=== PATIENT | male | born 1940 | race Caucasian/White ===

== ENCOUNTER → 2023-09-16 07:21 | Outpatient (REF) | payer MEDICARE, OTHER, SELFPAY ==
[2023-09-16 08:08] LABS: % Basophils 0.8 % (0-2); % Eosinophils 2.3 % (0-6); % Immature Granulocytes 0.3 % (0-0.5); % Lymphocytes 23.5 % (20.5-51.1); % Neutrophils 59.1 % (42.2-75.2); Absolute Basophils 0.1 10^3/uL (0-0.2); Absolute Eosinophils 0.2 10^3/uL (0-0.7); Absolute Lymphocytes 1.8 10^3/uL (1.2-3.4); Absolute Monocytes 1.1 10^3/uL (0.1-0.6); Absolute Neutrophils 4.6 10^3/uL (1.4-6.5); Hematocrit 42.6 % (39.0-52.0); Hemoglobin 13.5 g/dL (13.0-18.0); Mean Corp Hgb Conc. 31.7 g/dL (33.0-37.0); Mean Corpuscular Hgb 26.6 pg (27.0-31.0); Mean Platelet Volume 9.1 fL (7.4-10.4); Nucleated Red Blood Cells % 0 % (-); Platelet Count 255 10^3/uL (130-400); Red Blood Cell Count 5.07 10^6/uL (4.70-6.10); Red Cell Dist. Width 15.5 % (11.5-14.5); White Blood Cell Count 7.7 10^3/uL (4.8-10.8)
[2023-09-16 09:26] LABS: ALT (SGPT) < 10 U/L (0-50); AST (SGOT) 25 U/L (17-59); Albumin 4.3 g/dl (3.5-5.0); Alkaline Phosphatase 79 U/L (38-126); Blood Urea Nitrogen 20 mg/dl (9-20); Calcium 9.5 mg/dl (8.4-10.2); Carbon Dioxide 31 mmol/L (22-30); Chloride 98 mmol/L (98-107); Glucose 96 mg/dl (70-99); HDL Cholesterol 49 mg/dl; LDL Cholesterol, Calculated 65 mg/dl; Sodium 138 mmol/L (135-145); Total Bilirubin 0.6 mg/dl (0.2-1.3); Total Cholesterol 133 mg/dl (50-199); Total Protein 7.1 g/dl (6.3-8.2); Triglyceride 97 mg/dl (10-149); Very Low Density Lipoprotein 19 mg/dl (0-30); eGFR > 60.00
[2023-09-16 09:36] LABS: NT-proBNP 1430 pg/ml
== END ==
LOC: REG 07:21
PROVIDERS: ATTENDING PHYSICIAN Internal Medicine
DX: J43.1 Panlobular emphysema (principal); I50.30 Unspecified diastolic (congestive) heart failure; Z00.00 Encounter for general adult medical examination without abnormal findings; Z95.2 Presence of prosthetic heart valve
CPT/HCPCS: 36415; 80053; 80061; 83880; 85025

== ENCOUNTER 2023-11-09 17:13 | Inpatient (IN) | payer MEDICARE, OTHER, SELFPAY ==
[2023-11-09] VITALS (7 sets, daily range): BP systolic 133–179; BP diastolic 74–96; BMI 27.8; BMI 27.0
[2023-11-09 15:37] LABS: Hematocrit 43.7 % (39.0-52.0); Hemoglobin 14.5 g/dL (13.0-18.0); Mean Corp Hgb Conc. 33.2 g/dL (33.0-37.0); Mean Corpuscular Hgb 27.3 pg (27.0-31.0); Mean Corpuscular Volume 82.3 fL (80.0-94.0); Platelet Count 196 10^3/uL (130-400); Red Blood Cell Count 5.31 10^6/uL (4.70-6.10); Red Cell Dist. Width 15.2 % (11.5-14.5); White Blood Cell Count 5.9 10^3/uL (4.8-10.8)
--- NOTE | 2023-11-09 15:37 | ED.GENMED ---
History of Present Illness
General
Chief Complaint: Breathing Problem
Source: patient and family
Exam Limitations: none
Time Seen by Provider: 11/09/23 15:20
Nursing documentation reviewed up to this point in time: agreed with
Travel History
Have you had any contact with someone who has COVID-19?: No
Do you have any symptoms of coronavirus? Fever > 100 degrees, chills, cough, shortness of breath, sore throat, loss of taste or smell, muscle aches, or headache?: No
History of Present Illness
History of Present Illness:
Patient to ED with c/o SOB. Symptoms started yesterday but became worse today. Brought to ED via EMS for eval. Given Duo-neb by EMS. Reports feeling feverish last PM. Denies any CP/pressure, edema. Did not take his PM meds last night.
Past History
Past History
ED Past Medical History: Arrthythmia, CHF, COPD, HTN and Hypercholesterolemia
ED Past Surgical History: Cardiac (pacemaker, valve replacement)
Social History
Tobacco: Former smoker
Alcohol: None
Drug: None
Personal:
Living: with family
Employment: Retired
Review of Systems
Review of Systems
Allergies reviewed?: Yes
All Other Systems: ROS reviewed and negative except as documented in HPI and ROS
Constitutional: Reports no symptoms
EENT: Reports no symptoms
Respiratory: Reports trouble breathing
Cardiac: Reports no symptoms
ABD/GI: Reports no symptoms
: Reports no symptoms
Musculoskeletal: Reports no symptoms
Skin: Reports no symptoms
Neurological: Reports no symptoms
Psychiatric: Reports no symptoms
Phy Exam
General Physical Exam
General Presentation: moderate distress
General age: appears stated age
General Skin: warm and dry
General Habitus: normal
General Mental: alert
Cardiovascular Exam
Cardiovascular Exam: regular rate/rhythm
Pulmonary Exam
Pulmonary Exam: chest non tender and decreased breath sounds
Breath Sounds: Wheeze: right upper and right lower
Musculoskeletal Exam
Musculoskeletal Exam: full ROM and neuro vasc intact
Skin Exam
Skin Exam: normal color, warm/dry and no rash
Psychiatric Exam
Psychiatric Exam: normal mood/affect
Scores
Heart Failure Risk
Heart Failure Risk Score: Yes
History of Stroke or TIA: No
History of intubation for respiratory distress: No
Heart rate on ED arrival >/= 110: Yes
SaO2 <90% on arrival on room air: Yes
HR >/=110 during 3min walk test (or too ill to perform test): Yes
ECG has acute ischemic changes: No
Urea >/=12mmol/L (BUN 33.6mg/dL): No
Serum CO2>/=35mmol/L: No
Troponin I or T elevated to GA Level (0.4mg/dL): No
NT-proBNP >/=5,000ng/L (5,000pg/ml): Yes
HF Risk Score: 4
Admission Status: HIGH RISK 26.1% Consider SNF treatment or admission to hospital
Course
Orders/Labs/Results
Orders:
Orders
11/09/23 Dinner
Cholesterol Lowering
At Your Request: Limited Participation
Does patient need a safe tray?: No
Cholesterol Lowering: Sodium, 2 Gram
11/09/23 15:20
Electrocardiogram (*1) Urgent
Reason for Study: Shortness of Breath
EKG- Treatment ONCE
11/09/23 15:22
Complete Blood Count/With Diff Urgent
Comprehensive Metabolic Panel Urgent
Manual Differential Urgent
NT-proBNP Urgent
11/09/23 15:30
CR Chest - 2 Views Urgent
Comment:
Reason For Exam: SOB
11/09/23 15:36
Albuterol Sulfate [Ventolin Nebules] 7.5 mg INH R NOW STA
Dexamethasone Sod Phosphate [Decadron] 10 mg IV NOW STA
11/09/23 16:22
Furosemide [Lasix] 40 mg IV NOW STA
11/09/23 16:56
Prothrombin Time Urgent
11/09/23 16:59
Admit/Transfer Patient As Directed
Co-Sign Provider:
Level of Care: Inpatient admission
Assign to:: Telemetry
Physician / Group: sydney real
Diagnosis: acute on chronic copd exac, chronic hypoxic resp failure, hypoK
Reason for Telemetry: Arrhythmia
Date to Stop Telemetry: 11/12/23
Time to Stop Telemetry: 11:00
Reason for Hospitalization: acute on chronic copd exac, chronic hypoxic resp failure, hypoK
Expected length of stay greater than two midnights?: Yes
ELOS- Estimated Length of Stay in days: 4
I certify the patient meets the requirements for IP care: Yes
Code Status As Directed
Resuscitation Status: Do not resuscitate
Reached after discussion with pt or family/Healthcare POA: Yes
Based on pt advanced directive or healthcare POA form: Yes
Decision communicated with: per pt demarco son present at bedside
PULMONARY CONSULT Routine
Consulting Provider: Tashi Stoddard
Was physician already notified: Yes
Reason for consult: copd exac
DNR Bracelet Application ONCE
11/09/23 17:05
Potassium Chloride [KCl] 40 meq PO NOW STA
11/09/23 17:46
Acetaminophen [Tylenol] 650 mg PO Q4HPRN PRN
Albuterol Nebs [Ventolin Nebules] 2.5 mg INH R Q4HPRN PRN
11/09/23 17:46
VTE Contraindication Routine
VTE Mechanical Device Contraindication: Medical Contraindication
Pharmocologic Contraindication: Medical Contraindication
Comment: pt on coumadin
Activity As Directed
Activity Level: As Tolerated
Intake/ Output As Directed
Frequency: Per unit guidelines
Vital Signs As Directed
Frequency: Per unit guidelines
Weight As Directed
Frequency: Daily
O2 Therapy [RESP] Routine
Nasal Cannula Liter Flow: 3 LPM
Titrate/Wean O2 to maintain O2 sat greater than (%): 90
Special Instructions: chronic 3 ltiers nc dependent
Pulse Ox/spot Check [RESP] Routine
Quantity: 1
Ot Eval And Treat Routine
Pt Eval And Treat Routine
Activity Level: As Tolerated
11/09/23 18:00
Atorvastatin [Lipitor] 20 mg PO QPM
Flush (0.9% Sodium Chloride) [Flush (Nss)] See Dose Instructions IV PER PROTOCOL
11/09/23 20:00
Albuterol Nebs [Ventolin Nebules] 2.5 mg INH R QID
Fluticasone/Salmeterol 230/21 [Advair Hfa 230/21 Mcg Inhaler] 2 puff INH R BID
11/10/23 00:00
Dexamethasone Sod Phosphate [Decadron] 4 mg IV Q8H
11/10/23 06:00
Basic Metabolic Panel IN AM
Complete Blood Count/With Diff IN AM
PT/INR [Prothrombin Time] IN AM
11/10/23 08:00
Azithromycin [Zithromax] 250 mg PO DAILY
Furosemide [Lasix] 40 mg PO DAILY
Nebivolol HCl [Bystolic] 5 mg PO DAILY
11/11/23 06:00
Basic Metabolic Panel IN AM
Complete Blood Count/With Diff IN AM
PT/INR [Prothrombin Time] IN AM
11/12/23 06:00
Basic Metabolic Panel IN AM
Complete Blood Count/With Diff IN AM
PT/INR [Prothrombin Time] IN AM
11/12/23 11:00
DC Protocol for Telemetry ONCE
Abnormal Lab Results
11/09/23 11/09/23
15:22 16:56
RDW 15.2 H %
(11.5-14.5)
Lymphocytes (Manual) 15 L %
(20-51)
Monocytes (Manual) 25 H %
(2-9)
PT 32.5 H Sec
(11.4-14.6)
Potassium 3.4 L mmol/L
(3.5-5.1)
BUN 22 H mg/dl
(9-20)
Glucose 117 H mg/dl
(70-99)
Calcium 8.2 L mg/dl
(8.4-10.2)
11/09/23 15:22
11/09/23 15:22
Vital Signs
Initial and Last Documented VS:
Initial Vital Signs
Temp Pulse Resp BP Pulse Ox
98.1 F 104 36 173/96 95
11/09/23 15:11 11/09/23 15:11 11/09/23 15:11 11/09/23 15:11 11/09/23 15:11
Last Documented Vital Signs
Temp Pulse Resp BP Pulse Ox
97.9 F 95 18 154/74 97
11/09/23 19:08 11/09/23 19:29 11/09/23 19:29 11/09/23 19:08 11/09/23 19:29
*Radiology
Radiology exam reviewed: radiology read reviewed
*Pulse Oximetry
Patient hypoxic: yes
*Critical Care Note
Total Time (30-74mins, 75-104mins- exclusive of procedures): Not Applicable
ED Attending Note
-
Portions of this chart may have been created with voice recognition software.� Occasional wrong word or��sound alike� substitutions may have occurred due to the inherent limitations of voice recognition software.
Discharge Plan
Departure
Patient Disposition: Admit
Date of Disposition: 11/09/23
Time of Disposition: 16:26
Presentation/result/management discussed w/ accepting MD/DO: Hospitalist
Patient with high blood pressure during this ER visit?: Yes
Condition: Fair
Covid-19: Not Applicable
Discharge Problem:
CHF (congestive heart failure), Chronic obstructive pulmonary disease with (acute) exacerbation
Interventions
Interventions:
*Risk Screen - Suicide Last Done: 11/09/23 15:11
*General Assessment Last Done: 11/09/23 15:11
*Neglect/Abuse Screening Last Done: 11/09/23 15:11
ED- Fall Risk Assessment Last Done: 11/09/23 17:50
*ED COVID-19 Vaccine History Last Done: 11/09/23 19:02
*Nursing Disposition Last Done: 11/09/23 17:50
ED- Cardiac Assessment Last Done: 11/09/23 15:34
ED- Pulmonary Assessment Last Done: 11/09/23 15:34
Discharge Date and Time
Discharge Date/Time: 11/09/23 17:52
[2023-11-09] MEDS: DECADRON 10 MG IV (15:43)
[2023-11-09] MEDS: VENTOLIN NEBULES 7.5 MG INH (15:44)
[2023-11-09 15:58] LABS: NT-proBNP 7460 pg/ml
[2023-11-09 16:06] LABS: ALT (SGPT) < 10 U/L (0-50); AST (SGOT) 31 U/L (17-59); Albumin 3.6 g/dl (3.5-5.0); Alkaline Phosphatase 71 U/L (38-126); Blood Urea Nitrogen 22 mg/dl (9-20); Calcium 8.2 mg/dl (8.4-10.2); Carbon Dioxide 30 mmol/L (22-30); Chloride 100 mmol/L (98-107); Estimated Creatinine Clearance 80 ml/min; Glucose 117 mg/dl (70-99); Potassium 3.4 mmol/L (3.5-5.1); Sodium 138 mmol/L (135-145); Total Bilirubin 0.6 mg/dl (0.2-1.3); Total Protein 6.4 g/dl (6.3-8.2); eGFR > 60.00
[2023-11-09 16:14] LABS: Absolute Neutrophils -Man Diff 3.3 10^3/uL (1.4-6.5); Band Neutrophils 0 % (0-3); Eosinophils 2 % (0-6); Lymphocytes 15 % (20-51); Monocytes 25 % (2-9); Myelocytes 1 % (-); Normal RBC Morphology Yes; Platelets Checked Yes; Segmented Neutrophils 57 % (42-75); Total Cells Counted 100
[2023-11-09] MEDS: LASIX 40 MG IV (16:36)
--- NOTE | 2023-11-09 16:36 | HPS.HSE ---
Family Physician
<STEVE Stoddard - Last Filed: 11/09/23 17:04>
-
Family Physician: Armond Maguire
Chief Complaint
<STEVE Stoddard - Last Filed: 11/09/23 17:04>
-
Shortness of breath
History of Present Illness
83-year-old male complaining of shortness of breath that started yesterday but became worse this a.m. he also complains of a productive cough bo in color and wheezing over the past several days. He forgot to take his evening medications yesterday
including his warfarin 9 mg. His son reports he is on chronic 3 L nasal cannula although he increase it to 4 L over the past few weeks but did not notify his docking pilot Dr. Archuleta. He was given DuoNeb en route by EMS. He is unsure of his
baseline weight. He denies any headache, sore throat, chest pain, palpitations, abdominal pain, nausea, vomiting, diarrhea.
He has past medical history of COPD chronic hypoxic respiratory failure on chronic 3 L nasal cannula, ex-smoker, chronic CHF preserved EF, paroxysmal A-fib, mechanical AVR on Coumadin, LBBB, permanent pacemaker [employer], LISANDRO
Medical History
<STEVE Stoddard - Last Filed: 11/09/23 17:04>
Past Medical History
Past Medical History: Reports Other
Additional Past Medical History:
COPD
Chronic Hypoxemic Respiratory Failure on Home O2
Chronic HFpEF
Hypertension
Aortic Stenosis
Paroxysmal Atrial Fibrillation
Known LBBB
Past Surgical History: Reports Other
Additional Past Surgical History:
Left Rotator Cuff Surgery
Bilateral Herniorrhaphy
Mechanical Aortic Valve Replacement
PPM
Social History
Tobacco: Former Smoker (Quit in 1999. 30+ pack years total use.)
Alcohol: None
Drug: None
Personal: Single
Living: With Family
Employment: Retired
Family History
Family History: Other (Mother: CAD)
Allergies / Home Medications
Allergies reflects when Allergies were last updated in [employer].
Home Medications with original date entered in [employer]
Allergy/Medication List:
Allergies
Allergy/AdvReac Type Severity Reaction Status Date / Time
codeine Allergy Irritabilit Verified 11/09/23 15:11
y
Home Medications
budesonide 160 mcg-glycopyr 9 mcg-formot 4.8 mcg/actuation HFA inhaler ([employer]) 2 inh inhalation R BID Lung/breathing issues 08/08/22
nebivolol 5 mg tablet (Bystolic) 5 mg PO DAILY Heart disease/condition 08/08/22
simvastatin 40 mg tablet 40 mg PO QPM High cholesterol 08/08/22
furosemide 40 mg tablet 40 mg PO DAILY #30 tabs 11/16/22
Dayquil 1 dose PO DAILYPRN PRN cough 11/09/23
acetaminophen 325 mg tablet (Tylenol) 650 mg PO DAILYPRN PRN mild pain 11/09/23
albuterol sulfate 2.5 mg/3 mL (0.083 %) solution for nebulization 2.5 mg inhalation R Q6HPRN PRN sob 11/09/23
azithromycin 250 mg tablet 250 mg PO DAILY 11/09/23
iaxhdvcst-TYS-LV-acetaminophen 7.5 mg-60 [id number]/30mL oral liqd 30 ml PO HSPRN PRN cough/sleep 11/09/23
warfarin 4 mg tablet 4 mg PO QPM 11/09/23
warfarin 5 mg tablet 5 mg PO QPM 11/09/23
Review of Systems
Rafaelalt;STEVE Stoddard - Last Filed: 11/09/23 17:04>
-
History Source: Patient and Family (Son at bedside)
A 12 point ROS was completed and negative except as noted: Yes
Constitutional: Denies Fever or Chills
EENT: Denies Sore Throat or Runny Nose
Respiratory: Reports Cough (Productive green color) and Trouble Breathing (Wheezing, tachypnea)
Cardiac: Denies Chest Pain, Diaphoresis, Palpitations or Syncope
Abdomen/GI: Denies Abdominal Pain, Nausea, Vomiting, Diarrhea, Constipated, Bloody Stools or Black Stools
: Denies Dysuria, Frequency, Flank Pain, Incontinence or Difficulty Voiding
Musculoskeletal: Denies Joint Pain or Edema
Skin: Denies Itching or Rash
Neurological: Denies Dizzy or Headache
Endocrine: Reports No Symptoms
Hematologic/Lymphatic: Reports No Symptoms
Psych: Reports Calm
Physical Exam
<STEVE Stoddard - Last Filed: 11/09/23 17:04>
Vital Signs
Vital Signs
Temp Pulse Resp BP Pulse Ox
98.1 F 102 34 154/76 91
11/09/23 15:11 11/09/23 16:00 11/09/23 16:00 11/09/23 16:36 11/09/23 16:00
Physical Exam
General: Comfortable and Conversant; No Pain or Fever
HEENT: NormoCephalic, Anicteric, PERRLA, [place] Conjunctivae, No Ptosis and Oxygen (3 to 4 L nasal cannula)
Respiratory: Wheezes (Expiratory); No Rales
Cardiac: S1/S2 and Regular Rhythm; No Murmur, Rub, Gallop or Peripheral Edema
GI: Soft, Non Tender, Non Distended, Normal Bowel Sounds and No Hepatosplenomegaly
Rectal: Deferred by Provider
Genito-urinary: Deferred by me
Musculoskeletal: No Clubbing, No Cyanosis and No Edema
Laboratory Results
<STEVE Stoddard - Last Filed: 11/09/23 17:04>
-
11/09/23 15:22
11/09/23 15:22
Laboratory Results
Total Bilirubin 0.6 mg/dl (0.2-1.3) 11/09/23 15:22
AST 31 U/L (17-59) 11/09/23 15:22
ALT < 10 U/L (0-50) 11/09/23 15:22
Alkaline Phosphatase 71 U/L (38-126) 11/09/23 15:22
Impression/Plan
<STEVE Stoddard - Last Filed: 11/09/23 17:04>
-
Impression/plan:
Admit to telemetry
# Acute on Chronic COPD exacerbation//chronic 3 L nasal cannula dependent
#Acute on chronic hypoxic respiratory failure
91% 3 L NC, patient dropped to 83% with ambulation
-Chronic Zithromax 250 mg daily
-DuoNebs scheduled and as needed
-IV Decadron 4 mg every 68hours
-Consult pulmonary
-Will start Advair in place of pt's Bretri
#Chronic CHF with preserved EF
BNP 7460, weight 83 KG
I/O, daily weight
cont 40 mg Lasix daily
-Continue Bystolic 5 mg daily
-Repeat 2D echo
2D echo 12/17/2022: EF 56%, no wall abnormalities, mild/moderate LVH, mild MR, status post mechanical AVR prosthesis peak mean gradient 69/38 mmHg, mild TR, pulm arterial pressure 42 mmHg
CXR: COPD, no superimposed acute abnormalities
#Hypokalemia 2/2 diuretics
K3.4
Will give 40 KCl p.o.
#Paroxysmal A-fib
-Continue Bystolic, Coumadin
Check INR
#Mechanical AVR
-Follow INR
-Continue Coumadin
#Hx LBBB
#Permanent pacemaker [employer]
#HLD
-Continue simvastatin 40 mg at bedtime
DVT prophylaxis
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
DNR per patient with son present at bedside
<Chai Alcaraz, - Last Filed: 11/09/23 18:10>
-
Impression/plan:
Admit to telemetry
# Acute on Chronic COPD exacerbation//chronic 3 L nasal cannula dependent
#Acute on chronic hypoxic respiratory failure
91% 3 L NC, patient dropped to 83% with ambulation
-Chronic Zithromax 250 mg daily
-DuoNebs scheduled and as needed
-IV Decadron 4 mg every 68hours
-Consult pulmonary
-Will start Advair in place of pt's Bretri
#Chronic CHF with preserved EF
BNP 7460, weight 83 KG
I/O, daily weight
cont 40 mg Lasix daily
-Continue Bystolic 5 mg daily
-Repeat 2D echo
2D echo 12/17/2022: EF 56%, no wall abnormalities, mild/moderate LVH, mild MR, status post mechanical AVR prosthesis peak mean gradient 69/38 mmHg, mild TR, pulm arterial pressure 42 mmHg
CXR: COPD, no superimposed acute abnormalities
#Hypokalemia 2/2 diuretics
K3.4
Will give 40 KCl p.o.
#Paroxysmal A-fib
-Continue Bystolic, Coumadin
Check INR
#Mechanical AVR
-Follow INR
-Continue Coumadin
#Hx LBBB
#Permanent pacemaker [employer]
#HLD
-Continue simvastatin 40 mg at bedtime
DVT prophylaxis
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
DNR per patient with son present at bedside
Attending Note:
Patient seen/examined, and discussed with LUIS Dickerson, and I agree with her note.
Gen-AAOx3, resp distress with NRM on
HEENT-NC, AT, anicteric, clear MM
Neck-supple
CV-reg, tachy, no M
Lungs-diminshed BS B/L, end-exp wheezing
Abd-soft, NT, ND
Ext-no edema
Neuro- grossly nonfocal
Acute on Chronic hypoxic resp failure - due to acute COPD exacerbation. CXR reviewed by myself, I see no evidence of pneumonia or CHF.
Baseline uses 3L oxygen at home, but now requiring 4L prior to admission. Currently on NRM, transition back to ID as able.
Admit to tele.
Acute COPD exacerbation - start systemic steroids, continue Duonebs scheduled and PRN, Advair in place of Breztri (non-formulary). On chronic azithromycin therapy.
Hypokalemia - will replete. Check Mg.
Chronic HF preserved EF - stable. Resume oral Lasix. Doubt acute exacerbation.
Parox AFib - on warfarin.
Mech AVR - on warfarin. He has a home INR monitor, checks it a1atlis. INR 3.1 today (goal INR 2.5-3.5).
DNR
Updated family at bedside.
[2023-11-09] MEDS: KCL 40 MEQ PO (17:16)
[2023-11-09 17:23] LABS: INR 3.18; PT 32.5 Sec (11.4-14.6)
[2023-11-09] MEDS: LIPITOR 20 MG PO (18:14)
[2023-11-09] MEDS: VENTOLIN NEBULES 2.5 MG INH (19:23)
[2023-11-09] MEDS: ADVAIR HFA 230/21 MCG INHALER 2 PUFF INH (19:24)
[2023-11-09] MEDS: COUMADIN 9 MG PO (20:16)
[2023-11-09 22:26] LABS: HCO3 35.7 mmol/L (21-28); PCO2 55 mmHg (35-48); PO2 219 mmHg (83-108); pH 7.42 (7.35-7.45)
[2023-11-09] MEDS: MORPHINE SULFATE 1 MG IV (22:47)
[2023-11-09] MEDS: DECADRON 4 MG IV (23:03)
--- NOTE | 2023-11-09 23:20 | RESPNOTE ---
called to bedside, pt saturation 89% on 6 lpm NC. Pt appears to be a mouth breather, placed on venti mask 50%, so when he falls back asleep, he will maintain his Spo2. He agrees to wear mask for night time, RN at [facility]
--- NOTE | 2023-11-09 23:22 | PTCARENOTE ---
Pt with dyspnea at rest, dyspnea on exertion, orthopnea even he was on high flow non-rebreather mask. Pt SpO2=95-96%. CORRECTIONAL COUNSELOR/CASE MANAGER ([place]) made aware of pt's condition, and came to see the pt. Order of blood Gas to be drawn. Pt's BG shows pCO2=55, bO5=999.
Sadiq Webster ordered pt to be on 5L O2. Order of morphine 1mg PRN also given. Pt placed on 5L O2 NC and given morphine 1mg. Pt SpO2 drops to 87% when trying to sleep. Resp contacted, they placed the pt on Ventimask. Pt SpO2=92-93% and the pt states that
his breathing feels ' a little bit better'. IV Decadron given as per order. Pt is currently resting in his bed. Will continue to monitor the pt.
[2023-11-10] VITALS (14 sets, daily range): BP systolic 129–170; BP diastolic 62–89; PULSE 2–85; BMI 26.8
[2023-11-10] MEDS: VENTOLIN NEBULES 2.5 MG INH ×5 (03:25→19:52)
[2023-11-10] MEDS: LASIX 40 MG IV (03:46)
--- NOTE | 2023-11-10 04:17 | PTCARENOTE ---
Pt woke up from sleep, took ventimask off. Pt with SOB and difficulty breathing. Breathing treatment given by Resp therapist. STEVE (Sadiq Webster) made aware of the pt's condition, ordered Lasix 40mg X1 and Bipap. Pt's SpO2=94% on Bipap. Condom catheter
placed for now until pt's breathing improves. Pt states that his breathing is better now. Will continue to monitor the pt.
[2023-11-10 05:37] LABS: % Basophils 0.2 % (0-2); % Immature Granulocytes 0.4 % (0-0.5); % Lymphocytes 15.6 % (20.5-51.1); % Monocytes 3.7 % (1.7-9.3); % Neutrophils 80.1 % (42.2-75.2); Absolute Lymphocytes 0.7 10^3/uL (1.2-3.4); Absolute Monocytes 0.2 10^3/uL (0.1-0.6); Absolute Neutrophils 3.7 10^3/uL (1.4-6.5); Hematocrit 46.2 % (39.0-52.0); Hemoglobin 14.8 g/dL (13.0-18.0); Mean Corpuscular Hgb 26.8 pg (27.0-31.0); Mean Corpuscular Volume 83.7 fL (80.0-94.0); Mean Platelet Volume 9.6 fL (7.4-10.4); Nucleated Red Blood Cells % 0 % (-); Platelet Count 199 10^3/uL (130-400); Red Blood Cell Count 5.52 10^6/uL (4.70-6.10); White Blood Cell Count 4.6 10^3/uL (4.8-10.8)
[2023-11-10 05:55] LABS: INR 2.32; PT 25.4 Sec (11.4-14.6)
--- NOTE | 2023-11-10 06:05 | W.PN.UPDATE ---
Update Note
Progress Note Update
Patient noted overnight with increased work of breathing along with dyspnea on exertion. ABG obtained on 15L NRB mask. He was compensated but pO2 200's and CO2 50s. Weaned down to 6 L but he desaturates while sleeping. Bipap applied. Lasix 40mg IV
also given.
[2023-11-10 06:09] LABS: Blood Urea Nitrogen 27 mg/dl (9-20); Calcium 9.2 mg/dl (8.4-10.2); Carbon Dioxide 33 mmol/L (22-30); Chloride 97 mmol/L (98-107); Estimated Creatinine Clearance 70 ml/min; Glucose 146 mg/dl (70-99); Potassium 4.3 mmol/L (3.5-5.1); Sodium 139 mmol/L (135-145); eGFR > 60.00
--- NOTE | 2023-11-10 06:34 | PTCARENOTE ---
Bladder scan the pt for 468cc, straight cath for 500cc of yellow clear urine. Pt tolerating well.
[2023-11-10 07:40] LABS: Glucose - Point of Care 152 mg/dl (70-99)
[2023-11-10] MEDS: ADVAIR HFA 230/21 MCG INHALER 2 PUFF INH ×2 (07:46→19:52)
--- NOTE | 2023-11-10 08:06 | W.PN.HOSP.TC ---
Today's Communication/Plan
-
Transfer to IMU
Assessment / Plan
Assessment / Plan
Gen-AAOx3, NAD
HEENT-NC, AT, anicteric, clear oral mm
Neck-supple
CV-reg, no M, +S1/S2
Lungs-bilateral wheezing, rhonchi
Abd-soft, NT, ND
Ext-no edema
Musculoskeletal-no cyanosis, clubbing
Skin-warm and dry
Neuro-grossly non-focal
Psych-calm, cooperative
Acute on Chronic hypoxic resp failure - due to acute COPD exacerbation. CXR reviewed by myself, I see no evidence of pneumonia or CHF.
Baseline uses 3L oxygen at home, but now requiring 4L prior to admission. Currently on BiPAP. Apparently was hypoxic on high flow last night.
This morning rapid response was called and according to nursing the oxygen tubing was accidentally disconnected from the BiPAP mask. Patient improved when oxygen reconnected.
Acute COPD exacerbation - start systemic steroids, continue Duonebs scheduled and PRN, Advair in place of Breztri (non-formulary). On chronic azithromycin therapy.
Hypokalemia -resolved.
Chronic HF preserved EF - stable. Resume oral Lasix. Doubt acute exacerbation.
Parox AFib - on warfarin. Monitor INR.
[facility] AVR - on warfarin. He has a home INR monitor, checks it [id number]. INR 2.3 today, monitor closely. Goal INR 2.5-3.5. May need heparin bridging if it worsens.
DNR
Updated son on the phone.
Anticipated Discharge: > 48 hours
Subjective/Interval History
-
Date of Service: November 10, 2023
Patient seen and examined. Rapid response called this morning for acute hypoxia, worsening shortness of breath.
On my assessment he states his shortness of breath is unchanged compared to yesterday.
Objective Data
-
Labs:
Laboratory Results
11/09/23 11/10/23
22:15 04:26
WBC 4.6 L
Hgb 14.8
Hct 46.2
Plt Count 199
PT 25.4 H
INR 2.32
HCO3 35.7 H
Sodium 139
Potassium 4.3 D
Chloride 97 L
Carbon Dioxide 33 H
BUN 27 H
Creatinine 0.8
Glucose 146 H
Calcium 9.2
Vital Signs:
Vital Signs
Temp Pulse Resp BP Pulse Ox
97.8 F 81 23 167/89 93
11/10/23 07:05 11/10/23 07:51 11/10/23 07:51 11/10/23 07:05 11/10/23 07:51
I&O
11/09/23 11/10/23 11/11/23
06:59 06:59 06:59
Intake Total 600 / 600
Output Total 1850 / 1850
Balance -1250 / -1250
Review of Systems
-
History Source: Patient
All other systems: Reviewed and negative
[2023-11-10 08:18] LABS: % Basophils 0.2 % (0-2); % Immature Granulocytes 0.2 % (0-0.5); % Lymphocytes 19.6 % (20.5-51.1); Absolute Monocytes 0.5 10^3/uL (0.1-0.6); Absolute Neutrophils 3.6 10^3/uL (1.4-6.5); Hematocrit 47.5 % (39.0-52.0); Hemoglobin 15.5 g/dL (13.0-18.0); Mean Corp Hgb Conc. 32.6 g/dL (33.0-37.0); Mean Corpuscular Hgb 26.6 pg (27.0-31.0); Mean Corpuscular Volume 81.6 fL (80.0-94.0); Mean Platelet Volume 9.4 fL (7.4-10.4); Nucleated Red Blood Cells % 0 % (-); Platelet Count 221 10^3/uL (130-400); Red Blood Cell Count 5.82 10^6/uL (4.70-6.10); Red Cell Dist. Width 15.3 % (11.5-14.5); White Blood Cell Count 5.1 10^3/uL (4.8-10.8)
[2023-11-10 08:27] LABS: INR 2.38; PT 25.9 Sec (11.4-14.6)
[2023-11-10 08:28] LABS: APTT 39.7 Sec (23.4-35.0)
[2023-11-10 08:31] LABS: Blood Urea Nitrogen 30 mg/dl (9-20); Calcium 9.5 mg/dl (8.4-10.2); Carbon Dioxide 32 mmol/L (22-30); Chloride 96 mmol/L (98-107); Estimated Creatinine Clearance 70 ml/min; Glucose 143 mg/dl (70-99); Potassium 4.4 mmol/L (3.5-5.1); Sodium 139 mmol/L (135-145); eGFR > 60.00
[2023-11-10 08:43] LABS: Troponin I 0.025 ng/ml
--- NOTE | 2023-11-10 08:45 | PTCARENOTE ---
Assumed care of pt at 0820 following rapid response w/upgrade level of care to IMU- to ICU Rm [id number] as IMU overflow. Pt awake and w/o acute distress noted. No complaints. Skin w/d. Bipap in use 9/5 w/ 10L w/ Pox 99%. Resp Therapy in room and placed
pt on O2 at 4l/min w/ POx 92-94%. No running IV's. Physical assessment as documented. Pt provided w/ breakfast tray. Call bansal w/in pt reach. Safe environment maintained.
[2023-11-10] MEDS: DECADRON 4 MG IV (09:38)
[2023-11-10] MEDS: ZITHROMAX 250 MG PO (09:38)
[2023-11-10] MEDS: BYSTOLIC 5 MG PO (09:38)
[2023-11-10] MEDS: LASIX 40 MG PO (09:44)
--- NOTE | 2023-11-10 09:51 | RR ---
0735 Pt found to be hypoxic with a O2 sat at 82 % on bi pap. Pt diaphoretic. NSR on Telemetry. Rapid Response called. Please see documentation.
--- NOTE | 2023-11-10 09:56 | PTCARENOTE ---
0820 Pt was transferred to critical care after Rapid Response called. Report called to ICU nurse.
--- NOTE | 2023-11-10 10:24 | CM ---
CM following re: discharge planning.
Reviewed pt's chart, met with pt and pt's son Anupam at bedside.
Pt is an 83 year old male, admitted with primary dx of Acute on Chronic hypoxic respiratory failure - due to acute COPD exacerbation. Pt currently on 15 L Ventimask, uses Bi-pap. At baseline pt requires 4L NC of O2.
[facility], has supportive son Anupam, daughter . Emotional support offered and provided. Pt reports he uses a walker, has a scooter and he use it for a long
distance. pt stated he has home O2 and requires 3-4 L NC of O2. Pt reports he is known to [facility].
PT and OT will evaluate the pt to determine a level of care at discharge.
AMARI received a phone call from [facility] aide Landon [phone] and he stated that p[t is known to [facility] and [facility] . CM spoke to the pt again and he stated he had [facility] and his son, who left already will decide.
D/C plan: most likely home with [facility] ot [facility] with [facility]. CM will confirm with pt's son Anupam.
CM will follow with discharge plan updates as hospitalization progresses
[2023-11-10] MEDS: TYLENOL 650 MG PO (10:43)
--- NOTE | 2023-11-10 11:06 | CON.PUL ---
Consultation
Consultation Request
Date/Time Consultation Requested: 11/10/2023
Date/Time Consultation Performed: 11/10/2023
Requesting Provider: Dr. Alcaraz
Performing Provider: Dr. Ayo De Santiago
Reason for Consultation: Acute exacerbation of COPD
Medical History
-
History of Present Illness:
83-year-old man with past medical history significant for COPD, heart failure with preserved ejection fraction came to the hospital complaining of shortness of breath from the day before admission. Symptoms progressed significantly the morning of
admission complaining of cough with productive bo sputum, wheezing over the past several days. Patient has chronic hypoxemic respiratory failure requiring 3 L nasal cannula. Here requirements increased to 4 L.
Patient denies any fevers, sore throat, nausea vomiting, diarrhea or abdominal pain.
Patient is chronically on Coumadin-did not take the Coumadin before admission.
Past Medical History
Past Medical History: Other (See assessment and plan section)
Social History
Tobacco: Former Smoker (Quit in 018-16intg-teav history)
Alcohol: None
Drug: None
Living: With Family
Employment: Retired
Family History
Family History: Reviewed & Not Pertinent
Allergies / Home Medications
Allergies
Allergy/AdvReac Type Severity Reaction Status Date / Time
codeine Allergy Irritabilit Verified 11/09/23 15:11
y
Home Medications
�Medication �Instructions �Recorded �Confirmed �Last Taken �Type
budesonide 160 mcg-glycopyr 9 2 inh inhalation R BID 08/08/22 11/09/23 11/09/23 History
mcg-formot 4.8 mcg/actuation HFA Lung/breathing issues
inhaler (Breztri Aerosphere)
nebivolol 5 mg tablet (Bystolic) 5 mg PO DAILY Heart 08/08/22 11/09/23 11/09/23 History
disease/condition
simvastatin 40 mg tablet 40 mg PO QPM High cholesterol 08/08/22 11/09/23 11/07/23 History
furosemide 40 mg tablet 40 mg PO DAILY #30 tabs 11/16/22 11/09/23 11/09/23 Rx
Dayquil 1 dose PO DAILYPRN PRN cough 11/09/23 11/09/23 11/09/23 History
acetaminophen 325 mg tablet 650 mg PO DAILYPRN PRN mild pain 11/09/23 11/09/23 11/08/23 History
(Tylenol)
albuterol sulfate 2.5 mg/3 mL 2.5 mg inhalation R Q6HPRN PRN sob 11/09/23 11/09/23 11/09/23 History
(0.083 %) solution for nebulization
azithromycin 250 mg tablet 250 mg PO DAILY Infection 11/09/23 11/09/23 11/09/23 History
[id number]-AQD-OL-acetaminophen 7.5 30 ml PO HSPRN PRN cough/sleep 11/09/23 11/09/23 11/08/23 History
mg-60 [id number]/30mL oral liqd
warfarin 4 mg tablet 4 mg PO QPM Blood Clot 11/09/23 11/09/23 11/07/23 History
Prevention/Tx
warfarin 5 mg tablet 5 mg PO QPM Blood Clot 11/09/23 11/09/23 11/07/23 History
Prevention/Tx
Review of Systems
-
History Source: Patient
All other systems: Negative unless noted
Vitals / Labs / Diagnostic Testing
Vital Signs
Temp Pulse Resp BP Pulse Ox
97.8 F 88 23 165/80 93
11/10/23 07:05 11/10/23 09:44 11/10/23 07:51 11/10/23 09:44 11/10/23 07:51
Lab Data
11/10/23 07:45
11/10/23 07:45
Laboratory Results
11/09/23 11/09/23 11/10/23
16:56 22:15 04:26
PT 32.5 H 25.4 H
INR 3.18 2.32
APTT
pH 7.42
pCO2 55 H
pO2 219 H
HCO3 35.7 H
O2 Delivery Level
11/10/23
07:45
PT 25.9 H
INR 2.38
APTT 39.7 H
pH
pCO2
pO2
HCO3
O2 Delivery Level
Diagnostic Testing:
Physical Exam
-
HEENT: Normocephalic
Cardiovascular: S1/S2
Respiratory: Wheeze (Bilateral, expiratory)
GI: Soft and Non Distended
Neurology: Awake, Alert, AO x 3 and No Motor Deficits
Skin: Warm
General: Respiratory Distress (None at rest)
Assessment
-
83-year-old man with history of COPD, heart failure with preserved ejection fraction, paroxysmal atrial fibrillation on anticoagulation, admitted with worsening shortness of breath. He was found to be bronchospastic. Overnight developed increased
work of breathing, placed on BiPAP. Transferred to the intermediate care unit for closer monitoring.
Acute respiratory insufficiency-requiring up to 4 L supplemental oxygen (Baseline 3 L)
Chest x-ray: Reviewed, without infiltrates or pulmonary vascular congestion. Hyperinflation
Transferred to the intermediate care unit 11/10/2023 on BiPAP for increased work of breathing
Chronic heart failure with preserved ejection fraction-does not appear volume overloaded on exam.
Conditions present prior to admission:
Recent hospitalization 08/16/2022-acute on top of chronic COPD exacerbation and chronic diastolic CHF exacerbation, [place], gastrointestinal bleeding, hemoptysis and coagulopathy on Coumadin
COPD.
Decreased diffusing capacity.
Chronic CHF preserved EF.
Aortic stenosis/AVR.
PPM.
Pulmonary hypertension.
Chronic anemia.
Paroxysmal atrial fibrillation
Hyperlipidemia.
Hypertension.
Rotator cuff surgery. Aortic valve replacement. Bilateral herniography.
DNR status
Assessment and plan:
Patient is clinically improved since overnight.
No need for further BiPAP therapy at this point due to improvement in work of breathing.
No evidence for infection
No evidence for heart failure decompensation at this point.
-
I agree with COPD management
Dexamethasone IV-reduced dosing today. Bronchospasm improved.
Albuterol 4 times a day for now, seems to be responding
Continue inhalers for now-only on Advair while in the hospital.( Usually on BREZTRI)
Continue low-dose azithromycin for anti-inflammatory properties which he takes at home.
-
Continue oxygen supplementation it is close to baseline. Currently on 4 L and usually use 3 L per
Discontinue BiPAP
-
History of heart failure:
Continue outpatient diuretic dose orally
Troponins are negative.
proBNP is elevated. Continue to follow clinically.
Clinically and radiographically does not appear volume overloaded
Continue with cardiac medications.
Hypertensive, likely due to steroids. Will add hydralazine for systolic blood pressure greater than 180.
Monitor blood sugar, particularly on IV steroids.
Insulin supplementation as needed
DVT prophylaxis-on warfarin
Increase activity as able.
Physical therapy/Occupational Therapy
Home oxygen assessment tomorrow morning
Okay to transfer to telemetry or [facility]. Pulmonary will continue to follow.
Follow-up with Dr. Archuleta after discharge.

Diagnostic data:
Chest x-ray 11/09/2023: Reviewed. No infiltrates., Hyperinflation
Chest x-ray/-tiny blunting of the left costophrenic angle lungs otherwise clear
Chest x-ray 11/13/2022-mild interstitial airspace disease left lung base, COPD
Echocardiogram 08/18/2022-EF 50-55%, abnormal diastolic dysfunction, trace mitral regurgitation, mechanical prosthetic aortic valve
VBG 08/16/2022-PCO2 68/37/7 0.31
PFT 11/10/2022-FEV1 1.29-54%, FVC 2.87-85%, TLC 86%, DLCO 16%
--- NOTE | 2023-11-10 11:14 | PTCARENOTE ---
Pt continues to rest quietly in bed. Son visiting at bedside. No complaints received or changes noted from previous assessment findings. O2 remains at 4l/min via NC. Pox 93%
--- NOTE | 2023-11-10 14:07 | PTCARENOTE ---
Pt assisted OOB to chair. Gait steady. Supervision provided and pt instructed to notify staff and wait for assistance prior to ambulation/transfer. Pt verbalized understanding. Call bansal w/in pt reach. Pt remains on O2 at 4l/min via NC w/ POx
92-94%. GREER noted. No distress at rest. No new complaints. No changes from previous assessment findings.
--- NOTE | 2023-11-10 14:32 | W.PN.UPDATE ---
Update Note
Progress Note Update
Continues to clinically improve.
[facility] will continue to follow
--- NOTE | 2023-11-10 15:30 | PTCARENOTE ---
Pt downgraded to M/S level of care. Transfer report called to 'Zita' ANITHA. Pt to transfer via WC w/ personal belongings to Rm [id number]. Pt notifying son of transfer plans. No changes noted from previous assessment findings.
[2023-11-10] MEDS: DECADRON 2 MG IV ×2 (15:36→23:44)
[2023-11-10] MEDS: COUMADIN 5 MG PO (17:36)
[2023-11-10] MEDS: COUMADIN 4 MG PO (17:37)
[2023-11-10] MEDS: LIPITOR 20 MG PO (17:39)
--- NOTE | 2023-11-10 18:00 | PTCARENOTE ---
Received patient from ICU this afternoon. Pt oriented to room. O2 at 4 L via nasal cannula. Humidified place on 02 secondary to patient complaining of dry nasal passages. Pt made comfortable. Cont to assess patient status.
[2023-11-11 05:37] LABS: % Basophils 0.1 % (0-2); % Immature Granulocytes 0.3 % (0-0.5); % Monocytes 10.3 % (1.7-9.3); % Neutrophils 77.3 % (42.2-75.2); Absolute Lymphocytes 1.1 10^3/uL (1.2-3.4); Absolute Neutrophils 7.3 10^3/uL (1.4-6.5); Hematocrit 45.2 % (39.0-52.0); Hemoglobin 14.7 g/dL (13.0-18.0); Mean Corp Hgb Conc. 32.5 g/dL (33.0-37.0); Mean Corpuscular Hgb 27.1 pg (27.0-31.0); Mean Corpuscular Volume 83.2 fL (80.0-94.0); Mean Platelet Volume 9.3 fL (7.4-10.4); Nucleated Red Blood Cells % 0 % (-); Platelet Count 203 10^3/uL (130-400); Red Blood Cell Count 5.43 10^6/uL (4.70-6.10); Red Cell Dist. Width 14.6 % (11.5-14.5); White Blood Cell Count 9.5 10^3/uL (4.8-10.8)
[2023-11-11 05:43] LABS: INR 3.71; PT 36.8 Sec (11.4-14.6)
[2023-11-11 05:59] LABS: Blood Urea Nitrogen 39 mg/dl (9-20); Calcium 9.4 mg/dl (8.4-10.2); Carbon Dioxide 35 mmol/L (22-30); Chloride 94 mmol/L (98-107); Estimated Creatinine Clearance 62 ml/min; Glucose 130 mg/dl (70-99); Potassium 4.1 mmol/L (3.5-5.1); Sodium 138 mmol/L (135-145); eGFR > 60.00
[2023-11-11 06:00] VITALS: BMI 26.7
--- NOTE | 2023-11-11 06:12 | PTCARENOTE ---
Pt able to make his needs known. Pt wakes up from sleep and c/o SOB, pulse oxy is 90-93% on 4 litres,once rested is 92-93%.Pt encouraged not to get oob without help.Pt placed on bed alarm for safety reasons.call bansal in reach.
[2023-11-11 07:55] VITALS: BP 155/78
[2023-11-11] MEDS: ZITHROMAX 250 MG PO (07:56)
[2023-11-11] MEDS: BYSTOLIC 5 MG PO (07:57)
[2023-11-11] MEDS: DECADRON 2 MG IV ×2 (07:57→17:16)
[2023-11-11] MEDS: LASIX 40 MG PO (07:57)
[2023-11-11] MEDS: VENTOLIN NEBULES 2.5 MG INH ×4 (07:59→20:10)
[2023-11-11] MEDS: ADVAIR HFA 230/21 MCG INHALER 2 PUFF INH ×2 (08:00→20:10)
--- NOTE | 2023-11-11 08:21 | RESPNOTE ---
Home O2 assessment attempted to be completed with patient. Patient's having increased SOB/mouth breathing on exertion. Pt appears anxious. RN bedside. SOB improved slightly post AM nebulizer tx. Pts breathing labored at times. Pt instructed to take
slow deep breaths. Sat on 4L 97%. Will reattempt Home O2 assessment at a later time when pts SOB improves. Ordering MD contacted and made aware.
--- NOTE | 2023-11-11 09:25 | W.PN.PUL.V3 ---
Today's Communication / Plan
-
Wean oxygen
Assess discharge supplemental oxygen needs
Decadron
Inhalers
Nebulizers
Assessment
-
83-year-old man with history of COPD, heart failure with preserved ejection fraction, paroxysmal atrial fibrillation on anticoagulation, admitted with worsening shortness of breath. He was found to be bronchospastic. Overnight developed increased
work of breathing, placed on BiPAP. Transferred to the intermediate care unit for closer monitoring.
Acute respiratory insufficiency-requiring up to 4 L supplemental oxygen (Baseline 3 L)
Chest x-ray: Reviewed, without infiltrates or pulmonary vascular congestion. Hyperinflation
Transferred to the intermediate care unit 11/10/2023 on BiPAP for increased work of breathing
Chronic heart failure with preserved ejection fraction-does not appear volume overloaded on exam.
Conditions present prior to admission:
Recent hospitalization 08/16/2022-acute on top of chronic COPD exacerbation and chronic diastolic CHF exacerbation, [place], gastrointestinal bleeding, hemoptysis and coagulopathy on Coumadin
COPD.
Decreased diffusing capacity.
Chronic CHF preserved EF.
Aortic stenosis/AVR.
PPM.
Pulmonary hypertension.
Chronic anemia.
Paroxysmal atrial fibrillation
Hyperlipidemia.
Hypertension.
Rotator cuff surgery. Aortic valve replacement. Bilateral herniography.
DNR status
Plan
Respiratory status somewhat improved-anxiety playing a role
Supplemental oxygen as needed-outpatient 3-4 L-wean to baseline levels
BiPAP as tolerated-reviewed with DERMATOLOGIST AND DERMATOPATHOLOGIST
Decadron-slow taper-currently on 2 mg IV every 8 hours-changed to prednisone 40 mg in the next 24 hours
Nebulizers
Usually on Breztri
Azithromycin for anti-inflammatory properties
Mucolytic's
Incentive spirometry
Flutter
Consider vest therapy if difficulties mobilizing secretions
Diuresis as tolerated
Monitor renal function, electrolytes, intake/output, lower extremity edema and weight
Replace electrolytes as needed
Monitor blood sugar, particularly on IV steroids.
Insulin supplementation as needed
Anxiolytics per primary service
DVT prophylaxis-on warfarin
Nutrition
Early mobilization
Physical therapy/Occupational Therapy
Reviewed with nursing and respiratory therapy
Follow-up with Dr. Archuleta after discharge.

Diagnostic data:
Chest x-ray 11/09/2023: Reviewed. No infiltrates., Hyperinflation
Chest x-ray/-tiny blunting of the left costophrenic angle lungs otherwise clear
Chest x-ray 11/13/2022-mild interstitial airspace disease left lung base, COPD
Echocardiogram 08/18/2022-EF 50-55%, abnormal diastolic dysfunction, trace mitral regurgitation, mechanical prosthetic aortic valve
VBG 08/16/2022-PCO2 68/37/7 0.31
PFT 11/10/2022-FEV1 1.29-54%, FVC 2.87-85%, TLC 86%, DLCO 16%
Subjective Data
-
Date of Service:
Date of Service: November 11, 2023
Chief Complaint: Pulmonary Follow Up and Dyspnea Follow Up
Subjective:
Anxious, no worsening shortness of breath, tolerating BiPAP, no chest pain, abdominal pain
Review of Systems
General: Other (Per HPI)
Objective Data
Data Reviewed
Vital Signs / I&O:
Vital Signs
Temp Pulse Resp BP Pulse Ox
97.5 F 78 24 155/78 97
11/11/23 07:55 11/11/23 08:12 11/11/23 08:12 11/11/23 07:57 11/11/23 08:12
Intake and Output
11/10/23 11/11/23 11/12/23
06:59 06:59 06:59
Intake Total 600 / 600 960 / 960
Output Total 1850 / 1850 120 / 120
Balance -1250 / -1250 840 / 840
SaO2: 97
Nasal Cannula flow liters per minute: 4
Physical Exam
General: Respiratory Distress (n) and Comfortable
HEENT: Normocephalic, Anicteric and Moist Mucous Membranes
Cardiovascular: Regular Rhythm
Respiratory: Wheeze (n), Crackles (Basilar), Rhonchi (Expiratory), Non-Labored Respirations, Accessory Resp Muscle Use (n) and Stridor (n)
GI: Soft, Non Distended and Non Tender
Neurology: Awake, Alert and No Motor Deficits
Skin: Warm, Good Color, Cyanosis (n), Jaundice (n) and Rash (n)
Labs/Micro/Reports
Lab Data
11/11/23 05:15
11/11/23 05:15
Laboratory Results
11/11/23
05:15
PT 36.8 H
INR 3.71
--- NOTE | 2023-11-11 11:17 | W.PN.HOSP.TC ---
Today's Communication/Plan
-
Encourage Acapella
Encourage incentive spirometer
Out of bed to chair
Assessment / Plan
Assessment / Plan
Gen-AAOx3, NAD, looks more comfortable today compared to yesterday
HEENT-NC, AT, anicteric, clear oral mm
Neck-supple
CV-reg, no M, +S1/S2
Lungs-bilateral wheezing, rhonchi
Abd-soft, NT, ND
Ext-no edema
Musculoskeletal-no cyanosis, clubbing
Skin-warm and dry
Neuro-grossly non-focal
Psych-calm, cooperative
Acute on Chronic hypoxic resp failure - due to acute COPD exacerbation. CXR reviewed by myself, I see no evidence of pneumonia or CHF.
Baseline uses 3-5L oxygen at home, currently on 4 L. Oxygenation overall improved over the past 24 to 48 hours.
Acute COPD exacerbation -continue systemic steroids, continue Duonebs scheduled and PRN, Advair in place of Breztri (non-formulary). On chronic azithromycin therapy.
Hypokalemia -resolved.
Chronic HF preserved EF - stable. Continue Lasix.
Parox AFib - on warfarin. INR 3.7 today, likely steroid-induced worsening. Lower warfarin dose to 8 mg for tonight, INR in the morning.
[facility] AVR - on warfarin. He has a home INR monitor, checks it [id number]. INR 2.3 today, monitor closely. Goal INR 2.5-3.5. May need heparin bridging if it worsens.
DNR
Dispo -potential discharge tomorrow if improved. Patient agrees.
Updated son Anupam on the phone.
Anticipated Discharge: Within 24 hours
Subjective/Interval History
-
Date of Service: November 11, 2023
Patient seen and examined. Still with shortness of breath.
Objective Data
-
Labs:
Laboratory Results
11/11/23
05:15
WBC 9.5
Hgb 14.7
Hct 45.2
Plt Count 203
PT 36.8 H
INR 3.71
Sodium 138
Potassium 4.1
Chloride 94 L
Carbon Dioxide 35 H
BUN 39 H
Creatinine 0.9
Glucose 130 H
Calcium 9.4
Vital Signs:
Vital Signs
Temp Pulse Resp BP Pulse Ox
97.5 F 78 24 155/78 97
11/11/23 07:55 11/11/23 08:12 11/11/23 08:12 11/11/23 07:57 11/11/23 09:25
I&O
11/10/23 11/11/23 11/12/23
06:59 06:59 06:59
Intake Total 600 / 600 960 / 960
Output Total 1850 / 1850 120 / 120
Balance -1250 / -1250 840 / 840
Review of Systems
-
History Source: Patient
All other systems: Reviewed and negative
[2023-11-11 12:08] VITALS: O2SAT 94
[2023-11-11 14:50] VITALS: BP 146/78; PULSE 79; O2SAT 94
[2023-11-11 15:00] VITALS: BP 156/70
[2023-11-11] MEDS: LIPITOR 20 MG PO (17:13)
[2023-11-11] MEDS: COUMADIN 8 MG PO (17:14)
[2023-11-11 23:30] VITALS: BP 147/68
[2023-11-12] MEDS: DECADRON 2 MG IV ×2 (01:02→08:49)
[2023-11-12 04:10] VITALS: BMI 26.8
[2023-11-12 05:27] LABS: PT 42.8 Sec (11.4-14.6)
[2023-11-12 05:47] LABS: Blood Urea Nitrogen 38 mg/dl (9-20); Calcium 9.4 mg/dl (8.4-10.2); Carbon Dioxide 38 mmol/L (22-30); Chloride 95 mmol/L (98-107); Estimated Creatinine Clearance 56 ml/min; Glucose 130 mg/dl (70-99); Potassium 5.2 mmol/L (3.5-5.1); Sodium 138 mmol/L (135-145); eGFR > 60.00
[2023-11-12] MEDS: VENTOLIN NEBULES 2.5 MG INH ×2 (07:39→11:11)
[2023-11-12] MEDS: ADVAIR HFA 230/21 MCG INHALER 2 PUFF INH (07:39)
[2023-11-12 07:55] VITALS: BP 159/79
[2023-11-12] MEDS: BYSTOLIC 5 MG PO (08:48)
[2023-11-12] MEDS: ZITHROMAX 250 MG PO (08:48)
[2023-11-12] MEDS: LASIX 40 MG PO (08:48)
--- NOTE | 2023-11-12 09:34 | W.PN.HOSP.TC ---
Today's Communication/Plan
-
Discharge
Assessment / Plan
Assessment / Plan
Gen-AAOx3, NAD, looks more comfortable today compared to yesterday
HEENT-NC, AT, anicteric, clear oral mm
Neck-supple
CV-reg, no M, +S1/S2
Lungs-much improved wheezing bilaterally
Abd-soft, NT, ND
Ext-no edema
Musculoskeletal-no cyanosis, clubbing
Skin-warm and dry
Neuro-grossly non-focal
Psych-calm, cooperative
Acute on Chronic hypoxic resp failure - due to acute COPD exacerbation. CXR reviewed by myself, I see no evidence of pneumonia or CHF.
Baseline uses 3-5L oxygen at home, currently on 3 L. Oxygenation overall improved over the past 24 to 48 hours.
Acute COPD exacerbation -continue systemic steroids, continue Duonebs scheduled and PRN, Advair in place of Breztri (non-formulary). On chronic azithromycin therapy. COPD much improved. Can discharge on tapering schedule of prednisone. Follow-up
with PCP and pulmonary.
Hyperkalemia -5.2 today. Give a dose of Lokelma. Follow-up BMP with PCP as an outpatient. Discussed with patient's son.
Chronic HF preserved EF - stable. Continue Lasix.
Parox AFib - on warfarin. INR 4.4 today, likely steroid-induced worsening. Hold warfarin tonight, INR tomorrow. Patient has an INR meter at home and plans to check it. Discussed with patient and son. If INR still 4.0 or higher tomorrow then
continue to hold warfarin. Can resume warfarin when INR close to 3.5.
[facility] AVR - on warfarin. He has a home INR monitor, checks it [id number]. Goal INR 2.5-3.5.
DNR
Dispo -medically stable for discharge home today. Will arrange for home PT. Discussed with patient's son on the phone. Outpatient follow-up.
32 minutes spent in discharge process.
Anticipated Discharge: Today
Subjective/Interval History
-
Date of Service: November 12, 2023
Patient seen and examined. Feeling much better. No new complaints.
Objective Data
-
Labs:
Laboratory Results
11/12/23
04:58
PT 42.8 H
INR 4.40
Sodium 138
Potassium 5.2 H D
Chloride 95 L
Carbon Dioxide 38 H
BUN 38 H
Creatinine 1.0
Glucose 130 H
Calcium 9.4
Vital Signs:
Vital Signs
Temp Pulse Resp BP Pulse Ox
98.0 F 60 22 159/79 93
11/12/23 07:55 11/12/23 08:48 11/12/23 07:55 11/12/23 08:48 11/12/23 07:55
I&O
11/11/23 11/12/23 11/13/23
06:59 06:59 06:59
Intake Total 960 / 960 1340 / 1340
Output Total 120 / 120 525 / 525
Balance 840 / 840 815 / 815
Review of Systems
-
History Source: Patient
All other systems: Reviewed and negative
--- NOTE | 2023-11-12 09:49 | W.DS.TRANS ---
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
-
Discharge Instructions:
Discharge Diagnosis/Procedures COPD exacerbation
Diet Low Cholesterol,Low Fat
Activity As tolerated
Driving Restrictions No driving
Bathing Restrictions None
Blood Work BMP in 1 to 2 weeks with your primary care
doctor
Instructions:
Stand-Alone Forms:
Changes to Home Medications: No
Discharge Medications:
DC Medications w/original date entered in [employer]
budesonide 160 mcg-glycopyr 9 mcg-formot 4.8 mcg/actuation HFA inhaler (Breztri Aerosphere) 2 inh inhalation R BID Lung/breathing issues 08/08/22
nebivolol 5 mg tablet (Bystolic) 5 mg PO DAILY Heart disease/condition 08/08/22
simvastatin 40 mg tablet 40 mg PO QPM High cholesterol 08/08/22
furosemide 40 mg tablet 40 mg PO DAILY #30 tabs 11/16/22
albuterol sulfate 2.5 mg/3 mL (0.083 %) solution for nebulization 2.5 mg inhalation R Q6HPRN PRN sob 11/09/23
azithromycin 250 mg tablet 250 mg PO DAILY Infection 11/09/23
warfarin 4 mg tablet 4 mg PO QPM Blood Clot Prevention/Tx 11/09/23
warfarin 5 mg tablet 5 mg PO QPM Blood Clot Prevention/Tx 11/09/23
prednisone 10 mg tablet 10 mg PO DIRECTED #18 tabs 11/12/23
Home Medication Changes
Pending Results: No
--- NOTE | 2023-11-12 10:10 | W.PN.PUL.V3 ---
Today's Communication / Plan
-
Prednisone taper
Supplemental oxygen
Mucus clearing devices
Outpatient pulmonary follow-up
Assessment
-
83-year-old man with history of COPD, heart failure with preserved ejection fraction, paroxysmal atrial fibrillation on anticoagulation, admitted with worsening shortness of breath. He was found to be bronchospastic. Overnight developed increased
work of breathing, placed on BiPAP. Transferred to the intermediate care unit for closer monitoring.
Acute respiratory insufficiency-requiring up to 4 L supplemental oxygen (Baseline 3 L)
Chest x-ray: Reviewed, without infiltrates or pulmonary vascular congestion. Hyperinflation
Transferred to the intermediate care unit 11/10/2023 on BiPAP for increased work of breathing
Chronic heart failure with preserved ejection fraction-does not appear volume overloaded on exam.
Conditions present prior to admission:
Recent hospitalization 08/16/2022-acute on top of chronic COPD exacerbation and chronic diastolic CHF exacerbation, [place], gastrointestinal bleeding, hemoptysis and coagulopathy on Coumadin
COPD.
Decreased diffusing capacity.
Chronic CHF preserved EF.
Aortic stenosis/AVR.
PPM.
Pulmonary hypertension.
Chronic anemia.
Paroxysmal atrial fibrillation
Hyperlipidemia.
Hypertension.
Rotator cuff surgery. Aortic valve replacement. Bilateral herniography.
DNR status
Plan
Respiratory status somewhat improved-anxiety playing a role
Supplemental oxygen as needed-outpatient 3-4 L-wean to baseline levels
BiPAP as tolerated-reviewed with INDEPENDENT FREIGHT AGENT
Change Decadron to prednisone with slow taper until seen by pulmonary
Nebulizers
Usually on Breztri
Azithromycin for anti-inflammatory properties
Mucolytic's
Incentive spirometry
Flutter
Consider vest therapy if difficulties mobilizing secretions
Continue diuresis as tolerated
Monitor renal function, electrolytes, intake/output, lower extremity edema and weight
Replace electrolytes as needed
Monitor blood sugar, particularly on IV steroids.
Insulin supplementation as needed
Anxiolytics per primary service
DVT prophylaxis-on warfarin
Nutrition
Early mobilization
Physical therapy/Occupational Therapy
Reviewed with nursing and respiratory therapy as well as primary team
Follow-up with Dr. Archuleta after discharge.

Diagnostic data:
Chest x-ray 11/09/2023: Reviewed. No infiltrates., Hyperinflation
Chest x-ray/-tiny blunting of the left costophrenic angle lungs otherwise clear
Chest x-ray 11/13/2022-mild interstitial airspace disease left lung base, COPD
Echocardiogram 08/18/2022-EF 50-55%, abnormal diastolic dysfunction, trace mitral regurgitation, mechanical prosthetic aortic valve
VBG 08/16/2022-PCO2 68/37/7 0.31
PFT 11/10/2022-FEV1 1.29-54%, FVC 2.87-85%, TLC 86%, DLCO 16%
Subjective Data
-
Date of Service:
Date of Service: November 12, 2023
Chief Complaint: Pulmonary Follow Up and Dyspnea Follow Up
Subjective:
Feels better, oxygen weaned to 3 L, has some forced wheezing, no chest pain or abdominal pain
Review of Systems
General: Other (Per HPI)
Objective Data
Data Reviewed
Vital Signs / I&O:
Vital Signs
Temp Pulse Resp BP Pulse Ox
98.0 F 60 22 159/79 93
11/12/23 07:55 11/12/23 08:48 11/12/23 07:55 11/12/23 08:48 11/12/23 07:55
Intake and Output
11/11/23 11/12/23 11/13/23
06:59 06:59 06:59
Intake Total 960 / 960 1340 / 1340
Output Total 120 / 120 525 / 525
Balance 840 / 840 815 / 815
SaO2: 93
Nasal Cannula flow liters per minute: 3
Physical Exam
General: Respiratory Distress (n) and Comfortable
HEENT: Normocephalic, Anicteric and Moist Mucous Membranes
Cardiovascular: Regular Rhythm
Respiratory: Wheeze (n), Crackles (Basilar), Rhonchi (Expiratory), Non-Labored Respirations, Accessory Resp Muscle Use (n) and Stridor (n)
GI: Soft, Non Distended and Non Tender
Neurology: Awake, Alert and No Motor Deficits
Skin: Warm, Good Color, Cyanosis (n), Jaundice (n) and Rash (n)
Labs/Micro/Reports
Lab Data
11/11/23 05:15
11/12/23 04:58
Laboratory Results
11/12/23
04:58
PT 42.8 H
INR 4.40
[2023-11-12] MEDS: LOKELMA 10 GRAM PO (11:05)
--- NOTE | 2023-11-12 11:25 | CM ---
Call to [facility] to make them aware of pt's return today. Medical Records do not need to be sent according to the receptionist airline lounge.
[facility] referral sent via [facility] to provide RN and PT.
PCP: Rashid Maguire
Plan: Discharge to [facility] via family transport.
[2023-11-12 11:30] VITALS: BP 144/80
== END 2023-11-12 11:55 | disposition home health service (06) | DRG 190 ==
LOC: 4 EAST ACU 17:13
PROVIDERS: Clinical Nurse Specialist Family Health; Emergency Medicine; Registered Nurse; ADMITTING PHYSICIAN Hospitalist; EMERGENCY PHYSICIAN Emergency Medicine; FAMILY PHYSICIAN Internal Medicine; OTHER PHYSICIAN Internal Medicine Critical Care Medicine
PROC: 5A09357 Assistance with Respiratory Ventilation, Less than 24 Consecutive Hours, Continuous Positive Airway Pressure (ICD-10-PCS; 2023-11-10)
DX: J44.1 Chronic obstructive pulmonary disease with (acute) exacerbation (principal); J96.21 Acute and chronic respiratory failure with hypoxia; I50.32 Chronic diastolic (congestive) heart failure; D68.9 Coagulation defect, unspecified; E78.00 Pure hypercholesterolemia, unspecified; I35.0 Nonrheumatic aortic (valve) stenosis; I48.0 Paroxysmal atrial fibrillation; I44.7 Left bundle-branch block, unspecified; I27.20 Pulmonary hypertension, unspecified; D64.9 Anemia, unspecified; T38.0X5A Adverse effect of glucocorticoids and synthetic analogues, initial encounter; I11.0 Hypertensive heart disease with heart failure; E87.6 Hypokalemia; E87.5 Hyperkalemia; Z66 Do not resuscitate; Z87.891 Personal history of nicotine dependence; Z95.0 Presence of cardiac pacemaker; Z95.2 Presence of prosthetic heart valve; Z79.01 Long term (current) use of anticoagulants; Z99.81 Dependence on supplemental oxygen; Z88.5 Allergy status to narcotic agent; Z79.2 Long term (current) use of antibiotics
CPT/HCPCS: 36600; 71046; 80048; 80053; 82805; 82962; 83880; 84484; 85025; 85610; 85730; 93005; 94640; 94660; 96374; 96375; 97116; 97162; 97166; 99285

== ENCOUNTER 2023-11-14 20:01 | Inpatient (IN) | payer MEDICARE, OTHER, SELFPAY ==
[2023-11-14] VITALS (9 sets, daily range): BP systolic 132–161; BP diastolic 61–113; BMI 27.5
[2023-11-14] MEDS: VENTOLIN NEBULES 7.5 MG INH (15:18)
[2023-11-14] MEDS: DECADRON 4 MG IV ×2 (15:18→21:38)
[2023-11-14] MEDS: DUONEB 3 ML INH ×2 (15:19→21:13)
[2023-11-14 15:22] LABS: % Basophils 0.2 % (0-2); % Eosinophils 0.2 % (0-6); % Lymphocytes 13.4 % (20.5-51.1); % Monocytes 11.3 % (1.7-9.3); % Neutrophils 73.9 % (42.2-75.2); Absolute Immature Granulocytes 0.2 10^3/uL (0-0.05); Absolute Lymphocytes 2.2 10^3/uL (1.2-3.4); Absolute Monocytes 1.9 10^3/uL (0.1-0.6); Absolute Neutrophils 12.3 10^3/uL (1.4-6.5); Hematocrit 45.6 % (39.0-52.0); Hemoglobin 15.1 g/dL (13.0-18.0); Mean Corp Hgb Conc. 33.1 g/dL (33.0-37.0); Mean Corpuscular Hgb 26.9 pg (27.0-31.0); Mean Corpuscular Volume 81.3 fL (80.0-94.0); Mean Platelet Volume 9.2 fL (7.4-10.4); Nucleated Red Blood Cells % 0 % (-); Platelet Count 280 10^3/uL (130-400); Red Blood Cell Count 5.61 10^6/uL (4.70-6.10); White Blood Cell Count 16.6 10^3/uL (4.8-10.8)
[2023-11-14 15:37] LABS: Blood Urea Nitrogen 42 mg/dl (9-20); Calcium 9.1 mg/dl (8.4-10.2); Carbon Dioxide 34 mmol/L (22-30); Chloride 97 mmol/L (98-107); Glucose 107 mg/dl (70-99); Potassium 4.2 mmol/L (3.5-5.1); Sodium 138 mmol/L (135-145); eGFR > 60.00
[2023-11-14 15:56] LABS: Procalcitonin < 0.05 ng/ml (0.0-0.25)
--- NOTE | 2023-11-14 16:10 | ED.GENMED ---
History of Present Illness
General
Chief Complaint: Breathing Problem
Source: patient
Exam Limitations: none
Time Seen by Provider: 11/14/23 14:56
Travel History
Have you had any contact with someone who has COVID-19?: No
Do you have any symptoms of coronavirus? Fever > 100 degrees, chills, cough, shortness of breath, sore throat, loss of taste or smell, muscle aches, or headache?: No
History of Present Illness
History of Present Illness:
Patient presents in respiratory distress. Discharged 2 days ago for COPD exacerbation. Was doing okay for 24 hours and then symptoms recurred. Ongoing coarse cough. No chest pain or pleuritic pain. Seems more confused than normal per family
Past History
Past History
ED Past Medical History: Arrthythmia, CHF, COPD, HTN and Hypercholesterolemia
ED Past Surgical History: Cardiac (pacemaker, valve replacement)
Social History
Tobacco: Former smoker
Alcohol: None
Drug: None
Personal:
Living: with family
Employment: Retired
Review of Systems
Review of Systems
All Other Systems: Not applicable
Constitutional: Reports fatigue; Denies fever
Respiratory: Reports cough
Cardiac: Denies chest pain or syncope
Phy Exam
Physical Exam
Physical Exam:
GENERAL: Alert and oriented moderate tachypnea. Chronically ill-appearing.
EYE: Orbits normal.
NECK: Supple, no significant adenopathy.
ENT: Pharynx without erythema
CARDIAC: Regular rate and rhythm without any obvious murmurs.
LUNGS: Moderate tachypnea. Hyperventilation. Diffuse expiratory wheezing
ABDOMEN: Soft, without focal tenderness or distention
NEUROLOGICAL: Alert and oriented , grossly non-focal
SKIN: Warm and dry, no rash or lesion, no discoloration, skin intact.
MUSCULOSKELETAL: Mild chronic appearing edema
PSYCH: Normal and appropriate interaction.
Scores
Heart Failure Risk
Heart Failure Risk Score: Not Applicable
Course
Orders/Labs/Results
Orders:
Orders
11/14/23 14:56
Cardiac Monitoring- Treatment ONCE
IV Insert/Care/Rem.- Treatment PRN
Albuterol Sulfate [Ventolin Nebules] 7.5 mg INH R NOW STA
Dexamethasone Sod Phosphate [Decadron] 4 mg IV NOW STA
Ipratropium/Albuterol Sulfate [Duoneb] 3 ml INH R NOW STA
O2 Therapy [RESP] Stat
Titrate/Wean O2 to maintain O2 sat greater than (%): 93
Pulse Ox/cont/shift [RESP] Stat
Quantity: 1
11/14/23 14:57
Electrocardiogram (*1) Stat
Reason for Study: Other
Other Reason for Exam: pneumonia
EKG- Treatment ONCE
CR Chest Portable - 1 View Urgent
Comment:
Reason For Exam: sob
Reason Study Needs to be Portable: Unable to Transport
11/14/23 15:07
Basic Metabolic Panel Urgent
Complete Blood Count/With Diff Urgent
Blood Culture Q30M
JOSELUIS Source: Blood/Venous
Specimen Description:
11/14/23 15:11
Procalcitonin Urgent
PCT Algorithmm Indication: Respiratory
Blood Culture Q30M
JOSELUIS Source: Blood/Venous
Specimen Description:
11/14/23 16:55
O2 Therapy [RESP] Stat
Simple Mask Liter Flow: 6 LPM
Titrate/Wean O2 to maintain O2 sat greater than (%): 92
Abnormal Lab Results
11/14/23
15:07
WBC 16.6 H 10^3/uL
(4.8-10.8)
MCH 26.9 L pg
(27.0-31.0)
RDW 15.0 H %
(11.5-14.5)
Abs Immat Gran (auto) 0.2 H 10^3/uL
(0-0.05)
Absolute Neuts (auto) 12.3 H 10^3/uL
(1.4-6.5)
Absolute Monos (auto) 1.9 H 10^3/uL
(0.1-0.6)
Immature Gran % 1.0 H %
(0-0.5)
Lymphocytes % 13.4 L %
(20.5-51.1)
Monocytes % 11.3 H %
(1.7-9.3)
Chloride 97 L mmol/L
(98-107)
Carbon Dioxide 34 H mmol/L
(22-30)
BUN 42 H mg/dl
(9-20)
Glucose 107 H mg/dl
(70-99)
11/14/23 15:07
11/14/23 15:07
Vital Signs
Initial and Last Documented VS:
Initial Vital Signs
Temp Pulse Resp BP Pulse Ox
98.1 F 85 18 132/79 84
11/14/23 14:40 11/14/23 14:40 11/14/23 14:40 11/14/23 14:40 11/14/23 14:40
Last Documented Vital Signs
Temp Pulse Resp BP Pulse Ox
98.1 F 95 30 161/85 96
11/14/23 14:40 11/14/23 16:15 11/14/23 16:15 11/14/23 15:00 11/14/23 16:00
*Radiology
Radiology exam reviewed: radiology read reviewed (Mild vascular congestion. Small left pleural effusion. Chronic changes in the bases.)
*Pulse Oximetry
Patient hypoxic: yes
*EKG
Interpreted by ED Provider?: Yes
Comparison EKG: no changes
Heart Rate: 85
Rate: normal
Rhythm: sinus
[place]: left axis deviation
Interval: normal interval
QRS Pattern: left bundle branch block
Ischemia: non-specific ST changes
*Critical Care Note
Total Time (30-74mins, 75-104mins- exclusive of procedures): Not Applicable
Data Reviewed
Review of Other/Old Records Reveals: Labs, Records, Radiology Studies and Discharge Summary
Update Note
Update Note:
Patient improved after treatments however still tachypneic and hypoxic with any activity or movement. Warrants inpatient management.
ED Attending Note
-
Portions of this chart may have been created with voice recognition software.� Occasional wrong word or��sound alike� substitutions may have occurred due to the inherent limitations of voice recognition software.
Discharge Plan
Departure
Prescriptions:
No Action
simvastatin 40 mg Tablet
40 mg PO QPM
nebivolol [Bystolic] 5 mg Tablet
5 mg PO DAILY
Breztri Aerosphere 160-9-4.8 mcg/actuation Hfa Aerosol Inhaler
2 inh INHALATION R BID
furosemide 40 mg Tablet
40 mg PO DAILY Qty: 30 0RF
azithromycin 250 mg Tablet
250 mg PO DAILY
warfarin 4 mg Tablet
4 mg PO QPM
Hold Instructions: Resume on 11/14/23. Can resume when INR close to 3.5.
Rx Instructions:
11/14/2023, take with 5 mg for a total of 9 mg.
warfarin 5 mg Tablet
5 mg PO QPM
Hold Instructions: Resume on 11/14/23. Can resume when INR close to 3.5.
Rx Instructions:
11/14/2023, take with 4 mg for a total of 9 mg.
albuterol sulfate 2.5 mg /3 mL (0.083 %) Solution For Nebulization
2.5 mg INHALATION R Q6HPRN PRN (Reason: sob)
prednisone 10 mg tablet
10 mg PO .TAPER
Patient Comments:
11/14/2023, per son, pt. is scheduled to take last dose of 30 mg today (11/14/2023).
Rx Instructions:
11/14/2023, 30 mg x 3 days, 20 mg x 3 days, 10 mg x 3 days.
Referrals:
Rashid Maguire MD [Family Provider] -
Interventions
Interventions:
*Risk Screen - Suicide Last Done: 11/14/23 14:56
*General Assessment Last Done: 11/14/23 14:56
*Neglect/Abuse Screening Last Done: 11/14/23 14:56
*ED COVID-19 Vaccine History Last Done: 11/14/23 14:56
ED- Cardiac Assessment Last Done: 11/14/23 14:56
ED- Pulmonary Assessment Last Done: 11/14/23 14:56
Discharge Date and Time
Print Language: MONTENEGRIN
[2023-11-14 17:40] LABS: NT-proBNP 2040 pg/ml
--- NOTE | 2023-11-14 19:47 | HPS.HSE ---
Family Physician
-
Family Physician: Armond Maguire
Chief Complaint
-
Shortness of Breath
History of Present Illness
This is an 83 year old male with past medical history of congestive heart failure and chronic obstructive pulmonary disease who presents to the emergency department with shortness of breath. He was discharged from hospital on 11/12/23 following a
hospitalization for acute COPD exacerbation. He has been taking his medication as prescribed, but notes he developed increased dyspnea yesterday which worsened today, prompting him to present to the emergency department for evaluation. He reports
being on 3-4L of oxygen at home but having to increase to 5L yesterday due to increased difficulty breathing and low oxygen saturation. The patient reports doing a nebulizer treatment at home with no relief yesterday. He also reports nonproductive
cough, and chest tightness. He admits to lower extremity edema which is stable from baseline. Patient denies sweats, fever, and chills.
Medical History
Past Medical History
Past Medical History: Reports Other
Additional Past Medical History:
COPD
Chronic Hypoxemic Respiratory Failure on Home O2
Chronic HFpEF
Essential Hypertension
Aortic Stenosis s/p Mechanical AVR
Paroxysmal Atrial Fibrillation
Known LBBB
Past Surgical History: Reports Other
Additional Past Surgical History:
Left Rotator Cuff Surgery
Bilateral Herniorrhaphy
Mechanical Aortic Valve Replacement
PPM
Social History
Tobacco: Former Smoker (Quit in 1999. 30+ pack years total use.)
Alcohol: None
Drug: None
Personal: Single
Living: With Family
Employment: Retired
Family History
Family History: Other (Mother: CAD)
Allergies / Home Medications
Allergies reflects when Allergies were last updated in [facility].
Home Medications with original date entered in [facility]
Allergy/Medication List:
Allergies
Allergy/AdvReac Type Severity Reaction Status Date / Time
codeine Allergy Irritabilit Verified 11/09/23 15:11
y
Home Medications
budesonide 160 mcg-glycopyr 9 mcg-formot 4.8 mcg/actuation HFA inhaler (Breztri Aerosphere) 2 inh inhalation R BID Lung/breathing issues 08/08/22
nebivolol 5 mg tablet (Bystolic) 5 mg PO DAILY Heart disease/condition 08/08/22
simvastatin 40 mg tablet 40 mg PO QPM High cholesterol 08/08/22
furosemide 40 mg tablet 40 mg PO DAILY #30 tabs 11/16/22
albuterol sulfate 2.5 mg/3 mL (0.083 %) solution for nebulization 2.5 mg inhalation R Q6HPRN PRN sob 11/09/23
azithromycin 250 mg tablet 250 mg PO DAILY Infection 11/09/23
warfarin 4 mg tablet 4 mg PO QPM Blood Clot Prevention/Tx 11/09/23
warfarin 5 mg tablet 5 mg PO QPM Blood Clot Prevention/Tx 11/09/23
prednisone 10 mg tablet 10 mg PO .TAPER 11/14/23
Review of Systems
-
A 12 point ROS was completed and negative except as noted: Yes
Constitutional: Denies Fever or Chills
Respiratory: Reports See HPI
Cardiac: Denies Chest Pain
Abdomen/GI: Denies Abdominal Pain, Nausea or Vomiting
Physical Exam
Vital Signs
Vital Signs
Temp Pulse Resp BP Pulse Ox
98.1 F 102 32 146/80 92
11/14/23 14:40 11/14/23 19:00 11/14/23 19:00 11/14/23 19:00 11/14/23 19:00
Physical Exam
General: Well Developed, Well Nourished and Other (Conversational Dyspnea)
HEENT: Anicteric, Moist mucous membranes and Oxygen (Nasal Cannula)
Respiratory: Wheezes (Diffuse)
Cardiac: S1/S2 and Regular Rhythm
GI: Soft, Non Tender and Non Distended
Rectal: Deferred by Provider
Musculoskeletal: No Clubbing, No Cyanosis and Other (+1 pitting edema bilateral lower ext)
Skin: Warm and Dry
Neuro: Awake, Alert, Oriented and Nonfocal/grossly intact
Laboratory Results
-
11/14/23 15:07
11/14/23 15:07
Data Reviewed
-
Diagnostic Radiology: Report Reviewed by me
Lab Data: Labs Reviewed by me
Impression/Plan
-
Acute on Chronic Hypoxic Respiratory Failure
-Baseline oxygen requirement 3-4L
-Continue supplemental oxygen and titrate keep O2 sat 90-92%
Acute COPD Exacerbation
-Consult Pulmonary
-Continue Decadron
-Continue Duoneb QID and PRN
-Continue Pulmicort Neb
-Continue azithromycin as prior to admission
Chronic HFpEF
-Continue Lasix 40mg Daily as prior to admission
-Consider additional dose of Lasix if breathing does not improve with steroids and nebulizers
Aortic Stenosis s/p Mechanical AVR
-Check PT/INR
-Adjust Coumadin dosing based on INR
Essential Hypertension
-Continue Bystolic
Hyperlipidemia
-Continue simvastatin
DVT priph: Coumadin
Code Status: DNR
[2023-11-14 20:27] LABS: INR 3.72; PT 36.9 Sec (11.4-14.6)
[2023-11-14] MEDS: PULMICORT 0.5 MG INH (21:13)
[2023-11-14] MEDS: MUCINEX 600 MG PO (21:38)
[2023-11-14] MEDS: COUMADIN 7.5 MG PO (21:46)
--- NOTE | 2023-11-14 21:55 | PTCARENOTE ---
Pt received from ED via stretcher. Shifted self from stretcher to without incident. AAOx3, [place]. Telemetry = SR w/occ A pacing. Full physical assessment documented (refer to worklist). Lungs coarse, rhonci, insp/exp wheezes. Tachypneic, mouth
breathing, harsh non prod cough. Encouraged to breath to nose, verbalizes understanding. SpO2 92% on 6L midflow. Voiding in urinal. #20 RAC INT patent. Call bansal within reach. Bed alarm active for safety. Plan of care ongoing.
--- NOTE | 2023-11-14 22:19 | W.PN.UPDATE ---
Update Note
Progress Note Update
Attending addendum
Patient seen, examined and interviewed independently
83 year old man with shortness of breath. He was discharged from [facility] on 11/12/23 for acute COPD exacerbation. He developed increased dyspnea yesterday which worsened today. He reports being on 3-4L of oxygen at home but having to increase to
5L yesterday. He also reports nonproductive cough, and chest tightness, lower extremity edema (stable from baseline). Patient denies sweats, fever, and chills. Sitting at edge of bed during exam.
Past Medical History
COPD
Chronic Hypoxemic Respiratory Failure on Home O2
Chronic HFpEF
Essential Hypertension
Aortic Stenosis s/p Mechanical AVR
Paroxysmal Atrial Fibrillation
Known LBBB
Left Rotator Cuff Surgery
Bilateral Herniorrhaphy
Mechanical Aortic Valve Replacement
PPM
Physical Exam
General: Well Developed, Well Nourished
Respiratory: Wheezes (Diffuse)
Cardiac: S1/S2 and Regular Rhythm
GI: Soft, Non Tender and Non Distended
A/P
1. Acute on Chronic Hypoxic Respiratory Failure
-Continue supplemental oxygen and titrate keep O2 sat 90-92%
2. Acute COPD Exacerbation
-Consult Pulmonary
-Continue Decadron
-Continue Duoneb QID and PRN
-Continue Pulmicort Neb
-Continue azithromycin as prior to admission
Please see PA note for further details on:
Chronic HFpEF
Aortic Stenosis s/p Mechanical AVR
Essential Hypertension
Hyperlipidemia
[2023-11-15] VITALS (17 sets, daily range): BP systolic 132–189; BP diastolic 61–118; PULSE 87; O2SAT 91–92; BMI 27.6
[2023-11-15 04:40] LABS: % Basophils 0.3 % (0-2); % Immature Granulocytes 1.1 % (0-0.5); % Monocytes 3.6 % (1.7-9.3); Absolute Immature Granulocytes 0.1 10^3/uL (0-0.05); Absolute Monocytes 0.4 10^3/uL (0.1-0.6); Hematocrit 42.5 % (39.0-52.0); Hemoglobin 13.7 g/dL (13.0-18.0); Mean Corp Hgb Conc. 32.2 g/dL (33.0-37.0); Mean Corpuscular Volume 83.7 fL (80.0-94.0); Mean Platelet Volume 9.7 fL (7.4-10.4); Nucleated Red Blood Cells % 0 % (-); Platelet Count 237 10^3/uL (130-400); Red Blood Cell Count 5.08 10^6/uL (4.70-6.10); Red Cell Dist. Width 14.7 % (11.5-14.5); White Blood Cell Count 11.6 10^3/uL (4.8-10.8)
[2023-11-15 04:51] LABS: INR 3.86
[2023-11-15 04:59] LABS: Blood Urea Nitrogen 33 mg/dl (9-20); Calcium 8.6 mg/dl (8.4-10.2); Carbon Dioxide 33 mmol/L (22-30); Chloride 100 mmol/L (98-107); Estimated Creatinine Clearance 62 ml/min; Glucose 139 mg/dl (70-99); Potassium 4.4 mmol/L (3.5-5.1); Sodium 138 mmol/L (135-145); eGFR > 60.00
[2023-11-15] MEDS: DECADRON 4 MG IV ×3 (06:08→21:31)
[2023-11-15] MEDS: LASIX 40 MG PO (07:04)
[2023-11-15] MEDS: BYSTOLIC 5 MG PO (07:04)
--- NOTE | 2023-11-15 07:15 | PTCARENOTE ---
[facility] covering house made aware of increasing BPs. Administered 0800 lasix and bystolic early. Report to oncoming RN.
[2023-11-15] MEDS: DUONEB 3 ML INH ×4 (07:44→20:13)
[2023-11-15] MEDS: PULMICORT 0.5 MG INH ×2 (07:44→20:12)
[2023-11-15] MEDS: MUCINEX 600 MG PO ×2 (08:17→20:53)
[2023-11-15] MEDS: ZITHROMAX 250 MG PO (08:17)
--- NOTE | 2023-11-15 08:31 | W.PN.HOSP.TC ---
Today's Communication/Plan
-
CT chest with out contrast
Sputum CX
Procal
Steroids
Pulm eval
Ok for tele
Assessment / Plan
Assessment / Plan
83-year-old male with multiple medical problems presented to the hospital with complaints of cough and shortness of breath on 11/10/2023. Patient was admitted and treated 11/12/2023. He uses oxygen 3 to 4 L at home but required high flow in the
hospital which was changed to nasal cannula. Patient was readmitted with shortness of breath having to increase oxygen to 5 L at home despite that had no saturation. He also used nebulizer treatment. He has chronic lower extremity edema which is
stable
CVS: S1-S2 normal
Chest: decreased BS bases
Abdomen: Soft, NT / Bowel sounds present
Extremities: No edema, normal pulses
# Acute on chronic hypoxic respiratory failure
Baseline uses 3 to 4 L
Continue supplemental oxygen to keep saturations 90 to 92%
# COPD exacerbation
Decadron, nebulizer treatments, Pulmicort
Continue Zithromax
Sputum culture if possible
Mucinex
Pulmonary consultation
Chest x-ray reviewed by me-will obtain a CT of the chest without contrast
Check Procal
Acapella
# Leukocytosis-likely secondary to steroids
# Coagulopathy-secondary to Coumadin
Hold Coumadin today 11/15/23
Follow INR
# Chronic heart failure with preserved ejection fraction
Continue Lasix 40 mg daily
# History of mechanical aortic valve for aortic stenosis
Dose Coumadin daily according to INR
# Hypertension
Continue Bystolic
As needed hydralazine
# Hyperlipidemia-continue simvastatin
# Pacemaker
# Pulmonary hypertension
# Hyperlipidemia-continue statin
# DVT prophylaxis-continue Coumadin
# CODE STATUS-DNR
D/W RN
Anticipated Discharge: 24 - 48 hours
Subjective/Interval History
-
Date of Service: November 15, 2023
Objective Data
-
Labs:
Laboratory Results
11/15/23
04:13
WBC 11.6 H
Hgb 13.7
Hct 42.5
Plt Count 237
PT 38.0 H
INR 3.86
Sodium 138
Potassium 4.4
Chloride 100
Carbon Dioxide 33 H
BUN 33 H
Creatinine 0.9
Glucose 139 H
Calcium 8.6
Vital Signs:
Vital Signs
Temp Pulse Resp BP Pulse Ox
98.2 F 63 22 179/88 93
11/15/23 07:30 11/15/23 07:48 11/15/23 07:48 11/15/23 07:04 11/15/23 07:48
I&O
11/14/23 11/15/23 11/16/23
06:59 06:59 06:59
Output Total 650 / 650
Balance -650 / -650
--- NOTE | 2023-11-15 10:41 | CON.PUL ---
Consultation
Consultation Request
Date/Time Consultation Requested: 11/15/2023
Date/Time Consultation Performed: 11/15/2023
Requesting Provider: Dr. Vargas
Performing Provider: Dr. Ayo De Santiago
Reason for Consultation: Acute exacerbation of COPD-recurrent
Medical History
-
Chief Complaint: Shortness of breath
History of Present Illness:
83-year-old man with past medical history significant for COPD, heart failure with preserved ejection fraction came to the hospital complaining of shortness of breath .
Records reviewed. Patient was discharged on 11/12/2023 after an acute exacerbation of COPD requiring noninvasive mechanical ventilation for increased work of breathing.
He was treated with steroids, antibiotics.
Patient does have history of chronic hypoxemic respiratory failure usually on 3 L nasal cannula.
Patient states that he has been compliant with medications. He states that his oxygen levels increased to 5 L due to increased work of breathing. Did not respond to nebulizers at home.
Denies any fevers, purulent sputum production, hemoptysis or night sweats. Chronic lower extremity edema stable.
Continues to report coughing and difficulty expectorating
Afebrile but has leukocytosis.
Denies swallowing problems.
Past Medical History
Past Medical History: Other (See assessment and plan section)
Social History
Tobacco: Former Smoker (Quit in [id number] history)
Alcohol: None
Drug: None
Living: With Family
Employment: Retired
Family History
Family History: Reviewed & Not Pertinent
Allergies / Home Medications
Allergies
Allergy/AdvReac Type Severity Reaction Status Date / Time
codeine Allergy Irritabilit Verified 11/09/23 15:11
y
Home Medications
�Medication �Instructions �Recorded �Confirmed �Last Taken �Type
budesonide 160 mcg-glycopyr 9 2 inh inhalation R BID 08/08/22 11/14/23 11/14/23 History
mcg-formot 4.8 mcg/actuation HFA Lung/breathing issues
inhaler (Breztri Aerosphere)
nebivolol 5 mg tablet (Bystolic) 5 mg PO DAILY Heart 08/08/22 11/14/23 11/14/23 History
disease/condition
simvastatin 40 mg tablet 40 mg PO QPM High cholesterol 08/08/22 11/14/23 11/13/23 History
furosemide 40 mg tablet 40 mg PO DAILY #30 tabs 11/16/22 11/14/23 11/14/23 Rx
albuterol sulfate 2.5 mg/3 mL 2.5 mg inhalation R Q6HPRN PRN sob 11/09/23 11/14/23 11/14/23 History
(0.083 %) solution for nebulization
azithromycin 250 mg tablet 250 mg PO DAILY Infection 11/09/23 11/14/23 11/14/23 History
warfarin 4 mg tablet 4 mg PO QPM Blood Clot 11/09/23 11/14/23 11/13/23 History
Prevention/Tx
warfarin 5 mg tablet 5 mg PO QPM Blood Clot 11/09/23 11/14/23 11/13/23 History
Prevention/Tx
prednisone 10 mg tablet 10 mg PO .TAPER 11/14/23 11/14/23 11/13/23 History
Review of Systems
-
History Source: Patient
All other systems: Negative unless noted
Vitals / Labs / Diagnostic Testing
Vital Signs
Temp Pulse Resp BP Pulse Ox
98.2 F 76 28 152/80 87
11/15/23 07:30 11/15/23 10:30 11/15/23 10:30 11/15/23 10:01 11/15/23 10:30
Lab Data
11/15/23 04:13
11/15/23 04:13
Laboratory Results
11/14/23 11/15/23
20:10 04:13
PT 36.9 H 38.0 H
INR 3.72 3.86
Diagnostic Testing:
Physical Exam
-
HEENT: Normocephalic
Cardiovascular: S1/S2
Respiratory: Wheeze (m), Rales ( Acapella Acapella walking's bibasilar) and Other (Prolonged expiratory phase)
GI: Soft and Non Distended
Neurology: Awake, Alert, Oriented and No Motor Deficits
Skin: Warm
General: Respiratory Distress (None at rest)
Assessment
-
83-year-old man with history of COPD, heart failure with preserved ejection fraction, paroxysmal atrial fibrillation on anticoagulation, admitted with worsening shortness of breath. He was found to be bronchospastic. Overnight developed increased
work of breathing, placed on BiPAP. Transferred to the intermediate care unit for closer monitoring.
Recurrent acute exacerbation of COPD-readmitted after 3 days at home.
Patient discharged on 11/12/2023 with similar symptoms
Chest x-ray: 11/14/2023: Showed mild vascular congestion. Small pleural effusion on the left. Chronic subsegmental atelectasis scarring in the lingula.
Negative procalcitonin
proBNP 2039
COVID-negative
Leukocytosis probably from steroids
Chronic heart failure with preserved ejection fraction-does not appear volume overloaded on exam.
Conditions present prior to admission:
Recent hospitalization discharged on 11/12/2023 for acute exacerbation of COPD.
Recent hospitalization 08/16/2022-acute on top of chronic COPD exacerbation and chronic diastolic CHF exacerbation, [place], gastrointestinal bleeding, hemoptysis and coagulopathy on Coumadin
COPD -severe/chronic hypercapnic respiratory failure ABG 11/09/2023-7.40 /chronic hypoxemic respiratory failure on 3-4 L
Usually follow-up with Dr. Archuleta: On low-dose azithromycin for anti-inflammatory properties, Breztri, nebulizers and albuterol HFA as needed. Maximal medical therapy.
Decreased diffusing capacity.
Chronic CHF preserved EF.
Aortic stenosis/AVR. -On chronic anticoagulation
PPM.
Pulmonary hypertension.
Chronic anemia.
Paroxysmal atrial fibrillation
Hyperlipidemia.
Hypertension.
Rotator cuff surgery. Aortic valve replacement. Bilateral herniography.
DNR status
Plan
Recurrent exacerbation of COPD-readmitted after 3 days.
On physical exam with bibasilar crackles. Prolonged expiratory phase without wheezing.
Patient comfortably sitting on the edge of the bed.
I suspect component of deconditioning contributing to his shortness of breath.
Patient has advanced emphysema with hyperinflation, chronic hypercapnic respiratory failure and hypoxemic respiratory failure.
-
I agree with current management.
IV corticosteroids-hopefully rapid taper.
Nebulizer with DuoNebs 4 times a day
Continue Pulmicort twice a day
Hold inhalers while in the hospital-usually on BREZTRI
Chest x-ray on admission: Possible vascular congestion. Lingular abnormality.
CT chest: Reviewed by me. Official report pending. Extensive centrilobular emphysema. Possible left lower lobe airspace disease versus atelectasis.
-
Records reviewed from last admission no antibiotics were given.
Given infiltrate on CAT scan I recommend treating with antibiotic therapy.
Leukocytosis noted
Monitor for fevers
Blood cultures are pending
Obtain a sputum culture
Obtain MRSA screening.
Will obtain influenza swab
COVID testing was negative.
-
Start IV ceftriaxone. Will adjust antibiotics based on cultures.
Okay to continue low-dose azithromycin for now.
Low threshold to broaden spectrum of antibiotics if patient does not improve as the patient has been in the hospital recently.
Given bibasilar abnormalities will obtain a speech evaluation. Rule out aspiration.
-
Respiratory status somewhat improved-anxiety playing a role
Supplemental oxygen as needed-outpatient 3-4 [id number] on 5 L.
Suspect that after exacerbation he may be at a new baseline. He might need 5 L of oxygen instead of 3-4.
-
Patient does have chronic hypercapnic respiratory failure.
Consider outpatient noninvasive mechanical ventilation. Can be discussed at next appointment with pulmonary.
No need for acute ventilation at this point. He is mentating well. Comfortable in the edge of the bed.
-
Mucolytic's
Incentive spirometry
Acapella device
Consider vest therapy if difficulties mobilizing secretions.
-
With increased proBNP may need to consider diuresis.
CT chest not consistent with volume overload. Can hold for now.
His weight is historically higher than before.
Monitor closely
Continue warfarin-monitor INR
-
Suspect significant component of deconditioning-May need to consider discharge to rehab.
Physical therapy/Occupational Therapy evaluation
Nutritional support
-
Monitor blood sugar, particularly on IV steroids.
Insulin supplementation as needed
During last admission patient was very anxious. May need to readd anxiolytics. Defer to primary team.
DVT prophylaxis-on warfarin
Dr. De Santiago updated family members at the bedside 11/15/2023.
Will need to update home oxygen assessment. Unlikely that he will able to use his portable oxygen concentrator that is pulse deliveedr.
He may need portable oxygen tanks
Follow-up with Dr. Archuleta after discharge.

Diagnostic data:
Chest x-ray 11/09/2023: Reviewed. No infiltrates., Hyperinflation
Chest x-ray/-tiny blunting of the left costophrenic angle lungs otherwise clear
Chest x-ray 11/13/2022-mild interstitial airspace disease left lung base, COPD
Echocardiogram 08/18/2022-EF 50-55%, abnormal diastolic dysfunction, trace mitral regurgitation, mechanical prosthetic aortic valve
VBG 08/16/2022-PCO2 68/37/7 0.31
PFT 11/10/2022-FEV1 1.29-54%, FVC 2.87-85%, TLC 86%, DLCO 16%
[2023-11-15] MEDS: ROCEPHIN 1000 MG IV (11:53)
[2023-11-15] MEDS: STERILE WATER FOR INJECTION 10 ML IV (11:53)
[2023-11-15 12:35] LABS: Procalcitonin < 0.05 ng/ml (0.0-0.25)
--- NOTE | 2023-11-15 17:01 | PTCARENOTE ---
Patient received to [facility] awake and alert. O2 at 5 LPM , is short of breath with activity, needs frequent rest periods. Denies any pain or discomfort at present . Call bansal in reach.
[2023-11-15] MEDS: LIPITOR 20 MG PO (17:23)
[2023-11-16 04:15] VITALS: BP 151/77
[2023-11-16 05:15] VITALS: BMI 26.4
[2023-11-16] MEDS: DECADRON 4 MG IV ×3 (05:24→21:22)
[2023-11-16 07:04] LABS: INR 4.92
[2023-11-16 07:44] LABS: Blood Urea Nitrogen 30 mg/dl (9-20); Glucose 113 mg/dl (70-99)
[2023-11-16 07:45] LABS: Calcium 9.1 mg/dl (8.4-10.2); Carbon Dioxide 35 mmol/L (22-30); Chloride 96 mmol/L (98-107); Estimated Creatinine Clearance 62 ml/min; Potassium 4.1 mmol/L (3.5-5.1); Sodium 139 mmol/L (135-145); eGFR > 60.00
[2023-11-16] MEDS: PULMICORT 0.5 MG INH ×2 (07:49→18:54)
[2023-11-16] MEDS: DUONEB 3 ML INH ×4 (07:49→18:53)
[2023-11-16 08:00] VITALS: BP 146/61
--- NOTE | 2023-11-16 08:35 | PTOTSP ---
Speech Language Pathology
Pt seen for clinical bedside swallow evaluation. No prior DOUGH SHEETER at , but pt has had multiple admissions for respiratory issues since 2022. P.O. trials of puree, regular solids, and thin liquids provided. Adequate mastication, bolus formation, and
A-P transit noted with no oral residue. Throat clear x1 with questionable slight wet vocal quality x1, which pt was able to clear.
Recommend:
(1) VSE to rule out aspiration as contributing factor to admissions for respiratory issues. This can be completed as an outpatient if pt ready to discharge before study able to be completed
(2) Continue regular solids/thin liquids
(3) General aspiration precautions
(4) Meds as tolerated
(5) DOUGH SHEETER to continue to follow
[2023-11-16 09:57] LABS: Magnesium 2.3 mg/dl (1.6-2.3)
[2023-11-16] MEDS: MUCINEX 600 MG PO ×2 (10:05→20:12)
[2023-11-16] MEDS: BYSTOLIC 5 MG PO (10:05)
[2023-11-16] MEDS: ZITHROMAX 250 MG PO (10:05)
[2023-11-16] MEDS: LASIX 40 MG PO (10:05)
[2023-11-16 10:11] LABS: Troponin I 0.017 ng/ml
--- NOTE | 2023-11-16 11:46 | CM ---
home manager reviewed patient's chart and met with patient and patient was admitted with COPD Exacerbation, patient reports he has an Inogen at home, patient resides at [facility] independent apartments. Patient is independent with adl's and uses a
walker in home, patient also with a electric scooter. Patient has a prescription plan and uses [facility].
PCP: Dr Maguire
Plan; Physical therapy are recommending skilled placement however patient and son, Anupam would prefer to have patient return to [facility] with increased services and [facility] visiting nurses and [facility] rehab, per patient's son patient is able
to walk to the bathroom by himself, patient will also need to be evaluated for continuous oxygen.
[2023-11-16 12:00] VITALS: BP 161/70
[2023-11-16] MEDS: ROCEPHIN 1000 MG IV (12:29)
[2023-11-16] MEDS: STERILE WATER FOR INJECTION 10 ML IV ×3 (12:29→21:20)
[2023-11-16] MEDS: MAXIPIME 2000 MG IV ×2 (13:56→21:20)
--- NOTE | 2023-11-16 14:54 | CON.ID ---
Consultation
-
Date/Time Consultation Requested: 11/16/23 13:44
Date/Time Consultation Performed: 11/16/23 14:54
Requesting Provider: Dr Monsivais
Performing Provider: Dr Taveras
Reason for Consultation: Pseudomonas PNA
Chief Complaint / Past History
Chief Complaint
shortness of breath
History of Present Illness
Mr Jolley is an 83 year old male with CHF, COPD on 3-4L baseline who presented here 11/13, of note recently discharged 11/11 after COPD exacerbation. Reports taking medications as prescribed however with increasing dyspnea despite increasing home
O2 t o5L. Did nebulizer without improvement. +nonproductive cough, chest tightness. LE edema stable. No fevers, chills, sweats.
Since arrival here patient has been afebrile, bp stable, HR mostly normal with isolated report in 100s, wbc 16 on arrival today 11, hgb 13.7, plt 237, L shift new today, cr 0.9, first troponin 0.017, 11/14 CT chest w/o IV contrast: mild LLL
atelectasis vs infiltrate. Procalcitonin <0.05 negative. Initially started on steroids, ceftriaxone and azithromycin. Reports improving on that regimen. Sputum culture now resulted with mod pseudomonas. QTc >530 x2. ID is consulted for
assistance with mangagement.
Past History
Additional Past Medical History:
COPD
Chronic Hypoxemic Respiratory Failure on Home O2
Chronic HFpEF
Essential Hypertension
Aortic Stenosis s/p Mechanical AVR
Paroxysmal Atrial Fibrillation
Known LBBB
Additional Past Surgical History:
Left Rotator Cuff Surgery
Bilateral Herniorrhaphy
Mechanical Aortic Valve Replacement
PPM
Allergy History:
codeine Allergy (Verified 11/09/23 15:11)
Irritability
Medications Reviewed: Yes
Social History
Tobacco: Former Smoker
Alcohol: None
Drug: None
Family History
Family History: Not Pertinent
Review of Systems
Review of Systems
General: Negative Fever or Chills
All systems: All other systems were reviewed and were negative
Vital Signs
Temp Pulse Resp BP Pulse Ox
97.4 F 67 28 161/70 96
11/16/23 12:00 11/16/23 12:00 11/16/23 12:00 11/16/23 12:00 11/16/23 12:00
Physical Exam
Physical Exam
Constitutional: No Acute Distress and Chronically Ill
Cardiovascular: Regular Rate and S1/S2; Negative Murmur or Rub
Pulmonary: Symmetric, Wheezes and Non Labored; Negative Rales or Rhonchi
Gastrointestinal: Soft, Non Tender, Non Distended and Normal Bowel Sounds
Skin: Warm and Dry; Negative Rash or Jaundice
Lines: Other (pacemaker)
Lab / Diagnostic Study Results
11/15/23 04:13
11/16/23 06:09
Abs Immat Gran (auto) 0.1 10^3/uL (0-0.05) H 11/15/23 04:13
Absolute Neuts (auto) 10.0 10^3/uL (1.4-6.5) H 11/15/23 04:13
Absolute Lymphs (auto) 1.0 10^3/uL (1.2-3.4) L 11/15/23 04:13
Absolute Monos (auto) 0.4 10^3/uL (0.1-0.6) 11/15/23 04:13
Absolute Basos (auto) 0.0 10^3/uL (0-0.2) 11/15/23 04:13
Immature Gran % 1.1 % (0-0.5) H 11/15/23 04:13
Neutrophils % 86.0 % (42.2-75.2) H 11/15/23 04:13
Lymphocytes % 9.0 % (20.5-51.1) L 11/15/23 04:13
Monocytes % 3.6 % (1.7-9.3) 11/15/23 04:13
Eosinophils % 0.0 % (0-6) 11/15/23 04:13
Basophils % 0.3 % (0-2) 11/15/23 04:13
PT 46.0 Sec (11.4-14.6) H 11/16/23 06:09
INR 4.92 11/16/23 06:09
Procalcitonin < 0.05 ng/ml (0.0-0.25) 11/15/23 11:52
Microbiology Results
Micro:
11/15/23 11:52 MRSA Screen - Final
Nose No Methicillin Resistant Staphylococcus aureus isolated.
11/15/23 14:47 Respiratory Culture - Preliminary
Sputum Pseudomonas aeruginosa
Gram Stain - Preliminary
11/14/23 15:07 Blood Culture - Preliminary
Blood/Venous No Growth in 24 hours- Final report to follow
11/14/23 15:11 Blood Culture - Preliminary
Blood/Venous No Growth in 24 hours- Final report to follow
11/15/23 11:47 Influenza Types A & B ([facility]) - Final
Nasal Swab Negative for Influenza A & B, NAAT
Negative results must be combined with clinical observations
and patient history.
Nucleic Acid Amplification test (NAAT)performed on the
[employer] platform.
Assessment / Plan
COPD exacerbation due to Pseudomonas
CHF
AVR on coumadin, PPM
- note negative procalcitonin x2: 11/13 and 11/14, however with moderate Pseudomonas in culture favor treatment
- last QTc this AM was 530 (NSR, LBBB) and previous to that 550 (NSR, LBBB) - I dont appreciate pacer spikes on the EKGs
- stopped azithromycin
- if Pseudomonas is quinolone sensitive, would discuss QTc with cardiology prior to initiating quinolone therapy
- continue cefepime for now tentatively day 1 of 5 of antibiotics
- steroids per pulmonary
- follow clinically
--- NOTE | 2023-11-16 15:37 | W.PN.PUL3 ---
Today's Communication / Plan
-
Continue supplemental oxygen and titrate to SpO2 >88% and <96%
Up OOB as tolerated
Abx as per ID
PT/OT � recommend skilled rehab upon discharge
Video swallow evaluation tomorrow as per JIG FITTER given risk of aspiration
Follow-up as an outpatient with [facility] with Dr. Archuleta
Assessment
-
83-year-old man with history of COPD, heart failure with preserved ejection fraction, paroxysmal atrial fibrillation on anticoagulation, admitted with worsening shortness of breath. He was found to be bronchospastic. Overnight developed increased
work of breathing, placed on BiPAP. Transferred to the intermediate care unit for closer monitoring.
Impression:
Recurrent acute exacerbation of COPD-readmitted after 3 days at home.
Patient discharged on 11/12/2023 with similar symptoms
Chest x-ray: 11/14/2023: Showed mild vascular congestion. Small pleural effusion on the left. Chronic subsegmental atelectasis scarring in the lingula.
Negative procalcitonin
proBNP 2039
COVID-negative
Posterior left lower lobe infiltrate seen on CT chest from 11/15/2023 suspicious for developing pneumonia
Leukocytosis probably exaggerated from steroid use
Chronic heart failure with preserved ejection fraction-does not appear volume overloaded on exam.
Conditions present prior to admission:
Recent hospitalization discharged on 11/12/2023 for acute exacerbation of COPD.
Recent hospitalization 08/16/2022-acute on top of chronic COPD exacerbation and chronic diastolic CHF exacerbation, [place], gastrointestinal bleeding, hemoptysis and coagulopathy on Coumadin
COPD -severe/chronic hypercapnic respiratory failure ABG 11/09/2023-7.40 /chronic hypoxemic respiratory failure on 3-4 L
Usually follow-up with Dr. Archuleta: On low-dose azithromycin for anti-inflammatory properties, Breztri, nebulizers and albuterol HFA as needed. Maximal medical therapy.
Decreased diffusing capacity.
Chronic CHF preserved EF.
Aortic stenosis/AVR. -On chronic anticoagulation
PPM.
Pulmonary hypertension.
Chronic anemia.
Paroxysmal atrial fibrillation
Hyperlipidemia.
Hypertension.
Rotator cuff surgery. Aortic valve replacement. Bilateral herniography.
DNR status
Plan
Recurrent exacerbation of COPD-readmitted after 3 days.
On physical exam he had bibasilar crackles, which have now resolved. Prolonged expiratory phase without wheezing.
Patient comfortably sitting on the edge of the bed.
I suspect component of deconditioning contributing to his shortness of breath.
Patient has advanced emphysema with hyperinflation, chronic hypercapnic respiratory failure and hypoxemic respiratory failure.
He also has suspected posterior LLL pneumonia seen on CT chest from 11/15/2023 -ID consulted and he is now on cefepime s/p rocephin + azithromycin x 2 doses
-
I agree with current management.
IV corticosteroids-hopefully rapid taper -currently on Decadron 4 mg IV q8hr
Nebulizer with DuoNebs 4 times a day
Continue Pulmicort twice a day
Hold maintenance long-acting inhalers while in the hospital-usually on BREZTRI
Chest x-ray on admission: Possible vascular congestion. Lingular abnormality
CT chest from 11/15/2023 with extensive panlobular emphysema with a posterior LLL infiltrate suspicious for developing pneumonia
-
Records reviewed from last admission no antibiotics were given.
Given infiltrate on CAT scan pt was started on Abx
Leukocytosis noted
Monitor for fevers
Blood cultures collected on 11/14/2023 show NGTD
Sputum culture from 11/15/2023 growing Pseudomonas aeruginosa
MRSA is negative
Flu swab also negative
COVID testing was negative.
-
Given bibasilar abnormalities will obtain a speech evaluation. Rule out aspiration --> JIG FITTER evaluated him today and he is pending VSE tomorrow
-
Respiratory status somewhat improved-anxiety playing a role
Supplemental oxygen as needed-outpatient 3-4 [id number] on 5 L midflow
Suspect that after exacerbation he may be at a new baseline. He might need 5 L of oxygen instead of 3-4.
-
Patient does have chronic hypercapnic respiratory failure.
Consider outpatient noninvasive mechanical ventilation. Can be discussed at next appointment with pulmonary.
No need for acute ventilation at this point. He is mentating well. Comfortable in the edge of the bed.
-
Mucolytics
Incentive spirometry
Acapella device
Consider vest therapy if difficulties mobilizing secretions.
-
With increased proBNP may need to consider diuresis - however proBNP is less than a third of what it was on 11/09/2023 (2040 on 11/14/2023 compared to 7460 on 11/09/2023)
CT chest not consistent with volume overload
His weight is historically higher than before.
Monitor closely
Continue warfarin-monitor INR with goal 2-3
-
Suspect significant component of deconditioning-May need to consider discharge to rehab.
Physical therapy/Occupational Therapy evaluation --> recommend skilled rehab upon discharge
Nutritional support
-
Monitor blood sugar, particularly on IV steroids.
Goal BG >100 and <180mg/dL
Insulin SQ supplementation as needed
During last admission patient was very anxious. May need to give anxiolytics. Defer to primary team.
DVT prophylaxis-on warfarin
Dr. De Santiago updated family members at the bedside 11/15/2023.
Will need to update home oxygen assessment. Unlikely that he will able to use his portable oxygen concentrator that is pulse delivered
He may need portable oxygen tanks
Check walking pulse oximetry prior to discharge
Follow-up with Dr. Archuleta after discharge.
Total time spent today was 50 minutes for this encounter. Time includes reviewing laboratory test/imaging results, reviewing pertinent medical records, obtaining and reviewing medical history, performing an appropriate exam, ordering medications,
tests and procedures. Time also includes documentation of this encounter, coordinating patient care and communicating with other healthcare professionals. Total time does not include separately billed tests performed on this date of service.

Diagnostic data:
CT Chest w/o contrast 11-15-2023:
Mild airspace disease in the left lower lobe and therefore developing pneumonia. Clinical and laboratory correlation recommended. Repeat exam following treatment in approximately 2 weeks is recommended to exclude underlying pulmonary nodules
Moderate emphysematous disease.
Mild lingular atelectasis versus scarring.
Moderate atherosclerotic vascular disease.
Possible left renal soft tissue mass versus findings due to cortical scarring. Nonurgent dedicated CT of the kidneys recommended. Post IV contrast.
Mild bilateral renal atrophy.
Nonobstructing left renal stone. 2 weeks is recommended to exclude underlying nodules.
Chest x-ray 11/09/2023: Reviewed. No infiltrates., Hyperinflation
Chest x-ray/-tiny blunting of the left costophrenic angle lungs otherwise clear
Chest x-ray 11/13/2022-mild interstitial airspace disease left lung base, COPD
Echocardiogram 08/18/2022-EF 50-55%, abnormal diastolic dysfunction, trace mitral regurgitation, mechanical prosthetic aortic valve
VBG 08/16/2022-PCO2 68/37/7 0.31
PFT 11/10/2022-FEV1 1.29-54%, FVC 2.87-85%, TLC 86%, DLCO 16%
Subjective Data
-
Date of Service:
Date of Service: November 16, 2023
Chief Complaint: Pulmonary Follow Up
Subjective:
Patient seen and evaluated this morning. Currently on midflow nasal cannula at 5 L/min. No issues overnight. He says his shortness of breath is better. He denies a cough. He is eager to go home. Currently denies chest pain, headache, abdominal
pain, fevers or chills.
Review of Systems
General: Other (Negative unless mentioned above)
Objective Data
Data Reviewed
Vital Signs / I&O / Oxygen:
Vital Signs
Temp Pulse Resp BP Pulse Ox
97.4 F 64 18 161/70 96
11/16/23 12:00 11/16/23 15:35 11/16/23 15:35 11/16/23 12:00 11/16/23 12:00
Intake and Output
11/15/23 11/16/23 11/17/23
06:59 06:59 06:59
Intake Total 1080 / 1080
Output Total 650 / 650 550 / 550
Balance -650 / -650 530 / 530
SaO2 96
Nasal Cannula flow liters per 5
minute
Physical Exam
HEENT: Normocephalic and Anicteric
Cardiovascular: S1-S2 (Mechanical click heard upon S2) and Peripheral Edema (Negative)
Respiratory: Clear, Wheeze (Negative), Crackles (Negative), Rhonchi (Negative), Non-Labored Respirations and Other (Reduced breath sounds bilaterally)
GI: Soft, Non Distended, Non Tender and Normal Bowel Sounds
Neurology: Awake and Alert
Skin: Warm, Dry and Cyanosis (Negative)
Labs/Micro/Reports
Lab Data
11/15/23 04:13
11/16/23 06:09
Laboratory Results
11/16/23
06:09
PT 46.0 H
INR 4.92
Microbiology
11/14/23 15:07 Blood/Venous Blood Culture - Preliminary
No Growth in 48 hours- Final report to follow
11/14/23 15:11 Blood/Venous Blood Culture - Preliminary
No Growth in 48 hours- Final report to follow
11/15/23 11:52 Nose MRSA Screen - Final
No Methicillin Resistant Staphylococcus aureus isolated.
11/15/23 14:47 Sputum Respiratory Culture - Preliminary
Pseudomonas aeruginosa
11/15/23 14:47 Sputum Gram Stain - Preliminary
11/15/23 11:47 Nasal Swab Influenza Types A & B ([facility]) - Final
Negative for Influenza A & B, NAAT
Negative results must be combined with clinical observations
and patient history.
Nucleic Acid Amplification test (NAAT)performed on the
[employer] platform.
--- NOTE | 2023-11-16 15:49 | W.PN.HOSP.TC ---
Today's Communication/Plan
-
Hold Coumadin today
Cefepime
Await sensitivities of Pseudomonas
Repeat EKG in the morning
Assessment / Plan
Assessment / Plan
83-year-old male with multiple medical problems presented to the hospital with complaints of cough and shortness of breath on 11/10/2023. Patient was admitted and treated 11/12/2023. He uses oxygen 3 to 4 L at home but required high flow in the
hospital which was changed to nasal cannula. Patient was readmitted with shortness of breath having to increase oxygen to 5 L at home despite that had no saturation. He also used nebulizer treatment. He has chronic lower extremity edema which is
stable
CVS: S1-S2 normal
Chest: decreased BS bases
Abdomen: Soft, NT / Bowel sounds present
Extremities: No edema, normal pulses
CT chest-mild airspace disease in the left lower lobe consistent with developing pneumonia. Moderate emphysematous disease. Lingular atelectasis or scarring. Moderate atherosclerotic vascular disease. Possible left renal soft tissue mass versus
cortical scarring. Nonemergent CT recommended. By mild bilateral renal atrophy. Nonobstructing left renal stone
# Acute on chronic hypoxic respiratory failure
Likely secondary to COPD exacerbation and also Pseudomonas pneumonia
Baseline uses 3 to 4 L
Continue supplemental oxygen to keep saturations 90 to 92%
Rule out aspiration
Discussed with speech therapy will get video swallow
# COPD exacerbation
Decadron, nebulizer treatments, Pulmicort
Continue Zithromax, change Rocephin to cefepime
Sputum culture pseudomonas
Mucinex
Pulmonary following
Acapella
#NSVT-EKG noted. Slightly prolonged QTc, left axis deviation no significant change.
Troponin 1 set is negative. 1 more set ordered.
Echo-mild concentric LVH. Normal LV size. Ejection fraction 52%. Pacer wire in the right heart. Mild MR. Mild TR
Electrolytes OK
Rpt EKG in am
# Leukocytosis-likely secondary to steroids and pneumonia
# Coagulopathy-secondary to Coumadin
Hold Coumadin today 11/16/23
Follow INR
# Chronic heart failure with preserved ejection fraction
Continue Lasix 40 mg daily
# History of mechanical aortic valve for aortic stenosis
Dose Coumadin daily according to INR
# Hypertension
Continue Bystolic
Add Norvasc 5 mg
As needed hydralazine
# Hyperlipidemia-continue statin
# Pacemaker
# Pulmonary hypertension
# Hyperlipidemia-continue statin
# DVT prophylaxis-continue Coumadin per INR
# CODE STATUS-DNR
D/W RN
Discussed with pharmacy
Discussed with speech therapy
Detailed discussion with patient's son on the phone in detail. All questions answered
Patient may need to go to rehab at discharge
Time spent more than 50 min
Anticipated Discharge: 24 - 48 hours
Subjective/Interval History
-
Date of Service: November 16, 2023
Objective Data
-
Labs:
Laboratory Results
11/16/23
06:09
PT 46.0 H
INR 4.92
Sodium 139
Potassium 4.1
Chloride 96 L
Carbon Dioxide 35 H
BUN 30 H
Creatinine 0.9
Glucose 113 H
Calcium 9.1
Vital Signs:
Vital Signs
Temp Pulse Resp BP Pulse Ox
97.4 F 64 18 161/70 96
11/16/23 12:00 11/16/23 15:35 11/16/23 15:35 11/16/23 12:00 11/16/23 12:00
I&O
11/15/23 11/16/23 11/17/23
06:59 06:59 06:59
Intake Total 1080 / 1080
Output Total 650 / 650 550 / 550
Balance -650 / -650 530 / 530
[2023-11-16 16:00] VITALS: BP 160/74
[2023-11-16] MEDS: NORVASC 5 MG PO (16:23)
--- NOTE | 2023-11-16 16:23 | PN.CDI ---
Addendum entered and electronically signed by Tami Monsivais MD 11/16/23 18:06:
Documentation is complete at this time.
Original Note:
CDI
- -
CDI:
Physician Documentation Request
Admit Date: 11/14/23 20:01
Dear Doctor Yodit,
Patient hospitalized with 'acute on chronic hypoxic respiratory failure Likely secondary to COPD exacerbation and also Pseudomonas pneumonia'
Patient has remained afebrile per documented vital signs
11/13 WBC 16.6
11/13 Heart rate 60s-102, respiratory rate 18-41
Please clarify which of the following most accurately describes the status of the patient's infection:
Sepsis
- Systemic manifestations of infection, with 2 or more SIRS criteria which include:
- Fever >100.4 degrees F or hypothermia < 96.8 degrees F
- Leukocytosis - WBC > 12,000 or leukopenia - WBC < 4,000 or > 10% bands
- Tachycardia > 90 beats per minute
- Tachypnea - RR > 20 breaths per minute or PaCO2 , 32mmHg
Source: Merck Manual 2013
Severe Sepsis
- Sepsis with associated acute organ dysfunction, such as renal or respiratory failure
- Documentation should indicate the association between the sepsis and the organ dysfunction
Localized Infection Only, Without Systemic Illness
Other
Use of terms such as suspected, likely, concern for, or probable (associated with a specific diagnosis that is being evaluated, monitored, or treated as if it exists) are acceptable and can be coded in the inpatient setting, when documented at the
time of discharge.
Thank you,
Sarah Orellana RN, BSN
CDI Specialist
tiger text
Please use your independent medical judgment in providing your response.
[2023-11-16] MEDS: LIPITOR 20 MG PO (17:00)
[2023-11-16 19:31] VITALS: BP 129/67
[2023-11-16 23:00] VITALS: BP 134/70
[2023-11-17] VITALS (7 sets, daily range): BP systolic 133–169; BP diastolic 61–80; PULSE 65; O2SAT 99; BMI 26.4
[2023-11-17] MEDS: DECADRON 4 MG IV ×3 (05:08→21:18)
[2023-11-17] MEDS: PULMICORT 0.5 MG INH ×2 (07:18→19:40)
[2023-11-17] MEDS: DUONEB 3 ML INH ×3 (07:18→19:40)
[2023-11-17] MEDS: BYSTOLIC 5 MG PO (08:11)
[2023-11-17] MEDS: MUCINEX 600 MG PO ×3 (08:11→21:18)
[2023-11-17] MEDS: LASIX 40 MG PO (08:12)
[2023-11-17] MEDS: NORVASC 5 MG PO (08:12)
[2023-11-17 08:22] LABS: Hematocrit 46.1 % (39.0-52.0); Hemoglobin 14.9 g/dL (13.0-18.0); Mean Corp Hgb Conc. 32.3 g/dL (33.0-37.0); Mean Corpuscular Hgb 27.2 pg (27.0-31.0); Mean Corpuscular Volume 84.3 fL (80.0-94.0); Mean Platelet Volume 9.5 fL (7.4-10.4); Platelet Count 284 10^3/uL (130-400); Red Blood Cell Count 5.47 10^6/uL (4.70-6.10); Red Cell Dist. Width 15.1 % (11.5-14.5); White Blood Cell Count 17.4 10^3/uL (4.8-10.8)
[2023-11-17 08:32] LABS: INR 3.88; PT 38.1 Sec (11.4-14.6)
[2023-11-17 09:05] LABS: Blood Urea Nitrogen 34 mg/dl (9-20); Calcium 9.2 mg/dl (8.4-10.2); Carbon Dioxide 33 mmol/L (22-30); Chloride 96 mmol/L (98-107); Estimated Creatinine Clearance 62 ml/min; Glucose 120 mg/dl (70-99); Potassium 4.5 mmol/L (3.5-5.1); Sodium 137 mmol/L (135-145); eGFR > 60.00
--- NOTE | 2023-11-17 10:35 | CM ---
commercial property manager continues to follow with patient progress and patient and son have declined skilled placement, patient is currently requiring 5 liters of oxygen, needs VSE per chart, caser in will follow with patient progress.
Plan; To follow with patient progress.
[2023-11-17] MEDS: MAXIPIME 2000 MG IV (10:55)
--- NOTE | 2023-11-17 10:59 | W.PN.PUL3 ---
Today's Communication / Plan
-
Patient more short of breath today after ambulating
Check CXR
Continue supplemental oxygen and titrate to SpO2 >88% and <96%
Up OOB as tolerated
Abx as per ID
PT/OT � recommend skilled rehab upon discharge
Video swallow evaluation tomorrow as per WELDING MACHINE OPERATOR THERMIT given risk of aspiration
Follow-up as an outpatient with [facility] with Dr. Archuleta
Assessment
-
83-year-old man with history of COPD, heart failure with preserved ejection fraction, paroxysmal atrial fibrillation on anticoagulation, admitted with worsening shortness of breath. He was found to be bronchospastic. Overnight developed increased
work of breathing, placed on BiPAP. Transferred to the intermediate care unit for closer monitoring.
Impression:
Recurrent acute exacerbation of COPD-readmitted after 3 days at home.
Patient discharged on 11/12/2023 with similar symptoms
Chest x-ray: 11/14/2023: Showed mild vascular congestion. Small pleural effusion on the left. Chronic subsegmental atelectasis scarring in the lingula.
Negative procalcitonin
proBNP 2039
COVID-negative
Posterior left lower lobe infiltrate seen on CT chest from 11/15/2023 suspicious for developing pneumonia
Sputum culture has grown Pseudomonas aeruginosa which is intermediate to gentamicin
Leukocytosis probably exaggerated from steroid use
Chronic heart failure with preserved ejection fraction-does not appear volume overloaded on exam.
Conditions present prior to admission:
Recent hospitalization discharged on 11/12/2023 for acute exacerbation of COPD.
Recent hospitalization 08/16/2022-acute on top of chronic COPD exacerbation and chronic diastolic CHF exacerbation, [place], gastrointestinal bleeding, hemoptysis and coagulopathy on Coumadin
COPD -severe/chronic hypercapnic respiratory failure ABG 11/09/2023-7.40 /chronic hypoxemic respiratory failure on 3-4 L
Usually follow-up with Dr. Archuleta: On low-dose azithromycin for anti-inflammatory properties, Breztri, nebulizers and albuterol HFA as needed. Maximal medical therapy.
Decreased diffusing capacity.
Chronic CHF preserved EF.
Aortic stenosis/AVR. -On chronic anticoagulation
PPM.
Pulmonary hypertension.
Chronic anemia.
Paroxysmal atrial fibrillation
Hyperlipidemia.
Hypertension.
Rotator cuff surgery. Aortic valve replacement. Bilateral herniography.
DNR status
Plan
Recurrent exacerbation of COPD-readmitted after 3 days.
On physical exam he had bibasilar crackles, which have now resolved. Prolonged expiratory phase without wheezing.
Patient comfortably sitting on the edge of the bed.
I suspect component of deconditioning contributing to his shortness of breath.
Patient has advanced emphysema with hyperinflation, chronic hypercapnic respiratory failure and hypoxemic respiratory failure.
He also has suspected posterior LLL pneumonia seen on CT chest from 11/15/2023 -ID consulted and he was changed to cefepime on 11/15 s/p rocephin + azithromycin x 2 doses --> now he is on levaquin
-
I agree with current management.
IV corticosteroids-hopefully rapid taper -currently on Decadron 4 mg IV q8hr
Nebulizer with DuoNebs 4 times a day
Continue Pulmicort twice a day
Hold maintenance long-acting inhalers while in the hospital-usually on BREZTRI
Chest x-ray on admission: Possible vascular congestion. Lingular abnormality
CT chest from 11/15/2023 with extensive panlobular emphysema with a posterior LLL infiltrate suspicious for developing pneumonia
-
Records reviewed from last admission no antibiotics were given.
Given infiltrate on CAT scan pt was started on Abx - defer to ID
Leukocytosis noted
Monitor for fevers
Blood cultures collected on 11/14/2023 show NGTD
Sputum culture from 11/15/2023 growing Pseudomonas aeruginosa
MRSA is negative
Flu swab also negative
COVID testing was negative.
-
Given bibasilar abnormalities will obtain a speech evaluation. Rule out aspiration --> WELDING MACHINE OPERATOR THERMIT evaluated him today and he underwent VSE today showing liquid transient penetration with consecutive cup swallows with no aspiration
-
Respiratory status somewhat improved-anxiety playing a role as well as deconditioning
Supplemental oxygen as needed-outpatient 3-4 N-sits-ubqihjdok on 5 L midflow
Suspect that after exacerbation he may be at a new baseline. He might need 5 L of oxygen instead of 3-4.
-
Patient does have chronic hypercapnic respiratory failure.
Consider outpatient noninvasive mechanical ventilation. Can be discussed at next appointment with pulmonary.
No need for acute ventilation at this point. He is mentating well. Comfortable in the edge of the bed.
-
Mucolytics --> optimize mucinex, raising dose to 1.2g q12hr
Incentive spirometry
Acapella device
Consider vest therapy if difficulties mobilizing secretions.
-
With increased proBNP may need to consider diuresis - however proBNP is less than a third of what it was on 11/09/2023 (2040 on 11/14/2023 compared to 7460 on 11/09/2023)
CT chest not consistent with volume overload
His weight is historically higher than before.
Monitor closely
Continue warfarin-monitor INR with goal 2-3
-
Suspect significant component of deconditioning
Physical therapy/Occupational Therapy evaluation --> recommend skilled rehab upon discharge
Nutritional support
-
Monitor blood sugar, particularly on IV steroids.
Goal BG >100 and <180mg/dL
Insulin SQ supplementation as needed
During last admission patient was very anxious. May need to give anxiolytics. Defer to primary team.
DVT prophylaxis-on warfarin
Dr. De Santiago updated family members at the bedside 11/15/2023.
Will need to update home oxygen assessment. Unlikely that he will able to use his portable oxygen concentrator that is pulse delivered
He may need portable oxygen tanks
Check walking pulse oximetry prior to discharge
Follow-up with Dr. Archuleta after discharge.
Total time spent today was 50 minutes for this encounter. Time includes reviewing laboratory test/imaging results, reviewing pertinent medical records, obtaining and reviewing medical history, performing an appropriate exam, ordering medications,
tests and procedures. Time also includes documentation of this encounter, coordinating patient care and communicating with other healthcare professionals. Total time does not include separately billed tests performed on this date of service.

Diagnostic data:
CT Chest w/o contrast 11-15-2023:
Mild airspace disease in the left lower lobe and therefore developing pneumonia. Clinical and laboratory correlation recommended. Repeat exam following treatment in approximately 2 weeks is recommended to exclude underlying pulmonary nodules
Moderate emphysematous disease.
Mild lingular atelectasis versus scarring.
Moderate atherosclerotic vascular disease.
Possible left renal soft tissue mass versus findings due to cortical scarring. Nonurgent dedicated CT of the kidneys recommended. Post IV contrast.
Mild bilateral renal atrophy.
Nonobstructing left renal stone. 2 weeks is recommended to exclude underlying nodules.
Chest x-ray 11/09/2023: Reviewed. No infiltrates., Hyperinflation
Chest x-ray/-tiny blunting of the left costophrenic angle lungs otherwise clear
Chest x-ray 11/13/2022-mild interstitial airspace disease left lung base, COPD
Echocardiogram 08/18/2022-EF 50-55%, abnormal diastolic dysfunction, trace mitral regurgitation, mechanical prosthetic aortic valve
VBG 08/16/2022-PCO2 68/37/7 0.31
PFT 11/10/2022-FEV1 1.29-54%, FVC 2.87-85%, TLC 86%, DLCO 16%
Subjective Data
-
Date of Service:
Date of Service: November 17, 2023
Chief Complaint: Pulmonary Follow Up
Subjective:
Patient underwent videofluoroscopic swallow evaluation today showing no evidence of aspiration although there was minimal vallecular retention and thin liquid transient penetration with consecutive cup swallows. I saw him after the study was done
and he had just walked around his room and feels very short of breath. She denies a cough but every once while he has a wet sounding cough clamp still in the room with him. He is currently on 5 L/min nasal cannula and has mild accessory muscle use.
Review of Systems
General: Other (Negative unless mentioned above)
Objective Data
Data Reviewed
Vital Signs / I&O / Oxygen:
Vital Signs
Temp Pulse Resp BP Pulse Ox
97.5 F 63 17 158/65 97
11/17/23 07:38 11/17/23 07:38 11/17/23 07:38 11/17/23 07:38 11/17/23 07:38
Intake and Output
11/16/23 11/17/23 11/18/23
06:59 06:59 06:59
Intake Total 1080 / 1080 880 / 880
Output Total 550 / 550 1250 / 1250
Balance 530 / 530 -370 / -370
SaO2 97
Nasal Cannula flow liters per 5
minute
Physical Exam
General: Respiratory Distress (mild as he just ambulated)
HEENT: Normocephalic and Anicteric
Cardiovascular: S1-S2 (Mechanical click heard upon S2) and Peripheral Edema (Negative)
Respiratory: Clear, Wheeze (Negative), Crackles (Negative), Rhonchi (Negative), Accessory Resp Muscle Use (mild) and Other (Reduced breath sounds bilaterally)
GI: Soft, Non Distended, Non Tender and Normal Bowel Sounds
Neurology: Awake, Alert and Tremors (n)
Skin: Warm, Dry and Cyanosis (Negative)
Labs/Micro/Reports
Lab Data
11/17/23 07:30
11/17/23 07:30
Laboratory Results
11/17/23
07:30
PT 38.1 H
INR 3.88
Microbiology
11/15/23 14:47 Sputum Respiratory Culture - Final
Pseudomonas aeruginosa
11/15/23 14:47 Sputum Gram Stain - Final
11/14/23 15:07 Blood/Venous Blood Culture - Preliminary
No Growth in 48 hours- Final report to follow
11/14/23 15:11 Blood/Venous Blood Culture - Preliminary
No Growth in 48 hours- Final report to follow
11/15/23 11:52 Nose MRSA Screen - Final
No Methicillin Resistant Staphylococcus aureus isolated.
11/15/23 11:47 Nasal Swab Influenza Types A & B ([facility]) - Final
Negative for Influenza A & B, NAAT
Negative results must be combined with clinical observations
and patient history.
Nucleic Acid Amplification test (NAAT)performed on the
[employer] platform.
[2023-11-17] MEDS: STERILE WATER FOR INJECTION 10 ML IV (11:07)
[2023-11-17] MEDS: DUONEB INH (11:23)
--- NOTE | 2023-11-17 13:31 | PTOTSP ---
Video Swallow Examination
Oral/pharyngeal swallow within functional limits with no persistent laryngeal penetration or aspiration. Mild vallecular stasis with thin and mildly thick liquid by consecutive cup sip. Otherwise trace tongue base and vallecular coating with
remaining trials.
Observation of esophageal emptying in upright position revealed some retained contrast with improved clearance following liquid wash.
Recommend
1. Continue regular solids and thin liquids
2. Meds with liquid as tolerated.
3. Intersperse sip of liquid after every 2-3 bites of solid.
4. Eat slowly and take rest breaks when respiratory rate is elevated.
5. Remain upright during and for at least one hour after meals.
6. ST follow up to ensure diet tolerance and use of compensations.
--- NOTE | 2023-11-17 14:33 | W.PN.ID1 ---
Date of Service
Date of Service: November 17, 2023
Today's Communication
- EKG is paced QTc not reliable
- switched to levofloxacin day 2 of 7 of antibiotics
- steroids per pulmonary
- follow clinically
Assessment / Plan
COPD exacerbation due to Pseudomonas
CHF
AVR on coumadin, PPM
- note negative procalcitonin x2: 11/13 and 11/14, however with moderate Pseudomonas in culture favor treatment
- EKG is paced QTc not reliable
- switched to levofloxacin day 2 of 7 of antibiotics
- steroids per pulmonary
- follow clinically
Chief Complaint
-: Other (COPD exacerbation)
Subjective / Review of Systems
afebrile
bp stable
on 5L
still wheezing some
'I feel much better when can I go home'
EKG with visible pacer spikes
Vital Signs / Physical Exam
Vital Signs
Vital Signs
Temp Pulse Resp BP Pulse Ox
97.5 F 61 17 144/61 95
11/17/23 11:25 11/17/23 11:25 11/17/23 11:25 11/17/23 11:25 11/17/23 11:25
Physical Exam
Constitutional: No Acute Distress and Chronically Ill
Cardiovascular: Regular Rate and S1/S2; Negative Murmur or Rub
Pulmonary: Clear, Symmetric and Wheezes (occasional - scattered); Negative Rales
Gastrointestinal: Soft, Non Tender, Non Distended and Normal Bowel Sounds
Skin: Warm and Dry; Negative Rash or Jaundice
Objective Data
Lab Data
Lab Results
11/17/23 07:30
11/17/23 07:30
PT 38.1 Sec (11.4-14.6) H 11/17/23 07:30
INR 3.88 11/17/23 07:30
Estimated Creat Clear 62 ml/min 11/17/23 07:30
Most recent labs reviewed.
Micro Results:
11/15/23 14:47 Respiratory Culture - Final
Sputum Pseudomonas aeruginosa
Gram Stain - Final
11/14/23 15:07 Blood Culture - Preliminary
Blood/Venous No Growth in 48 hours- Final report to follow
11/14/23 15:11 Blood Culture - Preliminary
Blood/Venous No Growth in 48 hours- Final report to follow
11/15/23 11:52 MRSA Screen - Final
Nose No Methicillin Resistant Staphylococcus aureus isolated.
11/15/23 11:47 Influenza Types A & B ([facility]) - Final
Nasal Swab Negative for Influenza A & B, NAAT
Negative results must be combined with clinical observations
and patient history.
Nucleic Acid Amplification test (NAAT)performed on the
[employer] platform.
[2023-11-17] MEDS: LEVAQUIN 750 MG PO (15:08)
[2023-11-17] MEDS: LIPITOR 20 MG PO (17:41)
[2023-11-18] VITALS (7 sets, daily range): BP systolic 96–157; BP diastolic 56–93; O2SAT 96; BMI 26.3
--- NOTE | 2023-11-18 03:40 | DOWNTIME ---
There was a [employer] Client Associate Web Developer Downtime on 11/18/2023 from 0100 to 11/18/2023 at 0337. Downtime documentation of patient's care, including medication administrations, has been reconciled in the electronic record per guidelines. Refer to the
patient's paper chart under the miscellaneous tab to see printed paper medication records and downtime forms.
[2023-11-18] MEDS: DECADRON 4 MG IV (05:18)
[2023-11-18] MEDS: DUONEB 3 ML INH ×4 (06:30→19:14)
[2023-11-18] MEDS: PULMICORT 0.5 MG INH ×2 (06:30→19:14)
[2023-11-18 07:30] LABS: INR 2.18; PT 24.1 Sec (11.4-14.6)
[2023-11-18 08:51] LABS: Hematocrit 45.8 % (39.0-52.0); Hemoglobin 14.9 g/dL (13.0-18.0); Mean Corp Hgb Conc. 32.5 g/dL (33.0-37.0); Mean Corpuscular Hgb 26.9 pg (27.0-31.0); Mean Corpuscular Volume 82.7 fL (80.0-94.0); Mean Platelet Volume 9.3 fL (7.4-10.4); Platelet Count 312 10^3/uL (130-400); Red Blood Cell Count 5.54 10^6/uL (4.70-6.10); White Blood Cell Count 13.9 10^3/uL (4.8-10.8)
[2023-11-18] MEDS: LEVAQUIN 750 MG PO (08:52)
[2023-11-18] MEDS: LASIX 40 MG PO (08:52)
[2023-11-18] MEDS: MUCINEX 1200 MG PO ×2 (08:53→19:50)
[2023-11-18] MEDS: NORVASC 5 MG PO (08:53)
[2023-11-18] MEDS: COUMADIN 1 MG PO (08:54)
[2023-11-18] MEDS: BYSTOLIC 5 MG PO (08:54)
[2023-11-18 09:50] LABS: Blood Urea Nitrogen 40 mg/dl (9-20); Carbon Dioxide 29 mmol/L (22-30); Chloride 94 mmol/L (98-107); Estimated Creatinine Clearance 56 ml/min; Glucose 215 mg/dl (70-99); Potassium 4.4 mmol/L (3.5-5.1); Sodium 134 mmol/L (135-145); eGFR > 60.00
--- NOTE | 2023-11-18 12:09 | W.PN.PUL3 ---
Today's Communication / Plan
-
SOB improved today
Wean down to prednisone tomorrow at 50mg and reduce by 10mg every 5th day until off
Check AM VBG to assure pCO2 and pH stable --> if sleep study is needed with CO2 monitoring, then this will be done at the discretion of our pulmonary office per Dr. Archuleta - it will be discussed at pt's next office visit
Continue supplemental oxygen and titrate to SpO2 >88% and <96%
Up OOB as tolerated
Abx as per ID
PT/OT � recommend skilled rehab upon discharge
Video swallow evaluation on 11/16 --> continue regular solids and thin liquids, given no persistent laryngeal penetration or aspiration seen
Follow-up as an outpatient with [facility] with Dr. Archuleta
Assessment
-
83-year-old man with history of COPD, heart failure with preserved ejection fraction, paroxysmal atrial fibrillation on anticoagulation, admitted with worsening shortness of breath. He was found to be bronchospastic. Overnight developed increased
work of breathing, placed on BiPAP. Transferred to the intermediate care unit for closer monitoring.
Impression:
Recurrent acute exacerbation of COPD-readmitted after 3 days at home.
Patient discharged on 11/12/2023 with similar symptoms
Chest x-ray: 11/14/2023: Showed mild vascular congestion. Small pleural effusion on the left. Chronic subsegmental atelectasis scarring in the lingula.
Negative procalcitonin
proBNP 2039
COVID-negative
Posterior left lower lobe infiltrate seen on CT chest from 11/15/2023 suspicious for developing pneumonia
Sputum culture has grown Pseudomonas aeruginosa which is intermediate to gentamicin
Leukocytosis probably exaggerated from steroid use
Chronic heart failure with preserved ejection fraction-does not appear volume overloaded on exam.
Conditions present prior to admission:
Recent hospitalization discharged on 11/12/2023 for acute exacerbation of COPD.
Recent hospitalization 08/16/2022-acute on top of chronic COPD exacerbation and chronic diastolic CHF exacerbation, [place], gastrointestinal bleeding, hemoptysis and coagulopathy on Coumadin
COPD -severe/chronic hypercapnic respiratory failure ABG 11/09/2023-7.40 /chronic hypoxemic respiratory failure on 3-4 L
Usually follow-up with Dr. Archuleta: On low-dose azithromycin for anti-inflammatory properties, Breztri, nebulizers and albuterol HFA as needed. Maximal medical therapy.
Chronic hypoxic respiratory failure with 3-4 L ATC and 3L//min with sleep
Decreased diffusing capacity.
Chronic CHF preserved EF.
Aortic stenosis/AVR. -On chronic anticoagulation
PPM.
Pulmonary hypertension.
Chronic anemia.
Paroxysmal atrial fibrillation
Hyperlipidemia.
Hypertension.
Rotator cuff surgery. Aortic valve replacement. Bilateral herniography.
DNR status
Plan
Recurrent exacerbation of COPD-readmitted after 3 days.
On physical exam he had bibasilar crackles, which have now resolved. Prolonged expiratory phase without wheezing.
Patient comfortably sitting on the edge of the bed.
I suspect component of deconditioning contributing to his shortness of breath.
Patient has advanced emphysema with hyperinflation, chronic hypercapnic respiratory failure and hypoxemic respiratory failure.
He also has suspected posterior LLL pneumonia seen on CT chest from 11/15/2023 -ID consulted and he was changed to cefepime on 11/15 s/p rocephin + azithromycin x 2 doses --> now he is on levaquin since 11/16 --> would complete 7 days of Abx total
-
I agree with current management.
IV corticosteroids-hopefully rapid taper -currently on Decadron 2mg IV q12hr from 4 mg IV q8hr --> considering 2mg IV q12hr is only 26mg equivalence of prednisone, I will start a prednisone taper tomorrow starting at 50mg and reduce by 10mg every
5th day until off.
Nebulizer with DuoNebs 4 times a day
Continue Pulmicort twice a day
Hold maintenance long-acting inhalers while in the hospital-usually on BREZTRI --> DC home on Breztri
Chest x-ray on admission: Possible vascular congestion. Lingular abnormality
CT chest from 11/15/2023 with extensive panlobular emphysema with a posterior LLL infiltrate suspicious for developing pneumonia
-
Records reviewed from last admission no antibiotics were given.
Given infiltrate on CT scan pt was started on Abx - defer to ID
Leukocytosis noted
Monitor for fevers
Blood cultures collected on 11/14/2023 show NGTD
Sputum culture from 11/15/2023 growing Pseudomonas aeruginosa
MRSA is negative
Flu swab also negative
COVID testing was negative.
-
Given bibasilar abnormalities will obtain a speech evaluation. Rule out aspiration --> [facility] evaluated him on 11/16 and he underwent VSE showing liquid transient penetration with consecutive cup swallows with no aspiration
-
Respiratory status somewhat improved-anxiety playing a role as well as deconditioning
Supplemental oxygen as needed-outpatient 3-4 F-wryo-lthciflrs on 5 L midflow
Suspect that after exacerbation he may be at a new baseline. He might need 5 L of oxygen instead of 3-4.
-
Patient does have chronic hypercapnic respiratory failure.
Consider outpatient noninvasive mechanical ventilation --> this will be discussed at his next appt with Dr. Archuleta
Patient does admit that he snores, but no known witnessed apneic events and no excessive daytime sleepiness. Low suspicion for sleep apnea, but this also will be discussed in the outpatient setting. If a sleep study with CO2 monitoring is needed,
this will be done at the discretion of Dr. Archuleta.
No need for acute ventilation at this point. He is mentating well. Comfortable in the edge of the bed.
Check AM VBG to assure pH and pCO2 are stable
-
Mucolytics --> mucinex @ 1.2g q12hr
Incentive spirometry
Acapella device
Consider vest therapy if difficulties mobilizing secretions.
-
With increased proBNP may need to consider diuresis - however proBNP is less than a third of what it was on 11/09/2023 (2040 on 11/14/2023 compared to 7460 on 11/09/2023) --> hold off on diuresis
CT chest not consistent with volume overload
His weight is historically higher than before.
Monitor closely
Continue warfarin-monitor INR with goal 2-3
-
Suspect significant component of deconditioning
Physical therapy/Occupational Therapy evaluation --> recommend skilled rehab upon discharge
Nutritional support
-
Monitor blood sugar, particularly on IV steroids.
Goal BG >100 and <180mg/dL
Insulin SQ supplementation as needed
During last admission patient was very anxious. May need to give anxiolytics. Defer to primary team.
DVT prophylaxis-on warfarin
Dr. De Santiago updated family members at the bedside 11/15/2023.
Will need to update home oxygen assessment. Unlikely that he will able to use his portable oxygen concentrator that is pulse delivered
He may need portable oxygen tanks
Check walking pulse oximetry prior to discharge
Follow-up with Dr. Archuleta after discharge.
Total time spent today was 35 minutes for this encounter. Time includes reviewing laboratory test/imaging results, reviewing pertinent medical records, obtaining and reviewing medical history, performing an appropriate exam, ordering medications,
tests and procedures. Time also includes documentation of this encounter, coordinating patient care and communicating with other healthcare professionals. Total time does not include separately billed tests performed on this date of service.

Diagnostic data:
CT Chest w/o contrast 11-15-2023:
Mild airspace disease in the left lower lobe and therefore developing pneumonia. Clinical and laboratory correlation recommended. Repeat exam following treatment in approximately 2 weeks is recommended to exclude underlying pulmonary nodules
Moderate emphysematous disease.
Mild lingular atelectasis versus scarring.
Moderate atherosclerotic vascular disease.
Possible left renal soft tissue mass versus findings due to cortical scarring. Nonurgent dedicated CT of the kidneys recommended. Post IV contrast.
Mild bilateral renal atrophy.
Nonobstructing left renal stone. 2 weeks is recommended to exclude underlying nodules.
Chest x-ray 11/18/2023: There is hyperaeration of the lungs, with flattening of the hemidiaphragms. Consistent with changes of COPD. Emphysema; Minimal stranding in the posterior lung bases left greater than right. Previous faint opacity lateral to
the left cardiac border again seen. Likely representing a band of atelectasis or scarring seen on prior CT. There is blunting of the left costophrenic angle, most consistent with pleural parenchymal changes. Vague increased stranding in the medial
right lung base, consistent with CT findings and pleural thickening medially and posteriorly in the inferior right lower lobe.
Chest x-ray 11/09/2023: Reviewed. No infiltrates., Hyperinflation
Chest x-ray/-tiny blunting of the left costophrenic angle lungs otherwise clear
Chest x-ray 11/13/2022-mild interstitial airspace disease left lung base, COPD
Echocardiogram 08/18/2022-EF 50-55%, abnormal diastolic dysfunction, trace mitral regurgitation, mechanical prosthetic aortic valve
VBG 08/16/2022-PCO2 68/37/7 0.31
PFT 11/10/2022-FEV1 1.29-54%, FVC 2.87-85%, TLC 86%, DLCO 16%
Subjective Data
-
Date of Service:
Date of Service: November 18, 2023
Chief Complaint: Pulmonary Follow Up
Subjective:
Patient seen and evaluated today at bedside. He feels well. Afebrile overnight. Blood glucose elevated today on chemistry. He feels much better today. He is currently on 4 L/min nasal cannula saturating 95%. He denies chest pain, headache,
fevers or chills.
Review of Systems
General: Other (Negative unless mentioned above)
Objective Data
Data Reviewed
Vital Signs / I&O / Oxygen:
Vital Signs
Temp Pulse Resp BP Pulse Ox
98 F 70 23 150/73 95
11/18/23 11:32 11/18/23 11:32 11/18/23 11:32 11/18/23 11:32 11/18/23 11:32
Intake and Output
11/17/23 11/18/23 11/19/23
06:59 06:59 06:59
Intake Total 880 / 880 780 / 780
Output Total 1250 / 1250 1775 / 1775 800 / 800
Balance -370 / -370 -995 / -995 -800 / -800
SaO2 95
Nasal Cannula flow liters per 4
minute
Physical Exam
General: Respiratory Distress (negative), Comfortable and Chills (negative)
HEENT: Normocephalic and Anicteric
Cardiovascular: S1-S2 (Mechanical click heard upon S2) and Peripheral Edema (Negative)
Respiratory: Clear, Wheeze (Negative), Crackles (Negative), Rhonchi (Negative), Non-Labored Respirations and Other (Reduced breath sounds bilaterally)
GI: Soft, Non Distended, Non Tender and Normal Bowel Sounds
Neurology: Awake, Alert and Tremors (n)
Skin: Warm, Dry and Cyanosis (Negative)
Labs/Micro/Reports
Lab Data
11/18/23 07:59
11/18/23 07:59
Laboratory Results
11/18/23
06:42
PT 24.1 H
INR 2.18
Microbiology
11/14/23 15:11 Blood/Venous Blood Culture - Preliminary
No Growth in 72 hours- Final report to follow
11/14/23 15:07 Blood/Venous Blood Culture - Preliminary
No Growth in 72 hours- Final report to follow
11/15/23 14:47 Sputum Respiratory Culture - Final
Pseudomonas aeruginosa
11/15/23 14:47 Sputum Gram Stain - Final
11/15/23 11:52 Nose MRSA Screen - Final
No Methicillin Resistant Staphylococcus aureus isolated.
11/15/23 11:47 Nasal Swab Influenza Types A & B ([facility]) - Final
Negative for Influenza A & B, NAAT
Negative results must be combined with clinical observations
and patient history.
Nucleic Acid Amplification test (NAAT)performed on the
[employer] platform.
--- NOTE | 2023-11-18 12:30 | CM ---
Addendum entered by Briseida Guillaume 11/18/23 15:44:
Patient's sonAnupam is interested in patient going to [facility] per son Anupam he has toured facility today. Per admissions at [facility] they will need clear documentation that sleep study or any further treatment from pulmonary will take place
after patient has completed rehab. They are requesting that pulmonary document this on chart. Pulmonary made aware.
Original Note:
reliability manager spoke with patient and patient's sonAnupam again they are now agreeable to skilled placement, options reviewed and patient has selected [facility], [facility], [facility], [facility], [facility] and [facility]. Per admissions at [facility] patient has to be from their independent living to use their skilled facility.
Plan; Skilled referrals sent will await determination, patient would like a private room at the skilled facility.
--- NOTE | 2023-11-18 13:29 | W.PN.HOSP.TC ---
Today's Communication/Plan
-
Taper steroids
? discharge with in 24 hours if stable ? If ok with pulm and ID
Assessment / Plan
Assessment / Plan
83-year-old male with multiple medical problems presented to the hospital with complaints of cough and shortness of breath on 11/10/2023. Patient was admitted and treated 11/12/2023. He uses oxygen 3 to 4 L at home but required high flow in the
hospital which was changed to nasal cannula. Patient was readmitted with shortness of breath having to increase oxygen to 5 L at home despite that had no saturation. He also used nebulizer treatment. He has chronic lower extremity edema which is
stable
CVS: S1-S2 normal
Chest: decreased BS bases
Abdomen: Soft, NT / Bowel sounds present
Extremities: No edema, normal pulses
CT chest-mild airspace disease in the left lower lobe consistent with developing pneumonia. Moderate emphysematous disease. Lingular atelectasis or scarring. Moderate atherosclerotic vascular disease. Possible left renal soft tissue mass versus
cortical scarring. Nonemergent CT recommended. By mild bilateral renal atrophy. Nonobstructing left renal stone
Chest x-ray 11/18/2023-minimal stranding in the posterior lung bases left greater than right faint opacity at the lateral to the left cardiac border band atelectasis blunting of the left CP angle awaiting crystal study in the medial right lung base.
# Acute on chronic hypoxic respiratory failure
Likely secondary to COPD exacerbation and also Pseudomonas pneumonia
Baseline uses 3 to 4 L
Continue supplemental oxygen to keep saturations 90 to 92%
Speech evaluation ordered. Continue regular solids and thin liquids
Discussed with speech therapy will get video swallow
# COPD exacerbation
Decadron, nebulizer treatments, Pulmicort
Antibiotics changed to Levaquin
Sputum culture pseudomonas
Mucinex
ID and Pulmonary following
Acapella
#NSVT, VS tachy with BBB-EKG noted. Slightly prolonged QTc, left axis deviation no significant change.
Troponin 1 set is negative. 1 more set ordered.
Echo-mild concentric LVH. Normal LV size. Ejection fraction 52%. Pacer wire in the right heart. Mild MR. Mild TR
Electrolytes OK
Rpt EKG noted.
# Leukocytosis-likely secondary to steroids and pneumonia
# Coagulopathy-secondary to Coumadin
Resolved
Coumadin restarted.
# Chronic heart failure with preserved ejection fraction
Continue Lasix 40 mg daily
# History of mechanical aortic valve for aortic stenosis
Dose Coumadin daily according to INR
# Hypertension
Continue Bystolic
Add Norvasc 5 mg
As needed hydralazine
# Hyperlipidemia-continue statin
# Pacemaker
# Chronic LBBB
# Pulmonary hypertension
# Hyperlipidemia-continue statin
# DVT prophylaxis-continue Coumadin per INR
# CODE STATUS-DNR
D/W RN
D/W Son in detail. He is touring [facility]
Anticipated Discharge: Within 24 hours
Subjective/Interval History
-
Date of Service: November 18, 2023
Objective Data
-
Labs:
Laboratory Results
11/18/23 11/18/23
06:42 07:59
WBC 13.9 H
Hgb 14.9
Hct 45.8
Plt Count 312
PT 24.1 H
INR 2.18
Sodium 134 L
Potassium 4.4
Chloride 94 L
Carbon Dioxide 29
BUN 40 H
Creatinine 1.0
Glucose 215 H
Calcium 9.0
Vital Signs:
Vital Signs
Temp Pulse Resp BP Pulse Ox
98 F 70 23 150/73 95
11/18/23 11:32 11/18/23 11:32 11/18/23 11:32 11/18/23 11:32 11/18/23 11:32
I&O
11/17/23 11/18/2324
06:59 06:59 06:59
Intake Total 880 / 880 780 / 780
Output Total 1250 / 1250 1775 / 1775 800 / 800
Balance -370 / -370 -995 / -995 -800 / -800
[2023-11-18] MEDS: DECADRON 2 MG IV (14:41)
--- NOTE | 2023-11-18 14:50 | W.PN.ID1 ---
Date of Service
Date of Service: November 18, 2023
Today's Communication
complete course of levofloxacin
Assessment / Plan
COPD exacerbation due to Pseudomonas
CHF
AVR on coumadin, PPM
- continue levofloxacin day 3 of 7 of antibiotics
- steroids per pulmonary
- remains on O2
- follow up with pulmonary service, stable for dc from ID perspective
Chief Complaint
-: Other (COPD exacerbation)
Subjective / Review of Systems
afebrile
bp stable
wbc 13.9 on steroids
cr 1.0
blood cultures no growth at 72 hrs
cxr no definite new infiltrates
'I feel good'
Vital Signs / Physical Exam
Vital Signs
Vital Signs
Temp Pulse Resp BP Pulse Ox
98 F 70 23 150/73 95
11/18/23 11:32 11/18/23 11:32 11/18/23 11:32 11/18/23 11:32 11/18/23 11:32
Physical Exam
Constitutional: No Acute Distress
Cardiovascular: Regular Rate and S1/S2; Negative Murmur or Rub
Pulmonary: Clear and Symmetric; Negative Wheezes or Rales
Gastrointestinal: Soft, Non Tender, Non Distended and Normal Bowel Sounds
Skin: Warm and Dry; Negative Rash or Jaundice
Objective Data
Lab Data
Lab Results
11/18/23 07:59
11/18/23 07:59
PT 24.1 Sec (11.4-14.6) H 11/18/23 06:42
INR 2.18 11/18/23 06:42
Estimated Creat Clear 56 ml/min 11/18/23 07:59
Most recent labs reviewed.
Micro Results:
11/14/23 15:11 Blood Culture - Preliminary
Blood/Venous No Growth in 72 hours- Final report to follow
11/14/23 15:07 Blood Culture - Preliminary
Blood/Venous No Growth in 72 hours- Final report to follow
11/15/23 14:47 Respiratory Culture - Final
Sputum Pseudomonas aeruginosa
Gram Stain - Final
11/15/23 11:52 MRSA Screen - Final
Nose No Methicillin Resistant Staphylococcus aureus isolated.
11/15/23 11:47 Influenza Types A & B ([facility]) - Final
Nasal Swab Negative for Influenza A & B, NAAT
Negative results must be combined with clinical observations
and patient history.
Nucleic Acid Amplification test (NAAT)performed on the
[employer] platform.
[2023-11-18] MEDS: LIPITOR 20 MG PO (18:40)
[2023-11-18] MEDS: COUMADIN 4 MG PO (19:50)
[2023-11-19] VITALS (7 sets, daily range): BP systolic 117–155; BP diastolic 59–70; PULSE 64; O2SAT 98
[2023-11-19] MEDS: DECADRON 2 MG IV (02:13)
[2023-11-19 07:19] LABS: Venous Blood Gas B.E. 7.5 mmol/L (-4 to +4); Venous Blood Gas HCO3 35.9 mmol/L (22-27); Venous Blood Gas O2 Sat % 67.1 %; Venous Blood Gas pCO2 65 mmHg (35-48); Venous Blood Gas pH 7.35 (7.32-7.43); Venous Blood Gas pO2 37 mmHg (30-50)
[2023-11-19 07:27] LABS: INR 1.54; PT 18.6 Sec (11.4-14.6)
[2023-11-19] MEDS: PULMICORT 0.5 MG INH ×2 (07:39→19:19)
[2023-11-19] MEDS: DUONEB 3 ML INH ×4 (07:39→19:15)
[2023-11-19] MEDS: MUCINEX 1200 MG PO ×2 (07:40→22:01)
[2023-11-19] MEDS: DELTASONE 50 MG PO (07:40)
[2023-11-19] MEDS: LASIX 40 MG PO (07:40)
[2023-11-19] MEDS: NORVASC 5 MG PO (07:41)
[2023-11-19] MEDS: LEVAQUIN 750 MG PO (07:41)
[2023-11-19] MEDS: BYSTOLIC 5 MG PO (07:41)
[2023-11-19 08:21] LABS: APTT 25.1 Sec (23.4-35.0)
[2023-11-19 08:26] LABS: Hematocrit 45.4 % (39.0-52.0); Hemoglobin 15.1 g/dL (13.0-18.0); Mean Corp Hgb Conc. 33.3 g/dL (33.0-37.0); Mean Corpuscular Volume 81.1 fL (80.0-94.0); Mean Platelet Volume 9.3 fL (7.4-10.4); Platelet Count 317 10^3/uL (130-400); Red Cell Dist. Width 15.4 % (11.5-14.5); White Blood Cell Count 13.1 10^3/uL (4.8-10.8)
--- NOTE | 2023-11-19 10:22 | W.PN.PUL3 ---
Today's Communication / Plan
-
Continue prednisone taper starting at 50mg and reduce by 10mg every 5th day until off
VBG this AM shows stable hypercapnea --> if sleep study is needed with CO2 monitoring, then this will be done at the discretion of our pulmonary office per Dr. Archuleta - it will be discussed at pt's next office visit
Continue supplemental oxygen and titrate to SpO2 >88% and <96%
Up OOB as tolerated
Abx as per ID
PT/OT � recommend skilled rehab upon discharge
Video swallow evaluation on 11/16 --> continue regular solids and thin liquids, given no persistent laryngeal penetration or aspiration seen
Heparin gtt started due to sub-therapeutic INR in setting of chronic coumadin usage with mechanical prosthesis (AVR)
Follow-up as an outpatient with [facility] with Dr. Archuleta
Assessment
-
83-year-old man with history of COPD, heart failure with preserved ejection fraction, paroxysmal atrial fibrillation on anticoagulation, admitted with worsening shortness of breath. He was found to be bronchospastic. Overnight developed increased
work of breathing, placed on BiPAP. Transferred to the intermediate care unit for closer monitoring.
Impression:
Recurrent acute exacerbation of COPD-readmitted after 3 days at home.
Patient discharged on 11/12/2023 with similar symptoms
Chest x-ray: 11/14/2023: Showed mild vascular congestion. Small pleural effusion on the left. Chronic subsegmental atelectasis scarring in the lingula.
Negative procalcitonin
proBNP 2039
COVID-negative
Posterior left lower lobe infiltrate seen on CT chest from 11/15/2023 suspicious for developing pneumonia
Sputum culture has grown Pseudomonas aeruginosa which is intermediate to gentamicin
Leukocytosis probably exaggerated from steroid use
Chronic heart failure with preserved ejection fraction-does not appear volume overloaded on exam.
Conditions present prior to admission:
Recent hospitalization discharged on 11/12/2023 for acute exacerbation of COPD.
Recent hospitalization 08/16/2022-acute on top of chronic COPD exacerbation and chronic diastolic CHF exacerbation, [place], gastrointestinal bleeding, hemoptysis and coagulopathy on Coumadin
COPD -severe/chronic hypercapnic respiratory failure ABG 11/09/2023-7.40 /chronic hypoxemic respiratory failure on 3-4 L
Usually follow-up with Dr. Archuleta: On low-dose azithromycin for anti-inflammatory properties, Breztri, nebulizers and albuterol HFA as needed. Maximal medical therapy.
Chronic hypoxic respiratory failure with 3-4 L ATC and 3L//min with sleep
Decreased diffusing capacity.
Chronic CHF preserved EF.
Aortic stenosis/mechanical AVR. -On chronic anticoagulation
PPM.
Pulmonary hypertension.
Chronic anemia.
Paroxysmal atrial fibrillation
Hyperlipidemia.
Hypertension.
Rotator cuff surgery. Aortic valve replacement. Bilateral herniography.
DNR status
Plan
Recurrent exacerbation of COPD-readmitted after 3 days.
On physical exam he had bibasilar crackles, which have now resolved. Prolonged expiratory phase without wheezing.
Patient comfortably sitting on the edge of the bed.
I suspect component of deconditioning contributing to his shortness of breath.
Patient has advanced emphysema with hyperinflation, chronic hypercapnic respiratory failure and hypoxemic respiratory failure.
He also has suspected posterior LLL pneumonia seen on CT chest from 11/15/2023 -ID consulted and he was changed to cefepime on 11/15 s/p rocephin + azithromycin x 2 doses --> now he is on levaquin since 11/16 --> would complete 7 days of Abx total
-
I agree with current management.
IV corticosteroids-hopefully rapid taper -currently on Decadron 2mg IV q12hr from 4 mg IV q8hr --> considering 2mg IV q12hr is only 26mg equivalence of prednisone, I will start a prednisone taper tomorrow starting at 50mg and reduce by 10mg every
5th day until off.
Nebulizer with DuoNebs 4 times a day
Continue Pulmicort twice a day
Hold maintenance long-acting inhalers while in the hospital-usually on BREZTRI --> DC home on Breztri
Chest x-ray on admission: Possible vascular congestion. Lingular abnormality
CT chest from 11/15/2023 with extensive panlobular emphysema with a posterior LLL infiltrate suspicious for developing pneumonia
-
Records reviewed from last admission no antibiotics were given.
Given infiltrate on CT scan pt was started on Abx - defer to ID
Leukocytosis noted
Monitor for fevers
Blood cultures collected on 11/14/2023 show NGTD
Sputum culture from 11/15/2023 growing Pseudomonas aeruginosa
MRSA is negative
Flu swab also negative
COVID testing was negative.
-
Given bibasilar abnormalities will obtain a speech evaluation. Rule out aspiration --> FURNA[employer] evaluated him on 11/16 and he underwent VSE showing liquid transient penetration with consecutive cup swallows with no aspiration
-
Respiratory status somewhat improved-anxiety playing a role as well as deconditioning
Supplemental oxygen as needed-outpatient 3-4 O-wovl-ddykcmylg on 5 L midflow
Suspect that after exacerbation he may be at a new baseline. He might need 5 L of oxygen instead of 3-4.
-
Patient does have chronic hypercapnic respiratory failure.
Consider outpatient noninvasive mechanical ventilation --> this will be discussed at his next appt with Dr. Archuleta
Patient does admit that he snores, but no known witnessed apneic events and no excessive daytime sleepiness. Low suspicion for sleep apnea, but this also will be discussed in the outpatient setting. If a sleep study with CO2 monitoring is needed,
this will be done at the discretion of Dr. Archuleta.
No need for acute ventilation at this point. He is mentating well. Comfortable in the edge of the bed.
AM VBG this AM showed adequate ventilation with pH 7.35, pCO2 65
-
Mucolytics --> mucinex @ 1.2g q12hr
Incentive spirometry
Acapella device
Consider vest therapy if difficulties mobilizing secretions.
-
With increased proBNP may need to consider diuresis - however proBNP is less than a third of what it was on 11/09/2023 (2039 on 11/14/2023 compared to 7460 on 11/09/2023) --> hold off on diuresis
CT chest not consistent with volume overload
His weight is historically higher than before.
Monitor closely
Continue warfarin-monitor INR with goal 2-3 --> INR low today at 1.54, heparin gtt being started
-
Suspect significant component of deconditioning
Physical therapy/Occupational Therapy evaluation --> recommend skilled rehab upon discharge
Nutritional support
-
Monitor blood sugar, particularly on IV steroids.
Goal BG >100 and <180mg/dL
Insulin SQ supplementation as needed
During last admission patient was very anxious. May need to give anxiolytics. Defer to primary team.
DVT prophylaxis-on warfarin
Dr. De Santiago updated family members at the bedside 11/15/2023.
Will need to update home oxygen assessment. Unlikely that he will able to use his portable oxygen concentrator that is pulse delivered
He may need portable oxygen tanks
Check walking pulse oximetry prior to discharge
Follow-up with Dr. Archuleta after discharge.
Total time spent today was 35 minutes for this encounter. Time includes reviewing laboratory test/imaging results, reviewing pertinent medical records, obtaining and reviewing medical history, performing an appropriate exam, ordering medications,
tests and procedures. Time also includes documentation of this encounter, coordinating patient care and communicating with other healthcare professionals. Total time does not include separately billed tests performed on this date of service.

Diagnostic data:
CT Chest w/o contrast 11-15-2023:
Mild airspace disease in the left lower lobe and therefore developing pneumonia. Clinical and laboratory correlation recommended. Repeat exam following treatment in approximately 2 weeks is recommended to exclude underlying pulmonary nodules
Moderate emphysematous disease.
Mild lingular atelectasis versus scarring.
Moderate atherosclerotic vascular disease.
Possible left renal soft tissue mass versus findings due to cortical scarring. Nonurgent dedicated CT of the kidneys recommended. Post IV contrast.
Mild bilateral renal atrophy.
Nonobstructing left renal stone. 2 weeks is recommended to exclude underlying nodules.
Chest x-ray 11/18/2023: There is hyperaeration of the lungs, with flattening of the hemidiaphragms. Consistent with changes of COPD. Emphysema; Minimal stranding in the posterior lung bases left greater than right. Previous faint opacity lateral to
the left cardiac border again seen. Likely representing a band of atelectasis or scarring seen on prior CT. There is blunting of the left costophrenic angle, most consistent with pleural parenchymal changes. Vague increased stranding in the medial
right lung base, consistent with CT findings and pleural thickening medially and posteriorly in the inferior right lower lobe.
Chest x-ray 11/09/2023: Reviewed. No infiltrates., Hyperinflation
Chest x-ray/-tiny blunting of the left costophrenic angle lungs otherwise clear
Chest x-ray 11/13/2022-mild interstitial airspace disease left lung base, COPD
Echocardiogram 08/18/2022-EF 50-55%, abnormal diastolic dysfunction, trace mitral regurgitation, mechanical prosthetic aortic valve
TTE 11-16-2023:
Mild concentric left ventricular hypertrophy. Normal left ventricular chamber
size. Low -Normal left ventricular systolic function. Left ventricular ejection
fraction is 52% by Muhammad' s method.
Pacer wire seen in the right heart.
Mild mitral regurgitation.
Mild tricuspid regurgitation.
Compared to previous echo from November 2022, the gradients across the aortic valve
have improved.
VBG 08/16/2022-PCO2 68/37/7 0.31
PFT 11/10/2022-FEV1 1.29-54%, FVC 2.87-85%, TLC 86%, DLCO 16%
Subjective Data
-
Date of Service:
Date of Service: November 19, 2023
Chief Complaint: Pulmonary Follow Up
Subjective:
Patient seen and evaluated today at bedside. Patient feels slight chest pressure when I was with him and wanted a nebulizer treatment. He is currently on 4 L/min nasal cannula. He denies chest pain, headache, abdominal pain, fevers or chills.
Review of Systems
General: Other (Negative unless mentioned above)
Objective Data
Data Reviewed
Vital Signs / I&O / Oxygen:
Vital Signs
Temp Pulse Resp BP Pulse Ox
98.7 F 61 19 132/64 96
11/19/23 11:51 11/19/23 11:51 11/19/23 11:51 11/19/23 11:51 11/19/23 11:51
Intake and Output
11/18/23 11/19/23 11/20/23
06:59 06:59 06:59
Intake Total 780 / 780 720 / 720
Output Total 1775 / 1775 800 / 800 500 / 500
Balance -995 / -995 -80 / -80 -500 / -500
SaO2 96
Nasal Cannula flow liters per 4
minute
Physical Exam
General: Respiratory Distress (mild) and Chills (negative)
HEENT: Normocephalic and Anicteric
Cardiovascular: S1-S2 (Mechanical click heard upon S2) and Peripheral Edema (Negative)
Respiratory: Wheeze (Expiratory wheezing in posterior lung juarez (L >R)), Crackles (Negative), Rhonchi (Negative), Accessory Resp Muscle Use (mild) and Other (Reduced breath sounds bilaterally)
GI: Soft, Non Distended, Non Tender and Normal Bowel Sounds
Neurology: Awake, Alert and Tremors (n)
Skin: Warm, Dry and Cyanosis (Negative)
Labs/Micro/Reports
Lab Data
11/19/23 07:04
11/18/23 07:59
Laboratory Results
11/19/23 11/19/23
07:04 08:04
PT 18.6 H
INR 1.54
APTT 25.1 Cancelled
Microbiology
11/14/23 15:11 Blood/Venous Blood Culture - Preliminary
No Growth in 4 days- Final report to follow
11/14/23 15:07 Blood/Venous Blood Culture - Preliminary
No Growth in 4 days- Final report to follow
11/15/23 14:47 Sputum Respiratory Culture - Final
Pseudomonas aeruginosa
11/15/23 14:47 Sputum Gram Stain - Final
11/15/23 11:52 Nose MRSA Screen - Final
No Methicillin Resistant Staphylococcus aureus isolated.
--- NOTE | 2023-11-19 10:25 | CM ---
Per MD, patient not cleared for d/c today.
[facility] updated. Hopefully they will have a bed tomorrow if medically stable.
Son Anupam updated, he is aware that acceptance depends on bed availability the day of d/c.
Updates via [facility].
Plan: Skilled rehab when medically cleared.
[2023-11-19] MEDS: HEPARIN 25000 UNITS/250 ML IV (11:18)
--- NOTE | 2023-11-19 11:30 | PTCARENOTE ---
heparin gtt initiated @ 9.5 ml/hr, next PTT order placed
--- NOTE | 2023-11-19 11:57 | W.PN.ID1 ---
Date of Service
Date of Service: November 19, 2023
Today's Communication
- continue levofloxacin day 4 of 14 of antibiotics
- steroids per pulmonary
- remains on O2
- follow up with pulmonary service, stable for dc from ID perspective
Assessment / Plan
COPD exacerbation due to Pseudomonas
CHF
AVR on coumadin, PPM
- continue levofloxacin day 4 of 14 of antibiotics
- steroids per pulmonary
- remains on O2
- follow up with pulmonary service, stable for dc from ID perspective
Chief Complaint
-: Other (COPD exacerbation)
Subjective / Review of Systems
afebrile
bp stable
remains on 4L
wbc slowly improving - note high dose steroids
cr stable
Vital Signs / Physical Exam
Vital Signs
Vital Signs
Temp Pulse Resp BP Pulse Ox
98.7 F 61 19 132/64 96
11/19/23 11:51 11/19/23 11:51 11/19/23 11:51 11/19/23 11:51 11/19/23 11:51
Physical Exam
Constitutional: No Acute Distress
Cardiovascular: Regular Rate and S1/S2; Negative Murmur or Rub
Pulmonary: Clear, Symmetric, Wheezes and Non Labored; Negative Rales
Gastrointestinal: Soft, Non Tender, Non Distended and Normal Bowel Sounds
Skin: Warm and Dry; Negative Rash or Jaundice
Objective Data
Lab Data
Lab Results
11/19/23 07:04
11/18/23 07:59
PT 18.6 Sec (11.4-14.6) H 11/19/23 07:04
INR 1.54 11/19/23 07:04
APTT Cancelled 11/19/23 08:04
Estimated Creat Clear 56 ml/min 11/18/23 07:59
Most recent labs reviewed.
Micro Results:
11/14/23 15:11 Blood Culture - Preliminary
Blood/Venous No Growth in 4 days- Final report to follow
11/14/23 15:07 Blood Culture - Preliminary
Blood/Venous No Growth in 4 days- Final report to follow
11/15/23 14:47 Respiratory Culture - Final
Sputum Pseudomonas aeruginosa
Gram Stain - Final
11/15/23 11:52 MRSA Screen - Final
Nose No Methicillin Resistant Staphylococcus aureus isolated.
11/15/23 11:47 Influenza Types A & B ([facility]) - Final
Nasal Swab Negative for Influenza A & B, NAAT
Negative results must be combined with clinical observations
and patient history.
Nucleic Acid Amplification test (NAAT)performed on the
[employer] platform.
Care Review
Plan reviewed with: Physician (Dr Monsivais)
--- NOTE | 2023-11-19 12:41 | W.PN.HOSP.TC ---
Today's Communication/Plan
-
Heparin drip and Coumadin
If INR within range will discharge tomorrow.
Assessment / Plan
Assessment / Plan
83-year-old male with multiple medical problems presented to the hospital with complaints of cough and shortness of breath on 11/10/2023. Patient was admitted and treated 11/12/2023. He uses oxygen 3 to 4 L at home but required high flow in the
hospital which was changed to nasal cannula. Patient was readmitted with shortness of breath having to increase oxygen to 5 L at home despite that had no saturation. He also used nebulizer treatment. He has chronic lower extremity edema which is
stable
CVS: S1-S2 normal
Chest: decreased BS bases
Abdomen: Soft, NT / Bowel sounds present
Extremities: No edema, normal pulses
CT chest-mild airspace disease in the left lower lobe consistent with developing pneumonia. Moderate emphysematous disease. Lingular atelectasis or scarring. Moderate atherosclerotic vascular disease. Possible left renal soft tissue mass versus
cortical scarring. Nonemergent CT recommended. By mild bilateral renal atrophy. Nonobstructing left renal stone
Chest x-ray 11/18/2023-minimal stranding in the posterior lung bases left greater than right faint opacity at the lateral to the left cardiac border band atelectasis blunting of the left CP angle awaiting crystal study in the medial right lung base.
# Acute on chronic hypoxic respiratory failure
Likely secondary to COPD exacerbation and also Pseudomonas pneumonia
Baseline uses 3 to 4 L
Continue supplemental oxygen to keep saturations 90 to 92%
Speech evaluation ordered. Continue regular solids and thin liquids
Video swallow noted,continue regular solids and thin liquids
# COPD exacerbation
Decadron, nebulizer treatments, Pulmicort
Antibiotics changed to Levaquin
Sputum culture pseudomonas
Mucinex
ID and Pulmonary following
Acapella
#NSVT, VS tachy with BBB-EKG noted. Slightly prolonged QTc, left axis deviation no significant change.
Echo-mild concentric LVH. Normal LV size. Ejection fraction 52%. Pacer wire in the right heart. Mild MR. Mild TR
Electrolytes OK
Rpt EKG noted.
# Leukocytosis-likely secondary to steroids and pneumonia.
# Chronic heart failure with preserved ejection fraction
Continue Lasix 40 mg daily
# History of mechanical aortic valve for aortic stenosis
Dose Coumadin daily according to INR
Bridging with heparin drip
# Hypertension
Continue Bystolic and Norvasc added here
Blood pressure stable
# Hyperlipidemia-continue statin
# Pacemaker
# Chronic LBBB
# Pulmonary Hypertension
# Hyperlipidemia-continue statin
# DVT prophylaxis-continue Coumadin per INR and heparin drip bridge
# CODE STATUS-DNR
D/W RN
Discussed with case management
Discussed with infectious disease
Anticipated Discharge: Within 24 hours
Subjective/Interval History
-
Date of Service: November 19, 2023
Objective Data
-
Labs:
Laboratory Results
11/19/23 11/19/23 11/19/23
07:04 08:04 16:00
WBC 13.1 H
Hgb 15.1
Hct 45.4
Plt Count 317
PT 18.6 H
INR 1.54
APTT 25.1 Cancelled Pending
Vital Signs:
Vital Signs
Temp Pulse Resp BP Pulse Ox
98.7 F 61 19 132/64 96
11/19/23 11:51 11/19/23 11:51 11/19/23 11:51 11/19/23 11:51 11/19/23 11:51
I&O
11/18/23 11/19/23 11/20/23
06:59 06:59 06:59
Intake Total 780 / 780 720 / 720
Output Total 1775 / 1775 800 / 800 500 / 500
Balance -995 / -995 -80 / -80 -500 / -500
[2023-11-19 16:29] LABS: APTT 25.5 Sec (23.4-35.0)
[2023-11-19] MEDS: LIPITOR 20 MG PO (17:13)
[2023-11-19] MEDS: COUMADIN 6 MG PO (17:13)
[2023-11-19 23:47] LABS: APTT 82.9 Sec (23.4-35.0)
[2023-11-20] VITALS (10 sets, daily range): BP systolic 120–147; BP diastolic 56–73; PULSE 60; O2SAT 93; BMI 26.4
[2023-11-20 06:59] LABS: INR 1.82; PT 21.2 Sec (11.4-14.6)
[2023-11-20 07:02] LABS: APTT 134.1 Sec (23.4-35.0)
[2023-11-20] MEDS: DUONEB 3 ML INH ×4 (07:19→19:21)
[2023-11-20] MEDS: PULMICORT 0.5 MG INH ×2 (07:19→19:21)
[2023-11-20 07:46] LABS: Blood Urea Nitrogen 42 mg/dl (9-20); Carbon Dioxide 30 mmol/L (22-30); Chloride 98 mmol/L (98-107); Estimated Creatinine Clearance 70 ml/min; Glucose 86 mg/dl (70-99); Potassium 3.7 mmol/L (3.5-5.1); Sodium 134 mmol/L (135-145); eGFR > 60.00
[2023-11-20] MEDS: NORVASC 5 MG PO (08:17)
[2023-11-20] MEDS: MUCINEX 1200 MG PO ×2 (08:17→20:35)
[2023-11-20] MEDS: BYSTOLIC 5 MG PO (08:17)
[2023-11-20] MEDS: LASIX 40 MG PO (08:17)
[2023-11-20] MEDS: DELTASONE 50 MG PO (08:18)
--- NOTE | 2023-11-20 08:40 | PTCARENOTE ---
Addendum entered by Marie Argueta RN 11/20/23 13:28:
@1030 Pt with complete relief of chest pain, VSS.
Addendum entered by Marie Argueta RN 11/20/23 13:24:
@ 0940 Pt's pain at '3' on scale. Dr. Celaya in room, morphine IV ordered and given.
Original Note:
Pt c/o pain under left breast, '5' on scale. Dr. Monsivais in room, EKG ordered and completed. BP 147/70, pulse ox 98. Pt given NTG sl x 1.
--- NOTE | 2023-11-20 08:49 | W.PN.HOSP.TC ---
Addendum entered and electronically signed by Tami Monsivais MD 11/20/23 09:43:
Discussed with son
Discussed with cards- Eval appreciated
Original Note:
Today's Communication/Plan
-
Chest pain evaluation
Cardiology evaluation requested
Troponin
Continue heparin drip
Assessment / Plan
Assessment / Plan
83-year-old male with multiple medical problems presented to the hospital with complaints of cough and shortness of breath on 11/10/2023. Patient was admitted and treated 11/12/2023. He uses oxygen 3 to 4 L at home but required high flow in the
hospital which was changed to nasal cannula. Patient was readmitted with shortness of breath having to increase oxygen to 5 L at home despite that had no saturation. He also used nebulizer treatment. He has chronic lower extremity edema which is
stable
Has chest pain this am middle of chest , no radiation, -10/08.
CVS: S1-S2 normal
Chest: decreased BS bases, few rales left
Abdomen: Soft, NT / Bowel sounds present
Extremities: No edema
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
CT chest-mild airspace disease in the left lower lobe consistent with developing pneumonia. Moderate emphysematous disease. Lingular atelectasis or scarring. Moderate atherosclerotic vascular disease. Possible left renal soft tissue mass versus
cortical scarring. Nonemergent CT recommended. By mild bilateral renal atrophy. Nonobstructing left renal stone
Chest x-ray 11/18/2023-minimal stranding in the posterior lung bases left greater than right faint opacity at the lateral to the left cardiac border band atelectasis blunting of the left CP angle awaiting crystal study in the medial right lung base.
# Chest pain
EKG ordered
Will give a dose of sublingual nitro
Troponin ordered
Patient is also on steroids therefore will initiate Protonix to treat any atypical chest pain
Cardiology evaluation
# Acute on chronic hypoxic respiratory failure
Likely secondary to COPD exacerbation and also Pseudomonas pneumonia
Baseline uses 3 to 4 L
Continue supplemental oxygen to keep saturations 90 to 92%
Speech evaluation ordered and VSE -continue regular solids and thin liquids
# COPD exacerbation
Prednisone, nebulizer treatments, Pulmicort
Levaquin
Sputum culture pseudomonas
Mucinex
ID and Pulmonary following
Acapella
#NSVT, VS tachy with BBB-EKG noted. Slightly prolonged QTc, left axis deviation no significant change.
Echo-mild concentric LVH. Normal LV size. Ejection fraction 52%. Pacer wire in the right heart. Mild MR. Mild TR
Electrolytes OK
# Leukocytosis-likely secondary to steroids and pneumonia.
# Chronic heart failure with preserved ejection fraction
Volume stable
Continue Lasix 40 mg daily
# History of mechanical aortic valve for aortic stenosis
Dose Coumadin daily according to INR
Interestingly even with Levaquin his INR only modest elevation with coumadin.
Bridging with heparin drip
# Hypertension
Continue Bystolic and Norvasc added here
Blood pressure stable
# Hyperlipidemia-continue statin
# Pacemaker
# Chronic LBBB
# Pulmonary Hypertension
# Hyperlipidemia-continue statin
# DVT prophylaxis-continue Coumadin per INR and heparin drip bridge
# CODE STATUS-DNR
D/W RN at bed side
Called son and left a message
time more than 50 min
Anticipated Discharge: Within 24 hours
Subjective/Interval History
-
Date of Service: November 20, 2023
Objective Data
-
Labs:
Laboratory Results
11/19/23 11/20/23 11/20/23
23:24 06:23 14:30
PT 21.2 H
INR 1.82
APTT 82.9 H 134.1 H Pending
Sodium 134 L
Potassium 3.7
Chloride 98
Carbon Dioxide 30
BUN 42 H
Creatinine 0.8
Glucose 86
Calcium 9.0
Vital Signs:
Vital Signs
Temp Pulse Resp BP Pulse Ox
97.5 F 65 18 127/65 94
11/20/23 07:00 11/20/23 07:20 11/20/23 07:20 11/20/23 07:00 11/20/23 07:20
I&O
11/19/23 11/20/23 11/21/23
06:59 06:59 06:59
Intake Total 720 / 720 858 / 858
Output Total 800 / 800 1100 / 1100
Balance -80 / -80 -242 / -242
[2023-11-20] MEDS: NITROSTAT (SUBLINGUAL) 0.400000000000000022 MG SL ×2 (09:01→09:34)
[2023-11-20] MEDS: PROTONIX 40 MG PO (09:18)
[2023-11-20] MEDS: LEVAQUIN 750 MG PO (09:18)
--- NOTE | 2023-11-20 09:19 | W.PN.PUL3 ---
Today's Communication / Plan
-
Continue prednisone taper
VBG on AM of 11/18 shows stable hypercapnea --> if sleep study is needed with CO2 monitoring, then this will be done at the discretion of our pulmonary office per Dr. Archuleta - it will be discussed at pt's next office visit
Continue supplemental oxygen and titrate to SpO2 >88% and <96% - check walking pulse ox prior to discharge
Up OOB as tolerated
Abx as per ID
PT/OT � recommend skilled rehab upon discharge
Video swallow evaluation on 11/16 --> continue regular solids and thin liquids, given no persistent laryngeal penetration or aspiration seen
Heparin gtt started due to sub-therapeutic INR in setting of chronic coumadin usage with mechanical prosthesis (AVR); trend INR with goal 2-3
Follow-up as an outpatient with [facility] with Dr. Archuleta
Assessment
-
83-year-old man with history of COPD, heart failure with preserved ejection fraction, paroxysmal atrial fibrillation on anticoagulation, admitted with worsening shortness of breath. He was found to be bronchospastic. Overnight developed increased
work of breathing, placed on BiPAP. Transferred to the intermediate care unit for closer monitoring.
Impression:
Recurrent acute exacerbation of COPD-readmitted after 3 days at home.
Patient discharged on 11/12/2023 with similar symptoms
Chest x-ray: 11/14/2023: Showed mild vascular congestion. Small pleural effusion on the left. Chronic subsegmental atelectasis scarring in the lingula.
Negative procalcitonin
proBNP 2039
COVID-negative
Posterior left lower lobe infiltrate seen on CT chest from 11/15/2023 suspicious for developing pneumonia
Sputum culture (from 11/15/2023) grew Pseudomonas aeruginosa which is intermediate to gentamicin
Leukocytosis probably exaggerated from steroid use
Chronic heart failure with preserved ejection fraction-does not appear volume overloaded on exam.
Conditions present prior to admission:
Recent hospitalization discharged on 11/12/2023 for acute exacerbation of COPD.
Recent hospitalization 08/16/2022-acute on top of chronic COPD exacerbation and chronic diastolic CHF exacerbation, [place], gastrointestinal bleeding, hemoptysis and coagulopathy on Coumadin
COPD -severe/chronic hypercapnic respiratory failure ABG 11/09/2023-7.40 /chronic hypoxemic respiratory failure on 3-4 L
Usually follow-up with Dr. Archuleta: On low-dose azithromycin for anti-inflammatory properties, Breztri, nebulizers and albuterol HFA as needed. Maximal medical therapy.
Chronic hypoxic respiratory failure with 3-4 L ATC and 3L//min with sleep
Decreased diffusing capacity.
Chronic CHF preserved EF.
Aortic stenosis/mechanical AVR. -On chronic anticoagulation
PPM.
Pulmonary hypertension.
Chronic anemia.
Paroxysmal atrial fibrillation
Hyperlipidemia.
Hypertension.
Rotator cuff surgery. Aortic valve replacement. Bilateral herniography.
DNR status
Plan
Recurrent exacerbation of COPD-readmitted after 3 days.
On physical exam he had bibasilar crackles, which have now resolved. Prolonged expiratory phase without wheezing.
Patient comfortably sitting on the edge of the bed.
I suspect component of deconditioning contributing to his shortness of breath.
Patient has advanced emphysema with hyperinflation, chronic hypercapnic respiratory failure and hypoxemic respiratory failure.
He also has suspected posterior LLL pneumonia seen on CT chest from 11/15/2023 -ID consulted and he was changed to cefepime on 11/15 s/p rocephin + azithromycin x 2 doses --> now he is on levaquin since 11/16 --> would complete 7-10 days of Abx total,
assuming he remains afebrile for >48 hours prior to stopping antibiotics and continues to clinically improve
-
I agree with current management.
IV corticosteroids-hopefully rapid taper -currently on Decadron 2mg IV q12hr from 4 mg IV q8hr --> considering 2mg IV q12hr is only 26mg equivalence of prednisone, I started a prednisone taper on 11/18 beginning at 50mg and reduce by 10mg every 5th
day until off.
Nebulizer with DuoNebs 4 times a day
Continue Pulmicort twice a day
Hold maintenance long-acting inhalers while in the hospital-usually on BREZTRI --> DC home on Breztri
Chest x-ray on admission: Possible vascular congestion. Lingular abnormality
CT chest from 11/15/2023 with extensive panlobular emphysema with a posterior LLL infiltrate suspicious for developing pneumonia
-
Records reviewed from last admission no antibiotics were given.
Given infiltrate on CT scan pt was started on Abx - defer to ID
Leukocytosis noted
Monitor for fevers
Blood cultures collected on 11/14/2023 show NGTD
Sputum culture from 11/15/2023 growing Pseudomonas aeruginosa
MRSA is negative
Flu swab also negative
COVID testing was negative.
-
Given bibasilar abnormalities will obtain a speech evaluation. Rule out aspiration --> VICE PRESIDENT OF CUSTOMER [employer] evaluated him on 11/16 and he underwent VSE showing liquid transient penetration with consecutive cup swallows with no aspiration
-
Respiratory status somewhat improved-anxiety playing a role as well as deconditioning
Supplemental oxygen as needed-outpatient 3-4 [id number] on 4 L midflow
Suspect that after exacerbation he may be at a new baseline. He might need 4-5 L of oxygen instead of 3-4 --> check walking pulse ox prior to discharge
-
Patient does have chronic hypercapnic respiratory failure.
Consider outpatient noninvasive mechanical ventilation --> this will be discussed at his next appt with Dr. Archuleta
Patient does admit that he snores, but no known witnessed apneic events and no excessive daytime sleepiness. Low suspicion for sleep apnea, but this also will be discussed in the outpatient setting. If a sleep study with CO2 monitoring is needed,
this will be done at the discretion of Dr. Archuleta.
No need for acute ventilation at this point. He is mentating well. Comfortable in the edge of the bed.
AM VBG on AM of 11/19/2023 showed adequate ventilation with pH 7.35, pCO2 65
-
Mucolytics --> mucinex @ 1.2g q12hr
Incentive spirometry
Acapella device
Consider vest therapy if difficulties mobilizing secretions.
-
With increased proBNP may need to consider diuresis - however proBNP is less than a third of what it was on 11/09/2023 (2040 on 11/14/2023 compared to 7460 on 11/09/2023) --> hold off on diuresis
CT chest not consistent with volume overload
His weight is historically higher than before.
Monitor closely
Continue warfarin-monitor INR with goal 2-3 --> INR low today at 1.8, continue heparin gtt
-
Suspect significant component of deconditioning
Physical therapy/Occupational Therapy evaluation --> recommend skilled rehab upon discharge
Nutritional support
-
Monitor blood sugar, particularly on IV steroids.
Goal BG >100 and <180mg/dL
Insulin SQ supplementation as needed
During last admission patient was very anxious. May need to give anxiolytics. Defer to primary team.
DVT prophylaxis-on warfarin
Dr. De Santiago updated family members at the bedside 11/15/2023.
Will need to update home oxygen assessment. Unlikely that he will able to use his portable oxygen concentrator that is pulse delivered
He may need portable oxygen tanks
Check walking pulse oximetry prior to discharge
Follow-up with Dr. Archuleta after discharge.
Total time spent today was 35 minutes for this encounter. Time includes reviewing laboratory test/imaging results, reviewing pertinent medical records, obtaining and reviewing medical history, performing an appropriate exam, ordering medications,
tests and procedures. Time also includes documentation of this encounter, coordinating patient care and communicating with other healthcare professionals. Total time does not include separately billed tests performed on this date of service.

Diagnostic data:
CT Chest w/o contrast 11-15-2023:
Mild airspace disease in the left lower lobe and therefore developing pneumonia. Clinical and laboratory correlation recommended. Repeat exam following treatment in approximately 2 weeks is recommended to exclude underlying pulmonary nodules
Moderate emphysematous disease.
Mild lingular atelectasis versus scarring.
Moderate atherosclerotic vascular disease.
Possible left renal soft tissue mass versus findings due to cortical scarring. Nonurgent dedicated CT of the kidneys recommended. Post IV contrast.
Mild bilateral renal atrophy.
Nonobstructing left renal stone. 2 weeks is recommended to exclude underlying nodules.
Chest x-ray 11/18/2023: There is hyperaeration of the lungs, with flattening of the hemidiaphragms. Consistent with changes of COPD. Emphysema; Minimal stranding in the posterior lung bases left greater than right. Previous faint opacity lateral to
the left cardiac border again seen. Likely representing a band of atelectasis or scarring seen on prior CT. There is blunting of the left costophrenic angle, most consistent with pleural parenchymal changes. Vague increased stranding in the medial
right lung base, consistent with CT findings and pleural thickening medially and posteriorly in the inferior right lower lobe.
Chest x-ray 11/09/2023: Reviewed. No infiltrates., Hyperinflation
Chest x-ray/-tiny blunting of the left costophrenic angle lungs otherwise clear
Chest x-ray 11/13/2022-mild interstitial airspace disease left lung base, COPD
Echocardiogram 08/18/2022-EF 50-55%, abnormal diastolic dysfunction, trace mitral regurgitation, mechanical prosthetic aortic valve
TTE 11-16-2023:
Mild concentric left ventricular hypertrophy. Normal left ventricular chamber
size. Low -Normal left ventricular systolic function. Left ventricular ejection
fraction is 52% by Muhammad' s method.
Pacer wire seen in the right heart.
Mild mitral regurgitation.
Mild tricuspid regurgitation.
Compared to previous echo from November 2022, the gradients across the aortic valve
have improved.
VBG 08/16/2022-PCO2 68/37/7 0.31
PFT 11/10/2022-FEV1 1.29-54%, FVC 2.87-85%, TLC 86%, DLCO 16%
Subjective Data
-
Date of Service:
Date of Service: November 20, 2023
Chief Complaint: Pulmonary Follow Up
Subjective:
Patient seen and evaluated today at bedside. He was sitting on a chair resting comfortably on 4 L/min nasal cannula. He says his breathing is better today. Still has a cough which is similar to yesterday. Afebrile overnight. INR today is 1.82 �
he continues on heparin drip. He denies chest pain, headache, abdominal pain, fevers or chills.
Review of Systems
General: Other (Negative unless mentioned above)
Objective Data
Data Reviewed
Vital Signs / I&O / Oxygen:
Vital Signs
Temp Pulse Resp BP Pulse Ox
97.5 F 80 22 147/70 98
11/20/23 07:00 11/20/23 08:54 11/20/23 08:54 11/20/23 08:54 11/20/23 08:54
Intake and Output
11/19/23 11/20/23 11/21/23
06:59 06:59 06:59
Intake Total 720 / 720 858 / 858
Output Total 800 / 800 1100 / 1100
Balance -80 / -80 -242 / -242
SaO2 98
Nasal Cannula flow liters per 4
minute
Physical Exam
General: Respiratory Distress (none currently), Comfortable and Chills (negative)
HEENT: Normocephalic and Anicteric
Cardiovascular: S1-S2 (Mechanical click heard upon S2) and Peripheral Edema (Negative)
Respiratory: Wheeze (Expiratory wheezing in posterior lung juarez (L >R)), Crackles (Negative), Rhonchi (Negative), Accessory Resp Muscle Use (mild) and Other (Reduced breath sounds bilaterally)
GI: Soft, Non Distended, Non Tender and Normal Bowel Sounds
Neurology: Awake, Alert and Tremors (n)
Skin: Warm, Dry and Cyanosis (Negative)
Labs/Micro/Reports
Lab Data
11/19/23 07:04
11/20/23 06:23
Laboratory Results
11/19/23 11/19/23 11/20/23
16:11 23:24 06:23
PT 21.2 H
INR 1.82
APTT 25.5 82.9 H 134.1 H
Microbiology
11/14/23 15:07 Blood/Venous Blood Culture - Final
No Growth - Final Report
11/14/23 15:11 Blood/Venous Blood Culture - Final
No Growth - Final Report
11/15/23 14:47 Sputum Respiratory Culture - Final
Pseudomonas aeruginosa
11/15/23 14:47 Sputum Gram Stain - Final
[2023-11-20] MEDS: MORPHINE SULFATE 1 MG IV (09:36)
[2023-11-20 09:38] LABS: Troponin I 0.034 ng/ml
--- NOTE | 2023-11-20 09:48 | CON.CAR ---
Addendum entered and electronically signed by Willian Celaya MD 11/20/23 11:00:
I saw and examined the patient.
The Vocational Rehabilitation Specialist's note was reviewed and I agree with the note.
Comment:
GEN: Awake, Ox3
HEENT: supple, anicteric, mmm
LUNGS: scatt rhonchi
CV: Reg with ectopy, S1/S2, 1/6 syst LSB, no gallop
ABD: soft, BS+, NT/ND
EXT: No edema
NEURO: Gross non-focal
SKIN: No rash
Plan:
He is a complex medical patient with mechanical AVR with significant prosthetic stenosis, chronic heart failure with preserved ejection fraction, hypertension, left bundle branch block, COPD, pacemaker, and paroxysmal atrial fibrillation who was
presented to [facility] with shortness of breath and was being treated with a COPD exacerbation. Today he developed sudden onset of central chest pain about 5 out of 10 in severity in his epigastric and lower central chest area. The pain
did not radiate. He did have shortness of breath with this. It was not worse with coughing. He was given a dose nitroglycerin which improved but the pain continues. He states he has had this pain in the past but none recently. His INR was
subtherapeutic and he is on a heparin drip. He is back on Coumadin. He is also having some constipation.
The etiology of his chest pain remains unclear. First troponin remains normal but we will need to repeat this. Will try another dose of nitroglycerin and give him 1 mg of morphine. Continue IV heparin. We will likely repeat his echocardiogram to
reevaluate his mechanical aortic valve. Previous echoes have shown significant prosthetic stenosis.
INR is currently 1.8. Continue IV heparin and continue Coumadin.
EKG is unchanged with a known left bundle branch block.
Will also treat his constipation and continue with COPD treatments.
If this is from a cardiac source, we would need to consider an ischemic evaluation, however previous discussions with him and his son have suggested he prefers a conservative plan for his failing valve.
Original Note:
Consultation
Consultation Request
Date/Time Consultation Requested: 11/20/2023
Date/Time Consultation Performed: 11/20/2023
Requesting Provider: Dr. Monsivais
Performing Provider: Dr. Celaya
Reason for Consultation: Chest Pain
Medical History
-
History of Present Illness:
HPI: Haja is an 83-year-old male with past medical history of paroxysmal atrial fibrillation, permanent pacemaker, mechanical AVR, chronic HFpEF, hypertension, hyperlipidemia, LBBB, and COPD who presented to ER initially for evaluation of
shortness of breath. He was diagnosed with acute COPD exacerbation and has been undergoing treatment with steroids, antibiotics, and nebs. In AM 11/20/2023, he developed sudden onset central chest pain, 5 out of 10 in severity. He was given a
single dose of sublingual nitroglycerin and this helped his pain somewhat, however his pain then started to come back. He was tachypneic with this and cardiology consulted for evaluation. He describes that he has had pain similar to this in the
past and reports its fairly frequent, however his son states that he has not not complained of chest pain for over 1 year. Of note, patient did have supratherapeutic INR earlier this patient and warfarin was held, however then INR became
subtherapeutic and he was placed on heparin drip as bridge while Coumadin was restarted. He continues to have pain at this time and feels as though he is trying to 'get air in'.
PMH:
Paroxysmal atrial fibrillation
Chronic warfarin anticoagulation
s/p [place] PPM
s/p mechanical AVR
Chronic HFpEF
Hypertension
Hyperlipidemia
LBBB
COPD
Past Medical History
Past Medical History: Other (Paroxysmal atrial fibrillation, permanent pacemaker, mechanical aortic valve replacement, COPD on home oxygen, chronic heart failure with preserved ejection fraction, hypertension, hyperlipidemia,)
Past Surgical History: Cardiac (Mechanical AVR, permanent pacemaker) and Other (Hernia surgery x 2, cataract, left rotator cuff surgery)
Social History
Tobacco: Non-Smoker
Alcohol: None
Drug: None
Living: With Family
Employment: Retired
Family History
Family History: Hypertension
Allergies / Home Medications
Allergy/AdvReac Type Severity Reaction Status Date / Time
codeine Allergy Irritabilit Verified 11/09/23 15:11
y
�Medication �Instructions �Recorded �Confirmed �Type
budesonide 160 mcg-glycopyr 9 2 inh inhalation R BID 08/08/22 11/14/23 History
mcg-formot 4.8 mcg/actuation HFA Lung/breathing issues
inhaler (Breztri Aerosphere)
nebivolol 5 mg tablet (Bystolic) 5 mg PO DAILY Heart 08/08/22 11/14/23 History
disease/condition
simvastatin 40 mg tablet 40 mg PO QPM High cholesterol 08/08/22 11/14/23 History
furosemide 40 mg tablet 40 mg PO DAILY #30 tabs 11/16/22 11/14/23 Rx
albuterol sulfate 2.5 mg/3 mL 2.5 mg inhalation R Q6HPRN PRN sob 11/09/23 11/14/23 History
(0.083 %) solution for nebulization
azithromycin 250 mg tablet 250 mg PO DAILY Infection 11/09/23 11/14/23 History
warfarin 4 mg tablet 4 mg PO QPM Blood Clot 11/09/23 11/14/23 History
Prevention/Tx
warfarin 5 mg tablet 5 mg PO QPM Blood Clot 11/09/23 11/14/23 History
Prevention/Tx
prednisone 10 mg tablet 10 mg PO .TAPER 11/14/23 11/14/23 History
Review of Systems
-
History Source: Patient
All other systems: Negative unless noted
Physical Exam
Vital Signs
Temp Pulse Resp BP Pulse Ox
97.5 F 68 24 143/69 96
11/20/23 07:00 11/20/23 09:45 11/20/23 09:45 11/20/23 09:45 11/20/23 09:45
Lab Results
11/19/23 07:04
11/20/23 06:23
Troponin I 0.034 ng/ml 11/20/23 08:59
Kuw-K-Qipqbvdzztb Pept 2040 pg/ml 11/14/23 15:07
Physical Exam
General: Well Developed and Well Nourished
Respiratory: Other (Tachypneic)
Cardiac: Regular Rhythm
Musculoskeletal: No Clubbing and No Cyanosis
Neuro: AO x 3 and Nonfocal/Grossly Intact
Impression / Plan
-
PCP: Dr. Maguire
Pole Peeling Machine Operator Helper: Dr. Copeland
Impression:
Chest pain
Acute on chronic hypoxic respiratory failure
COPD w/ acute exacerbation
Paroxysmal atrial fibrillation
Chronic warfarin anticoagulation
s/p [facility] PPM
s/p mechanical AVR
Chronic HFpEF
Hypertension
Hyperlipidemia
LBBB
Echo 08/18/2022:�Ejection fraction 50 to 55% with moderate concentric LVH, status post mechanical prosthetic [place] aortic valve with mean gradient of 58 mmHg.� Dimensionless index was 0.4 it may have been due to high output state.
Echo 11/16/2023: EF 52%, mild concentric LVH, well-seated mechanical aortic valve replacement with peak/mean gradients 38/19 mmHg, trace AI, mild MR, mild TR, estimated PAP 35 mmHg
Plan:
-Admitted with acute COPD exacerbation. Continue treatment per primary service and pulmonary. Continue antibiotics per ID.
-Chest pain noted in AM 11/19/2023 resulting in cardiology consult.
-Patient tachypneic and appears SOB.
-Pain improved somewhat w/ SL nitro, however then returned. Given another dose of nitro and 1mg morphine. Follow response.
-Troponin checked, initial returned at 0.034, continue to trend.
-EKG 11/19 stable compared to admission w/ LBBB noted.
-Previously patient has preferred to avoid invasive testing and treatments.
-If repeat troponin elevated, consider rechecking echo.
-Continue heparin drip while INR sub therapeutic. INR 11/19 1.82, goal INR 2.5-3.5.
-Weight overall stable this admission. Continue PO lasix 40mg daily.
HPI: Haja is an 83-year-old male with past medical history of paroxysmal atrial fibrillation, permanent pacemaker, mechanical AVR, chronic HFpEF, hypertension, hyperlipidemia, LBBB, and COPD who presented to ER initially for evaluation of
shortness of breath. He was diagnosed with acute COPD exacerbation and has been undergoing treatment with steroids, antibiotics, and nebs. In AM 11/20/2023, he developed sudden onset central chest pain, 5 out of 10 in severity. He was given a
single dose of sublingual nitroglycerin and this helped his pain somewhat, however his pain then started to come back. He was tachypneic with this and cardiology consulted for evaluation. He describes that he has had pain similar to this in the
past and reports its fairly frequent, however his son states that he has not not complained of chest pain for over 1 year. Of note, patient did have supratherapeutic INR earlier this patient and warfarin was held, however then INR became
subtherapeutic and he was placed on heparin drip as bridge while Coumadin was restarted. He continues to have pain at this time and feels as though he is trying to 'get air in'.
Data Reviewed
-
EKG: Tracing Personally Visualized and interpreted
Medical Tests (Nuc Med, Echo etc): Report Reviewed by me
Labs: Labs Reviewed by me
Old Records: Reviewed
--- NOTE | 2023-11-20 10:12 | CM ---
Per physician, patient is not stable for discharge today, window caser spoke with admissions at [facility] and window caser will need to follow up with [facility] when patient is cleared for discharge to check on bed availability, window caser
also reached out to patient's son, Anupam and back up plan is 3rd floor at [facility]
Plan; Skilled placement when stable.
[2023-11-20] MEDS: SENOKOT 17.1999999999999993 MG PO ×2 (10:37→20:35)
[2023-11-20] MEDS: MIRALAX 17 GRAMS PO (10:37)
[2023-11-20] MEDS: COLACE 100 MG PO ×2 (10:37→20:35)
[2023-11-20 15:03] LABS: APTT 85.2 Sec (23.4-35.0)
[2023-11-20 15:09] LABS: Troponin I 0.025 ng/ml
[2023-11-20] MEDS: HEPARIN 25000 UNITS/250 ML IV (17:00)
--- NOTE | 2023-11-20 17:25 | W.PN.ID1 ---
Date of Service
Date of Service: November 20, 2023
Today's Communication
continue levofloxacin
Assessment / Plan
COPD exacerbation due to Pseudomonas
CHF
AVR on coumadin, PPM
- continue levofloxacin day 5 of 14 of antibiotics
- steroids per pulmonary
- remains on O2
- follow up with pulmonary service, stable for dc from ID perspective
Chief Complaint
-: Other (COPD exacerbation)
Subjective / Review of Systems
afebrile
bp stable
chest pain today
cr stable
Vital Signs / Physical Exam
Vital Signs
Vital Signs
Temp Pulse Resp BP Pulse Ox
97.3 F 80 16 126/58 93
11/20/23 15:00 11/20/23 15:01 11/20/23 15:01 11/20/23 15:00 11/20/23 15:00
Physical Exam
Constitutional: No Acute Distress
Cardiovascular: Regular Rate and S1/S2; Negative Murmur or Rub
Pulmonary: Clear and Symmetric; Negative Wheezes or Rales
Gastrointestinal: Soft, Non Tender, Non Distended and Normal Bowel Sounds
Skin: Warm and Dry; Negative Rash or Jaundice
Objective Data
Lab Data
Lab Results
11/19/23 07:04
11/20/23 06:23
PT 21.2 Sec (11.4-14.6) H 11/20/23 06:23
INR 1.82 11/20/23 06:23
APTT 85.2 Sec (23.4-35.0) H 11/20/23 14:36
Estimated Creat Clear 70 ml/min 11/20/23 06:23
Most recent labs reviewed.
Micro Results:
11/14/23 15:07 Blood Culture - Final
Blood/Venous No Growth - Final Report
11/14/23 15:11 Blood Culture - Final
Blood/Venous No Growth - Final Report
11/15/23 14:47 Respiratory Culture - Final
Sputum Pseudomonas aeruginosa
Gram Stain - Final
11/15/23 11:52 MRSA Screen - Final
Nose No Methicillin Resistant Staphylococcus aureus isolated.
11/15/23 11:47 Influenza Types A & B ([facility]) - Final
Nasal Swab Negative for Influenza A & B, NAAT
Negative results must be combined with clinical observations
and patient history.
Nucleic Acid Amplification test (NAAT)performed on the
[employer] platform.
[2023-11-20] MEDS: COUMADIN 4 MG PO (18:08)
[2023-11-20] MEDS: COUMADIN 5 MG PO (18:09)
[2023-11-20] MEDS: MILK OF MAGNESIA 30 ML PO (18:09)
[2023-11-20] MEDS: LIPITOR 20 MG PO (18:09)
[2023-11-20 21:06] LABS: APTT 102.5 Sec (23.4-35.0)
[2023-11-20 21:14] LABS: Troponin I 0.021 ng/ml
[2023-11-21 03:23] VITALS: BP 141/60
[2023-11-21 06:00] VITALS: BMI 26.5
[2023-11-21 06:45] LABS: Hematocrit 43.2 % (39.0-52.0); Hemoglobin 14.1 g/dL (13.0-18.0); Mean Corp Hgb Conc. 32.6 g/dL (33.0-37.0); Mean Corpuscular Volume 82.6 fL (80.0-94.0); Mean Platelet Volume 9.2 fL (7.4-10.4); Platelet Count 261 10^3/uL (130-400); Red Blood Cell Count 5.23 10^6/uL (4.70-6.10); Red Cell Dist. Width 15.2 % (11.5-14.5); White Blood Cell Count 15.3 10^3/uL (4.8-10.8)
[2023-11-21 06:57] LABS: PT 26.9 Sec (11.4-14.6)
[2023-11-21 07:00] VITALS: BP 138/65
[2023-11-21 07:32] LABS: APTT > 200 Sec (23.4-35.0)
[2023-11-21] MEDS: BYSTOLIC 5 MG PO (08:04)
[2023-11-21] MEDS: LEVAQUIN 750 MG PO (08:04)
[2023-11-21] MEDS: PROTONIX 40 MG PO (08:04)
[2023-11-21] MEDS: DELTASONE 50 MG PO (08:04)
[2023-11-21] MEDS: SENOKOT 17.1999999999999993 MG PO ×2 (08:04→20:49)
[2023-11-21] MEDS: MIRALAX PO (08:05)
[2023-11-21] MEDS: NORVASC 5 MG PO (08:05)
[2023-11-21] MEDS: LASIX 40 MG PO (08:05)
[2023-11-21] MEDS: MUCINEX 1200 MG PO ×2 (08:05→20:50)
[2023-11-21] MEDS: COLACE 100 MG PO ×2 (08:05→20:49)
[2023-11-21] MEDS: DUONEB 3 ML INH ×4 (08:18→20:08)
[2023-11-21] MEDS: PULMICORT 0.5 MG INH ×2 (08:18→20:08)
[2023-11-21 11:00] VITALS: BP 114/52
--- NOTE | 2023-11-21 11:14 | W.PN.HOSP.TC ---
Today's Communication/Plan
-
Medically stable for discharge to Rehab
Coumadin 8 mg tonight
Assessment / Plan
Assessment / Plan
83-year-old male with multiple medical problems presented to the hospital with complaints of cough and shortness of breath on 11/10/2023. Patient was admitted and treated 11/12/2023. He uses oxygen 3 to 4 L at home but required high flow in the
hospital which was changed to nasal cannula. Patient was readmitted with shortness of breath having to increase oxygen to 5 L at home despite that had no saturation. He also used nebulizer treatment. He has chronic lower extremity edema which is
stable
Feels well
CVS: S1-S2 normal
Chest: decreased BS bases, few rales left
Abdomen: Soft, NT / Bowel sounds present
Extremities: No edema
ENDOCRINOLOGY TEACHER-Nonfocal
CT chest-mild airspace disease in the left lower lobe consistent with developing pneumonia. Moderate emphysematous disease. Lingular atelectasis or scarring. Moderate atherosclerotic vascular disease. Possible left renal soft tissue mass versus
cortical scarring. Nonemergent CT recommended. By mild bilateral renal atrophy. Nonobstructing left renal stone
Chest x-ray 11/18/2023-minimal stranding in the posterior lung bases left greater than right faint opacity at the lateral to the left cardiac border band atelectasis blunting of the left CP angle awaiting crystal study in the medial right lung base.
# Chest pain 11/20/23
Trop Neg
Non Cardiac CP
# Acute on chronic hypoxic respiratory failure
Likely secondary to COPD exacerbation and also Pseudomonas pneumonia
Baseline uses 3 to 4 L
Continue supplemental oxygen to keep saturations 90 to 92%
Speech evaluation ordered and VSE -continue regular solids and thin liquids
# COPD exacerbation
Prednisone, nebulizer treatments, Pulmicort
Levaquin
Sputum culture pseudomonas
Mucinex
ID and Pulmonary following
Acapella
#NSVT, VS tachy with BBB-EKG noted. Slightly prolonged QTc, left axis deviation no significant change.
Echo-mild concentric LVH. Normal LV size. Ejection fraction 52%. Pacer wire in the right heart. Mild MR. Mild TR
Electrolytes OK
# Leukocytosis-likely secondary to steroids and pneumonia.
# Chronic heart failure with preserved ejection fraction
Volume stable
Continue Lasix 40 mg daily
# History of mechanical aortic valve for aortic stenosis
Dose Coumadin daily according to INR -Per discussion he was taking 9 mg at home.
Interestingly even with Levaquin his INR only modest elevation with Coumadin.
INR up. Stop heparin gtt.
Coumadin 8 mg tonight
# Hypertension
Continue Bystolic and Norvasc added here
Blood pressure stable
# Hyperlipidemia-continue statin
# Pacemaker
# Chronic LBBB
# Pulmonary Hypertension
# Hyperlipidemia-continue statin
# DVT prophylaxis-continue Coumadin per INR
# CODE STATUS-DNR
D/W RN at bed side
son updated
D/W Cards
D/W case management
Anticipated Discharge: Within 24 hours
Subjective/Interval History
-
Date of Service: November 21, 2023
Objective Data
-
Labs:
Laboratory Results
11/21/23 11/21/23
05:50 15:30
WBC 15.3 H
Hgb 14.1
Hct 43.2
Plt Count 261
PT 26.9 H
INR 2.50
APTT > 200 H* Pending
Vital Signs:
Vital Signs
Temp Pulse Resp BP Pulse Ox
97.9 F 62 20 114/52 93
11/21/23 11:00 11/21/23 11:00 11/21/23 11:00 11/21/23 11:00 11/21/23 11:00
I&O
11/20/23 11/21/23 11/22/23
06:59 06:59 06:59
Intake Total 858 / 858 1314 / 1314
Output Total 1100 / 1100 700 / 700
Balance -242 / -242 614 / 614
--- NOTE | 2023-11-21 13:25 | W.PN.CARDCBS ---
Today's Communication / Plan
-
Stable from a cardiovascular standpoint for discharge to rehab
Coumadin dosing and plan discussed with hospitalist
Impression / Plan
-
PCP: Dr. Maguire
Machine Stuffer: Dr. Copeland
Impression:
Chest pain
Acute on chronic hypoxic respiratory failure
COPD w/ acute exacerbation
Paroxysmal atrial fibrillation
Chronic warfarin anticoagulation
s/p [facility] PPM
s/p mechanical AVR
Chronic HFpEF
Hypertension
Hyperlipidemia
LBBB
Echo 08/18/2022:�Ejection fraction 50 to 55% with moderate concentric LVH, status post mechanical prosthetic [place] aortic valve with mean gradient of 58 mmHg.� Dimensionless index was 0.4 it may have been due to high output state.
Echo 11/16/2023: EF 52%, mild concentric LVH, well-seated mechanical aortic valve replacement with peak/mean gradients 38/19 mmHg, trace AI, mild MR, mild TR, estimated PAP 35 mmHg
Plan:
-Admitted with acute COPD exacerbation.
-Continue treatment per primary service and pulmonary.
-Continue antibiotics per ID.
-Chest pain noted in AM 11/19/2023 resulting in cardiology consult.
-No further chest pain complaints. Troponins not significantly elevated.
-EKG 11/19 stable compared to admission w/ LBBB noted.
-Previously patient has preferred to avoid invasive testing and treatments.
-Continue medical therapy
History of mechanical AVR
-Continue warfarin 9 mg daily as he has been therapeutic as an outpatient enrolled in [facility] Coumadin clinic
-INR today is at goal; stop IV heparin. Goal INR 2.5-3.5.
-Will notify [facility] Coumadin clinic about patient's transfer to rehab and hospitalization. Will check INR again on Thursday
-Weight overall stable this admission. Continue PO lasix 40mg daily.
Stable for discharge to rehab from a cardiac standpoint
Outpatient cardiac follow-up to be arranged
Plan discussed with patient's son at bedside as well as hospitalist
Will sign off, recall if needed
HPI: Haja is an 83-year-old male with past medical history of paroxysmal atrial fibrillation, permanent pacemaker, mechanical AVR, chronic HFpEF, hypertension, hyperlipidemia, LBBB, and COPD who presented to ER initially for evaluation of
shortness of breath. He was diagnosed with acute COPD exacerbation and has been undergoing treatment with steroids, antibiotics, and nebs. In AM 11/20/2023, he developed sudden onset central chest pain, 5 out of 10 in severity. He was given a
single dose of sublingual nitroglycerin and this helped his pain somewhat, however his pain then started to come back. He was tachypneic with this and cardiology consulted for evaluation. He describes that he has had pain similar to this in the
past and reports its fairly frequent, however his son states that he has not not complained of chest pain for over 1 year. Of note, patient did have supratherapeutic INR earlier this patient and warfarin was held, however then INR became
subtherapeutic and he was placed on heparin drip as bridge while Coumadin was restarted. He continues to have pain at this time and feels as though he is trying to 'get air in'.
Progress Note - Machine Stuffer
Subjective
Date of Service: November 21, 2023
Seen and examined. Overall patient feels shortness of breath is better. No chest pain. No edema.
Objective
Labs:
11/21/23 05:50
11/20/23 06:23
Labs
Hgb 14.1 g/dL (13.0-18.0) 11/21/23 05:50
Hct 43.2 % (39.0-52.0) 11/21/23 05:50
Plt Count 261 10^3/uL (130-400) 11/21/23 05:50
PT 26.9 Sec (11.4-14.6) H 11/21/23 05:50
INR 2.50 11/21/23 05:50
APTT > 200 Sec (23.4-35.0) H* 11/21/23 05:50
Sodium 134 mmol/L (135-145) L 11/20/23 06:23
Potassium 3.7 mmol/L (3.5-5.1) 11/20/23 06:23
BUN 42 mg/dl (9-20) H 11/20/23 06:23
Creatinine 0.8 mg/dL (0.7-1.3) 11/20/23 06:23
Glucose 86 mg/dl (70-99) 11/20/23 06:23
Troponins
11/20/23 11/20/23 11/20/23
08:59 14:36 20:41
Troponin I 0.034 0.025 D 0.021
Vital Signs and I&O:
Vital Signs
Temp Pulse Resp BP Pulse Ox
97.9 F 73 20 114/52 96
11/21/23 11:00 11/21/23 11:57 11/21/23 11:57 11/21/23 11:00 11/21/23 11:57
Vital Signs
Temp Pulse Resp BP Pulse Ox
97.9 F 73 20 114/52 96
11/21/23 11:00 11/21/23 11:57 11/21/23 11:57 11/21/23 11:00 11/21/23 11:57
Intake & Output
11/19/23 11/20/23 11/21/23 11/22/23
06:59 06:59 06:59 06:59
Intake Total 720 / 720 858 / 858 1314 / 1314
Output Total 800 / 800 1100 / 1100 700 / 700
Balance -80 / -80 -242 / -242 614 / 614
Physical Exam
Physical Exam
Gen: NAD, AAOx3
HEENT: NC/AT, sclera anicteric
Neck: No JVD
CV: RRR, mechanical S2
Lungs: Bronchovesicular breath sounds decreased without wheezing.
Abd: S/ND
Extremities: No edema
[2023-11-21 15:00] VITALS: BP 113/57
[2023-11-21 15:51] LABS: APTT 41.1 Sec (23.4-35.0)
--- NOTE | 2023-11-21 16:08 | W.PN.PUL3 ---
Today's Communication / Plan
-
O2
BDs
Pred taper
Atbs per ID
Reconsult prn
Assessment
-
83-year-old man with history of COPD, heart failure with preserved ejection fraction, paroxysmal atrial fibrillation on anticoagulation, admitted with worsening shortness of breath. He was found to be bronchospastic. Overnight developed increased
work of breathing, placed on BiPAP. Transferred to the intermediate care unit for closer monitoring.
Impression:
Recurrent acute exacerbation of COPD-readmitted after 3 days at home.
Patient discharged on 11/12/2023 with similar symptoms
Chest x-ray: 11/14/2023: Showed mild vascular congestion. Small pleural effusion on the left. Chronic subsegmental atelectasis scarring in the lingula.
Negative procalcitonin
proBNP 2039
COVID-negative
Posterior left lower lobe infiltrate seen on CT chest from 11/15/2023 suspicious for developing pneumonia,but PCT negative x2
Ps aerug bronchitis
Sputum culture (from 11/15/2023) grew Pseudomonas aeruginosa which is intermediate to gentamicin
Leukocytosis probably exaggerated from steroid use
Chronic heart failure with preserved ejection fraction-does not appear volume overloaded on exam.
Conditions present prior to admission:
Recent hospitalization discharged on 11/12/2023 for acute exacerbation of COPD.
Recent hospitalization 08/16/2022-acute on top of chronic COPD exacerbation and chronic diastolic CHF exacerbation, [place], gastrointestinal bleeding, hemoptysis and coagulopathy on Coumadin
COPD -severe/chronic hypercapnic respiratory failure ABG 11/09/2023-7.40 /chronic hypoxemic respiratory failure on 3-4 L
Usually follow-up with Dr. Archuleta: On low-dose azithromycin for anti-inflammatory properties, Breztri, nebulizers and albuterol HFA as needed. Maximal medical therapy.
Chronic hypoxic respiratory failure with 3-4 L ATC and 3L//min with sleep
Decreased diffusing capacity.
Chronic CHF preserved EF.
Aortic stenosis/mechanical AVR. -On chronic anticoagulation
PPM.
Pulmonary hypertension.
Chronic anemia.
Paroxysmal atrial fibrillation
Hyperlipidemia.
Hypertension.
Rotator cuff surgery. Aortic valve replacement. Bilateral herniography.
DNR status
Plan
Recurrent exacerbation of COPD-readmitted after 3 days.
On physical exam he had bibasilar crackles, which have resolved.
Currently no wheezing.
On home O2 at 3-4L, sometimes 5L
Suspected component of deconditioning contributing to his shortness of breath.
Patient has advanced emphysema with hyperinflation, chronic hypercapnic respiratory failure and hypoxemic respiratory failure.
He also has suspected posterior LLL pneumonia seen on CT chest from 11/15/2023 -ID consulted and he was changed to cefepime on 11/15 s/p rocephin + azithromycin x 2 doses --> now he is on levaquin since 11/16 --> would complete 7-10 days of Abx total,
assuming he remains afebrile for >48 hours prior to stopping antibiotics and continues to clinically improve
IV corticosteroids tapered
Currently on prednisone, started at 50 mg qd on 11-18, taper by 10mg every 5th day until off (he is not on chronic CSs, he was on a pred taper upon readm)
Nebulizer with DuoNebs 4 times a day
Continue Pulmicort twice a day
Hold maintenance long-acting inhalers while in the hospital-usually on BREZTRI --> DC home on Breztri
Chest x-ray on admission: Possible vascular congestion. Lingular abnormality
CT chest from 11/15/2023 with extensive panlobular emphysema with a posterior LLL infiltrate suspicious for developing pneumonia (PCT negative 11-13 and )
Records reviewed from last admission no antibiotics were given.
Currently on high dose levofloxacin since 11-16 by ID, planning on 14 d atb course
Blood cultures collected on 11/14/2023 show NGTD
Sputum culture from 11/15/2023 growing Pseudomonas aeruginosa, vivas-S x gentamicin
MRSA is negative
Flu swab also negative
COVID testing was negative.
Leukocytosis noted
STREET LIGHT SERVICER SUPERVISOR evaluated him on 11/16 and he underwent VSE showing liquid transient penetration with consecutive cup swallows with no aspiration
Respiratory status improved-anxiety playing a role as well as deconditioning
Supplemental oxygen as needed-outpatient 3-4 L
Sometimes uses up to 5 L at home
Currently on 4 L midflow with POx 96%
Check walking pulse ox prior to discharge
Patient does have chronic hypercapnic respiratory failure.
Consider outpatient noninvasive mechanical ventilation --> this will be discussed at his next appt with Dr. Archuleta
Patient does admit that he snores, but no known witnessed apneic events and no excessive daytime sleepiness. Low suspicion for sleep apnea, but this also will be discussed in the outpatient setting. If a sleep study with CO2 monitoring is needed,
this will be done at the discretion of Dr. Archuleta.
No need for acute ventilation at this point. He is mentating well. Comfortable in the edge of the bed.
AM VBG on AM of 11/19/2023 showed adequate ventilation with pH 7.35, pCO2 65
Mucolytics --> mucinex @ 1.2g q12hr
Incentive spirometry
Acapella device
Consider vest therapy if difficulties mobilizing secretions.
With increased proBNP may need to consider diuresis - however proBNP is less than a third of what it was on 11/09/2023 (2040 on 11/14/2023 compared to 7460 on 11/09/2023) --> hold off on diuresis
CT chest not consistent with volume overload
His weight is historically higher than before.
Monitor closely
Continue warfarin-monitor INR with goal 2-3 --> INR low today at 1.8, continue heparin gtt
Suspect significant component of deconditioning
Physical therapy/Occupational Therapy evaluation --> recommend skilled rehab upon discharge
Nutritional support
Monitor blood sugar, particularly on IV steroids.
Goal BG >100 and <180mg/dL
Insulin SQ supplementation as needed
During last admission patient was very anxious. May need to give anxiolytics. Defer to primary team.
DVT prophylaxis-on warfarin (mechanical AVR, AFib)
Dr. De Santiago updated family members at the bedside 11/15/2023.
Will need to update home oxygen assessment. Unlikely that he will able to use his portable oxygen concentrator that is pulse delivered
He may need portable oxygen tanks
Check walking pulse oximetry prior to discharge
Follow-up with Dr. Archuleta after discharge.
Pulm nieto stable for d/c
Reconsult prn
Diagnostic data:
CT Chest w/o contrast 11-15-2023:
Mild airspace disease in the left lower lobe and therefore developing pneumonia. Clinical and laboratory correlation recommended. Repeat exam following treatment in approximately 2 weeks is recommended to exclude underlying pulmonary nodules
Moderate emphysematous disease.
Mild lingular atelectasis versus scarring.
Moderate atherosclerotic vascular disease.
Possible left renal soft tissue mass versus findings due to cortical scarring. Nonurgent dedicated CT of the kidneys recommended. Post IV contrast.
Mild bilateral renal atrophy.
Nonobstructing left renal stone. 2 weeks is recommended to exclude underlying nodules.
Chest x-ray 11/18/2023: There is hyperaeration of the lungs, with flattening of the hemidiaphragms. Consistent with changes of COPD. Emphysema; Minimal stranding in the posterior lung bases left greater than right. Previous faint opacity lateral to
the left cardiac border again seen. Likely representing a band of atelectasis or scarring seen on prior CT. There is blunting of the left costophrenic angle, most consistent with pleural parenchymal changes. Vague increased stranding in the medial
right lung base, consistent with CT findings and pleural thickening medially and posteriorly in the inferior right lower lobe.
Chest x-ray 11/09/2023: Reviewed. No infiltrates., Hyperinflation
Chest x-ray/-tiny blunting of the left costophrenic angle lungs otherwise clear
Chest x-ray 11/13/2022-mild interstitial airspace disease left lung base, COPD
Echocardiogram 08/18/2022-EF 50-55%, abnormal diastolic dysfunction, trace mitral regurgitation, mechanical prosthetic aortic valve
TTE 11-16-2023:
Mild concentric left ventricular hypertrophy. Normal left ventricular chamber
size. Low -Normal left ventricular systolic function. Left ventricular ejection
fraction is 52% by Muhammad' s method.
Pacer wire seen in the right heart.
Mild mitral regurgitation.
Mild tricuspid regurgitation.
Compared to previous echo from November 2022, the gradients across the aortic valve
have improved.
VBG 08/16/2022-PCO2 68/37/7 0.31
PFT 11/10/2022-FEV1 1.29-54%, FVC 2.87-85%, TLC 86%, DLCO 16%
Subjective Data
-
Date of Service:
Date of Service: November 21, 2023
Chief Complaint: Pulmonary Follow Up
Subjective:
No major events reported overnight
Already on home O2 at 4 to 5 L for the last several years
Continue prednisone taper, progressing well regarding his acute exacerbation of COPD continue
Denies new complaints
On levofloxacin by ID, planning for 14 days of antibiotics (Ps aerug bronchitis)
Sitting in chair, no respiratory distress, speaking in full sentences
Review of Systems
General: Fever (n), Sweats (n), Chills (n) and Satisfactory Appetite
HEENT: Epistaxis (n)
Cardiopulmonary: Dyspnea (n at rest), Cough (trace), Wheezing (resolving) and Hemoptysis (n)
GI: Abdominal Pain (n), Nausea (n) and Vomiting (n)
Neuro: Weakness (n)
Objective Data
Data Reviewed
Vital Signs / I&O / Oxygen:
Vital Signs
Temp Pulse Resp BP Pulse Ox
97.5 F 60 20 113/57 96
11/21/23 15:00 11/21/23 15:27 11/21/23 15:27 11/21/23 15:00 11/21/23 15:27
Intake and Output
11/20/23 11/21/23 11/22/23
06:59 06:59 06:59
Intake Total 858 / 858 1314 / 1314
Output Total 1100 / 1100 700 / 700
Balance -242 / -242 614 / 614
SaO2 96
Nasal Cannula flow liters per 4
minute
Physical Exam
General: Respiratory Distress (none currently), Comfortable, Chills (negative) and Good Appetite
HEENT: Normocephalic, Anicteric, Moist Mucous Membranes and Thrush (n)
Cardiovascular: S1-S2 (Mechanical click heard upon S2) and Peripheral Edema (Negative)
Respiratory: Wheeze (n), Crackles (Negative), Rhonchi (trace), Accessory Resp Muscle Use (n) and Stridor (n)
GI: Soft, Non Distended, Non Tender and Normal Bowel Sounds
Neurology: Awake, AO x 3 and Tremors (n)
Skin: Warm, Dry and Cyanosis (Negative)
Labs/Micro/Reports
Lab Data
11/21/23 05:50
11/20/23 06:23
Laboratory Results
11/20/23 11/21/23 11/21/23
20:41 05:50 15:32
PT 26.9 H
INR 2.50
APTT 102.5 H > 200 H* 41.1 H
Microbiology
11/14/23 15:07 Blood/Venous Blood Culture - Final
No Growth - Final Report
11/14/23 15:11 Blood/Venous Blood Culture - Final
No Growth - Final Report
--- NOTE | 2023-11-21 16:23 | CM ---
outreach manager reached out to admissions at [facility] and per admissions they do not have a bed today but may have a bed tomorrow, correctional case manager will need to call and check on bed, patient will need COVID testing, correctional case manager spoke with Tarsha in
admissions at [facility] and they do not have a bed and will need to follow up on Thursday.
Plan; To follow up with admissions at [facility] tomorrow to check on available bed.
[2023-11-21] MEDS: COUMADIN 8 MG PO (17:21)
[2023-11-21] MEDS: LIPITOR 20 MG PO (17:21)
[2023-11-21 19:44] VITALS: BP 129/55
[2023-11-21] MEDS: MELATONIN 5 MG PO (22:25)
[2023-11-22 03:50] VITALS: BP 121/65
[2023-11-22 06:00] VITALS: BMI 26.3
--- NOTE | 2023-11-22 06:11 | W.PN.HOSP.TC ---
Today's Communication/Plan
-
discharge
Assessment / Plan
Assessment / Plan
Physical exam
General: no acute distress appears comfortable
CVS: S1-S2 normal
Chest: clear to auscultation b/l. Stable respiratory status on baseline oxygen supplementation
Abdomen: Soft, NT / Bowel sounds present
Extremities: No edema
SENIOR STORAGE ADMINISTRATOR: Awake Alert Conversant
Psych: Calm
83-year-old male with multiple medical problems presented to the hospital with complaints of cough and shortness of breath on 11/10/2023. Patient was admitted and treated 11/12/2023. He uses oxygen 3 to 4 L at home but required high flow in the
hospital which was changed to nasal cannula. Patient was readmitted with shortness of breath having to increase oxygen to 5 L at home despite that had no saturation. He also used nebulizer treatment. He has chronic lower extremity edema which is
stable
CT chest-mild airspace disease in the left lower lobe consistent with developing pneumonia. Moderate emphysematous disease. Lingular atelectasis or scarring. Moderate atherosclerotic vascular disease. Possible left renal soft tissue mass versus
cortical scarring. Nonemergent CT recommended. By mild bilateral renal atrophy. Nonobstructing left renal stone
Chest x-ray 11/18/2023-minimal stranding in the posterior lung bases left greater than right faint opacity at the lateral to the left cardiac border band atelectasis blunting of the left CP angle awaiting crystal study in the medial right lung base.
# Chest pain 11/20/23
Trop Neg
Non Cardiac CP
# Acute on chronic hypoxic respiratory failure
Likely secondary to COPD exacerbation and also Pseudomonas pneumonia
Baseline uses 3 to 4 L
Continue supplemental oxygen to keep saturations 90 to 92%
Speech evaluation ordered and VSE -continue regular solids and thin liquids
# COPD exacerbation
Prednisone, nebulizer treatments, Pulmicort
Levaquin
Sputum culture pseudomonas
Mucinex
ID and Pulmonary following
Acapella
#NSVT, VS tachy with BBB-EKG noted. Slightly prolonged QTc, left axis deviation no significant change.
Echo-mild concentric LVH. Normal LV size. Ejection fraction 52%. Pacer wire in the right heart. Mild MR. Mild TR
Electrolytes OK
# Leukocytosis-likely secondary to steroids and pneumonia.
# Chronic heart failure with preserved ejection fraction
Volume stable
Continue Lasix 40 mg daily
# History of mechanical aortic valve for aortic stenosis
Dose Coumadin daily according to INR -Per discussion he was taking 9 mg at home.
INR at goal with coumadin and levaquin. heparin gtt completed
Cont Coumadin reduced to 5mg on discharge due to INR trending up and concern interaction btwn abx and coumadin, follow up INR recommended outpatient
# Hypertension
Continue Bystolic and Norvasc added here
Blood pressure stable
# Hyperlipidemia-continue statin
# Pacemaker
# Chronic LBBB
# Pulmonary Hypertension
# Hyperlipidemia-continue statin
# DVT prophylaxis-continue Coumadin per INR
# CODE STATUS-DNR
Medically stable for discharge SNF rehab with outpatient follow up recommendations.
Discussed with patient at bedside and son Anupam over phone.
Total Time Preparing Discharge ___40____ minutes including examination of the patient, summary of the hospital stay, instructions for continuing care to all relevant caregivers; and preparation of discharge records, prescriptions, and referral
forms if necessary.
Anticipated Discharge: Today
Subjective/Interval History
-
Date of Service: November 22, 2023
Seen and examined at bedside. No acute distress. Reports overall feeling well. denies new acute issues at this time. Looking forward to discharge to SNF today.
Objective Data
-
Labs:
Laboratory Results
11/22/23
05:39
PT Pending
INR Pending
Vital Signs:
Vital Signs
Temp Pulse Resp BP Pulse Ox
97.9 F 69 18 121/65 93
11/22/23 03:50 11/22/23 03:50 11/22/23 03:50 11/22/23 03:50 11/22/23 03:50
I&O
11/20/23 11/21/23 11/22/23
06:59 06:59 06:59
Intake Total 858 / 858 1314 / 1314
Output Total 1100 / 1100 700 / 700 500 / 500
Balance -242 / -242 614 / 614 -500 / -500
[2023-11-22] MEDS: DUONEB 3 ML INH ×2 (07:17→11:57)
[2023-11-22] MEDS: PULMICORT 0.5 MG INH (07:17)
[2023-11-22 07:24] VITALS: BP 123/59
[2023-11-22 07:31] LABS: INR 2.96; PT 30.8 Sec (11.4-14.6)
[2023-11-22] MEDS: MIRALAX 17 GRAMS PO (07:58)
[2023-11-22] MEDS: DELTASONE 50 MG PO (08:00)
[2023-11-22] MEDS: COLACE 100 MG PO (08:00)
[2023-11-22] MEDS: NORVASC 5 MG PO (08:00)
[2023-11-22] MEDS: SENOKOT 17.1999999999999993 MG PO (08:00)
[2023-11-22] MEDS: PROTONIX 40 MG PO (08:00)
[2023-11-22] MEDS: LASIX 40 MG PO (08:00)
[2023-11-22] MEDS: LEVAQUIN 750 MG PO (08:00)
[2023-11-22] MEDS: MUCINEX 1200 MG PO (08:00)
[2023-11-22] MEDS: BYSTOLIC 5 MG PO (08:00)
[2023-11-22 11:35] VITALS: BP 114/52
[2023-11-22 12:37] LABS: COVID-19 Antigen Negative (Negative)
--- NOTE | 2023-11-22 13:08 | W.DCSUMMARY ---
Discharge Summary
Discharge Data
Date of Admission: 11/14/23
Date of Discharge: 11/22/23
-
Pending Results: No
Discharge Plan
-
Patient Disposition: Shelter/SNF
Discharge Diagnosis/Procedures: Acute on chronic hypoxic respiratory failure,COPD exacerbation,NSVT, chronic heart failure with preserved ejection fraction, mechanical aortic valve, hypertension, hyperlipidemia, pacemaker, chronic left bundle branch
block, pulm hypertension,
Condition: Fair
Diet: 2 Gram Sodium and Restrict fluids to 64 oz
Activity: With assistance and As tolerated
Driving Restrictions: No driving
Bathing Restrictions: None
Blood Work: INR on Thursday11/23/23
Other Services: PT and OT
Specialty Instructions: Weigh Daily- Call MD for wt gain/loss 3 lbs overnight/5 lbs in 1 week
Activity Restrictions/Additional Instructions:
Last day of antibiotics 11/29/2023. Prednisone 50 mg for 3 more days, 40 mg for 5 days, 30 mg for 5 days 20 mg for 5 days and 10 milligrams for 5 days then stop
Home Warfarin reduced to 5mg due to therapeutic INR 2.5-3.5 while on antibiotics. Follow up outpatient INR with primary care provider at facility for further dosing recommendations.
Referrals:
Nikky Molina CRNP [Specified Professional Personl] - 12/17/23 1:40 pm (You have a cardiology follow up appointment at the [place] office with Dr. Copeland's nurse practitioner, Nikky. Please call with questions. )
Jose F Archuleta MD [Active] - in one to two weeks (Appointment is on 12/16/2023 but that should be moved up)
Rashid Maguire MD [Family Provider] - in one week
Prescriptions:
New
sennosides [Senna Laxative] 8.6 mg Tablet
17.2 mg PO BID Qty: 60 0RF
prednisone 10 mg Tablet
50 mg PO DAILY Qty: 0 0RF
atorvastatin 20 mg Tablet
20 mg PO QPM Qty: 0 0RF
polyethylene glycol 3350 [HealthyLax] 17 gram Powder In Packet
17 g PO DAILY Qty: 0 0RF
amlodipine 5 mg Tablet
5 mg PO DAILY Qty: 0 0RF
pantoprazole 40 mg Tablet,Delayed Release (Dr/Ec)
40 mg PO DAILY Qty: 0 0RF
docusate sodium 100 mg Capsule
100 mg PO BID Qty: 0 0RF
budesonide 0.5 mg/2 mL Suspension For Nebulization
0.5 mg inhalation R BID Qty: 0 0RF
levofloxacin 750 mg Tablet
750 mg PO DAILY Qty: 0 0RF
guaifenesin 600 mg Tablet Extended Release 12hr
600 mg PO Q12 Qty: 0 0RF
Continued
nebivolol [Bystolic] 5 mg Tablet
5 mg PO DAILY
Breztri Aerosphere 160-9-4.8 mcg/actuation Hfa Aerosol Inhaler
2 inh INHALATION R BID
albuterol sulfate 2.5 mg /3 mL (0.083 %) Solution For Nebulization
2.5 mg INHALATION R Q6HPRN PRN (Reason: sob)
furosemide 40 mg Tablet
40 mg PO DAILY Qty: 30 0RF
warfarin 5 mg Tablet
5 mg PO QPM Qty: 0 0RF
Rx Instructions:
Home medication reduced from 9 mg to 5 mg while on antibiotics with therapeutic INR.
Held
azithromycin 250 mg Tablet
250 mg PO DAILY
Hold Instructions: Resume on 11/30/23. Hold till you finish Levaquin
warfarin 4 mg Tablet
4 mg PO QPM
Hold Instructions: Warfarin reduced to 5 mg QPM while on abx. Follow up repeat INR outpatient with further dosing recommendations as per primary care provider at facility.
Rx Instructions:
11/14/2023, take with 5 mg for a total of 9 mg.
Discontinued
simvastatin 40 mg Tablet
40 mg PO QPM
prednisone 10 mg tablet
10 mg PO .TAPER
Patient Comments:
11/14/2023, per son, pt. is scheduled to take last dose of 30 mg today (11/14/2023).
Rx Instructions:
11/14/2023, 30 mg x 3 days, 20 mg x 3 days, 10 mg x 3 days.
Discharge Orders:
Discharge Patient (As Directed); Ordered 11/22/23
Ordered By: Esteban Kuhn
Discharge Date and Time
Print Language: ISRAELI
--- NOTE | 2023-11-22 13:26 | PTCARENOTE ---
Oxygen decreased to 3lpm via NC, pulse ox 30 mins later 94%.
--- NOTE | 2023-11-22 13:54 | CM ---
Patient has been approved for placement at [facility] today 3:30pm black pickler by ambulance kishor is new to continuous oxygen, patient requires 5 liters at times. COVID negative.
Plan; Patient to transfer to [facility] today
Report [phone]
[2023-11-22 15:02] VITALS: BP 122/55
== END 2023-11-22 16:16 | DRG 177 ==
LOC: 4 WEST ACU 20:01
PROVIDERS: Hospitalist; Internal Medicine Critical Care Medicine; Physician Assistant Medical; ADMITTING PHYSICIAN Internal Medicine; ATTENDING PHYSICIAN Internal Medicine; CONSULT PHYSICIAN Student in an Organized Health Care Education/Training Program; EMERGENCY PHYSICIAN Emergency Medicine; FAMILY PHYSICIAN Internal Medicine; OTHER PHYSICIAN Internal Medicine Cardiovascular Disease; OTHER PHYSICIAN Internal Medicine Critical Care Medicine
PROC: 5A09357 Assistance with Respiratory Ventilation, Less than 24 Consecutive Hours, Continuous Positive Airway Pressure (ICD-10-PCS; 2023-11-15)
DX: J15.1 Pneumonia due to Pseudomonas (principal); J96.21 Acute and chronic respiratory failure with hypoxia; J96.22 Acute and chronic respiratory failure with hypercapnia; I50.32 Chronic diastolic (congestive) heart failure; J98.11 Atelectasis; D68.9 Coagulation defect, unspecified; I47.20 Ventricular tachycardia, unspecified; I27.20 Pulmonary hypertension, unspecified; J43.2 Centrilobular emphysema; T38.0X5A Adverse effect of glucocorticoids and synthetic analogues, initial encounter; D72.829 Elevated white blood cell count, unspecified; E78.00 Pure hypercholesterolemia, unspecified; I11.0 Hypertensive heart disease with heart failure; I44.7 Left bundle-branch block, unspecified; D64.9 Anemia, unspecified; I48.0 Paroxysmal atrial fibrillation; Z66 Do not resuscitate; Z82.49 Family history of ischemic heart disease and other diseases of the circulatory system; Z88.5 Allergy status to narcotic agent; Z79.51 Long term (current) use of inhaled steroids; Z79.52 Long term (current) use of systemic steroids; Z79.01 Long term (current) use of anticoagulants; Z99.81 Dependence on supplemental oxygen; Z87.891 Personal history of nicotine dependence; Z95.0 Presence of cardiac pacemaker; Z95.2 Presence of prosthetic heart valve; Z11.52 Encounter for screening for COVID-19
CPT/HCPCS: 71045; 71046; 71250; 74230; 80048; 82805; 83735; 83880; 84145; 84484; 85025; 85027; 85610; 85730; 87040; 87070; 87071; 87186; 87205; 87502; 87811; 92610; 92611; 93005; 93306; 94640; 94644; 96374; 97116; 97162; 97166; 97535; 99285

== ENCOUNTER → 2023-12-08 08:51 | Outpatient (REF) | payer MEDICARE, OTHER, SELFPAY ==
[2023-12-08 12:50] LABS: INR 2.64; PT 28.1 Sec (11.4-14.6)
== END ==
LOC: REG 08:51
PROVIDERS: ATTENDING PHYSICIAN Nuclear Medicine Nuclear Cardiology; FAMILY PHYSICIAN Internal Medicine
DX: I48.0 Paroxysmal atrial fibrillation (principal)
CPT/HCPCS: 36415; 85610

== ENCOUNTER 2023-12-21 20:53 | Inpatient (IN) | payer MEDICARE, OTHER, SELFPAY ==
[2023-12-21] VITALS (15 sets, daily range): BP systolic 105–126; BP diastolic 52–95; PULSE 2–105; BMI 28.6; BMI 28.4
[2023-12-21] MEDS: NSS 1000 IV (18:52)
[2023-12-21 18:56] LABS: % Basophils 0.6 % (0-2); % Eosinophils 0.8 % (0-6); % Immature Granulocytes 1.5 % (0-0.5); % Lymphocytes 13.9 % (20.5-51.1); % Neutrophils 74.2 % (42.2-75.2); Absolute Basophils 0.1 10^3/uL (0-0.2); Absolute Eosinophils 0.1 10^3/uL (0-0.7); Absolute Immature Granulocytes 0.1 10^3/uL (0-0.05); Absolute Lymphocytes 1.2 10^3/uL (1.2-3.4); Absolute Monocytes 0.8 10^3/uL (0.1-0.6); Absolute Neutrophils 6.3 10^3/uL (1.4-6.5); Hematocrit 38.2 % (39.0-52.0); Hemoglobin 12.8 g/dL (13.0-18.0); Mean Corp Hgb Conc. 33.5 g/dL (33.0-37.0); Mean Corpuscular Hgb 27.6 pg (27.0-31.0); Mean Corpuscular Volume 82.3 fL (80.0-94.0); Mean Platelet Volume 8.9 fL (7.4-10.4); Nucleated Red Blood Cells % 0 % (-); Platelet Count 226 10^3/uL (130-400); Red Blood Cell Count 4.64 10^6/uL (4.70-6.10); Red Cell Dist. Width 16.9 % (11.5-14.5); White Blood Cell Count 8.5 10^3/uL (4.8-10.8)
[2023-12-21 19:07] LABS: INR 2.23; PT 24.6 Sec (11.4-14.6)
[2023-12-21 19:08] LABS: APTT 47.5 Sec (23.4-35.0)
[2023-12-21 19:14] LABS: Lactic Acid 2.3 mmol/L (0.7-2.0)
[2023-12-21] MEDS: TYLENOL 1000 MG PO (19:17)
[2023-12-21 19:20] LABS: NT-proBNP 1910 pg/ml; Troponin I 0.034 ng/ml
--- NOTE | 2023-12-21 19:34 | ED.GENMED ---
History of Present Illness
General
Chief Complaint: Breathing Problem
Time Seen by Provider: 12/21/23 18:45
History of Present Illness
History of Present Illness:
83-year-old male with history of COPD on 3 to 4 L of oxygen at home, CHF, hypertension, hyperlipidemia, recent Pseudomonas pneumonia by sputum culture presenting to the emergency department for difficulty breathing. Patient arrives from home with
son. Son notes that patient appeared well last evening. Today, increased work of breathing on home oxygen. Oxygen saturations were in the 70s. Patient had recent hospital admission in October for pneumonia. Son notes fever prior to arrival, did
not give any antipyretics. Patient does note mild cough. Limited historian given increased work of breathing. Notes chest tightness secondary to difficulty breathing. Son did give 2 treatments prior to arrival for some wheezing. No additional
history obtained at this time
Past History
Past History
ED Past Medical History: Arrthythmia, CHF, COPD, HTN and Hypercholesterolemia
ED Past Surgical History: Cardiac (pacemaker, valve replacement)
Social History
Tobacco: Former smoker
Alcohol: None
Drug: None
Personal:
Living: with family
Employment: Retired
Phy Exam
Physical Exam
Physical Exam:
General: Moderate respiratory distress with increased work of breathing
HEENT: protecting airway
Neck: appears supple
CV: Tachycardic, regular rhythm, no evidence of cyanosis
Resp: Accessory muscle use, increased work of breathing, diminished air movement bilaterally
Abd: Soft and non-distended, no tenderness to palpation, normal bowel sounds
Extremities: No deformities, +2 pitting edema bilaterally.
Neuro: alert, no focal neurologic deficit
: deferred
Rectal: deferred
Psych: Normal affect
Skin: Intact
Scores
Heart Failure Risk
Heart Failure Risk Score: Yes
History of Stroke or TIA: No
History of intubation for respiratory distress: No
Heart rate on ED arrival >/= 110: No
SaO2 <90% on arrival on room air: Yes
HR >/=110 during 3min walk test (or too ill to perform test): Yes
ECG has acute ischemic changes: No
Urea >/=12mmol/L (BUN 33.6mg/dL): No
Serum CO2>/=35mmol/L: Yes
Troponin I or T elevated to ME Level (0.4mg/dL): No
NT-proBNP >/=5,000ng/L (5,000pg/ml): No
HF Risk Score: 5
Admission Status: VERY HIGH RISK 39.8% Consider admission to hospital
Course
Orders/Labs/Results
Orders:
Orders
12/21/23 Dinner
Cholesterol Lowering
At Your Request: Limited Participation
Does patient need a safe tray?: No
Fluid Restriction: 1440 mL/day (48 oz)
Cholesterol Lowering: Sodium, 2 Gram
12/21/23 18:45
0.9% Sodium Chloride 1000 ml [Nss] 1,000 ml IV BOLUS
12/21/23 18:46
Electrocardiogram (*1) Urgent
Reason for Study: Other
Other Reason for Exam: sepsis
EKG- Treatment ONCE
CR Chest Portable - 1 View Urgent
Comment:
Reason For Exam: SOB
Reason Study Needs to be Portable: Unable to Transport
12/21/23 18:49
Complete Blood Count/With Diff Urgent
Comprehensive Metabolic Panel Urgent
Lactic Acid Q4H
Comment: CANCEL 2nd LACTIC ACID IF 1st LACTIC ACID IS LESS THAN 2
NT-proBNP Urgent
PTT Urgent
Procalcitonin Urgent
PCT Algorithmm Indication: Sepsis
Prothrombin Time Urgent
Troponin I Urgent
Blood Culture Urgent
JOSELUIS Source: Blood/Venous
Specimen Description:
Influenza A+B Rapid Molecular Urgent
JOSELUIS Source: Nasal Swab
Specimen Description:
07/22/24 19:00
Acetaminophen [Tylenol] 1,000 mg PO NOW STA
12/21/23 19:15
COVID-19 Antigen Urgent
Source: Nasal Swab
12/21/23 19:33
Cefepime HCl [Maxipime] 2,000 mg IV NOW STA
Vancomycin [Vancocin] 1,500 mg 0.9% Sodium Chloride [Nss] 20 ml 0.9% Sodium Chloride 250 ml [Nss] 250 ml IV NOW
12/21/23 19:39
Sterile Water [Sterile Water For Injection] 10 ml .ROUTE .[facility]
12/21/23 19:43
Sputum Culture [Respiratory Culture/Gram Stain] Urgent
JOSELUIS Source: Sputum - Induced
Specimen Description:
12/21/23 20:05
Vancomycin [Vancocin] 2,000 mg 0.9% Sodium Chloride 500 ml [Nss] 500 ml IV NOW
12/21/23 20:10
Venous Blood Gas Urgent
%Oxygen/Room Air: 40
12/21/23 20:36
Admit/Transfer Patient As Directed
Co-Sign Provider:
Level of Care: Inpatient admission
Assign to:: IMU- Intermediate Care
Physician / Group: di phelps
Diagnosis: acute/chron hypoxic resp failure 2/2 copd exac, fever likely viral
Reason for Hospitalization: acute/chron hypoxic resp failure 2/2 copd exac, fever likely viral
Expected length of stay greater than two midnights?: Yes
ELOS- Estimated Length of Stay in days: 4
I certify the patient meets the requirements for IP care: Yes
Code Status As Directed
Resuscitation Status: Do not resuscitate
Reached after discussion with pt or family/Healthcare POA: Yes
Based on pt advanced directive or healthcare POA form: Yes
Decision communicated with: per pt with son present at bedside
DNR Bracelet Application ONCE
12/21/23 20:50
Urinalysis Reflex To Culture Urgent
Date Specimen was Collected: 12/21/23
Time Specimen was Collected: 20:34
Urine Microscopic Reflex Cult Urgent
12/21/23 21:00
Dexamethasone Sod Phosphate [Decadron] 4 mg IV Q12H
12/21/23 21:59
Acetaminophen [Tylenol] 650 mg PO Q4HPRN PRN
Ipratropium/Albuterol Sulfate [Duoneb] 3 ml INH R Q4HPRN PRN
12/21/23 21:59
VTE Contraindication Routine
VTE Mechanical Device Contraindication: Medical Contraindication
Pharmocologic Contraindication: Medical Contraindication
Comment: pt on coumadin
Activity As Directed
Activity Level: With Assistance
Intake/ Output As Directed
Frequency: Per unit guidelines
Vital Signs As Directed
Frequency: Per unit guidelines
Weight As Directed
Frequency: Daily
Bipap [RESP] Routine
Patient to use own unit?: No
Inspiratory Pressure (cm H2O): 10
Expiratory Pressure (cm H2O): 5
Oxygen Liter Flow: 10
Pulse Ox/spot Check [RESP] Routine
Quantity: 1
Ot Eval And Treat Routine
Pt Eval And Treat Routine
Activity Level: With Assistance
12/21/23 22:45
Lactic Acid Q4H
Comment: CANCEL 2nd LACTIC ACID IF 1st LACTIC ACID IS LESS THAN 2
12/22/23 06:00
Complete Blood Count/With Diff IN AM
Comprehensive Metabolic Panel IN AM
INR [Prothrombin Time] IN AM
12/22/23 08:00
Budesonide [Pulmicort] 0.5 mg INH R BID
Budesonide/Formoterol 160/4.5 [Symbicort 160/4.5 Mcg Inhaler] 2 puff INH R BID
Furosemide [Lasix] 40 mg PO DAILY
Ipratropium/Albuterol Sulfate [Duoneb] 3 ml INH R QID
Nebivolol HCl [Bystolic] 5 mg PO DAILY
12/22/23 18:00
Atorvastatin [Lipitor] 20 mg PO QPM
Warfarin [Coumadin] 1 mg PO QPM
Warfarin [Coumadin] 5 mg PO QPM
12/23/23 06:00
Complete Blood Count/With Diff IN AM
Comprehensive Metabolic Panel IN AM
INR [Prothrombin Time] IN AM
12/24/23 06:00
Complete Blood Count/With Diff IN AM
Comprehensive Metabolic Panel IN AM
INR [Prothrombin Time] IN AM
12/25/23 06:00
Complete Blood Count/With Diff IN AM
Comprehensive Metabolic Panel IN AM
INR [Prothrombin Time] IN AM
Abnormal Lab Results
12/21/23 12/21/23 12/21/23
18:49 20:10 20:50
RBC 4.64 L 10^6/uL
(4.70-6.10)
Hgb 12.8 L g/dL
(13.0-18.0)
Hct 38.2 L %
(39.0-52.0)
RDW 16.9 H %
(11.5-14.5)
Abs Immat Gran (auto) 0.1 H 10^3/uL
(0-0.05)
Absolute Monos (auto) 0.8 H 10^3/uL
(0.1-0.6)
Immature Gran % 1.5 H %
(0-0.5)
Lymphocytes % 13.9 L %
(20.5-51.1)
PT 24.6 H Sec
(11.4-14.6)
APTT 47.5 H Sec
(23.4-35.0)
VBG pCO2 54 H mmHg
(35-48)
VBG pO2 81 H mmHg
(30-50)
VBG HCO3 34.2 H mmol/L
(22-27)
Carbon Dioxide 34 H mmol/L
(22-30)
BUN 29 H mg/dl
(9-20)
Glucose 205 H mg/dl
(70-99)
Lactic Acid 2.3 H mmol/L
(0.7-2.0)
Total Protein 6.0 L g/dl
(6.3-8.2)
Leukocyte Esterase Rfl Trace A
(Negative)
12/21/23 18:49
12/21/23 18:49
Vital Signs
Initial and Last Documented VS:
Initial Vital Signs
Pulse Resp BP Pulse Ox
105 33 115/60 98
12/21/23 18:34 12/21/23 18:34 12/21/23 18:34 12/21/23 18:34
Last Documented Vital Signs
Temp Pulse Resp BP Pulse Ox
97.6 F 68 20 114/52 93
12/21/23 22:15 12/21/23 22:42 12/21/23 22:42 12/21/23 21:30 12/21/23 22:42
MDM/Problems Addressed
MDM/Problems Addressed:
83-year-old male with history of COPD on 3 to 4 L O2, CHF, hypertension, hyperlipidemia presenting for shortness of breath from home. Vital signs on arrival significant for tachypnea, tachycardia, fever, hypoxia. Patient placed on nonrebreather.
On immediate assessment, increased work of breathing despite nonrebreather. For this reason, respiratory called for BiPAP. Patient without significant wheezing on examination, lower suspicion for COPD as component of symptoms. In the setting of
fever, tachycardia, tachypnea, concern for sepsis, meeting SIRS criteria. Will start septic workup with laboratory analysis, lactic acid, culture, chest x-ray. Will also obtain COVID swab and influenza. Will start gentle fluids given CHF history.
18:40 - Patient much more comfortable on BiPAP. Tylenol administered for fever.
19:40 -lactic acid is 2.2. Patient maintaining blood pressure without concern for severe sepsis or septic shock. No indication for full 30 cc/kg fluid bolus. Will start antibiotics with again concern for pulmonary infection. Patient stable on
BiPAP.
*EKG
Interpreted by ED Provider?: Yes
EKG Intrepretation Date: 12/21/23
EKG Intrepretation Time: 18:30
Interpretation: normal
Comparison EKG: no changes (11/20/23)
Heart Rate: 100
Rate: normal
Rhythm: sinus
[place]: left axis deviation
Interval: long QT
QRS Pattern: left bundle branch block
Ischemia: no ischemia
*Critical Care Note
Total Time (30-74mins, 75-104mins- exclusive of procedures): 40
comment:
The high probability of a clinically significant, sudden or life threatening deterioration of the respiratory system(s) required my full and direct attention, intervention and personal management. The aggregate critical care time was 40 minutes.
This time is in addition to time spent performing reported procedures but includes the following:
[x] Data Review and interpretation
[x] Patient assessment and monitoring of vital signs
[x] Documentation
[x] Medication orders and management
ED Attending Note
-
Portions of this chart may have been created with voice recognition software.� Occasional wrong word or��sound alike� substitutions may have occurred due to the inherent limitations of voice recognition software.
Discharge Plan
Departure
Patient Disposition: Admit
Date of Disposition: 12/21/23
Time of Disposition: 19:57
Presentation/result/management discussed w/ accepting MD/DO: Hospitalist
Patient with high blood pressure during this ER visit?: No
Condition: Serious
Discharge Problem:
Acute and chronic respiratory failure with hypoxia, Sepsis
Interventions
Interventions:
*Risk Screen - Suicide Last Done: 12/21/23 18:34
*General Assessment Last Done: 12/21/23 18:34
*Neglect/Abuse Screening Last Done: 12/21/23 18:34
*Nursing Disposition Last Done: 12/21/23 22:11
ED- Cardiac Assessment Last Done: 12/21/23 18:40
ED- Pulmonary Assessment Last Done: 12/21/23 18:40
Discharge Date and Time
Discharge Date/Time: 12/21/23 22:11
[2023-12-21 19:39] LABS: COVID-19 Antigen Negative (Negative)
[2023-12-21 19:45] LABS: Procalcitonin < 0.05 ng/ml (0.0-0.25)
[2023-12-21 19:46] LABS: ALT (SGPT) 12 U/L (0-50); AST (SGOT) 26 U/L (17-59); Albumin 3.6 g/dl (3.5-5.0); Alkaline Phosphatase 66 U/L (38-126); Blood Urea Nitrogen 29 mg/dl (9-20); Calcium 8.5 mg/dl (8.4-10.2); Carbon Dioxide 34 mmol/L (22-30); Chloride 98 mmol/L (98-107); Estimated Creatinine Clearance 51 ml/min; Glucose 205 mg/dl (70-99); Sodium 138 mmol/L (135-145); Total Bilirubin 0.8 mg/dl (0.2-1.3); eGFR > 60.00
[2023-12-21] MEDS: MAXIPIME 2000 MG IV (19:53)
--- NOTE | 2023-12-21 20:00 | HPS.HSE ---
Family Physician
-
Family Physician: NOT KNOW UNKNOWN - PT DOES
Chief Complaint
-
sob hypoxia fever 101F at home
History of Present Illness
83-year-old male complaining of cough , shortness of breath since 11/10/2023 to 11/12/2023 . At home he was reportedly on 3 to 4 L of oxygen with O2 saturations in the 70s and in the Er required Bipap setting 10/ with 10 liters of oxygen. He was
brought by his son to ER for evaluation of shortness of breath and fevers today 101F. His current temp in the Er is 100.1 F . He had admission 11/10/2023 to 11/12/2023 for Copd exac then readmission 11/13 to 11/22/2023 due to Pseudomonas pneumonia
sputum culture positive., COPD with hypoxia requiring increased nasal cannula oxygen at home to 5 L. He was treated with short course of Levaquin. He was also treated for chronic lower extremity edema. He did have a speech eval with video swallow
during his admit and was appropriate for regular solids and thin liquids he completed course of steroids nebulizer treatments Pulmicort and was evaluated by ID at that time he was continued on p.o. Lasix for his chronic peripheral edema. He
completed 1 week of rehab after dishcharge and his 02 was decreased back to baseline 3-4 liters. The Patient denies chills, chest pain, palpitations, abdominal pain, nausea, vomiting, diarrhea, urinary symptoms. He has past medical history of
chronic hypoxic respiratory failure with chronic severe COPD requiring 5 L nasal cannula oxygen, pulm HTN, NSVT, LBBB, prolonged QTc, mechanical aortic valve for aortic stenosis on Coumadin, permanent pacemaker, HTN, HLD
Medical History
Past Medical History
Past Medical History: Reports Other
Additional Past Medical History:
COPD
Chronic Hypoxemic Respiratory Failure on Home O2 3-4 liters
Pseudomonas pneumonia sputum culture positive. november 12 2023
Chronic HFpEF
Essential Hypertension
Aortic Stenosis s/p Mechanical AVR
Paroxysmal Atrial Fibrillation
Known LBBB
Past Surgical History: Reports Other
Additional Past Surgical History:
Left Rotator Cuff Surgery
Bilateral Herniorrhaphy
Mechanical Aortic Valve Replacement
PPM
Social History
Tobacco: Former Smoker (Quit in 1999. 30+ pack years total use.)
Alcohol: None
Drug: None
Personal: Single
Living: With Family
Employment: Retired
Family History
Family History: Other (Mother: CAD)
Allergies / Home Medications
Allergies reflects when Allergies were last updated in [employer].
Home Medications with original date entered in [employer]
Allergy/Medication List:
Allergies
Allergy/AdvReac Type Severity Reaction Status Date / Time
codeine Allergy Irritabilit Verified 12/21/23 18:34
y
Home Medications
budesonide 160 mcg-glycopyr 9 mcg-formot 4.8 mcg/actuation HFA inhaler (HickieszFormotus) 2 inh inhalation R BID Lung/breathing issues 08/08/22
nebivolol 5 mg tablet (Bystolic) 5 mg PO DAILY Heart disease/condition 08/08/22
albuterol sulfate 2.5 mg/3 mL (0.083 %) solution for nebulization 2.5 mg inhalation R BID 11/09/23
azithromycin 250 mg tablet 250 mg PO DAILY Infection 11/09/23
budesonide 0.5 mg/2 mL suspension for nebulization 0.5 mg (2 mL) inhalation R BID Lung/breathing issues #0 mL 11/21/23
furosemide 40 mg tablet 40 mg PO DAILY Fluid retention/Swelling #30 tabs 11/21/23
warfarin 5 mg tablet 5 mg PO QPM Blood Clot Prevention/Tx #0 tabs 11/22/23
simvastatin 40 mg tablet 40 mg PO QPM 12/21/23
warfarin 1 mg tablet 1 mg PO QPM 12/21/23
Review of Systems
-
History Source: Patient and Family (son)
Constitutional: Reports Fever and Fatigue; Denies Chills
EENT: Reports Other (chronic paimiut); Denies Sore Throat or Runny Nose
Respiratory: Reports Trouble Breathing; Denies Cough
Cardiac: Denies Chest Pain, Diaphoresis, Palpitations or Syncope
Abdomen/GI: Denies Abdominal Pain, Nausea, Vomiting, Diarrhea, Constipated, Bloody Stools or Black Stools
: Denies Dysuria, Frequency, Flank Pain, Incontinence, Difficulty Voiding or Urgency
Musculoskeletal: Reports Edema (+2 bilat lower leg edema); Denies Joint Pain
Skin: Denies Itching or Rash
Neurological: Reports No Symptoms
Endocrine: Reports No Symptoms
Psych: Reports Calm
Physical Exam
Vital Signs
Vital Signs
Temp Pulse Resp BP Pulse Ox
100.1 F 92 25 109/69 97
12/21/23 18:54 12/21/23 19:30 12/21/23 19:30 12/21/23 19:30 12/21/23 19:30
Physical Exam
General: Conversant, Fever and Chills
HEENT: NormoCephalic, Anicteric, No Ptosis and Oxygen (bipap 10/5 with 10 liters O2)
Respiratory: Clear; No Wheezes, Rales or Rhonchi
Cardiac: S1/S2, Regular Rhythm and Peripheral Edema (+2 bilat leg ); No Murmur, Rub or Gallop
Breast: Deferred by me
GI: Soft, Non Tender, Non Distended, Normal Bowel Sounds and No Hepatosplenomegaly
Rectal: Deferred by Provider
Genito-urinary: Deferred by me
Musculoskeletal: No Clubbing, No Cyanosis, Edema, Left Lower Extremity (+2) and Edema, Right Lower Extremity (+2); No Edema, Left Upper Extremity or Edema, Right Upper Extremity
Skin: Warm and Dry; No Rash
Neuro: AO x 3, No Motor Deficits, Nonfocal/grossly intact and Other (chronic LOWER ELWHA); No Slurred Speech, Facial Droop or Tremors
Psych: Calm
Laboratory Results
-
12/21/23 18:49
12/21/23 18:49
Laboratory Results
PT 24.6 Sec (11.4-14.6) H 12/21/23 18:49
INR 2.23 12/21/23 18:49
APTT 47.5 Sec (23.4-35.0) H 12/21/23 18:49
Lactic Acid 2.3 mmol/L (0.7-2.0) H 12/21/23 18:49
Total Bilirubin 0.8 mg/dl (0.2-1.3) 12/21/23 18:49
AST 26 U/L (17-59) 12/21/23 18:49
ALT 12 U/L (0-50) 12/21/23 18:49
Alkaline Phosphatase 66 U/L (38-126) 12/21/23 18:49
Troponin I 0.034 ng/ml 12/21/23 18:49
Impression/Plan
-
Impression/Plan
Admit to IMU
#Acute on chronic hypoxic respiratory failure secondary to Acute on chronic severe COPD exacerbation with likely Viral fever
-Third admission since 11/10/2023 treated with steroids 50 mg course taper starting on 11/18 ending on 12/09/2023 plus inhalers
#Recent Pseudomonas pneumonia sputum culture positive treated inpatient treated with Levaquin
Lactic acid 2.2 will follow, COVID/FLu -negative Pro-Travis negative, WBC 8.5, Temp 100.1
-Recheck sputum culture, blood culture x 1
- cont bipap 10/5, 10 liters Oxygen
-Attempt to resume chronic supplemental O2 3-4 L dependent contained sat greater than 90%
-Had recent video swallow okay for regular solids and thin liquids
-IV vancomycin, IV cefepime given in ER will hold further ABX
-IV Decadron 4 mg every 12 hours
-Continue DuoNebs scheduled and as needed
-Consult Pulmonary
Cxr :No acute cardiopulmonary process. Chronic obstructive pulmonary disease.
#Pulm HTN per history Hx
#NSVT Hx history of LBBB and prolonged QTc
2D echo 11/16/2023: EF 52%, mild LVH, Hx stage II diastolic dysfunction pacemaker wire seen in right heart, mild MR/TR
#Mechanical aortic valve for aortic stenosis
Follow INR as Coumadin was decreased from 9 mg to 5 mg due to INR elevation during October admission
INR 2.23, continue Coumadin 5 mg every afternoon follow daily INR
#Permanent pacemaker
#History of chronic diastolic heart failure
I/O, daily weights
-Continue furosemide 40 mg daily
#HTN�benign
BP 108/58
Continue Bystolic and Norvasc with hold parameters
#HLD
Continue statin
DVT prophylaxis
Continue ORDER DESK CALLER Coumadin
DNR per pt with son at bedside
--- NOTE | 2023-12-21 20:18 | W.PN.UPDATE ---
Update Note
Progress Note Update
This note serves as an addendum to the H&P by assistant manager retail LENNOX Yolanda TURCIOS
HPI
83F from [facility] Former smoker, O2 dependent COPD, chr hypoxic RF, chr HFpEF, [facility], recent admission 11/14/23 - 11/22/23 for COPD flare , acute on chr HFpEF return to to ER evaluation of worsening
chronic dyspnea, increased NC O2 need to 5 L from chr 2-3 L at rest. increased work of breathing.
- nebulizer treatment at home for wheeze with no relief yesterday.
- Pox was as low as 70 % at home
- nonproductive cough
- associated Antonia. NEG TPNI, Non ischemic EKG
- Just completed course of PO prednisone as of 12/09/23
- DC d fro SNF 11/28/23
PHX
COPD
Chronic Hypoxemic Respiratory Failure on Home O2
Chronic HFpEF
Essential Hypertension
Aortic Stenosis s/p Mechanical AVR
Paroxysmal Atrial Fibrillation
Known LBBB
Left Rotator Cuff Surgery
Bilateral Herniorrhaphy
Mechanical Aortic Valve Replacement
PPM
Reviewed VS: T 100.1 BP 110/70 HR 90 tachypneic @ 25 POx 97
PE
Gen: in resp distress at ER
HEENT: waering BiPAP and tolerating
Neck: supple
Lungs: seems improved AE on BiPAP air movement bilaterally
Cor: Tachycardic, regular rhythm
Abdomen: Soft and non-distended, no tenderness
ASSOCIATE DIRECTOR OF NURSING: AAO3 NFND
MS: +2 pitting edema bilaterally.
Psych: Normal affect
Data
nl WCC
Hgb 12.8
INR 2.23 on Warfarin
NEG TPNI
pro BNP 1910 - was 2040 on 11/14/23 . Peaked was 7460 0n 11/09/23
NEG PCT
NEG Covid
NEG Flu A& B
BCx sent
EKG: report
NORMAL SINUS RHYTHM
LEFT AXIS DEVIATION
LEFT BUNDLE BRANCH BLOCK
ABNORMAL ECG
WHEN COMPARED WITH ECG OF 20-NOV-2023 08:51,
PREMATURE VENTRICULAR COMPLEXES ARE NO LONGER PRESENT
CXR: No acute cardiopulmonary process. Chronic obstructive pulmonary disease.
11/16/23 TTE
Mild concentric left ventricular hypertrophy. Normal left ventricular chamber size. Low -Normal left ventricular systolic function. Left ventricular ejection fraction is 52% by Muhammad' s method.
Pacer wire seen in the right heart.
Mild mitral regurgitation.
Mild tricuspid regurgitation.
Compared to previous echo from November 2022, the gradients across the aortic valve
have improved.
Last hospitalist admission: 11/14/23 - 11/22/23
Acute on chronic hypoxic respiratory failure
COPD exacerbation
NSVT
chronic heart failure with preserved ejection fraction
mechanical aortic valve
HTN
HLD
PPM implant
chronic left bundle branch block,
PHT ?
ASSESSMENT & PLAN
Acute febrile illness T max 101 at home : suspect acute viral etiology
- NEG Covid . NEG Flu A & B. NEG CXR
- No urinalysis
- check UA to complete w/u
Acute on Chronic Hypoxic Respiratory Failure : improved work of breathing being on BiPAP
-Baseline O2 requirement 3-4L
-Continue BiPAP supplemental oxygen and titrate keep O2 sat 90-92%
- Treat AE COPD
Acute COPD Flare
- IV Decadron 4 mg q12
- cont. DuoNeb QID and PRN
- cont Pulmicort Neb
- cont PRICE CHECKER azithromycin as prior to admission
- Pul consult
Chronic HFpEF
chr b/l Kevin edema
- clinically not in Acute HF
- cont Lasix 40mg Daily as prior to admission
- Consider additional dose of Lasix if breathing does not improve with steroids and nebulizers
Aortic Stenosis
s/p Mechanical AVR
- on chr warfarin
-Check PT/INR
-Adjust Coumadin dosing based on INR
Essential Hypertension
-Continue Bystolic
Hyperlipidemia
-Continue simvastatin
DVT Prx : Coumadin
Code: DNR
IMU for new BiPAP
[2023-12-21 20:22] LABS: Venous Blood Gas B.E. 8.1 mmol/L (-4 to +4); Venous Blood Gas HCO3 34.2 mmol/L (22-27); Venous Blood Gas O2 Sat % 97.4 %; Venous Blood Gas pCO2 54 mmHg (35-48); Venous Blood Gas pH 7.41 (7.32-7.43); Venous Blood Gas pO2 81 mmHg (30-50)
[2023-12-21] MEDS: VANCOCIN 540 MG IV (20:46)
[2023-12-21 20:55] LABS: Urine Albumin Negative (Neg - Trace); Urine Bilirubin Negative (Negative); Urine Character Clear (Clear); Urine Color Yellow; Urine Glucose Negative (Negative); Urine Ketone Negative (Negative); Urine Leukocyte Trace (Negative); Urine Nitrite Negative (Negative); Urine Occult Blood Negative (Negative); Urine Urobilinogen Negative (Neg - 1+)
[2023-12-21 21:08] LABS: Urine Red Blood Cell 0-2 /HPF (0-2); Urine White Cell 0-2 /HPF (0-5)
[2023-12-21] MEDS: DECADRON 4 MG IV (21:15)
[2023-12-21] MEDS: FLUSH (NSS) 1 FLUSH IV (21:15)
[2023-12-22] VITALS (15 sets, daily range): BP systolic 94–161; BP diastolic 32–84; PULSE 2–99; O2SAT 90; BMI 28.5
[2023-12-22 00:31] LABS: Lactic Acid 0.5 mmol/L (0.7-2.0)
--- NOTE | 2023-12-22 00:37 | PTCARENOTE ---
Pt from ED, Vanco infusing in IV. Pt AAOx3. BiPAP 10 10L. Assessment care and vitals as charted.
[2023-12-22 03:54] LABS: % Basophils 0.4 % (0-2); % Eosinophils 0.3 % (0-6); % Immature Granulocytes 1.4 % (0-0.5); % Lymphocytes 10.6 % (20.5-51.1); % Monocytes 7.2 % (1.7-9.3); % Neutrophils 80.1 % (42.2-75.2); Absolute Immature Granulocytes 0.1 10^3/uL (0-0.05); Absolute Lymphocytes 0.8 10^3/uL (1.2-3.4); Absolute Monocytes 0.6 10^3/uL (0.1-0.6); Absolute Neutrophils 6.1 10^3/uL (1.4-6.5); Hematocrit 35.9 % (39.0-52.0); Mean Corp Hgb Conc. 33.4 g/dL (33.0-37.0); Mean Corpuscular Hgb 28.2 pg (27.0-31.0); Mean Corpuscular Volume 84.5 fL (80.0-94.0); Mean Platelet Volume 9.1 fL (7.4-10.4); Nucleated Red Blood Cells % 0 % (-); Platelet Count 197 10^3/uL (130-400); Red Blood Cell Count 4.25 10^6/uL (4.70-6.10); Red Cell Dist. Width 16.6 % (11.5-14.5); White Blood Cell Count 7.6 10^3/uL (4.8-10.8)
[2023-12-22 04:17] LABS: ALT (SGPT) < 10 U/L (0-50); AST (SGOT) 22 U/L (17-59); Alkaline Phosphatase 60 U/L (38-126); Blood Urea Nitrogen 27 mg/dl (9-20); Calcium 8.3 mg/dl (8.4-10.2); Carbon Dioxide 29 mmol/L (22-30); Chloride 105 mmol/L (98-107); Estimated Creatinine Clearance 70 ml/min; Glucose 134 mg/dl (70-99); Potassium 4.3 mmol/L (3.5-5.1); Sodium 139 mmol/L (135-145); Total Bilirubin 0.6 mg/dl (0.2-1.3); Total Protein 5.4 g/dl (6.3-8.2); eGFR > 60.00
[2023-12-22 04:59] LABS: INR 2.49; PT 27.2 Sec (11.4-14.6)
--- NOTE | 2023-12-22 06:38 | W.PN.HOSP.TC ---
Today's Communication/Plan
-
Bipap therapy
Nebs
Steroid
Assessment / Plan
Assessment / Plan
Physical Exam
General: in Apparent Distress
HEENT: Normocephalic, Moist mucous membranes and Atraumatic
Respiratory: very limited.
Cardiac: S1/S2,mechanical S2
GI: Soft, Non Tender, Non Distended
Musculoskeletal: No Clubbing, No Cyanosis .Ext: No LE edema
Skin: No Rash
Neuro: Nonfocal/grossly intact, awake, followed commands
Psych: calm.
83-year-old male with sob
# Acute on chronic hypoxic respiratory failure due to COPD exacerbation
Baseline uses 3 to 4 L
He seems in distress this morning, place back on Bipap
c/w IV Decadron, nebulizer treatments, Pulmicort
Continue Zithromax
Sputum culture if possible
Mucinex
Chest x-ray No acute cardiopulmonary process. Chronic obstructive pulmonary disease
C/W Bi pap treatment
Appreciate pulmonary help
# Coagulopathy-secondary to Coumadin
Follow INR
# Chronic heart failure with preserved ejection fraction
Pro-BNP 1909
Continue Lasix 40 mg daily
# History of mechanical aortic valve for aortic stenosis
Prosthetic valve stenosis
Dose Coumadin daily according to INR
# Hypertension
Continue Bystolic
As needed hydralazine
# Hyperlipidemia-
# Pacemaker, chronic LBBB
# Pulmonary hypertension
# Hyperlipidemia-continue statin
# DVT prophylaxis-continue Coumadin
# CODE STATUS-DNR
Total time spent to see the patient, examine the patient on the floor, review data and lab results, discuss treatment plan with patient, nursing staff around 55 minutes
Anticipated Discharge: > 48 hours
Subjective/Interval History
-
Date of Service: December 22, 2023
He denies sob but he seems in distress without Bipap
Objective Data
-
Labs:
Laboratory Results
12/21/23 12/22/23
18:49 03:29
WBC 8.5 7.6
Hgb 12.8 L 12.0 L
Hct 38.2 L 35.9 L
Plt Count 226 197
PT 24.6 H 27.2 H
INR 2.23 2.49
APTT 47.5 H
Sodium 138 139
Potassium 4.0 4.3
Chloride 98 105
Carbon Dioxide 34 H 29
BUN 29 H 27 H
Creatinine 1.1 0.8
Glucose 205 H 134 H
Calcium 8.5 8.3 L
Total Bilirubin 0.8 0.6
AST 26 22
ALT 12 < 10
Alkaline Phosphatase 66 60
Vital Signs:
Vital Signs
Temp Pulse Resp BP Pulse Ox
96.8 F L 60 23 161/69 95
12/22/23 03:48 12/22/23 06:00 12/22/23 06:00 12/22/23 06:00 12/22/23 06:31
I&O
12/20/23 12/21/23 12/22/23
06:59 06:59 06:59
Intake Total 640 / 640
Output Total 100 / 100
Balance 540 / 540
[2023-12-22] MEDS: PULMICORT 0.5 MG INH ×2 (07:41→19:26)
[2023-12-22] MEDS: SYMBICORT 160/4.5 MCG INHALER 2 PUFF INH ×2 (07:41→19:26)
[2023-12-22] MEDS: VENTOLIN NEBULES 2.5 MG INH ×4 (07:41→19:26)
[2023-12-22] MEDS: DECADRON 4 MG IV ×2 (08:11→21:54)
[2023-12-22] MEDS: LASIX 40 MG PO (08:11)
[2023-12-22] MEDS: BYSTOLIC 5 MG PO (08:11)
--- NOTE | 2023-12-22 09:16 | CON.PUL ---
Consultation
Consultation Request
Date/Time Consultation Requested: 12/22/23
Date/Time Consultation Performed: 12/22/23
Performing Provider: Rocío
Reason for Consultation: COPD exacerbation
Medical History
-
History of Present Illness:
Patient is an 83-year-old male with history of severe COPD/emphysema, chronic O2 use (baseline 3-4L), chronic hypercarbia, complains of cough, shortness of breath that never really resolved post recent discharge for similar complaints. At home he
was reportedly on 3-4 L of oxygen with O2 saturations in the 70s. In the ER, was placed on Bipap w/ settings of 10/5 and 10L O2. Also notably had fevers of 101F at home, in ER temp noted ot be 100.1 F.
Recent admission 11/09-11/12/2023 for AECOPD followed by readmission 11/13-11/22/2023 with sputum +Pseudomonas treated with LVQ.
He follows with Dr Archuleta, currently on maximal medical therapy for COPD including PO azithro, prednisone, max inhaler therapy.
Has not had sleep study to confirm OSAS/OHS.
CXR showing similar findings from before.
Past Medical History
Past Medical History: Other (see list below)
Social History
Tobacco: Former Smoker
Alcohol: None
Drug: None
Family History
Family History: Reviewed & Not Pertinent
Allergies / Home Medications
Allergies
Allergy/AdvReac Type Severity Reaction Status Date / Time
codeine Allergy Irritabilit Verified 12/21/23 18:34
y
Home Medications
�Medication �Instructions �Recorded �Confirmed �Last Taken �Type
budesonide 160 mcg-glycopyr 9 2 inh inhalation R BID 08/08/22 12/21/23 12/21/23 History
mcg-formot 4.8 mcg/actuation HFA Lung/breathing issues
inhaler (Breztri Aerosphere)
nebivolol 5 mg tablet (Bystolic) 5 mg PO DAILY Heart 08/08/22 12/21/23 12/21/23 History
disease/condition
albuterol sulfate 2.5 mg/3 mL 2.5 mg inhalation R BID 11/09/23 12/21/23 12/21/23 History
(0.083 %) solution for nebulization Lung/Breathing Issues
azithromycin 250 mg tablet 250 mg PO DAILY Infection 11/09/23 12/21/23 12/21/23 History
budesonide 0.5 mg/2 mL suspension 0.5 mg (2 mL) inhalation R BID 11/21/23 12/21/23 12/21/23 Rx
for nebulization Lung/breathing issues #0 mL
furosemide 40 mg tablet 40 mg PO DAILY Fluid 11/21/23 12/21/23 12/21/23 Rx
retention/Swelling #30 tabs
warfarin 5 mg tablet 5 mg PO QPM Blood Clot 11/22/23 12/21/23 12/21/23 Rx
Prevention/Tx #0 tabs
simvastatin 40 mg tablet 40 mg PO QPM High Cholesterol 12/21/23 12/21/23 12/21/23 History
warfarin 1 mg tablet 1 mg PO QPM Blood Clot 12/21/23 12/21/23 12/21/23 History
Prevention/Tx
Review of Systems
-
History Source: Patient
All other systems: Negative unless noted
Vitals / Labs / Diagnostic Testing
Vital Signs
Temp Pulse Resp BP Pulse Ox
97.1 F 82 14 128/71 87
12/22/23 07:54 12/22/23 08:00 12/22/23 08:00 12/22/23 08:00 12/22/23 08:00
Lab Data
12/22/23 03:29
12/22/23 03:29
Laboratory Results
12/21/23 12/22/23
18:49 03:29
PT 24.6 H 27.2 H
INR 2.23 2.49
APTT 47.5 H
Microbiology
12/21/23 18:49 Nasal Swab Influenza Types A & B (SALVADOR) - Final
Negative for Influenza A & B, NAAT
Negative results must be combined with clinical observations
and patient history.
Nucleic Acid Amplification test (NAAT)performed on the
[employer] platform.
Diagnostic Testing:
Physical Exam
-
HEENT: Normocephalic, Anicteric and Moist Mucous Membranes
Cardiovascular: S1/S2 and Regular Rhythm
Respiratory: Clear (overall diminished) and Non-Labored Respirations
GI: Soft, Non Distended and Non Tender
Neurology: Awake, Alert, Oriented, AO x 3 and No Motor Deficits
Skin: Warm, Dry and Good Color
General: Comfortable and Other (NAD)
Assessment
-
Patient is an 83-year-old male with history of severe COPD/emphysema, chronic O2 use (baseline 3-4L), chronic hypercarbia, complains of cough, shortness of breath that never really resolved post recent discharge for similar complaints. At home he
was reportedly on 3-4 L of oxygen with O2 saturations in the 70s. In the ER, was placed on Bipap w/ settings of 10/5 and 10L O2. Also notably had fevers of 101F at home, in ER temp noted ot be 100.1 F. Recent admission 11/09-11/12/2023 for AECOPD
followed by readmission 11/13-11/22/2023 with sputum +Pseudomonas treated with LVQ. CXR showing similar findings from before. We are consulted for evaluation 12/22/23.
Recurrent acute exacerbation of COPD--3rd admission in the past 2 months
Discharged on 11/12/2023 and 11/22/23; 3 admissions in 2022
Mild HFpEF likely a component, proBNP 1909
Acute on chronic SOB
Fevers
Conditions present prior to admission:
COPD/Emphysema-severe stage IV with frequent exacerbations, FEV1 1.08L 47%, severe diffusion impairment 16%
Follows with Dr. Archuleta
On low-dose azithromycin for anti-inflammatory properties, Breztri, nebulizers and albuterol HFA as needed. Maximal medical therapy.
Chronic hypercapnic respiratory failure ABG 11/09/2023--7.42//219
Chronic hypoxemic respiratory failure on 3L at rest 4 L w/ exertion--baseline use
History of Pseudomonas PNA 11/15/23
Chronic CHF preserved EF
Aortic stenosis/mechanical AVR/on chronic anticoagulation
PPM
Pulmonary hypertension
Chronic anemia
Paroxysmal atrial fibrillation
Hyperlipidemia
Hypertension
Rotator cuff surgery.
Aortic valve replacement.
Bilateral herniography.
DNR status
Plan
Recurrent exacerbation of COPD-readmitted for the 3rd admission in 8 weeks
Patient has advanced stage IV COPD/emphysema with hyperinflation, chronic hypercapnic respiratory failure and hypoxemic respiratory failure.
Now on 5L NC, baseline use of 3-4L
Wean as tolerated
Placed on IV corticosteroids-hopefully rapid taper
Suspect component of deconditioning contributing to his shortness of breath
Continue Nebulizer with DuoNebs 4 times a day
Continue Pulmicort twice a day
Hold maintenance long-acting inhalers while in the hospital-usually on BREZTRI
Imaging reviewed and unchanged from prior
No obvious PNA
Aspiration precautions
DOCTOR OF OPTOMETRY evaluated him on 11/16 and he underwent VSE showing liquid transient penetration with consecutive cup swallows with no aspiration
VBG 12/21/23- 7.41/54/81/34.2--compensated
Patient does have chronic hypercapnic respiratory failure
Consider outpatient noninvasive mechanical ventilation
Patient does admit that he snores, but no known witnessed apneic events and no excessive daytime sleepiness
Outpatient sleep study recommended, follows with Dr Archuleta
History of pseudomonas, treated with LVQ
Can repeat sputum
Mucolytics --> mucinex @ 1.2g q12hr
Incentive spirometry
Acapella device
Consider vest therapy if difficulties mobilizing secretions.
With increased proBNP may need to consider diuresis
CXR not consistent with volume overload
Follow daily weights
Prior ECHO with stable function
Suspect significant component of deconditioning
Physical therapy/Occupational Therapy evaluation
Nutritional support
Anxiety is likely a component
During last admission patient was very anxious.
May need to give anxiolytics
DVT prophylaxis-on warfarin
Follow-up with Dr. Archuleta after discharge, last seen 12/16/23
Prognosis nursing home poor in a patient with severe COPD, multiple exacerbations requiring admission, steroid dependency
Would be reasonable to discuss palliative care enrollment
I have briefly discussed this with patient and confirmed his DNR status, he would not want intubation/CPR. He states his family is aware and knows his wishes.
We will follow
Diagnostic Data
CT Chest w/o contrast 11-15-2023: Mild airspace disease in the left lower lobe and therefore developing pneumonia. Clinical and laboratory correlation recommended. Repeat exam following treatment in approximately 2 weeks is recommended to exclude
underlying pulmonary nodules. Moderate emphysematous disease. Mild lingular atelectasis versus scarring. Moderate atherosclerotic vascular disease. Possible left renal soft tissue mass versus findings due to cortical scarring. Nonurgent dedicated CT
of the kidneys recommended. Post IV contrast. Mild bilateral renal atrophy. Nonobstructing left renal stone. 2 weeks is recommended to exclude underlying nodules.
CXR 12/21/23- No acute cardiopulmonary process. Chronic obstructive pulmonary disease.
Chest x-ray 11/18/2023: There is hyperaeration of the lungs, with flattening of the hemidiaphragms. Consistent with changes of COPD. Emphysema; Minimal stranding in the posterior lung bases left greater than right. Previous faint opacity lateral to
the left cardiac border again seen. Likely representing a band of atelectasis or scarring seen on prior CT. There is blunting of the left costophrenic angle, most consistent with pleural parenchymal changes. Vague increased stranding in the medial
right lung base, consistent with CT findings and pleural thickening medially and posteriorly in the inferior right lower lobe.
Chest x-ray 11/14/2023: Showed mild vascular congestion. Small pleural effusion on the left. Chronic subsegmental atelectasis scarring in the lingula.
Chest x-ray 11/09/2023: Reviewed. No infiltrates., Hyperinflation
Chest x-ray 11/13/2022-mild interstitial airspace disease left lung base, COPD
Chest x-ray 09/13/22-tiny blunting of the left costophrenic angle lungs otherwise clear
Echocardiogram 08/18/2022-EF 50-55%, abnormal diastolic dysfunction, trace mitral regurgitation, mechanical prosthetic aortic valve
TTE 11-16-2023: Mild concentric left ventricular hypertrophy. Normal left ventricular chamber size. Low -Normal left ventricular systolic function. Left ventricular ejection fraction is 52% by Muhammad' s method. Pacer wire seen in the right heart.
Mild mitral regurgitation. Mild tricuspid regurgitation. Compared to previous echo from November 2022, the gradients across the aortic valve have improved.
VBG 08/16/2022-PCO2 68/37/7 0.31
PFT 11/10/2022-FEV1 1.29-54%, FVC 2.87-85%, TLC 86%, DLCO 16%
-----
Total time spent today was 80 minutes for this encounter. Time includes reviewing laboratory test/imaging results, reviewing extensive inpatient and outpatient medical records, obtaining and reviewing medical history, performing an appropriate
exam, ordering medications, tests and procedures. Time also includes documentation of this encounter, coordinating patient care and communicating with other healthcare professionals. Total time does not include separately billed tests performed on
this date of service.
--- NOTE | 2023-12-22 13:34 | PTCARENOTE ---
Pt presents as assessed. Aox3, YANKTON. SR with BBC and prolonged QT on tele monitor. Sating low to mid 90's on 6L NC. Ambulated in srivastava and OOB to chair with PT. Bed alarm in place for safety.
--- NOTE | 2023-12-22 15:25 | CM ---
CM met with Haja in IMU to review discharge options/plans. Haja advised that he lives at [facility] () [facility]; he has an [employer], RW, and scooter if he needs them. He is looking forward to returning home.
PT has recommended home PT and Haja is agreeable. [facility] is agency of choice; referral sent via [facility].
Plan[facility]
PCP: Rashid Maguire
Pharmacy: [facility].
[2023-12-22] MEDS: COUMADIN 1 MG PO (17:13)
[2023-12-22] MEDS: LIPITOR 20 MG PO (17:14)
[2023-12-22] MEDS: COUMADIN 5 MG PO (17:14)
[2023-12-23] VITALS (13 sets, daily range): BP systolic 129–166; BP diastolic 52–84; PULSE 70; O2SAT 95; BMI 28.3
--- NOTE | 2023-12-23 02:25 | PTCARENOTE ---
Pt breathing appears to be improving. Pt on 6L nc SPO2 95-96%, RR 20-24 even unlabored. Pt had no complaints at this time. Assessment care and vitals as charted.
[2023-12-23 05:54] LABS: % Basophils 0.2 % (0-2); % Immature Granulocytes 1.1 % (0-0.5); % Lymphocytes 9.3 % (20.5-51.1); % Monocytes 5.1 % (1.7-9.3); % Neutrophils 84.3 % (42.2-75.2); Absolute Immature Granulocytes 0.1 10^3/uL (0-0.05); Absolute Lymphocytes 0.8 10^3/uL (1.2-3.4); Absolute Monocytes 0.4 10^3/uL (0.1-0.6); Absolute Neutrophils 7.1 10^3/uL (1.4-6.5); Hematocrit 35.5 % (39.0-52.0); Hemoglobin 11.7 g/dL (13.0-18.0); Mean Corpuscular Hgb 27.1 pg (27.0-31.0); Mean Corpuscular Volume 82.4 fL (80.0-94.0); Mean Platelet Volume 8.7 fL (7.4-10.4); Nucleated Red Blood Cells % 0 % (-); Platelet Count 231 10^3/uL (130-400); Red Blood Cell Count 4.31 10^6/uL (4.70-6.10); White Blood Cell Count 8.5 10^3/uL (4.8-10.8)
[2023-12-23 06:07] LABS: INR 3.36; PT 34.5 Sec (11.4-14.6)
[2023-12-23 06:13] LABS: ALT (SGPT) 11 U/L (0-50); AST (SGOT) 20 U/L (17-59); Albumin 3.1 g/dl (3.5-5.0); Alkaline Phosphatase 62 U/L (38-126); Blood Urea Nitrogen 23 mg/dl (9-20); Calcium 8.8 mg/dl (8.4-10.2); Carbon Dioxide 33 mmol/L (22-30); Chloride 102 mmol/L (98-107); Estimated Creatinine Clearance 70 ml/min; Glucose 157 mg/dl (70-99); Potassium 4.3 mmol/L (3.5-5.1); Sodium 138 mmol/L (135-145); Total Bilirubin 0.3 mg/dl (0.2-1.3); Total Protein 5.4 g/dl (6.3-8.2); eGFR > 60.00
--- NOTE | 2023-12-23 06:43 | W.PN.HOSP.TC ---
Addendum entered and electronically signed by Kristi Ortiz MD 12/23/23 12:14:
Add.
Pulmonary doctor stopped intravenous dexamethasone and ordered prednisone orally for tomorrow.
I would like to continue IV steroid as mentioned in my note earlier for today, added one-time dose for later today.
End
Original Note:
Today's Communication/Plan
-
c/w same dose of steroid
Holding Coumadin
Assessment / Plan
Assessment / Plan
Physical Exam
General: in Apparent Distress
HEENT: Normocephalic, Moist mucous membranes and Atraumatic
Respiratory: more air today, no wheezes.
Cardiac: S1/S2,mechanical S2
GI: Soft, Non Tender, Non Distended
Musculoskeletal: No Clubbing, No Cyanosis .Ext: No LE edema
Skin: No Rash
Neuro: Nonfocal/grossly intact, awake, followed commands
Psych: calm.
83-year-old male with sob
# Acute on chronic hypoxic respiratory failure due to COPD exacerbation
Baseline uses 3 to 4 L
not in distress this morning
c/w IV Decadron, nebulizer treatments, Pulmicort
Continue Zithromax
Sputum culture in October 2023 showed Pseudomonas
Mucinex
Chest x-ray No acute cardiopulmonary process. Chronic obstructive pulmonary disease
C/W Bi pap treatment
Appreciate pulmonary help
# Coagulopathy-secondary to Coumadin
Follow INR, slightly going up. d/w pharmacist Sophie, interaction with steroid might increase INR. Holding Coumadin for today
# Chronic heart failure with preserved ejection fraction
Pro-BNP 1909
Continue Lasix 40 mg daily
# History of mechanical aortic valve for aortic stenosis
Prosthetic valve stenosis
Dose Coumadin daily according to INR
# Hypertension
Continue Bystolic
As needed hydralazine
# Hyperlipidemia-
# Pacemaker, chronic LBBB
# Pulmonary hypertension
# Hyperlipidemia-continue statin
# DVT prophylaxis-continue Coumadin
# CODE STATUS-DNR
Total time spent to see the patient, examine the patient on the floor, review data and lab results, discuss treatment plan with patient, nursing staff around 55 minutes
Anticipated Discharge: 24 - 48 hours
Subjective/Interval History
-
Date of Service: December 23, 2023
He feels little better
Not much sob
Objective Data
-
Labs:
Laboratory Results
12/23/23
05:33
WBC 8.5
Hgb 11.7 L
Hct 35.5 L
Plt Count 231
PT 34.5 H
INR 3.36
Sodium 138
Potassium 4.3
Chloride 102
Carbon Dioxide 33 H
BUN 23 H
Creatinine 0.8
Glucose 157 H
Calcium 8.8
Total Bilirubin 0.3
AST 20
ALT 11
Alkaline Phosphatase 62
Vital Signs:
Vital Signs
Temp Pulse Resp BP Pulse Ox
97.5 F 68 16 148/83 96
12/23/23 03:21 12/23/23 06:00 12/23/23 06:00 12/23/23 06:00 12/23/23 06:00
I&O
12/21/23 12/22/23 12/23/23
06:59 06:59 06:59
Intake Total 640 / 640 240 / 240
Output Total 300 / 300
Balance 340 / 340 240 / 240
[2023-12-23] MEDS: BYSTOLIC 5 MG PO (08:04)
[2023-12-23] MEDS: LASIX 40 MG PO (08:04)
[2023-12-23] MEDS: DECADRON 4 MG IV ×2 (08:13→14:12)
[2023-12-23] MEDS: SYMBICORT 160/4.5 MCG INHALER 2 PUFF INH ×2 (08:15→19:56)
[2023-12-23] MEDS: VENTOLIN NEBULES 2.5 MG INH ×4 (08:15→19:55)
[2023-12-23] MEDS: PULMICORT 0.5 MG INH ×2 (08:15→19:55)
--- NOTE | 2023-12-23 09:17 | W.PN.PUL3 ---
Today's Communication / Plan
-
Doing well, no new complaints
Wean O2 back to baseline
Transition IV steroids to PO taper
Likely to stay on low dose prednisone (10mg daily) until able to be seen as OP given numerous recent flares
Encouraged OOB/PT/IS otherwise
Can likely transfer to tele
Outpatient pulmonary FU recommended
Assessment
-
Patient is an 83-year-old male with history of severe COPD/emphysema, chronic O2 use (baseline 3-4L), chronic hypercarbia, complains of cough, shortness of breath that never really resolved post recent discharge for similar complaints. At home he
was reportedly on 3-4 L of oxygen with O2 saturations in the 70s. In the ER, was placed on Bipap w/ settings of 10/5 and 10L O2. Also notably had fevers of 101F at home, in ER temp noted ot be 100.1 F. Recent admission 11/09-11/12/2023 for AECOPD
followed by readmission 11/13-11/22/2023 with sputum +Pseudomonas treated with LVQ. CXR showing similar findings from before. We are consulted for evaluation 12/22/23.
Recurrent acute exacerbation of COPD--3rd admission in the past 2 months
Discharged on 11/12/2023 and 11/22/23; 3 admissions in 2022
Mild HFpEF likely a component, proBNP 191
Acute on chronic SOB
Fevers
Conditions present prior to admission:
COPD/Emphysema-severe stage IV with frequent exacerbations, FEV1 1.08L 47%, severe diffusion impairment 16%
Follows with Dr. Archuleta
On low-dose azithromycin for anti-inflammatory properties, Breztri, nebulizers and albuterol HFA as needed. Maximal medical therapy.
Chronic hypercapnic respiratory failure ABG 11/09/2023--7.42/55/219
Chronic hypoxemic respiratory failure on 3L at rest 4 L w/ exertion--baseline use
History of Pseudomonas PNA 11/15/23
Chronic CHF preserved EF
Aortic stenosis/mechanical AVR/on chronic anticoagulation
PPM
Pulmonary hypertension
Chronic anemia
Paroxysmal atrial fibrillation
Hyperlipidemia
Hypertension
Rotator cuff surgery.
Aortic valve replacement.
Bilateral herniography.
DNR status
Plan
Recurrent exacerbation of COPD-readmitted for the 3rd admission in 8 weeks
Patient has advanced stage IV COPD/emphysema with hyperinflation, chronic hypercapnic respiratory failure and hypoxemic respiratory failure.
Now on 5-6L NC, baseline use of 3-4L
Wean as tolerated
Placed on IV corticosteroids-transition to prednisone today
Suspect component of deconditioning contributing to his shortness of breath
Continue Nebulizer with DuoNebs 4 times a day
Continue Pulmicort twice a day
Hold maintenance long-acting inhalers while in the hospital-usually on BREZTRI
Imaging reviewed and unchanged from prior
No obvious PNA
Aspiration precautions
CAD SPECIALIST evaluated him on 11/16 and he underwent VSE showing liquid transient penetration with consecutive cup swallows with no aspiration
VBG 12/20/- 7.41/54/81/34.2--compensated
Patient does have chronic hypercapnic respiratory failure
Consider outpatient noninvasive mechanical ventilation
Patient does admit that he snores, but no known witnessed apneic events and no excessive daytime sleepiness
Outpatient sleep study recommended, follows with Dr Archuleta
History of pseudomonas, treated with LVQ
Can repeat sputum
Mucolytics --> mucinex @ 1.2g q12hr
Incentive spirometry
Acapella device
Consider vest therapy if difficulties mobilizing secretions.
With increased proBNP may need to consider diuresis
CXR not consistent with volume overload
Follow daily weights
Prior ECHO with stable function
Suspect significant component of deconditioning
Physical therapy/Occupational Therapy evaluation
Nutritional support
Anxiety is likely a component
During last admission patient was very anxious.
May need to give anxiolytics
DVT prophylaxis-on warfarin
Follow-up with Dr. Archuleta after discharge, last seen 12/16/23
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
Would be reasonable to discuss palliative care enrollment
I have briefly discussed this with patient and confirmed his DNR status, he would not want intubation/CPR. He states his family is aware and knows his wishes.
Diagnostic Data
CT Chest w/o contrast 11-15-2023: Mild airspace disease in the left lower lobe and therefore developing pneumonia. Clinical and laboratory correlation recommended. Repeat exam following treatment in approximately 2 weeks is recommended to exclude
underlying pulmonary nodules. Moderate emphysematous disease. Mild lingular atelectasis versus scarring. Moderate atherosclerotic vascular disease. Possible left renal soft tissue mass versus findings due to cortical scarring. Nonurgent dedicated CT
of the kidneys recommended. Post IV contrast. Mild bilateral renal atrophy. Nonobstructing left renal stone. 2 weeks is recommended to exclude underlying nodules.
CXR 12/21/23- No acute cardiopulmonary process. Chronic obstructive pulmonary disease.
Chest x-ray 11/18/2023: There is hyperaeration of the lungs, with flattening of the hemidiaphragms. Consistent with changes of COPD. Emphysema; Minimal stranding in the posterior lung bases left greater than right. Previous faint opacity lateral to
the left cardiac border again seen. Likely representing a band of atelectasis or scarring seen on prior CT. There is blunting of the left costophrenic angle, most consistent with pleural parenchymal changes. Vague increased stranding in the medial
right lung base, consistent with CT findings and pleural thickening medially and posteriorly in the inferior right lower lobe.
Chest x-ray 11/14/2023: Showed mild vascular congestion. Small pleural effusion on the left. Chronic subsegmental atelectasis scarring in the lingula.
Chest x-ray 11/09/2023: Reviewed. No infiltrates., Hyperinflation
Chest x-ray 11/13/2022-mild interstitial airspace disease left lung base, COPD
Chest x-ray 09/13/22-tiny blunting of the left costophrenic angle lungs otherwise clear
Echocardiogram 08/18/2022-EF 50-55%, abnormal diastolic dysfunction, trace mitral regurgitation, mechanical prosthetic aortic valve
TTE 11-16-2023: Mild concentric left ventricular hypertrophy. Normal left ventricular chamber size. Low -Normal left ventricular systolic function. Left ventricular ejection fraction is 52% by Muhammad' s method. Pacer wire seen in the right heart.
Mild mitral regurgitation. Mild tricuspid regurgitation. Compared to previous echo from November 2022, the gradients across the aortic valve have improved.
VBG 08/16/2022-PCO2 68/37/7 0.31
PFT 11/10/2022-FEV1 1.29-54%, FVC 2.87-85%, TLC 86%, DLCO 16%
-----
Total time spent today was 51 minutes for this encounter. Time includes reviewing laboratory test/imaging results, reviewing extensive inpatient and outpatient medical records, obtaining and reviewing medical history, performing an appropriate
exam, ordering medications, tests and procedures. Time also includes documentation of this encounter, coordinating patient care and communicating with other healthcare professionals. Total time does not include separately billed tests performed on
this date of service.
Subjective Data
-
Date of Service:
Date of Service: December 23, 2023
Chief Complaint: Pulmonary Follow Up
Subjective:
doing well today, no new complaints
feeling closer to baseline
Objective Data
Data Reviewed
Vital Signs / I&O / Oxygen:
Vital Signs
Temp Pulse Resp BP Pulse Ox
97.5 F 63 18 164/84 95
12/23/23 03:21 12/23/23 08:17 12/23/23 08:17 12/23/23 08:00 12/23/23 08:45
Intake and Output
12/22/23 12/23/23 12/24/23
06:59 06:59 06:59
Intake Total 640 / 640 240 / 240
Output Total 300 / 300
Balance 340 / 340 240 / 240
SaO2 95
Nasal Cannula flow liters per 6
minute
Physical Exam
General: Comfortable and Other (NAD)
HEENT: Normocephalic, Anicteric and Moist Mucous Membranes
Cardiovascular: S1-S2 and Regular Rhythm
Respiratory: Clear (overall decreased) and Non-Labored Respirations
GI: Soft, Non Distended and Non Tender
Neurology: Awake, Alert, Oriented, AO x 3 and No Motor Deficits
Skin: Warm and Dry
Labs/Micro/Reports
Lab Data
12/23/23 05:33
12/23/23 05:33
Laboratory Results
12/23/23
05:33
PT 34.5 H
INR 3.36
Microbiology
12/21/23 18:49 Blood/Venous Blood Culture - Preliminary
No Growth in 24 hours- Final report to follow
12/21/23 18:49 Nasal Swab Influenza Types A & B ([facility]) - Final
Negative for Influenza A & B, NAAT
Negative results must be combined with clinical observations
and patient history.
Nucleic Acid Amplification test (NAAT)performed on the
[employer] platform.
--- NOTE | 2023-12-23 10:05 | PN.CDI ---
Addendum entered and electronically signed by Kristi Ortiz MD 12/23/23 10:20:
Good morning
Diagnosis remains as acute on chronic
Original Note:
CDI
- -
CDI:
Physician Documentation Request
Admit Date: 12/21/23 20:53
Dear Doctor Angel
Patient admitted with Acute on chronic hypoxic respiratory failure due to COPD exacerbation
Hospitalist progress notes state 'Chronic heart failure with preserved ejection fraction Pro-BNP 1909 Continue Lasix 40 mg daily'
Pulmonary consultation states 'Mild HFpEF likely a component, proBNP 1909'
12/20 chest xray impression 'no acute cardiopulmonary process'
Patient has not received additional /IV lasix.
In an attempt to clarify potentially conflicting documentation, please clarify the acuity of the heart failure :
Chronic only
Acute on chronic
____ Other
Use of terms such as suspected, likely, concern for, or probable (associated with a specific diagnosis that is being evaluated, monitored, or treated as if it exists) are acceptable and can be coded in the inpatient setting, when documented at the
time of discharge.
Thank you,
Sarah Orellana RN, BSN
CDI Specialist
tiger text
Please use your independent medical judgment in providing your response.
p
--- NOTE | 2023-12-23 16:20 | PTCARENOTE ---
Pt presents as assessed. Aox3, [place]. SR with BBC and prolonged QT on tele monitor. Sating low to mid 90's on 6L NC. Ambulated in srivastava and OOB to chair with PT. Pt frequently setting off chair alarm, reminded to ring call bansal. Updated on plan of
care. Call bansal within reach.
[2023-12-23] MEDS: LIPITOR 20 MG PO (18:08)
--- NOTE | 2023-12-23 22:04 | PTCARENOTE ---
Received pt at change of shift. OOB to chair. Chair alarm active. Pt offers no complaints at this time. Assist x1 with RW to bathroom. Hygiene care taken place. Lung sounds diminished after breathing treatment from RT; no rhonchi present.
Assisted to bed after using bathroom. Call bansal within reach.
[2023-12-24] VITALS (15 sets, daily range): BP systolic 127–166; BP diastolic 53–96; PULSE 2–62; BMI 29.1
[2023-12-24 06:05] LABS: % Basophils 0.2 % (0-2); % Lymphocytes 8.8 % (20.5-51.1); % Monocytes 9.8 % (1.7-9.3); % Neutrophils 80.2 % (42.2-75.2); Absolute Immature Granulocytes 0.1 10^3/uL (0-0.05); Absolute Monocytes 1.1 10^3/uL (0.1-0.6); Hematocrit 36.7 % (39.0-52.0); Hemoglobin 12.4 g/dL (13.0-18.0); Mean Corp Hgb Conc. 33.8 g/dL (33.0-37.0); Mean Corpuscular Hgb 27.5 pg (27.0-31.0); Mean Corpuscular Volume 81.4 fL (80.0-94.0); Mean Platelet Volume 8.5 fL (7.4-10.4); Nucleated Red Blood Cells % 0 % (-); Platelet Count 263 10^3/uL (130-400); Red Blood Cell Count 4.51 10^6/uL (4.70-6.10); Red Cell Dist. Width 16.5 % (11.5-14.5); White Blood Cell Count 11.2 10^3/uL (4.8-10.8)
[2023-12-24 06:16] LABS: INR 2.92; PT 30.9 Sec (11.4-14.6)
[2023-12-24 06:29] LABS: ALT (SGPT) 12 U/L (0-50); AST (SGOT) 21 U/L (17-59); Albumin 3.3 g/dl (3.5-5.0); Alkaline Phosphatase 60 U/L (38-126); Blood Urea Nitrogen 24 mg/dl (9-20); Calcium 9.1 mg/dl (8.4-10.2); Carbon Dioxide 35 mmol/L (22-30); Chloride 99 mmol/L (98-107); Estimated Creatinine Clearance 80 ml/min; Glucose 105 mg/dl (70-99); Potassium 4.3 mmol/L (3.5-5.1); Sodium 138 mmol/L (135-145); Total Bilirubin 0.3 mg/dl (0.2-1.3); Total Protein 5.8 g/dl (6.3-8.2); eGFR > 60.00
--- NOTE | 2023-12-24 06:44 | W.PN.HOSP.TC ---
Addendum entered and electronically signed by Kristi Ortiz MD 12/25/23 08:24:
Addendum
DC is held after I spoke with son. Pt lives alone and will keep another night to try to monitor and titrate down O2 need
Also will need to coordinate with business case analyst regarding home O2 and home care .
d/w son regarding palliative care, I think it will add another layer of home care with symptoms management.
End
Total time spent to see the patient, examine the patient on the floor, review data and lab results, discuss treatment plan with patient,son, business case analyst, respiratory nurse, nursing staff around 67 minutes
Original Note:
Today's Communication/Plan
-
Ok to DC
Son will worm picker after work
Need Ambulatory O2 upon dc with home care
Assessment / Plan
Assessment / Plan
Physical Exam
General: in Apparent Distress
HEENT: Normocephalic, Moist mucous membranes and Atraumatic
Respiratory: more air today, no wheezes.
Cardiac: S1/S2,mechanical S2
GI: Soft, Non Tender, Non Distended
Musculoskeletal: No Clubbing, No Cyanosis .Ext: No LE edema
Skin: No Rash
Neuro: Nonfocal/grossly intact, awake, followed commands
Psych: calm.
83-year-old male with sob
# Acute on chronic hypoxic respiratory failure due to COPD exacerbation
Baseline uses 3 to 4 L
not in distress this morning
s/p IV Decadron, nebulizer treatments, Pulmicort
Continue Zithromax
Sputum culture in October 2023 showed Pseudomonas
Mucinex
Chest x-ray No acute cardiopulmonary process. Chronic obstructive pulmonary disease
C/W Bi pap treatment
Appreciate pulmonary help
# Coagulopathy-secondary to Coumadin
Follow INR, slightly going up. d/w pharmacist Sophie, interaction with steroid might increase INR. Holding Coumadin for today
# Chronic heart failure with preserved ejection fraction
Pro-BNP 1909
Continue Lasix 40 mg daily
# History of mechanical aortic valve for aortic stenosis
Prosthetic valve stenosis
Dose Coumadin daily according to INR
# Hypertension
Continue Bystolic
As needed hydralazine
# Hyperlipidemia-
# Pacemaker, chronic LBBB
# Pulmonary hypertension
# Hyperlipidemia-continue statin
# DVT prophylaxis-continue Coumadin
# CODE STATUS-DNR
Total discharge time spent to see the patient, examine the patient on the floor, review data and lab results, discuss discharge plan with patient, nursing staff around 6minutes
Anticipated Discharge: Today
Subjective/Interval History
-
Date of Service: December 24, 2023
Doing well
Anxious to leave
Objective Data
-
Labs:
Laboratory Results
12/24/23
05:50
WBC 11.2 H
Hgb 12.4 L
Hct 36.7 L
Plt Count 263
PT 30.9 H
INR 2.92
Sodium 138
Potassium 4.3
Chloride 99
Carbon Dioxide 35 H
BUN 24 H
Creatinine 0.7
Glucose 105 H
Calcium 9.1
Total Bilirubin 0.3
AST 21
ALT 12
Alkaline Phosphatase 60
Vital Signs:
Vital Signs
Temp Pulse Resp BP Pulse Ox
96.2 F L 60 27 166/77 95
12/24/23 04:41 12/24/23 06:00 12/24/23 06:00 12/24/23 06:00 12/24/23 06:00
I&O
12/22/23 12/23/23 12/24/23
06:59 06:59 06:59
Intake Total 640 / 640 240 / 240 1140 / 1140
Output Total 300 / 300 250 / 250
Balance 340 / 340 240 / 240 890 / 890
[2023-12-24] MEDS: VENTOLIN NEBULES 2.5 MG INH ×4 (07:02→20:13)
[2023-12-24] MEDS: PULMICORT 0.5 MG INH ×2 (07:03→20:13)
[2023-12-24] MEDS: SYMBICORT 160/4.5 MCG INHALER 2 PUFF INH ×2 (07:03→20:14)
[2023-12-24] MEDS: LASIX 40 MG PO (08:05)
[2023-12-24] MEDS: DELTASONE 40 MG PO (08:05)
[2023-12-24] MEDS: BYSTOLIC 5 MG PO (08:05)
--- NOTE | 2023-12-24 08:22 | PTCARENOTE ---
Assumed care of pt from night RN. Pt AAOx3, very [place]. Continues on 5L O2 nc, SPO2 97%. Pt to d/c home today with son. Compliant with fluid restriction. Currently oob to chair with chair alarm in place. Will continue to monitor through shift.
--- NOTE | 2023-12-24 09:11 | W.PN.PUL3 ---
Today's Communication / Plan
-
Continue prednisone taper, would continue low dose prednisone at discharge until seen in office (10mg daily)
O2 weaned back to 4L NC
Outpatient palliative care referral given to son, we discussed role of service extensively
Outpatient pulmonary FU in 1-2 weeks
Discharge planning per team
Assessment
-
Patient is an 83-year-old male with history of severe COPD/emphysema, chronic O2 use (baseline 3-4L), chronic hypercarbia, complains of cough, shortness of breath that never really resolved post recent discharge for similar complaints. At home he
was reportedly on 3-4 L of oxygen with O2 saturations in the 70s. In the ER, was placed on Bipap w/ settings of 10/5 and 10L O2. Also notably had fevers of 101F at home, in ER temp noted ot be 100.1 F. Recent admission 11/09-11/12/2023 for AECOPD
followed by readmission 11/13-11/22/2023 with sputum +Pseudomonas treated with LVQ. CXR showing similar findings from before. We are consulted for evaluation 12/22/23.
Recurrent acute exacerbation of COPD--3rd admission in the past 2 months
Discharged on 11/12/2023 and 11/22/23; 3 admissions in 2022
Mild HFpEF likely a component, proBNP 191
Acute on chronic SOB
Fevers
Conditions present prior to admission:
COPD/Emphysema-severe stage IV with frequent exacerbations, FEV1 1.08L 47%, severe diffusion impairment 16%
Follows with Dr. Archuleta
On low-dose azithromycin for anti-inflammatory properties, Breztri, nebulizers and albuterol HFA as needed. Maximal medical therapy.
Chronic hypercapnic respiratory failure ABG 11/09/2023--7.42/55/219
Chronic hypoxemic respiratory failure on 3L at rest 4 L w/ exertion--baseline use
History of Pseudomonas PNA 11/15/23
Chronic CHF preserved EF
Aortic stenosis/mechanical AVR/on chronic anticoagulation
PPM
Pulmonary hypertension
Chronic anemia
Paroxysmal atrial fibrillation
Hyperlipidemia
Hypertension
Rotator cuff surgery.
Aortic valve replacement.
Bilateral herniography.
DNR status
Plan
Recurrent exacerbation of COPD-readmitted for the 3rd admission in 8 weeks
Patient has advanced stage IV COPD/emphysema with hyperinflation, chronic hypercapnic respiratory failure and hypoxemic respiratory failure.
Now on 5-6L NC, baseline use of 3-4L
Wean as tolerated
Placed on IV corticosteroids-transition to prednisone today
Suspect component of deconditioning contributing to his shortness of breath
Continue Nebulizer with DuoNebs 4 times a day
Continue Pulmicort twice a day
Hold maintenance long-acting inhalers while in the hospital-usually on BREZTRI
Imaging reviewed and unchanged from prior
No obvious PNA
Aspiration precautions
CAR PRE COOLER evaluated him on 11/16 and he underwent VSE showing liquid transient penetration with consecutive cup swallows with no aspiration
VBG 12/21/23- 7.41/54/81/34.2--compensated
Patient does have chronic hypercapnic respiratory failure
Consider outpatient noninvasive mechanical ventilation
Patient does admit that he snores, but no known witnessed apneic events and no excessive daytime sleepiness
Outpatient sleep study recommended, follows with Dr Archuleta
History of pseudomonas, treated with LVQ
Can repeat sputum
Mucolytics --> mucinex @ 1.2g q12hr
Incentive spirometry
Acapella device
Consider vest therapy if difficulties mobilizing secretions.
With increased proBNP may need to consider diuresis
CXR not consistent with volume overload
Follow daily weights
Prior ECHO with stable function
Suspect significant component of deconditioning
Physical therapy/Occupational Therapy evaluation
Nutritional support
Anxiety is likely a component
During last admission patient was very anxious.
May need to give anxiolytics
DVT prophylaxis-on warfarin
Follow-up with Dr. Archuleta after discharge, last seen 7/17/24
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
Would be reasonable to discuss palliative care enrollment
I have briefly discussed this with patient and confirmed his DNR status, he would not want intubation/CPR. He states his family is aware and knows his wishes.
12/24/23- Spoke with son extensively on phone today regarding palliative referral-given contact with Dr Christian CAUSEY
Can look into pulmonary rehab set up as OP
Diagnostic Data
CT Chest w/o contrast 11-15-2023: Mild airspace disease in the left lower lobe and therefore developing pneumonia. Clinical and laboratory correlation recommended. Repeat exam following treatment in approximately 2 weeks is recommended to exclude
underlying pulmonary nodules. Moderate emphysematous disease. Mild lingular atelectasis versus scarring. Moderate atherosclerotic vascular disease. Possible left renal soft tissue mass versus findings due to cortical scarring. Nonurgent dedicated CT
of the kidneys recommended. Post IV contrast. Mild bilateral renal atrophy. Nonobstructing left renal stone. 2 weeks is recommended to exclude underlying nodules.
CXR 12/21/23- No acute cardiopulmonary process. Chronic obstructive pulmonary disease.
Chest x-ray 11/18/2023: There is hyperaeration of the lungs, with flattening of the hemidiaphragms. Consistent with changes of COPD. Emphysema; Minimal stranding in the posterior lung bases left greater than right. Previous faint opacity lateral to
the left cardiac border again seen. Likely representing a band of atelectasis or scarring seen on prior CT. There is blunting of the left costophrenic angle, most consistent with pleural parenchymal changes. Vague increased stranding in the medial
right lung base, consistent with CT findings and pleural thickening medially and posteriorly in the inferior right lower lobe.
Chest x-ray 11/14/2023: Showed mild vascular congestion. Small pleural effusion on the left. Chronic subsegmental atelectasis scarring in the lingula.
Chest x-ray 11/09/2023: Reviewed. No infiltrates., Hyperinflation
Chest x-ray 11/13/2022-mild interstitial airspace disease left lung base, COPD
Chest x-ray 09/13/22-tiny blunting of the left costophrenic angle lungs otherwise clear
Echocardiogram 08/18/2022-EF 50-55%, abnormal diastolic dysfunction, trace mitral regurgitation, mechanical prosthetic aortic valve
TTE 11-16-2023: Mild concentric left ventricular hypertrophy. Normal left ventricular chamber size. Low -Normal left ventricular systolic function. Left ventricular ejection fraction is 52% by Muhammad' s method. Pacer wire seen in the right heart.
Mild mitral regurgitation. Mild tricuspid regurgitation. Compared to previous echo from November 2022, the gradients across the aortic valve have improved.
VBG 08/16/2022-PCO2 68/37/7 0.31
PFT 11/10/2022-FEV1 1.29-54%, FVC 2.87-85%, TLC 86%, DLCO 16%
-----
Total time spent today was 55 minutes for this encounter. Time includes reviewing laboratory test/imaging results, reviewing extensive inpatient and outpatient medical records, obtaining and reviewing medical history, performing an appropriate
exam, ordering medications, tests and procedures. Time also includes documentation of this encounter, coordinating patient care and communicating with other healthcare professionals. Total time does not include separately billed tests performed on
this date of service.
Subjective Data
-
Date of Service:
Date of Service: December 24, 2023
Chief Complaint: Pulmonary Follow Up
Subjective:
no new events ON
wants to go home
Objective Data
Data Reviewed
Vital Signs / I&O / Oxygen:
Vital Signs
Temp Pulse Resp BP Pulse Ox
97.4 F 60 18 135/68 97
12/24/23 07:51 12/24/23 08:05 12/24/23 07:04 12/24/23 08:05 12/24/23 07:46
Intake and Output
12/23/23 12/24/23 12/25/23
06:59 06:59 06:59
Intake Total 240 / 240 1140 / 1140
Output Total 250 / 250
Balance 240 / 240 890 / 890
SaO2 97
Nasal Cannula flow liters per 5
minute
Physical Exam
General: Comfortable and Other (NAD)
HEENT: Normocephalic, Anicteric and Moist Mucous Membranes
Cardiovascular: S1-S2 and Regular Rhythm
Respiratory: Clear (overall decreased) and Non-Labored Respirations
GI: Soft, Non Distended and Non Tender
Neurology: Awake, Alert, Oriented, AO x 3 and No Motor Deficits
Skin: Warm and Dry
Labs/Micro/Reports
Lab Data
12/24/23 05:50
12/24/23 05:50
Laboratory Results
12/24/23
05:50
PT 30.9 H
INR 2.92
Microbiology
12/21/23 18:49 Blood/Venous Blood Culture - Preliminary
No Growth in 48 hours- Final report to follow
12/21/23 18:49 Nasal Swab Influenza Types A & B ([facility]) - Final
Negative for Influenza A & B, NAAT
Negative results must be combined with clinical observations
and patient history.
Nucleic Acid Amplification test (NAAT)performed on the
[employer] platform.
--- NOTE | 2023-12-24 16:33 | CM ---
Patient from [facility] with Dx Acute on chronic hypoxic respiratory failure due to COPD exacerbation. O2 6L --> 4L today. Home O2 Assessments x2 today.
Met with patient and son Anupam; the patient has a home O2 [employer] POC tank that delivers pulse dosed O2, as well as an O2 concentrator, and he doesn't have a regular portable O2 tank. Patient obtained O2 DME from [employer]. The son expressed
concerns with patient attempting to use portable O2 tank on wheels at home, as he needs to ambulate with his RW and cannot manage O2 tank on wheels. Patient uses portable O2 to get to the dining srivastava. Son is considering ordering the patient a
scooter that could hold his O2 tank. He will let CM know tomorrow what he decides in regard to the O2. Son says he has spoken with tire center supervisor and would like to have an outpatient Palliative Care referral - CM agrees to place referral. Patient
and son are aware that [facility] accepted the referral.
Plan follow patient's home O2 needs, and follow up with son tomorrow re; home O2.
Plan home with [facility], possibly with new home O2 orders/new home O2 setup.
[2023-12-24] MEDS: LIPITOR 20 MG PO (17:14)
--- NOTE | 2023-12-24 21:52 | PTCARENOTE ---
Received pt at change of shift. Pt OOB to chair. Rings appropriately. Lungs CTA and diminished throughout. Pt very GREER. Able to use bathroom with assist of 1 with RW. Offers no complaints at this time. Now resting in bed with call bansal in
reach.
[2023-12-25] VITALS (9 sets, daily range): BP systolic 128–173; BP diastolic 54–86; O2SAT 85–95; BMI 28.9
[2023-12-25 06:04] LABS: % Basophils 0.3 % (0-2); % Eosinophils 0.1 % (0-6); % Immature Granulocytes 1.8 % (0-0.5); % Lymphocytes 13.8 % (20.5-51.1); % Monocytes 13.9 % (1.7-9.3); % Neutrophils 70.1 % (42.2-75.2); Absolute Immature Granulocytes 0.2 10^3/uL (0-0.05); Absolute Lymphocytes 1.4 10^3/uL (1.2-3.4); Absolute Monocytes 1.4 10^3/uL (0.1-0.6); Hematocrit 40.2 % (39.0-52.0); Hemoglobin 13.3 g/dL (13.0-18.0); Mean Corp Hgb Conc. 33.1 g/dL (33.0-37.0); Mean Corpuscular Hgb 27.3 pg (27.0-31.0); Mean Corpuscular Volume 82.5 fL (80.0-94.0); Mean Platelet Volume 8.9 fL (7.4-10.4); Nucleated Red Blood Cells % 0 % (-); Platelet Count 311 10^3/uL (130-400); Red Blood Cell Count 4.87 10^6/uL (4.70-6.10); Red Cell Dist. Width 16.5 % (11.5-14.5)
[2023-12-25 06:17] LABS: PT 24.6 Sec (11.4-14.6)
--- NOTE | 2023-12-25 06:31 | W.PN.HOSP.TC ---
Today's Communication/Plan
-
DC today
Appreciate rn case management and nursing help
Assessment / Plan
Assessment / Plan
Physical Exam
General: in Apparent Distress
HEENT: Normocephalic, Moist mucous membranes and Atraumatic
Respiratory: more air today, no wheezes.
Cardiac: S1/S2,mechanical S2
GI: Soft, Non Tender, Non Distended
Musculoskeletal: No Clubbing, No Cyanosis .Ext: No LE edema
Skin: No Rash
Neuro: Nonfocal/grossly intact, awake, followed commands
Psych: calm.
83-year-old male with sob
# Acute on chronic hypoxic respiratory failure due to COPD exacerbation
Baseline uses 3 to 4 L
not in distress this morning
s/p IV Decadron, nebulizer treatments, Pulmicort
Continue Zithromax
Sputum culture in October 2023 showed Pseudomonas
Mucinex
Chest x-ray No acute cardiopulmonary process. Chronic obstructive pulmonary disease
s/p Bi pap treatment
Appreciate pulmonary help
# Coagulopathy-secondary to Coumadin
Follow INR, slightly going up. d/w pharmacist Sophie, interaction with steroid might increase INR. Holding Coumadin for today
# Chronic heart failure with preserved ejection fraction
Pro-BNP 1909
Continue Lasix 40 mg daily
# History of mechanical aortic valve for aortic stenosis
Prosthetic valve stenosis
Dose Coumadin daily according to INR
# Hypertension
Continue Bystolic
As needed hydralazine
# Hyperlipidemia-
# Pacemaker, chronic LBBB
# Pulmonary hypertension
# Hyperlipidemia-continue statin
# DVT prophylaxis-continue Coumadin
# CODE STATUS-DNR
dc was held yesterday to keep pt another day and monitor his oxygen level since patient lives alone. Over night, no worsening hypoxia, Oxygen level remained 98-95 % on 4 liters.
Total discharge time spent to see the patient, examine the patient on the floor, review data and lab results, discuss discharge plan with patient, nursing staff around 6minutes
Anticipated Discharge: Today
Subjective/Interval History
-
Date of Service: December 25, 2023
He is doing well
No sob, no cough
Objective Data
-
Labs:
Laboratory Results
12/25/23
05:33
WBC 10.0
Hgb 13.3
Hct 40.2
Plt Count 311
PT 24.6 H
INR 2.20
Sodium Pending
Potassium Pending
Chloride Pending
Carbon Dioxide Pending
BUN Pending
Creatinine Pending
Glucose Pending
Calcium Pending
Total Bilirubin Pending
AST Pending
ALT Pending
Alkaline Phosphatase Pending
Vital Signs:
Vital Signs
Temp Pulse Resp BP Pulse Ox
97.5 F 60 19 167/63 98
12/25/23 04:44 12/25/23 04:00 12/25/23 04:00 12/25/23 04:00 12/25/23 04:00
I&O
12/23/23 12/24/23 12/25/23
06:59 06:59 06:59
Intake Total 240 / 240 1140 / 1140 480 / 480
Output Total 250 / 250
Balance 240 / 240 890 / 890 480 / 480
[2023-12-25 06:40] LABS: ALT (SGPT) 14 U/L (0-50); AST (SGOT) 25 U/L (17-59); Albumin 3.6 g/dl (3.5-5.0); Alkaline Phosphatase 61 U/L (38-126); Blood Urea Nitrogen 28 mg/dl (9-20); Calcium 9.1 mg/dl (8.4-10.2); Carbon Dioxide 37 mmol/L (22-30); Chloride 96 mmol/L (98-107); Estimated Creatinine Clearance 62 ml/min; Glucose 61 mg/dl (70-99); Potassium 4.2 mmol/L (3.5-5.1); Sodium 137 mmol/L (135-145); Total Bilirubin 0.5 mg/dl (0.2-1.3); eGFR > 60.00
[2023-12-25] MEDS: BYSTOLIC 5 MG PO (07:31)
[2023-12-25] MEDS: LASIX 40 MG PO (07:32)
[2023-12-25] MEDS: DELTASONE 40 MG PO (07:32)
[2023-12-25] MEDS: SYMBICORT 160/4.5 MCG INHALER 2 PUFF INH (07:55)
[2023-12-25] MEDS: PULMICORT 0.5 MG INH (07:55)
[2023-12-25] MEDS: VENTOLIN NEBULES 2.5 MG INH ×2 (07:56→11:43)
--- NOTE | 2023-12-25 09:11 | W.PN.PUL3 ---
Today's Communication / Plan
-
Continue prednisone taper
Wean O2 as tolerated but this may be the best patient is
Discussed with son OP pall care referral, this is placed in discharge summary
Home O2 set up per team
Discharge planning, awaiting agreement on son
Outpatient pulmonary FU recommended
We will sign off at this time, please call with questions
Assessment
-
Patient is an 83-year-old male with history of severe COPD/emphysema, chronic O2 use (baseline 3-4L), chronic hypercarbia, complains of cough, shortness of breath that never really resolved post recent discharge for similar complaints. At home he
was reportedly on 3-4 L of oxygen with O2 saturations in the 70s. In the ER, was placed on Bipap w/ settings of 10/5 and 10L O2. Also notably had fevers of 101F at home, in ER temp noted ot be 100.1 F. Recent admission 11/09-11/12/2023 for AECOPD
followed by readmission 11/13-11/22/2023 with sputum +Pseudomonas treated with LVQ. CXR showing similar findings from before. We are consulted for evaluation 12/22/23.
Recurrent acute exacerbation of COPD--3rd admission in the past 2 months
Discharged on 11/12/2023 and 11/22/23; 3 admissions in 2022
Mild HFpEF likely a component, proBNP 191
Acute on chronic SOB
Fevers
Conditions present prior to admission:
COPD/Emphysema-severe stage IV with frequent exacerbations, FEV1 1.08L 47%, severe diffusion impairment 16%
Follows with Dr. Archuleta
On low-dose azithromycin for anti-inflammatory properties, Breztri, nebulizers and albuterol HFA as needed. Maximal medical therapy.
Chronic hypercapnic respiratory failure ABG 11/09/2023--7.42/55/219
Chronic hypoxemic respiratory failure on 3L at rest 4 L w/ exertion--baseline use
History of Pseudomonas PNA 11/15/23
Chronic CHF preserved EF
Aortic stenosis/mechanical AVR/on chronic anticoagulation
PPM
Pulmonary hypertension
Chronic anemia
Paroxysmal atrial fibrillation
Hyperlipidemia
Hypertension
Rotator cuff surgery.
Aortic valve replacement.
Bilateral herniography.
DNR status
Plan
Recurrent exacerbation of COPD-readmitted for the 3rd admission in 8 weeks
Patient has advanced stage IV COPD/emphysema with hyperinflation, chronic hypercapnic respiratory failure and hypoxemic respiratory failure.
Now on 4L, baseline use
Needs 6L with ambulation, but son states he does not walk that much at home
Wean as tolerated
Placed on IV corticosteroids-transitioned to prednisone
Suspect component of deconditioning contributing to his shortness of breath
Continue Nebulizer with DuoNebs 4 times a day
Continue Pulmicort twice a day
Hold maintenance long-acting inhalers while in the hospital-usually on BREZTRI
Imaging reviewed and unchanged from prior
No obvious PNA
Aspiration precautions
[employer] [facility] [employer] [facility] evaluated him on 11/16 and he underwent VSE showing liquid transient penetration with consecutive cup swallows with no aspiration
VBG 12/20/- 7.41/54/81/34.2--compensated
Patient does have chronic hypercapnic respiratory failure
Consider outpatient noninvasive mechanical ventilation
Patient does admit that he snores, but no known witnessed apneic events and no excessive daytime sleepiness
Outpatient sleep study recommended, follows with Dr Archuleta
History of pseudomonas, treated with LVQ
Can repeat sputum
Mucolytics --> mucinex @ 1.2g q12hr
Incentive spirometry
Acapella device
Consider vest therapy if difficulties mobilizing secretions.
With increased proBNP may need to consider diuresis
CXR not consistent with volume overload
Follow daily weights
Prior ECHO with stable function
Suspect significant component of deconditioning
Physical therapy/Occupational Therapy evaluation
Nutritional support
Anxiety is likely a component
During last admission patient was very anxious.
May need to give anxiolytics
DVT prophylaxis-on warfarin
Follow-up with Dr. Archuleta after discharge, last seen 12/16/23
Prognosis usp poor in a patient with severe COPD, multiple exacerbations requiring admission, steroid dependency
Would be reasonable to discuss palliative care enrollment
I have briefly discussed this with patient and confirmed his DNR status, he would not want intubation/CPR. He states his family is aware and knows his wishes.
12/24/23- Spoke with son extensively on phone today regarding palliative referral-given contact with Dr Christian CAUSEY
Can look into pulmonary rehab set up as OP
Diagnostic Data
CT Chest w/o contrast 11-15-2023: Mild airspace disease in the left lower lobe and therefore developing pneumonia. Clinical and laboratory correlation recommended. Repeat exam following treatment in approximately 2 weeks is recommended to exclude
underlying pulmonary nodules. Moderate emphysematous disease. Mild lingular atelectasis versus scarring. Moderate atherosclerotic vascular disease. Possible left renal soft tissue mass versus findings due to cortical scarring. Nonurgent dedicated CT
of the kidneys recommended. Post IV contrast. Mild bilateral renal atrophy. Nonobstructing left renal stone. 2 weeks is recommended to exclude underlying nodules.
CXR 12/21/23- No acute cardiopulmonary process. Chronic obstructive pulmonary disease.
Chest x-ray 11/18/2023: There is hyperaeration of the lungs, with flattening of the hemidiaphragms. Consistent with changes of COPD. Emphysema; Minimal stranding in the posterior lung bases left greater than right. Previous faint opacity lateral to
the left cardiac border again seen. Likely representing a band of atelectasis or scarring seen on prior CT. There is blunting of the left costophrenic angle, most consistent with pleural parenchymal changes. Vague increased stranding in the medial
right lung base, consistent with CT findings and pleural thickening medially and posteriorly in the inferior right lower lobe.
Chest x-ray 11/14/2023: Showed mild vascular congestion. Small pleural effusion on the left. Chronic subsegmental atelectasis scarring in the lingula.
Chest x-ray 11/09/2023: Reviewed. No infiltrates., Hyperinflation
Chest x-ray 11/13/2022-mild interstitial airspace disease left lung base, COPD
Chest x-ray 09/13/22-tiny blunting of the left costophrenic angle lungs otherwise clear
Echocardiogram 08/18/2022-EF 50-55%, abnormal diastolic dysfunction, trace mitral regurgitation, mechanical prosthetic aortic valve
TTE 11-16-2023: Mild concentric left ventricular hypertrophy. Normal left ventricular chamber size. Low -Normal left ventricular systolic function. Left ventricular ejection fraction is 52% by Muhammad' s method. Pacer wire seen in the right heart.
Mild mitral regurgitation. Mild tricuspid regurgitation. Compared to previous echo from November 2022, the gradients across the aortic valve have improved.
VBG 08/16/2022-PCO2 68/37/7 0.31
PFT 11/10/2022-FEV1 1.29-54%, FVC 2.87-85%, TLC 86%, DLCO 16%
-----
Total time spent today was 52 minutes for this encounter. Time includes reviewing laboratory test/imaging results, reviewing extensive inpatient and outpatient medical records, obtaining and reviewing medical history, performing an appropriate
exam, ordering medications, tests and procedures. Time also includes documentation of this encounter, coordinating patient care and communicating with other healthcare professionals. Total time does not include separately billed tests performed on
this date of service.
Subjective Data
-
Date of Service:
Date of Service: December 25, 2023
Chief Complaint: Pulmonary Follow Up
Subjective:
no new events
wants to go home
Objective Data
Data Reviewed
Vital Signs / I&O / Oxygen:
Vital Signs
Temp Pulse Resp BP Pulse Ox
98.0 F 68 20 173/86 96
12/25/23 07:51 12/25/23 08:00 12/25/23 08:00 12/25/23 07:32 12/25/23 08:00
Intake and Output
12/24/23 12/25/23 12/26/23
06:59 06:59 06:59
Intake Total 1140 / 1140 480 / 480
Output Total 250 / 250
Balance 890 / 890 480 / 480
SaO2 96
Nasal Cannula flow liters per 4
minute
Physical Exam
General: Comfortable and Other (NAD)
HEENT: Normocephalic, Anicteric and Moist Mucous Membranes
Cardiovascular: S1-S2 and Regular Rhythm
Respiratory: Clear (overall decreased) and Non-Labored Respirations
GI: Soft, Non Distended and Non Tender
Neurology: Awake, Alert, Oriented, AO x 3 and No Motor Deficits
Skin: Warm and Dry
Labs/Micro/Reports
Lab Data
12/25/23 05:33
12/25/23 05:33
Laboratory Results
12/25/23
05:33
PT 24.6 H
INR 2.20
Microbiology
12/21/23 18:49 Blood/Venous Blood Culture - Preliminary
No Growth in 72 hours- Final report to follow
--- NOTE | 2023-12-25 12:17 | CM ---
Patient from [facility] with Dx Acute on chronic hypoxic respiratory failure due to COPD exacerbation. O2 4L. Home O2 Assessment today on patient's Inogen tank; required O2 5L with ambulation per Resp Tx.
Confirmed with Dr Ortiz patient ok to d/c with existing O2 setup.
Spoke with Tamra Suazo (ph [phone]); informed her patient will be discharged home.
Met with patient and spoke with son Anupam by phone; they both agree to d/c home today. IMM completed yesterday. Patient and son made aware existing O2 setup is okay with . They are aware that [facility] is setup to resume. Son will provide
transport home today.
Plan home today with resumption of [facility], with outpatient Palliative Care, and existing home O2 setup.
--- NOTE | 2023-12-25 16:12 | W.DCSUMMARY ---
Discharge Summary
Discharge Data
Date of Admission: 12/21/23
Date of Discharge: 12/25/23
-
Pending Results: No
Hospital Course
83years old male presented to the hospital with complaints of cough and shortness of breath. History of chronic O2 use (baseline 3-4L) with chronic hypercarbia. He was placed on Bipap w/ settings of 10/5 and 10L O2. Also he had fevers of 101F at
home, in ER temp noted to be 100.1 F. Patient was diagnosed with COPD exacerbation with acute bronchitis. Patient did not have leukocytosis. Blood culture did not show any growth. He received nebulizer treatment and steroid therapy. Patient was
followed by pulmonary doctor. He was noted to have a component of deconditioning contributing to his shortness of breath. Chest radiography was not consistent with volume overload. Patient started to improve with weaning off of BiPAP therapy. He
was placed on oxygen therapy and titrated down to his baseline. Pulmonary doctor spoke with the patient and his son. Discussed extensively regarding palliative care referral. Patient was on Coumadin and his INR was monitored. He was maintained
on Lasix therapy. No changes were made to his blood pressure medications. Patient was evaluated by physical therapy recommended home health services. Respiratory nurse evaluated oxygen need and discussed that with patient and his son at the
bedside. Case management was involved in discharge planning. Patient remained hemodynamically stable and was discharged in a stable condition.
Discharge Plan
-
Patient Disposition: Home with Home Care
Discharge Diagnosis/Procedures: COPD/Emphysema-severe stage IV with frequent exacerbations, FEV1 1.08L 47%, severe diffusion impairment 16%. Acute on chronic SOB, taper prednisone and continue on 10 mg daily until you see your lung doctor.
Chronic hypercapnic respiratory failure.
Chronic hypoxemic respiratory failure.
Condition: Good
Diet: As tolerated
Referrals:
Annetta Alford DO [Active] - in one to two weeks (with [facility], PFT)
Rashid Maguire MD [Family Provider] - in one to two weeks
Pialr Gonzales MD [Active] -
Prescriptions:
New
prednisone 10 mg tablet
30 mg PO DAILY Qty: 60 0RF
Rx Instructions:
30 mg daily X 3 days then 20 mg daily X 4 days then 10 mg daily
Continued
nebivolol [Bystolic] 5 mg Tablet
5 mg PO DAILY
Breztri Aerosphere 160-9-4.8 mcg/actuation Hfa Aerosol Inhaler
2 inh INHALATION R BID
azithromycin 250 mg Tablet
250 mg PO DAILY
albuterol sulfate 2.5 mg /3 mL (0.083 %) Solution For Nebulization
2.5 mg INHALATION R BID
budesonide 0.5 mg/2 mL Suspension For Nebulization
0.5 mg inhalation R BID Qty: 0 0RF
furosemide 40 mg Tablet
40 mg PO DAILY Qty: 30 0RF
warfarin 5 mg Tablet
5 mg PO QPM Qty: 0 0RF
Patient Comments:
12/21/2023: taken w/ 1mg = 6mg
simvastatin 40 mg Tablet
40 mg PO QPM
warfarin 1 mg Tablet
1 mg PO QPM
Patient Comments:
12/21/2023: taken w/ 5mg = 6mg
Discharge Orders:
Discharge Patient (As Directed); Ordered 12/25/23
Ordered By: Kristi Ortiz
Discharge Date and Time
Discharge Date/Time: 12/25/23 14:09
Print Language: KHMER
== END 2023-12-25 14:09 | disposition home health service (06) | DRG 190 ==
LOC: IMU 20:53
PROVIDERS: Clinical Nurse Specialist Family Health; ADMITTING PHYSICIAN Internal Medicine; ATTENDING PHYSICIAN Internal Medicine; CONSULT PHYSICIAN Internal Medicine Critical Care Medicine; EMERGENCY PHYSICIAN Student in an Organized Health Care Education/Training Program; FAMILY PHYSICIAN Internal Medicine
DX: J44.1 Chronic obstructive pulmonary disease with (acute) exacerbation (principal); I50.33 Acute on chronic diastolic (congestive) heart failure; J96.21 Acute and chronic respiratory failure with hypoxia; J96.12 Chronic respiratory failure with hypercapnia; I47.20 Ventricular tachycardia, unspecified; I11.0 Hypertensive heart disease with heart failure; E78.00 Pure hypercholesterolemia, unspecified; J20.9 Acute bronchitis, unspecified; J44.0 Chronic obstructive pulmonary disease with (acute) lower respiratory infection; I48.0 Paroxysmal atrial fibrillation; Z99.81 Dependence on supplemental oxygen; Z87.891 Personal history of nicotine dependence; Z95.0 Presence of cardiac pacemaker; Z95.2 Presence of prosthetic heart valve
CPT/HCPCS: 71045; 80053; 81003; 81015; 82805; 83605; 83880; 84145; 84484; 85025; 85610; 85730; 87040; 87502; 87811; 93005; 94640; 94660; 94761; 96361; 96374; 97163; 97167; 97530; 99291

== ENCOUNTER → 2024-03-17 07:35 | Outpatient (REF) | payer MEDICARE, OTHER, SELFPAY ==
[2024-03-17 09:50] LABS: INR 2.67; PT 28.8 Sec (11.4-14.6)
== END ==
LOC: REG 07:35
PROVIDERS: ATTENDING PHYSICIAN Nuclear Medicine Nuclear Cardiology; FAMILY PHYSICIAN Internal Medicine
DX: Z95.2 Presence of prosthetic heart valve (principal); Z79.01 Long term (current) use of anticoagulants
CPT/HCPCS: 36415; 85610

== ENCOUNTER → 2024-07-09 10:24 | Outpatient (REF) | payer MEDICARE, OTHER, SELFPAY ==
[2024-07-09 11:34] LABS: % Basophils 0.3 % (0-2); % Eosinophils 0.6 % (0-6); % Immature Granulocytes 0.5 % (0-0.5); % Lymphocytes 19.5 % (20.5-51.1); % Neutrophils 71.1 % (42.2-75.2); Absolute Eosinophils 0.1 10^3/uL (0-0.7); Absolute Immature Granulocytes 0.1 10^3/uL (0-0.05); Absolute Monocytes 0.8 10^3/uL (0.1-0.6); Absolute Neutrophils 7.2 10^3/uL (1.4-6.5); Hematocrit 45.8 % (39.0-52.0); Hemoglobin 14.3 g/dL (13.0-18.0); Mean Corp Hgb Conc. 31.2 g/dL (33.0-37.0); Mean Corpuscular Hgb 28.1 pg (27.0-31.0); Mean Corpuscular Volume 90.2 fL (80.0-94.0); Mean Platelet Volume 9.3 fL (7.4-10.4); Nucleated Red Blood Cells % 0 % (-); Platelet Count 223 10^3/uL (130-400); Red Blood Cell Count 5.08 10^6/uL (4.70-6.10); Red Cell Dist. Width 15.1 % (11.5-14.5); White Blood Cell Count 10.2 10^3/uL (4.8-10.8)
[2024-07-09 11:44] LABS: INR 1.73; PT 20.4 Sec (11.4-14.6)
[2024-07-09 11:54] LABS: ALT (SGPT) 11 U/L (0-50); AST (SGOT) 25 U/L (17-59); Albumin 4.4 g/dl (3.5-5.0); Alkaline Phosphatase 76 U/L (38-126); Blood Urea Nitrogen 30 mg/dl (9-20); Calcium 9.3 mg/dl (8.4-10.2); Carbon Dioxide 40 mmol/L (22-30); Chloride 96 mmol/L (98-107); Glucose 124 mg/dl (70-99); HDL Cholesterol 55 mg/dl; LDL Cholesterol, Calculated 104 mg/dl; Potassium 4.2 mmol/L (3.5-5.1); Sodium 143 mmol/L (135-145); Total Cholesterol 177 mg/dl (50-199); Total Protein 6.7 g/dl (6.3-8.2); Triglyceride 94 mg/dl (10-149); Very Low Density Lipoprotein 18 mg/dl (0-30); eGFR > 60.00
== END ==
LOC: REG 10:24
PROVIDERS: ATTENDING PHYSICIAN Nuclear Medicine Nuclear Cardiology; FAMILY PHYSICIAN Internal Medicine
DX: J44.9 Chronic obstructive pulmonary disease, unspecified (principal); Z00.01 Encounter for general adult medical examination with abnormal findings; I27.20 Pulmonary hypertension, unspecified; Z86.79 Personal history of other diseases of the circulatory system; Z95.0 Presence of cardiac pacemaker; E66.9 Obesity, unspecified; I10 Essential (primary) hypertension
CPT/HCPCS: 36415; 80053; 80061; 85025; 85610

== ENCOUNTER → 2024-07-21 09:05 | Outpatient (REF) | payer MEDICARE, OTHER, SELFPAY | LOC: RCS 09:05 | PROVIDERS: ATTENDING PHYSICIAN Nuclear Medicine Nuclear Cardiology; FAMILY PHYSICIAN Internal Medicine | DX: I48.0 Paroxysmal atrial fibrillation (principal) | CPT/HCPCS: 93306 ==

== ENCOUNTER → 2025-01-24 14:06 | Outpatient (REF) | payer MEDICARE, OTHER, SELFPAY ==
[2025-01-24 16:24] LABS: Blood Urea Nitrogen 44 mg/dl (9-20); Calcium 9.3 mg/dl (8.4-10.2); Carbon Dioxide 37 mmol/L (22-30); Chloride 101 mmol/L (98-107); Glucose 109 mg/dl (70-99); Potassium 4.7 mmol/L (3.5-5.1); Sodium 144 mmol/L (135-145); eGFR 37.12
== END ==
LOC: REG 14:06
PROVIDERS: ATTENDING PHYSICIAN Nuclear Medicine Nuclear Cardiology; FAMILY PHYSICIAN Internal Medicine; REFERRING PHYSICIAN Nurse Practitioner Family
DX: I50.30 Unspecified diastolic (congestive) heart failure (principal); I48.0 Paroxysmal atrial fibrillation; Z95.2 Presence of prosthetic heart valve; R06.02 Shortness of breath
CPT/HCPCS: 36415; 71046; 80048

== ENCOUNTER → 2025-03-20 11:13 | Outpatient (REF) | payer MEDICARE, OTHER, SELFPAY ==
[2025-03-20 12:44] LABS: Blood Urea Nitrogen 37 mg/dl (9-20)
== END ==
LOC: RAD 11:13
PROVIDERS: ATTENDING PHYSICIAN Nurse Practitioner Family; FAMILY PHYSICIAN Internal Medicine; OTHER PHYSICIAN Nuclear Medicine Nuclear Cardiology
DX: Z87.01 Personal history of pneumonia (recurrent) (principal); E78.5 Hyperlipidemia, unspecified; I10 Essential (primary) hypertension; N18.30 Chronic kidney disease, stage 3 unspecified; N28.89 Other specified disorders of kidney and ureter; R60.0 Localized edema
CPT/HCPCS: 36415; 71046; 82565; 83880; 84520

== ENCOUNTER → 2025-03-30 14:48 | Outpatient (REF) | payer MEDICARE, OTHER, SELFPAY | LOC: RAD 14:48 | PROVIDERS: ATTENDING PHYSICIAN Internal Medicine | DX: N18.30 Chronic kidney disease, stage 3 unspecified (principal); N28.89 Other specified disorders of kidney and ureter | CPT/HCPCS: 76775 ==

== ENCOUNTER 2025-04-18 21:28 | Inpatient (IN) | payer MEDICARE, OTHER, SELFPAY ==
[2025-04-18 16:03] VITALS: BP 192/90
[2025-04-18 16:20] LABS: Hematocrit 43.7 % (39.0-52.0); Hemoglobin 13.5 g/dL (13.0-18.0); Mean Corp Hgb Conc. 30.9 g/dL (33.0-37.0); Mean Corpuscular Volume 92.2 fL (80.0-94.0); Nucleated Red Blood Cells % 0 % (-); Platelet Count 226 10^3/uL (130-400); Red Cell Dist. Width 15.4 % (11.5-14.5)
[2025-04-18 16:32] LABS: PT 68.5 Sec (11.4-14.6)
[2025-04-18 16:39] LABS: INR > 8.0
[2025-04-18 16:48] LABS: ALT (SGPT) 10 U/L (0-50); AST (SGOT) 26 U/L (17-59); Albumin 4.2 g/dl (3.5-5.0); Alkaline Phosphatase 92 U/L (38-126); Blood Urea Nitrogen 29 mg/dl (9-20); Calcium 8.8 mg/dl (8.4-10.2); Carbon Dioxide 38 mmol/L (22-30); Chloride 96 mmol/L (98-107); Glucose 100 mg/dl (70-99); Potassium 4.4 mmol/L (3.5-5.1); Sodium 137 mmol/L (135-145); Total Protein 6.9 g/dl (6.3-8.2); eGFR > 60.00
[2025-04-18 18:00] VITALS: BP 165/90
[2025-04-18] MEDS: VENTOLIN NEBULES 2.5 MG INH (18:03)
--- NOTE | 2025-04-18 18:42 | ED.GENMED ---
History of Present Illness
General
Chief Complaint: Abnormal Lab Value
Source: patient and family (Son who is at the bedside)
Exam Limitations: none
Time Seen by Provider: 04/18/25 18:01
Nursing documentation reviewed up to this point in time: agreed with
History of Present Illness
History of Present Illness:
The patient is a pleasant 84-year-old man brought in by his son after they checked his INR at home and it was reported to be above 8. Patient reports frequent nosebleeds over the last few days. Patient uses chronic nasal oxygen at baseline.
Patient denies seeing blood in his urine and denies seeing blood in his stool. Patient is on Coumadin for an aortic valve replacement as well as A-fib. Patient does not believe he took any extra doses of Coumadin. Patient reports mildly increased
work of breathing over the last few days but denies fever and chills. His son reports that ' he always looks short of breath' and feels that his father's breathing is at his baseline. Patient's son, however, does note increased swelling of the
patient's ankles bilaterally.
Past History
Past History
ED Past Medical History: Arrthythmia, CHF, COPD, HTN and Hypercholesterolemia
ED Past Surgical History: Cardiac (pacemaker, valve replacement)
Social History
Tobacco: Former smoker
Alcohol: None
Drug: None
Personal:
Living: with family
Employment: Retired
Family History
Family History: Other
Review of Systems
Review of Systems
Allergies reviewed?: Yes
All Other Systems: ROS reviewed and negative except as documented in HPI and ROS
Constitutional: Reports no symptoms
EENT: Reports other (Nosebleed)
Respiratory: Reports trouble breathing (Possibly worse than baseline)
Cardiac: Reports no symptoms
ABD/GI: Reports no symptoms
: Reports no symptoms
Musculoskeletal: Reports edema (Increase edema bilateral ankles)
Skin: Reports no symptoms
Neurological: Reports no symptoms
Endocrine: Reports no symptoms
Hematologic/Lymphatic: Reports no symptoms
Psychiatric: Reports no symptoms
Phy Exam
Physical Exam
Physical Exam:
Physical Exam
General: no apparent distress, not acutely ill
Neck: supple. no meningeal signs. normal psoterior pharynx
Heart: s1/s2 regular rate and rhythm
Lungs: Mild tachypnea at rest. Decreased breath sounds bilaterally. Expiratory wheezing bilaterally. Speaks in full sentences
Abdomen: normal bowel sounds. not tender. no CVAT
Neuro: alert and oriented. no focal neurological deficits
Skin: no rash
Psychiatric: well kept. interactive and cooperative
Extremities: 1+ pitting edema bilateral feet and ankles. Negative Homans' sign.
Course
Orders/Labs/Results
Orders:
Orders
04/18/25 16:10
Complete Blood Count/With Diff Urgent
Comprehensive Metabolic Panel Urgent
PT/INR [Prothrombin Time] Urgent
Is patient on Coumadin/Warfarin?: No
Comment: [email or web address]
04/18/25 18:03
Albuterol Nebs [Ventolin Nebules] 2.5 mg .ROUTE .STK-MED ONE
Albuterol Nebs [Ventolin Nebules] 2.5 mg INH R NOW STA
04/18/25 18:41
CR Chest - 2 Views Urgent
Comment:
Reason For Exam: SOB
04/18/25 18:51
Electrocardiogram (*1) Urgent
Reason for Study: Shortness of Breath
EKG- Treatment ONCE
04/18/25 19:07
NT-proBNP Urgent
Troponin I Urgent
04/18/25 19:18
Albuterol Sulfate [Ventolin Nebules] 15 mg INH R NOW STA
04/18/25 20:36
Dexamethasone Sod Phosphate [Decadron] 10 mg IV NOW STA
04/18/25 20:37
Furosemide [Lasix] 40 mg IV NOW STA
Abnormal Lab Results
04/18/25 04/18/25
16:10 19:07
MCHC 30.9 L g/dL
(33.0-37.0)
RDW 15.4 H %
(11.5-14.5)
Absolute Monos (auto) 1.0 H 10^3/uL
(0.1-0.6)
Monocytes % 13.3 H %
(1.7-9.3)
PT 68.5 H Sec
(11.4-14.6)
INR > 8.0 H*
Chloride 96 L mmol/L
(98-107)
Carbon Dioxide 38 H mmol/L
(22-30)
BUN 29 H mg/dl
(9-20)
Glucose 100 H mg/dl
(70-99)
Troponin I 0.055 H* ng/ml
04/18/25 16:10
04/18/25 16:10
Vital Signs
Initial and Last Documented VS:
Initial Vital Signs
Temp Pulse Resp Pulse Ox
98 F 82 22 92
04/18/25 16:00 04/18/25 16:00 04/18/25 16:00 04/18/25 16:00
Last Documented Vital Signs
Temp Pulse Resp BP Pulse Ox
97.5 F 71 27 168/75 96
04/18/25 19:00 04/18/25 19:15 04/18/25 19:15 04/18/25 19:03 04/18/25 19:15
MDM/Problems Addressed
Differential Diagnosis Includes:
CHF exacerbation, COPD exacerbation, history of recent nosebleed due to supratherapeutic INR
MDM/Problems Addressed:
Patient presents with acute bilateral leg edema and acute on chronic wheezing and shortness of breath
Chronic conditions affecting care:
CHF
Chronic conditions affecting care: COPD
Acute Exacerbation and/or Progression of Chronic Illness:
Patient may have acute exacerbation of CHF. Patient may have acute exacerbation of COPD given his increased work of breathing and wheezing
*Pulse Oximetry
SaO2: 98
Nasal Cannula flow liters per minute: 4
Patient hypoxic: no
*EKG
Interpreted by ED Provider?: Yes
Interpretation: abnormal
Comparison EKG: no changes
Rate: normal
Rhythm: other
[place]: left axis deviation
Interval: normal interval
QRS Pattern: left bundle branch block
Ischemia: non-specific ST changes
*Pneumatic Hoist Operator Interpretation
Rate: normal
Interpretation: abnormal
Rhythm: other
*Critical Care Note
Total Time (30-74mins, 75-104mins- exclusive of procedures): Not Applicable
Data Reviewed
Review of Other/Old Records Reveals: Testing (Cardiac echo reviewed from 2024 which shows an EF of 51%)
Source: patient and family (Son who is at the bedside)
Patient Management
Social determinants of health affecting care: Living situation and Strong social support
Discussion with other providers: Hospitalist
Escalation/DeEscalation of care consider admission/obs:
Patient's INR is above 8, however, patient has no sign or history of hematuria or blood in his stool. Patient has no active nosebleed at this time. Therefore, I do not feel we need to give patient vitamin K. We will hold his Coumadin for at least
tonight.
Additionally, patient is labored at rest. Patient is tachypneic and wheezing. I suspect there is a component of CHF and COPD exacerbation
ED Attending Note
-
Portions of this chart may have been created with voice recognition software.� Occasional wrong word or��sound alike� substitutions may have occurred due to the inherent limitations of voice recognition software.
Discharge Plan
Departure
Patient Disposition: Admit
Date of Disposition: 04/18/25
Time of Disposition: 20:28
Admit to: Telemetry
Presentation/result/management discussed w/ accepting MD/DO: Hospitalist
Condition: Good
Discharge Problem:
Supratherapeutic INR, Acute exacerbation of CHF (congestive heart failure), Acute exacerbation of chronic obstructive pulmonary disease
Prescriptions:
No Action
nebivolol [Bystolic] 5 mg Tablet
5 mg PO DAILY
Breztri Aerosphere 160-9-4.8 mcg/actuation Hfa Aerosol Inhaler
2 inh INHALATION R BID
azithromycin 250 mg Tablet
250 mg PO DAILY
albuterol sulfate 2.5 mg /3 mL (0.083 %) Solution For Nebulization
2.5 mg INHALATION R BID
budesonide 0.5 mg/2 mL Suspension For Nebulization
0.5 mg inhalation R BID Qty: 0 0RF
furosemide 40 mg Tablet
40 mg PO DAILY Qty: 30 0RF
simvastatin 40 mg Tablet
40 mg PO QPM
prednisone 10 mg tablet
10 mg PO DAILY
warfarin 5 mg tablet
7 mg PO QPM
Patient Comments:
12/21/2023: taken w/ 1mg = 6mg
Referrals:
Rashid Maguire MD [Family Provider, Internal Medicine]
Interventions
Interventions:
*Risk Screen - Suicide Last Done: 04/18/25 16:03
*General Assessment Last Done: 04/18/25 18:05
*Neglect/Abuse Screening Last Done: 04/18/25 16:03
*ED COVID-19 Vaccine History Last Done: 04/18/25 18:05
*ED Influenza Vaccine History Last Done: 04/18/25 18:05
Discharge Date and Time
Print Language: GREEK
[2025-04-18 19:03] VITALS: BP 168/75
[2025-04-18] MEDS: VENTOLIN NEBULES 15 MG INH (19:24)
[2025-04-18 19:51] LABS: Troponin I 0.055 ng/ml
[2025-04-18 20:43] VITALS: BP 134/56
[2025-04-18] MEDS: LASIX 40 MG IV (20:56)
[2025-04-18] MEDS: DECADRON 10 MG IV (20:56)
[2025-04-18 21:00] VITALS: BP 133/57
--- NOTE | 2025-04-18 21:22 | HPS.HSE ---
Family Physician
-
Family Physician: Armond Maguire
Chief Complaint
-
shortness of breath
History of Present Illness
84M past medical history of chronic hypoxic respiratory failure secondary to COPD baseline uses 3 to 4 L oxygen, chronic HFpEF, severe aortic stenosis status post mechanical aortic valve, paroxysmal atrial fibrillation on Coumadin, permanent
pacemaker, hypertension, hyperlipidemia, chronic left bundle branch block, pulmonary hypertension, hyperlipidemia, presenting with elevated INR and shortness of breath. His son checked his INR and it was greater than 8. He has had frequent
nosebleeds over the past few days. Denies any nasal bleeding currently. Denies any blood in the urine or blood in the stool.
He has been having increased work of breathing over the past few days and denies fevers or chills. His son states that he always looks short of breath and feels that patient looks at baseline. Son however noticed increased lower extremity edema of
the ankles bilaterally. He gained 5 pounds in the past several months.
Medical History
Past Medical History
Past Medical History: Reports Other (chronic hypoxic respiratory failure secondary to COPD baseline uses 3 to 4 L oxygen, chronic HFpEF, severe aortic stenosis status post mechanical aortic valve, paroxysmal atrial fibrillation on Coumadin,
permanent pacemaker, hypertension, hyperlipidemia, chronic left bundle branch block, pulmonary h)
Past Surgical History: Reports Other ((pacemaker, aortic valve replacement))
Social History
Tobacco: Non-smoker
Alcohol: None
Drug: None
Family History
Family History: Not pertinent
Allergies / Home Medications
Allergies reflects when Allergies were last updated in [facility].
Home Medications with original date entered in [facility]
Allergy/Medication List:
Allergies
Allergy/AdvReac Type Severity Reaction Status Date / Time
codeine Allergy Irritabilit Verified 12/21/23 18:34
y
Home Medications
budesonide 160 mcg-glycopyr 9 mcg-formot 4.8 mcg/actuation HFA inhaler (Breztri TagCashphere) 2 inh inhalation R BID Lung/breathing issues 08/08/22
nebivolol 5 mg tablet (Bystolic) 5 mg PO DAILY Heart disease/condition 08/08/22
albuterol sulfate 2.5 mg/3 mL (0.083 %) solution for nebulization 2.5 mg inhalation R BID Lung/Breathing Issues 11/09/23
azithromycin 250 mg tablet 250 mg PO DAILY Infection 11/09/23
budesonide 0.5 mg/2 mL suspension for nebulization 0.5 mg (2 mL) inhalation R BID Lung/breathing issues #0 mL 11/21/23
furosemide 40 mg tablet 40 mg PO DAILY Fluid retention/Swelling #30 tabs 11/21/23
simvastatin 40 mg tablet 40 mg PO QPM High Cholesterol 12/21/23
prednisone 10 mg tablet 10 mg PO DAILY 04/18/25
warfarin 5 mg tablet 7 mg PO QPM Blood Clot Prevention/Tx 04/18/25
Review of Systems
-
A 12 point ROS was completed and negative except as noted: Yes
Constitutional: Reports No Symptoms
EENT: Reports No Symptoms
Respiratory: Reports No Symptoms
Cardiac: Reports No Symptoms
Abdomen/GI: Reports No Symptoms
: Reports No Symptoms
Musculoskeletal: Reports No Symptoms
Skin: Reports No Symptoms
Neurological: Reports No Symptoms
Endocrine: Reports No Symptoms
Hematologic/Lymphatic: Reports No Symptoms
Psych: Reports No Symptoms
Physical Exam
Vital Signs
Vital Signs
Temp Pulse Resp BP Pulse Ox
97.5 F 107 30 134/56 92
04/18/25 19:00 04/18/25 20:56 04/18/25 20:45 04/18/25 20:56 04/18/25 20:45
Physical Exam
General: Well Developed, Well Nourished and No Apparent Distress
HEENT: NormoCephalic, Moist mucous membranes and Atraumatic
Respiratory: Clear
Cardiac: S1/S2, Regular Rhythm and Peripheral Edema; No Murmur or Rub
GI: Soft, Non Tender, Non Distended and Normal Bowel Sounds; No Organomegaly
Rectal: Deferred by Provider
Musculoskeletal: No Clubbing, No Cyanosis and No Edema
Skin: No Rash
Neuro: Nonfocal/grossly intact
Laboratory Results
-
04/18/25 16:10
04/18/25 16:10
Laboratory Results
PT 68.5 Sec (11.4-14.6) H 04/18/25 16:10
INR > 8.0 H* 04/18/25 16:10
Total Bilirubin 0.8 mg/dl (0.2-1.3) 04/18/25 16:10
AST 26 U/L (17-59) 04/18/25 16:10
ALT 10 U/L (0-50) 04/18/25 16:10
Alkaline Phosphatase 92 U/L (38-126) 04/18/25 16:10
Troponin I 0.055 ng/ml H* 04/18/25 19:07
Data Reviewed
-
Lab Data: Labs Reviewed by me
Old Records: Reviewed
Impression/Plan
-
IMPRESSION:
PLAN:
# Dyspnea multifactorial secondary to acute HFpEF exacerbation/COPD exacerbation
-see below
# Acute CHF exacerbation
- Cardiac BNP 2700 from 2800
- Check I's and O's Daily weights
- 40 IV Lasix daily
# Acute on chronic COPD exacerbation
-Initially wheezy
-Baseline 3 to 4 L oxygen
-Continue DuoNebs
- Dexamethasone 4 mg every 12
-Continue budesonide
- Continue chronic azithromycin
# Supratherapeutic INR
- Hold Coumadin
- Recheck INR daily
- Give 2.5 mg oral vitamin K
# Recent epistaxis secondary to supratherapeutic INR
- No bleeding currently
Severe aortic stenosis status post mechanical aortic valve
Paroxysmal atrial fibrillation
- Hold Coumadin
- Continue Nebivolol
Permanent pacemaker
Chronic left bundle branch block
Pulmonary hypertension
Essential hypertension
Hyperlipidemia
- Continue statin
DNR/DNI
DVT prophylaxis�SCDs
Cardiac diet
[2025-04-18 21:45] VITALS: BMI 28.7
[2025-04-18] MEDS: MEPHYTON 2.5 MG PO (21:51)
[2025-04-18 22:20] VITALS: BP 170/75; BMI 29.0
[2025-04-18 22:29] VITALS: BMI 29.0
--- NOTE | 2025-04-18 22:57 | PTCARENOTE ---
Pt arrived from ED to room 408-2 via stretcher. Pt able to stand and pivot into bed with staff assistance. Pt AAOx3, on 4L O2. Able to make needs known. Oriented to room with call bansal within reach. Will continue to monitor pt.
[2025-04-19] VITALS (7 sets, daily range): BP systolic 104–162; BP diastolic 54–78; O2SAT 90; BMI 28.9
--- NOTE | 2025-04-19 03:14 | DOWNTIME ---
There was a [employer] Developer Downtime on 04/19/2025 from 0100 to 04/19/2025 at 0255. Downtime documentation of patient's care, including medication administrations, has been reconciled in the electronic record per guidelines. Refer to the
patient's paper chart under the miscellaneous tab to see printed paper medication records and downtime forms.
[2025-04-19] MEDS: TYLENOL 650 MG PO ×2 (03:45→21:32)
[2025-04-19 06:51] LABS: Hematocrit 39.7 % (39.0-52.0); Hemoglobin 12.5 g/dL (13.0-18.0); Mean Corp Hgb Conc. 31.5 g/dL (33.0-37.0); Mean Corpuscular Volume 89.2 fL (80.0-94.0); Nucleated Red Blood Cells % 0 % (-); Platelet Count 217 10^3/uL (130-400); Red Cell Dist. Width 15.3 % (11.5-14.5)
[2025-04-19 06:55] LABS: PT 59.0 Sec (11.4-14.6)
[2025-04-19 06:59] LABS: INR 7.00
[2025-04-19] MEDS: SYMBICORT 160/4.5 MCG INHALER 2 PUFF INH ×2 (07:17→19:45)
[2025-04-19] MEDS: VENTOLIN NEBULES 2.5 MG INH ×4 (07:17→19:44)
[2025-04-19] MEDS: SPIRIVA RESPIMAT 2.5 MCG 2 PUFF INH (07:17)
[2025-04-19] MEDS: PULMICORT 0.5 MG INH ×2 (07:17→19:44)
[2025-04-19 08:16] LABS: ALT (SGPT) < 10 U/L (0-50); AST (SGOT) 23 U/L (17-59); Albumin 3.9 g/dl (3.5-5.0); Alkaline Phosphatase 85 U/L (38-126); Blood Urea Nitrogen 27 mg/dl (9-20); Calcium 8.8 mg/dl (8.4-10.2); Carbon Dioxide 35 mmol/L (22-30); Chloride 96 mmol/L (98-107); Estimated Creatinine Clearance 55 ml/min; Glucose 159 mg/dl (70-99); Potassium 4.0 mmol/L (3.5-5.1); Sodium 137 mmol/L (135-145); Total Protein 6.3 g/dl (6.3-8.2); eGFR > 60.00
[2025-04-19] MEDS: ZITHROMAX 250 MG PO (08:39)
[2025-04-19] MEDS: LASIX 40 MG IV ×2 (08:39→15:14)
[2025-04-19] MEDS: LOPRESSOR 25 MG PO ×2 (08:40→20:20)
[2025-04-19] MEDS: DECADRON 4 MG IV (09:14)
--- NOTE | 2025-04-19 10:39 | CON.CAR ---
Addendum entered and electronically signed by Saurav Mtz MD 04/19/25 12:28:
I saw and examined the patient.
The ORGAN TEACHER or PA's note was reviewed and I agree with the note.
Comment: General: Well developed, well nourished in NAD.
Neck: Supple, no JVD, HJR, carotids +2 B/L, no bruits bilaterally.
Heart: Non displaced PMI, RRR, no murmurs, No S3, S4, no rubs.
Lungs: Scattered rhonchi
Extremities: No clubbing, cyanosis or edema bilaterally.
Neuro: Grossly nonfocal, awake, alert and oriented x3.
Haja has a history of [employer] mechanical AVR on chronic Coumadin, COPD, PAF, chronic diastolic CHF, hypertension, hyperlipidemia, left bundle branch block. He came to the ER with epistaxis and shortness of breath. He is found to have a
supratherapeutic INR and evidence of CHF. proBNP was 2700 and also was noted to have edema.
Will treat CHF with IV Lasix. He chronically is on oxygen 3 to 4 L at home which he currently is on as well. Will check echocardiogram. Hold Coumadin with supratherapeutic INR
Original Note:
Consultation
Consultation Request
Date/Time Consultation Requested: 04/19/2025
Date/Time Consultation Performed: 04/19/2025
Requesting Provider: Dr. Keller
Performing Provider: Dr. Mtz
Reason for Consultation: Acute HF and supratherapeutic INR
Medical History
-
History of Present Illness:
Patient came to the ER last evening with epistaxis and SOB prompting admission for supratherapeutic INR and acute HF and cardiology is now consulted. Patient was last seen in the office on 12/29/2024 and at that point was feeling well and device
check was performed on 03/16/2025 that showed 11 months of battery longevity and that he was V paced 73% of the time. Patient came to the ER last night for epistaxis, but he denies any blood in his stools or his urine. He typically wears oxygen
between 3 L and 4 L at home, but says he does not typically get nosebleeds. Separately patient's family felt that he appeared to have GREER, the patient denies feeling SOB and denies orthopnea. Patient was unaware that he had edema, but his family
had noticed for him. In the ER proBNP was 2700, during a check in late March the proBNP was 2800 and prior to that was 1900. Highest ever proBNP was 7600. Troponin in the ER was 0.055 without subsequent troponin levels being ordered and patient
denies any chest pain. ECG is V-paced. Patient says overall he feels no different compared to admission despite initial attempts at IV diuresis with Lasix 40 mg IV daily plus treatment for presumed AE COPD with Decadron.
PMH:
Chronic warfarin OAC managed by cardiology
[employer] mechanical AVR
Mean gradient 32 mmHg by echo 07/2024
Chronic hypoxic respiratory failure
COPD
Paroxysmal atrial fibrillation
Chronic HFpEF
Hypertension
Hyperlipidemia
LBBB
Past Medical History
Past Medical History: Other (Paroxysmal atrial fibrillation, permanent pacemaker, mechanical aortic valve replacement, COPD on home oxygen, chronic heart failure with preserved ejection fraction, hypertension, hyperlipidemia,)
Past Surgical History: Cardiac (Mechanical AVR, permanent pacemaker) and Other (Hernia surgery x 2, cataract, left rotator cuff surgery)
Social History
Tobacco: Non-Smoker
Alcohol: None
Drug: None
Living: With Family
Employment: Retired
Family History
Family History: Hypertension
Allergies / Home Medications
Allergy/AdvReac Type Severity Reaction Status Date / Time
codeine Allergy Irritabilit Verified 12/21/23 18:34
y
�Medication �Instructions �Recorded �Confirmed �Type
budesonide 160 mcg-glycopyr 9 2 inh inhalation R BID 08/08/22 04/18/25 History
mcg-formot 4.8 mcg/actuation HFA Lung/breathing issues
inhaler (Breztri Aerosphere)
nebivolol 5 mg tablet (Bystolic) 5 mg PO DAILY Heart 08/08/22 04/18/25 History
disease/condition
albuterol sulfate 2.5 mg/3 mL 2.5 mg inhalation R BID 11/09/23 04/18/25 History
(0.083 %) solution for nebulization Lung/Breathing Issues
azithromycin 250 mg tablet 250 mg PO DAILY Infection 11/09/23 04/18/25 History
budesonide 0.5 mg/2 mL suspension 0.5 mg (2 mL) inhalation R BID 11/21/23 04/18/25 Rx
for nebulization Lung/breathing issues #0 mL
furosemide 40 mg tablet 40 mg PO DAILY Fluid 11/21/23 04/18/25 Rx
retention/Swelling #30 tabs
simvastatin 40 mg tablet 40 mg PO QPM High Cholesterol 12/21/23 04/18/25 History
prednisone 10 mg tablet 10 mg PO DAILY INFLAMMATION 04/18/25 04/18/25 History
warfarin 5 mg tablet 7 mg PO QPM Blood Clot 04/18/25 04/18/25 History
Prevention/Tx
Review of Systems
-
History Source: Patient
All other systems: Negative unless noted
Physical Exam
Vital Signs
Temp Pulse Resp BP Pulse Ox
98 F 70 20 148/65 99
04/19/25 08:00 04/19/25 08:39 04/19/25 08:00 04/19/25 08:39 04/19/25 08:00
GEN: NAD. AAO x 3, hard of hearing
HEENT: EOMI, MMM
LUNGS: 4 L NC. CTA, no wheezes/rales
CV: V paced on telemetry. Reg, S1/S2, no murmur
ABD: ND
EXT: +2 pitting B/L LE edema
NEURO: Gross non-focal
SKIN: No rash
Lab Results
04/19/25 06:14
04/19/25 06:14
Troponin I 0.055 ng/ml H* 04/18/25 19:07
Tbx-K-[id number] Pept 2700 pg/ml 04/18/25 19:07
Impression / Plan
-
PCP: Dr. Maguire
Rent Collector: Dr. Copeland
Impression:
Admitted with acute HF and supratherapeutic INR 04/18/2025
Supratherapeutic INR
Chronic warfarin OAC managed by cardiology
[employer] mechanical AVR
Mean gradient 32 mmHg by echo 07/2024
Acute on chronic hypoxic respiratory failure
COPD w/ acute exacerbation
Chronically uses 3 to 4 L NC at home
Paroxysmal atrial fibrillation
Acute on chronic HFpEF
Hypertension
Hyperlipidemia
LBBB
Echo 08/18/2022:�Ejection fraction 50 to 55% with moderate concentric LVH, status post mechanical prosthetic [employer] aortic valve with mean gradient of 58 mmHg.� Dimensionless index was 0.4 it may have been due to high output state.
Echo 11/16/2023: EF 52%, mild concentric LVH, well-seated mechanical aortic valve replacement with peak/mean gradients 38/19 mmHg, trace AI, mild MR, mild TR, estimated PAP 35 mmHg
Echo 07/21/2024: EF 51%, mild mitral stenosis peak/mean 10/4 mmHg, mechanical AVR with peak/mean 57/32 mmHg and no aortic regurgitation, sinus of Valsalva and ascending aorta dilatation, compared to echo from 10/2023 the aortic valve gradients have
increased
Plan:
-Patient came to the ER last evening with epistaxis and SOB prompting admission for supratherapeutic INR and acute HF and cardiology is now consulted. Patient was last seen in the office on 12/29/2024 and at that point was feeling well and device
check was performed on 03/16/2025 that showed 11 months of battery longevity and that he was V paced 73% of the time. Patient came to the ER last night for epistaxis, but he denies any blood in his stools or his urine. He typically wears oxygen
between 3 L and 4 L at home, but says he does not typically get nosebleeds. Separately patient's family felt that he appeared to have GREER, the patient denies feeling SOB and denies orthopnea. Patient was unaware that he had edema, but his family
had noticed for him. In the ER proBNP was 2700, during a check in late March the proBNP was 2800 and prior to that was 1900. Highest ever proBNP was 7600. Troponin in the ER was 0.055 without subsequent troponin levels being ordered and patient
denies any chest pain. ECG is V-paced. Patient says overall he feels no different compared to admission despite initial attempts at IV diuresis with Lasix 40 mg IV daily plus treatment for presumed AE COPD with Decadron.
-ECG reviewed by me is V paced with what appears to be underlying sinus rhythm
-Patient admitted with acute HF and proBNP is 2700, proBNP has been as low as 1900 in the last 6-months and previously 7500 during heart failure admission 10/2023.
-Patient cannot recall his dry weight, but previous dry weight at time of heart failure discharge 11/22/2023 was 172 lbs and patient currently weighs 190 lbs on 04/19/2025.
-Lasix 40 mg IV daily as currently ordered and patient was taking Lasix 40 mg PO daily prior to admission. Lasix dose increased to 40 mg IV BID on 04/19/2025, orders placed by me
-Cre stable at 1.0. No evidence of pleural effusion on CXR.
-EF was 51% by echo 07/21/2024 and there was also concern about increasing mechanical AVR gradients. Patient has not had fluoroscopy of his AVR and not clear what treatment options would be if fluoroscopy performed and indicated valve dysfunction.
For now we will recheck echo to follow-up on EF and aortic valve gradients and pending those results could consider fluoroscopy.
-Outpatient dose of Bystolic 5 mg daily was changed to Lopressor 25 mg BID on admission for unclear reasons
-Patient is not chronically on VANDANA/ARB/ARNI/aldosterone antagonist due to preserved EF and this is his first admission for acute HF in over a year. Will reassess GDMT
-Start lisinopril 5 mg daily, orders placed by me
-Patient is chronically on warfarin 7 mg daily following mechanical AVR in the . INR is managed by cardiology using home monitor with an INR goal of 2.5-3.5. INR was greater than 8 on admission and patient was given vitamin K 2.5 mg PO x 1 in
the ER on 04/18/2025. INR level is down to 7.0 on 04/19/2025. Warfarin dosing remains on hold.
-Troponin was 0.055 in the ER without additional troponin levels being ordered. Patient denies chest pain. ECG is nondiagnostic. Check follow-up troponin levels, suspect this is nonischemic myocardial infarct or troponin elevation due to acute HF.
-Patient is also being managed for AE COPD with Decadron in addition to his usual dose of azithromycin. Patient usually wears 3 to 4 L NC at home and is currently on 3 L NC.
-Patient has an [employer] PPM in place. Device checked on 03/16/2025 and he had 11 months of battery longevity. Will arrange for repeat device check this admission.
--- NOTE | 2025-04-19 10:53 | W.CARD.DEVCH ---
Cardiac Device Check
-
Device: Pacemaker
Bookmobile Clerk: [employer]
The patient's device was interrogated with assistance of the device service center representative followed by a complete physician review. The device had normal function. No abnormalities seen.
Patient had device check in the cardiology office on 03/16/2025 and at that time battery longevity was estimated at 11 months, patient programmed to DDDR with a base rate of 60 and was V pacing 73% of the time, there were 4 mode switches with the
longest being 15 seconds.
Device check repeated by me on 04/19/2025, patient is not pacemaker dependent and V paces 57% of the time, he had 2 brief runs of A. tach both were less than 10 seconds in duration, no other arrhythmia battery longevity 10.2 months.
[2025-04-19] MEDS: ZESTRIL 5 MG PO (13:30)
--- NOTE | 2025-04-19 13:42 | W.PN.HOSP.TC ---
Today's Communication/Plan
-
Hold coumading
cont iv lasix
Assessment / Plan
Assessment / Plan
Physical Exam
General: Well Developed, Well Nourished and No Apparent Distress
HEENT: NormoCephalic, Moist mucous membranes and Atraumatic
Respiratory: Clear
Cardiac: S1/S2, Regular Rhythm and Peripheral Edema; No Murmur or Rub
GI: Soft, Non Tender, Non Distended and Normal Bowel Sounds; No Organomegaly
Rectal: Deferred by Provider
Musculoskeletal: No Clubbing, No Cyanosis and No Edema
Skin: No Rash
Neuro: Nonfocal/grossly intact
PLAN:
# Dyspnea multifactorial secondary to acute HFpEF exacerbation +/- COPD exacerbation
-see below
# Acute CHF exacerbation
- Cardiac BNP 2700 from 2800
- Check I's and O's Daily weights
- Cont 40 IV Lasix daily
-ECHO
-Cards consulted
# Acute on chronic COPD exacerbation
#Chronic Hypoxic Respiratory Failure (baseline 3-4L 02)
-Likely related to CHF exacerbation, wheezing resolved
-Baseline 3 to 4 L oxygen
-Continue DuoNebs
- stop steroids and monitor
-Continue budesonide
- Continue chronic azithromycin
# Supratherapeutic INR
- Hold Coumadin
- Recheck INR daily
- Give 2.5 mg oral vitamin K
#Elevated troponin
� Most likely nonischemic myocardial injury secondary to heart failure exacerbation
� No chest pain
� Cards on board
# Recent epistaxis secondary to supratherapeutic INR
- No bleeding currently
Severe aortic stenosis status post mechanical aortic valve
�Coumadin, held
Paroxysmal atrial fibrillation
- Hold Coumadin
- Continue Nebivolol
Permanent pacemaker
Chronic left bundle branch block
Pulmonary hypertension
Essential hypertension
Hyperlipidemia
- Continue statin
DNR/DNI
DVT prophylaxis�SCDs
Cardiac diet
Anticipated Discharge: 24 - 48 hours
Subjective/Interval History
-
Date of Service: April 19, 2025
No acute events overnight
Objective Data
-
Labs:
Laboratory Results
04/19/25
06:14
WBC 5.1
Hgb 12.5 L
Hct 39.7
Plt Count 217
PT 59.0 H
INR 7.00 H*
Sodium 137
Potassium 4.0
Chloride 96 L
Carbon Dioxide 35 H
BUN 27 H
Creatinine 1.0
Glucose 159 H
Calcium 8.8
Total Bilirubin 0.7
AST 23
ALT < 10
Alkaline Phosphatase 85
Vital Signs:
Vital Signs
Temp Pulse Resp BP Pulse Ox
97.9 F 84 18 140/71 97
04/19/25 11:31 04/19/25 13:30 04/19/25 11:31 04/19/25 13:30 04/19/25 11:31
I&O
04/18/25 04/19/25 04/20/25
06:59 06:59 06:59
Intake Total 240 / 240 480 / 480
Output Total 400 / 400 650 / 650
Balance -160 / -160 -170 / -170
Review of Systems
-
History Source: Patient
All other systems: Not reviewed unless documented
Data Reviewed
-
Diagnostic Radiology: Report Reviewed by me
Labs: Labs Reviewed by me
--- NOTE | 2025-04-19 14:25 | VNURNOTE ---
Home health liaison met with patient to discuss [facility] services, visit frequency, homebound status. Patient states he checks his own INR and weighs himself daily. Patient declining the need for home care services at this time. AMARI Pedersen notified
--- NOTE | 2025-04-19 15:41 | CM ---
Addendum entered by Olena Pierce 04/19/25 15:59:
No insecurities identified.
PCP: Armond Maguire
RX: Jorge/Ronald
Original Note:
IA completed with assistance of son, Anupam.
Pt is at [facility] in independent living.
HE uses a rolling walker. Has a scooter
Has O2 at home 3-4 LPM via nasal canula. Company is [employer]. Has a concentrator, a portable pulse oxygen delivery system and nebulizer. He does not have a portable tank
Hx of HH with [facility] for PT, OT, and nurse
Hx of SNF at [facility]. They would be open to going there again if needed
Pt would be eligible for VN for both CHF and COPD. Would need an order or CM consult
Pt is currently on 4 LPM O2 n/c
Plan: Return to [facility] vs services added. Will watch for DC needs
[2025-04-19] MEDS: LIPITOR 20 MG PO (17:09)
[2025-04-20 03:27] VITALS: BP 134/58
[2025-04-20 06:00] VITALS: BMI 28.8
[2025-04-20] MEDS: PULMICORT 0.5 MG INH ×2 (07:16→19:48)
[2025-04-20] MEDS: SPIRIVA RESPIMAT 2.5 MCG 2 PUFF INH (07:17)
[2025-04-20] MEDS: SYMBICORT 160/4.5 MCG INHALER 2 PUFF INH ×2 (07:17→19:48)
[2025-04-20] MEDS: VENTOLIN NEBULES 2.5 MG INH ×4 (07:17→19:48)
[2025-04-20 07:25] VITALS: BP 124/59
[2025-04-20 07:38] LABS: Hematocrit 38.6 % (39.0-52.0); Hemoglobin 12.6 g/dL (13.0-18.0); Mean Corp Hgb Conc. 32.6 g/dL (33.0-37.0); Mean Corpuscular Volume 87.3 fL (80.0-94.0); Platelet Count 251 10^3/uL (130-400); Red Cell Dist. Width 15.3 % (11.5-14.5)
[2025-04-20 07:42] LABS: INR 2.29; PT 25.7 Sec (11.4-14.6)
[2025-04-20 07:54] LABS: Blood Urea Nitrogen 30 mg/dl (9-20); Calcium 8.9 mg/dl (8.4-10.2); Chloride 94 mmol/L (98-107); Estimated Creatinine Clearance 46 ml/min; Glucose 112 mg/dl (70-99); Sodium 137 mmol/L (135-145); eGFR > 60.00
[2025-04-20] MEDS: ZITHROMAX 250 MG PO (07:57)
[2025-04-20] MEDS: LASIX 40 MG IV ×2 (07:58→15:52)
[2025-04-20] MEDS: ZESTRIL 5 MG PO (07:59)
[2025-04-20] MEDS: TYLENOL 650 MG PO ×2 (07:59→19:11)
[2025-04-20] MEDS: LOPRESSOR 25 MG PO ×2 (07:59→20:42)
[2025-04-20 08:03] LABS: Potassium 4.0 mmol/L (3.5-5.1)
[2025-04-20 08:06] LABS: Troponin I 0.042 ng/ml
--- NOTE | 2025-04-20 09:37 | PN.CDI ---
CDI
- -
CDI:
Physician Documentation Request
Admit Date: 04/18/25 21:28
Dear Doctor,
Please review the following and provide your response in the progress notes.
Clinical Indicators:
Pt admitted with Supratherapeutic INR, Acute HFpEF, and Acute on chronic COPD exacerbation
04/19 PN: ' Supratherapeutic INR
- Hold Coumadin
Recent epistaxis secondary to supratherapeutic INR'
Please clarify the relationship between these conditions:
Yes, Supratherapeutic INR and recent epistaxis is related to/associated with/due to Coumadin.
No, Supratherapeutic INR and recent epistaxis is not related to/associated with/due to Coumadin
Other
Use of terms such as suspected, likely, concern for, or probable (associated with a specific diagnosis that is being evaluated, monitored, or treated as if it exists) are acceptable and can be coded in the inpatient setting, when documented at the
time of discharge.
Thank you,
Vera Leonardo RN, BSN
CDI Specialist
[place] text
Please use your independent medical judgment in providing your response.
[2025-04-20 09:59] LABS: Carbon Dioxide 38 mmol/L (22-30)
[2025-04-20 11:05] VITALS: BP 121/53
--- NOTE | 2025-04-20 13:45 | W.PN.HOSP.TC ---
Today's Communication/Plan
-
Diuretics
Coumadin
Assessment / Plan
Assessment / Plan
Physical Exam
General: Well Developed, Well Nourished and No Apparent Distress
HEENT: NormoCephalic, Moist mucous membranes and Atraumatic
Respiratory: Clear
Cardiac: S1/S2, Regular Rhythm and Peripheral Edema; No Murmur or Rub
GI: Soft, Non Tender, Non Distended and Normal Bowel Sounds; No Organomegaly
Rectal: Deferred by Provider
Musculoskeletal: No Clubbing, No Cyanosis and No Edema
Skin: No Rash
Neuro: Nonfocal/grossly intact
PLAN:
# Dyspnea multifactorial secondary to acute HFpEF exacerbation +/- COPD exacerbation
-see below
# Acute CHF exacerbation
- Cardiac BNP 2700 from 2800
- Check I's and O's Daily weights
- Cont 40 IV Lasix twice daily
-ECHO
-Cards consulted
-Dry weight appears to be 172lb
# Acute on chronic COPD exacerbation
#Chronic Hypoxic Respiratory Failure (baseline 3-4L 02)
-Likely related to CHF exacerbation, wheezing resolved
-Baseline 3 to 4 L oxygen
-Continue DuoNebs
- stop steroids and monitor
-Continue budesonide
- Continue chronic azithromycin
# Supratherapeutic INR
� INR goal 2.5-3.5
- Hold Coumadin
- Recheck INR daily
- Give 2.5 mg oral vitamin K
#Elevated troponin
� Most likely nonischemic myocardial injury secondary to heart failure exacerbation
� No chest pain
� Cards on board
# Recent epistaxis secondary to supratherapeutic INR
- No bleeding currently
Severe aortic stenosis status post mechanical aortic valve
�Coumadin
Paroxysmal atrial fibrillation
- Coumadin
- Continue Nebivolol
Permanent pacemaker
Chronic left bundle branch block
Pulmonary hypertension
Essential hypertension
Hyperlipidemia
- Continue statin
DNR/DNI
DVT prophylaxis�Coumadin
Cardiac diet
Anticipated Discharge: 24 - 48 hours
Subjective/Interval History
-
Date of Service: April 20, 2025
No acute events overnight. Lower extremity edema +2
Objective Data
-
Labs:
Laboratory Results
04/20/25
06:58
WBC 10.9 H
Hgb 12.6 L
Hct 38.6 L
Plt Count 251
PT 25.7 H
INR 2.29 D
Sodium 137
Potassium 4.0
Chloride 94 L
Carbon Dioxide 38 H
BUN 30 H
Creatinine 1.2
Glucose 112 H
Calcium 8.9
Vital Signs:
Vital Signs
Temp Pulse Resp BP Pulse Ox
97.6 F 80 14 121/53 97
04/20/25 11:05 04/20/25 11:08 04/20/25 11:08 04/20/25 11:05 04/20/25 11:05
I&O
04/19/25 04/20/25 04/21/25
06:59 06:59 06:59
Intake Total 240 / 240 1920 / 1920
Output Total 400 / 400 750 / 750
Balance -160 / -160 1170 / 1170
Review of Systems
-
History Source: Patient
All other systems: Not reviewed unless documented
Data Reviewed
-
Diagnostic Radiology: Report Reviewed by me
Labs: Labs Reviewed by me
--- NOTE | 2025-04-20 14:28 | W.PN.CARDCBS ---
Today's Communication / Plan
-
Continue diuresis likely switch to oral diuretic in the morning
INR 2.29 had received 2.5 mg of oral vitamin K. No bleeding noted. Resume warfarin 6 mg and recheck INR in AM.
Reassess echo
Pacemaker check pending.
Impression / Plan
-
PCP: Dr. Maguire
Level Glass Vial Filler: Dr. Copeland
Impression:
Admitted with acute HF and supratherapeutic INR 04/18/2025
Supratherapeutic INR
Acute on chronic HFpEF
Chronic warfarin OAC managed by cardiology
[facility] mechanical AVR
Mean gradient 32 mmHg by echo 07/2024
Acute on chronic hypoxic respiratory failure
COPD w/ acute exacerbation
Chronically uses 3 to 4 L NC at home
Paroxysmal atrial fibrillation
Hypertension
Hyperlipidemia
LBBB
Echo 08/18/2022:�Ejection fraction 50 to 55% with moderate concentric LVH, status post mechanical prosthetic [facility] aortic valve with mean gradient of 58 mmHg.� Dimensionless index was 0.4 it may have been due to high output state.
Echo 11/16/2023: EF 52%, mild concentric LVH, well-seated mechanical aortic valve replacement with peak/mean gradients 38/19 mmHg, trace AI, mild MR, mild TR, estimated PAP 35 mmHg
Echo 07/21/2024: EF 51%, mild mitral stenosis peak/mean 10/4 mmHg, mechanical AVR with peak/mean 57/32 mmHg and no aortic regurgitation, sinus of Valsalva and ascending aorta dilatation, compared to echo from 10/2023 the aortic valve gradients have
increased
Plan:
He is doing better today. He was admitted with acute heart failure with volume overload. He is less short of breath after diuresis. Continue IV diuretic. Creatinine slightly increased. He may be ready to switch to oral diuretics in the morning.
Telemetry reviewed and stable. Unknown dry weight.
- Likely switch to oral diuretic in the morning
- Follow blood work
Supratherapeutic INR noted on admission. He initially was admitted with epistaxis and SOB along with supratherapeutic INR. He did receive vitamin K 1 dose of oral 2.5 mg in the ER. INR has decreased now to 2.29. He does have mechanical aortic
valve. Goal INR 2.5-3.5.
- Usual doses of warfarin is 7 mg daily. I will start 6 mg daily of warfarin.
- Check INR in the morning.
- Of note prior valve gradients are somewhat elevated. Repeat echocardiogram.
He has underlying lung disease for which he is on home oxygen for COPD. Oxygen status currently stable.
Patient has an [facility] [employer] PPM in place. Device checked on 03/16/2025 and he had 11 months of battery longevity. Await recheck.
Progress Note - Level Glass Vial Filler
Subjective
Date of Service: April 20, 2025
He is feeling better today. Less short of breath. Lower extremity edema persistent and chronic per patient.
Objective
Labs:
04/20/25 06:58
04/20/25 06:58
Labs
Hgb 12.6 g/dL (13.0-18.0) L 04/20/25 06:58
Hct 38.6 % (39.0-52.0) L 04/20/25 06:58
Plt Count 251 10^3/uL (130-400) 04/20/25 06:58
PT 25.7 Sec (11.4-14.6) H 04/20/25 06:58
INR 2.29 D 04/20/25 06:58
Sodium 137 mmol/L (135-145) 04/20/25 06:58
Potassium 4.0 mmol/L (3.5-5.1) 04/20/25 06:58
BUN 30 mg/dl (9-20) H 04/20/25 06:58
Creatinine 1.2 mg/dL (0.7-1.3) 04/20/25 06:58
Glucose 112 mg/dl (70-99) H 04/20/25 06:58
Troponins
04/18/25 04/20/25
19:07 06:58
Troponin I 0.055 H* 0.042 H*
Vital Signs and I&O:
Vital Signs
Temp Pulse Resp BP Pulse Ox
97.6 F 80 14 121/53 97
04/20/25 11:05 04/20/25 11:08 04/20/25 11:08 04/20/25 11:05 04/20/25 11:05
Vital Signs
Temp Pulse Resp BP Pulse Ox
97.6 F 80 14 121/53 97
04/20/25 11:05 04/20/25 11:08 04/20/25 11:08 04/20/25 11:05 04/20/25 11:05
Intake & Output
04/18/25 04/19/25 04/20/25 04/21/25
06:59 06:59 06:59 06:59
Intake Total 240 / 240 1920 / 1920
Output Total 400 / 400 750 / 750
Balance -160 / -160 1170 / 1170
Physical Exam
Physical Exam
General: Well developed, well nourished in NAD.
Heart: Distant heart sounds
Lungs: Oxygen in place decreased breath sounds throughout..
Extremities: No clubbing, cyanosis +1 edema bilaterally.
Neuro: Grossly nonfocal, awake, alert
[2025-04-20 15:38] VITALS: BP 127/60
[2025-04-20] MEDS: LIPITOR 20 MG PO (17:11)
[2025-04-20] MEDS: COUMADIN 6 MG PO (17:12)
[2025-04-20 19:00] VITALS: BP 106/51
[2025-04-20 23:02] VITALS: BP 111/50
[2025-04-21 03:02] VITALS: BP 116/60
[2025-04-21 06:00] VITALS: BMI 29.1
[2025-04-21] MEDS: SPIRIVA RESPIMAT 2.5 MCG 2 PUFF INH (07:23)
[2025-04-21] MEDS: PULMICORT 0.5 MG INH ×2 (07:23→20:04)
[2025-04-21] MEDS: SYMBICORT 160/4.5 MCG INHALER 2 PUFF INH ×2 (07:23→20:03)
[2025-04-21] MEDS: VENTOLIN NEBULES 2.5 MG INH ×4 (07:23→20:04)
[2025-04-21 07:51] VITALS: BP 128/62
[2025-04-21 07:55] LABS: Hematocrit 39.7 % (39.0-52.0); Hemoglobin 12.8 g/dL (13.0-18.0); Mean Corp Hgb Conc. 32.2 g/dL (33.0-37.0); Mean Corpuscular Volume 87.1 fL (80.0-94.0); Platelet Count 250 10^3/uL (130-400); Red Cell Dist. Width 15.8 % (11.5-14.5)
[2025-04-21 08:03] LABS: INR 2.07; PT 23.4 Sec (11.4-14.6)
[2025-04-21 08:40] LABS: Blood Urea Nitrogen 36 mg/dl (9-20); Calcium 8.7 mg/dl (8.4-10.2); Chloride 94 mmol/L (98-107); Estimated Creatinine Clearance 46 ml/min; Glucose 85 mg/dl (70-99); Potassium 3.9 mmol/L (3.5-5.1); Sodium 137 mmol/L (135-145); eGFR > 60.00
[2025-04-21 08:55] LABS: Carbon Dioxide 37 mmol/L (22-30)
[2025-04-21] MEDS: LOPRESSOR 25 MG PO ×2 (09:27→20:18)
[2025-04-21] MEDS: ZITHROMAX 250 MG PO (09:27)
[2025-04-21] MEDS: LASIX 40 MG IV ×2 (09:27→15:26)
[2025-04-21] MEDS: ZESTRIL 5 MG PO (09:27)
--- NOTE | 2025-04-21 10:14 | CM ---
Addendum entered by Olena Pierce 04/21/25 14:31:
Plan: probable DC in the a.m.
Addendum entered by Olena Pierce 04/21/25 14:17:
Son will drive pt home when ready. Please call son, Anupam, with any new information,the pt is very forgetful.
Original Note:
Met with pt at bedside. Revisited offer of VN. He is agreeable and has hx with [facility]. He is agreeable to resume care with them. referral Placed
Plan: home with [facility] VN.
[2025-04-21 11:50] VITALS: BP 124/56
[2025-04-21] MEDS: TYLENOL 650 MG PO ×3 (12:01→23:21)
--- NOTE | 2025-04-21 13:02 | W.PN.HOSP.TC ---
Today's Communication/Plan
-
Transition to PO lasix, defer to Cards for dosing
Coumadin tonight
Assessment / Plan
Assessment / Plan
Physical Exam
General: Well Developed, Well Nourished and No Apparent Distress
HEENT: NormoCephalic, Moist mucous membranes and Atraumatic
Respiratory: Clear
Cardiac: S1/S2, Regular Rhythm and Peripheral Edema; No Murmur or Rub
GI: Soft, Non Tender, Non Distended and Normal Bowel Sounds; No Organomegaly
Rectal: Deferred by Provider
Musculoskeletal: No Clubbing, No Cyanosis and No Edema
Skin: No Rash
Neuro: Nonfocal/grossly intact
PLAN:
# Dyspnea multifactorial secondary to acute HFpEF exacerbation +/- COPD exacerbation
-see below
# Acute CHF exacerbation
- Cardiac BNP 2700 from 2800
- Check I's and O's Daily weights
- Cont 40 IV Lasix twice daily�can likely switch over to oral Lasix today v christi;
-ECHO - Moderate to severe aortic valve stenosis; [facility] aortic valve replacement. Stage II diastolic dysfunction
-Cards consulted
-Dry weight appears to be 172lb
# Acute on chronic COPD exacerbation
#Chronic Hypoxic Respiratory Failure (baseline 3-4L 02)
-Likely related to CHF exacerbation, wheezing resolved
-Baseline 3 to 4 L oxygen
-Continue DuoNebs
- stop steroids and monitor
-Continue budesonide
- Continue chronic azithromycin
# Supratherapeutic INR
� INR goal 2.5-3.5
- Coumadin today; received 6mg yesterday; anticipate same dose again
- Recheck INR daily
- Give 2.5 mg oral vitamin K
#Elevated troponin
� Most likely nonischemic myocardial injury secondary to heart failure exacerbation
� No chest pain
� Cards on board
# Recent epistaxis secondary to supratherapeutic INR
- No bleeding currently
Severe aortic stenosis status post mechanical aortic valve
�Coumadin
Paroxysmal atrial fibrillation
- Coumadin
- Continue Nebivolol
Permanent pacemaker
Chronic left bundle branch block
Pulmonary hypertension
Essential hypertension
Hyperlipidemia
- Continue statin
DNR/DNI
DVT prophylaxis�Coumadin
Cardiac diet
Anticipated Discharge: 24 - 48 hours
Subjective/Interval History
-
Date of Service: April 21, 2025
No acute overnight
Objective Data
-
Labs:
Laboratory Results
04/21/25
07:36
WBC 8.7
Hgb 12.8 L
Hct 39.7
Plt Count 250
PT 23.4 H
INR 2.07
Sodium 137
Potassium 3.9
Chloride 94 L
Carbon Dioxide 37 H
BUN 36 H
Creatinine 1.2
Glucose 85
Calcium 8.7
Vital Signs:
Vital Signs
Temp Pulse Resp BP Pulse Ox
98 F 62 20 124/56 98
04/21/25 11:50 04/21/25 11:50 04/21/25 11:50 04/21/25 11:50 04/21/25 11:50
I&O
04/20/25 04/21/25 04/22/25
06:59 06:59 06:59
Intake Total 1920 / 1920 1620 / 1620 240 / 240
Output Total 750 / 750 250 / 250
Balance 1170 / 1170 1370 / 1370 240 / 240
Review of Systems
-
History Source: Patient
All other systems: Not reviewed unless documented
Physical Exam
-
General: No Apparent Distress
HEENT: Moist Mucous Membranes
Respiratory: Clear to Auscultation
Cardiac: Regular Rhythm and S1/S2
GI: Soft
Neuro: AO x 3
Psych: Calm
Data Reviewed
-
Diagnostic Radiology: Report Reviewed by me
Labs: Labs Reviewed by me
[2025-04-21 14:01] LABS: Hematocrit 38.6 % (39.0-52.0); Hemoglobin 12.6 g/dL (13.0-18.0); Mean Corp Hgb Conc. 32.6 g/dL (33.0-37.0); Mean Corpuscular Volume 89.6 fL (80.0-94.0); Platelet Count 256 10^3/uL (130-400); Red Cell Dist. Width 15.7 % (11.5-14.5)
[2025-04-21 14:08] LABS: APTT 31.3 Sec (23.4-35.0)
--- NOTE | 2025-04-21 14:12 | W.PN.CARDCBS ---
Addendum entered and electronically signed by Preethi Lopes MD 04/21/25 14:54:
I saw and examined the patient.
The Crop Quantitative Geneticist's note was reviewed and I agree with the note.
General: Well developed, well nourished in NAD. Sitting in chair.
Heart: Distant heart sounds. Mechanical click
Lungs: Oxygen in place. Dry crackles.
Extremities: No clubbing, cyanosis and +1 edema bilaterally.
Neuro: Grossly nonfocal, awake, alert
Comment:
He was admitted with epistaxis which has not recurred, supratherapeutic INR and acute heart failure with volume overload.
He is feeling okay overall today. Still with lower extremity edema. Shortness of breath is near baseline by report. INR remains subtherapeutic in the setting of mechanical aortic valve with increased gradients which by echocardiogram remained
stable but more elevated than expected as prior.
Supratherapeutic INR noted on admission in the setting of epistaxis. He did receive vitamin K 1 dose of oral 2.5 mg in the ER. INR has decreased now to 2.09. He does have mechanical aortic valve as noted with increased gradients. Goal INR
2.5-3.5.
- Usual doses of warfarin is 7 mg daily. On 04/20/2025 and 04/21/2025 he received 6 mg of warfarin each day.
- Given he is not therapeutic we will start IV heparin. We did discuss home Lovenox but he is hesitant.
- Check INR in the morning.
- Of note prior valve gradients are elevated but stable. Followed by usual relationship executive.
Heart failure with preserved ejection fraction. Still seems mildly volume overloaded.
- Continue current oral Lasix dose
- Will give an extra one-time dose of IV Lasix 40 mg.
- Reassess volume status in a.m.
He has underlying lung disease for which he is on home oxygen for COPD. Oxygen status currently stable.
Patient has an [facility] PPM in place. Device checked on 04/19/25 and stable.
Original Note:
Today's Communication / Plan
-
Will give another dose of IV lasix tonight and transition to PO lasix 40mg daily in AM
Warfarin 6mg again today, but also starting IV heparin given INR 2.07.
Continue to follow INR
Follow daily weights.
Cardiology follow up arranged.
Impression / Plan
-
PCP: Dr. Maguire
Joint Maker Machine: Dr. Copeland
Impression:
Admitted with acute HF and supratherapeutic INR 04/18/2025
Supratherapeutic INR
Acute on chronic HFpEF
Chronic warfarin OAC managed by cardiology
[facility] mechanical AVR
Mean gradient 32 mmHg by echo 07/2024
Acute on chronic hypoxic respiratory failure
COPD w/ acute exacerbation
Chronically uses 3 to 4 L NC at home
Paroxysmal atrial fibrillation
Hypertension
Hyperlipidemia
LBBB
Echo 08/18/2022:�Ejection fraction 50 to 55% with moderate concentric LVH, status post mechanical prosthetic [facility] aortic valve with mean gradient of 58 mmHg.� Dimensionless index was 0.4 it may have been due to high output state.
Echo 11/16/2023: EF 52%, mild concentric LVH, well-seated mechanical aortic valve replacement with peak/mean gradients 38/19 mmHg, trace AI, mild MR, mild TR, estimated PAP 35 mmHg
Echo 07/21/2024: EF 51%, mild mitral stenosis peak/mean 10/4 mmHg, mechanical AVR with peak/mean 57/32 mmHg and no aortic regurgitation, sinus of Valsalva and ascending aorta dilatation, compared to echo from 10/2023 the aortic valve gradients have
increased
04/20/2025 with preserved EF and: EF 55%, moderate LVH, stage II diastolic dysfunction, moderate to severe with peak/mean gradients 58/34 mmHg, status post mechanical AVR, trace MR, trace TR, estimated PAP 39 mmHg
Plan:
-Presented with acute heart failure and supratherapeutic INR with INR >8 on arrival.
-Breathing continues to improve and he is at his baseline O2 requirements. Creat stable overnight at 1.2.
-He has been diuresing with IV lasix 40mg BID, will plan to transition to PO lasix 40mg daily in AM, but will give another dose of IV lasix tonight.
-Weight up 2lbs overnight if accurate to 191 lbs. Continue to follow daily weights, I&Os.
-INR continues to drift downward after receiving a PO vitamin K 2.5mg in ER 04/18. INR 04/21 down to 2.07. Goal INR 2.5 to 3.5 w/ mechanical aortic valve.
-Warfarin 6mg given 04/20 and another 6mg given 04/21. Given INR down to 2.07, will start heparin bridge.
-Echo stable, moderate to severe aortic stenosis.
-He remains on 3 to 4 L NC which is his baseline.
-PPM in place. Device checked 04/19/2025 with normal device function. 2 brief runs of atrial tachycardia which were less than 10 seconds in duration. No other arrhythmia. Battery longevity 10.2 months.
-Follow up arranged with his primary relationship executive.
Progress Note - Joint Maker Machine
Subjective
Date of Service: April 21, 2025
Feels breathing is at baseline, however still w/ LE edema.
Objective
Labs:
04/21/25 13:34
04/21/25 07:36
Labs
Hgb 12.6 g/dL (13.0-18.0) L 04/21/25 13:34
Hct 38.6 % (39.0-52.0) L 04/21/25 13:34
Plt Count 256 10^3/uL (130-400) 04/21/25 13:34
PT 23.4 Sec (11.4-14.6) H 04/21/25 07:36
INR 2.07 04/21/25 07:36
APTT 31.3 Sec (23.4-35.0) 04/21/25 13:34
Sodium 137 mmol/L (135-145) 04/21/25 07:36
Potassium 3.9 mmol/L (3.5-5.1) 04/21/25 07:36
BUN 36 mg/dl (9-20) H 04/21/25 07:36
Creatinine 1.2 mg/dL (0.7-1.3) 04/21/25 07:36
Glucose 85 mg/dl (70-99) 04/21/25 07:36
Troponins
04/18/25 04/20/25
19:07 06:58
Troponin I 0.055 H* 0.042 H*
Vital Signs and I&O:
Vital Signs
Temp Pulse Resp BP Pulse Ox
98 F 62 20 124/56 98
04/21/25 11:50 04/21/25 11:50 04/21/25 11:50 04/21/25 11:50 04/21/25 11:50
Vital Signs
Temp Pulse Resp BP Pulse Ox
98 F 62 20 124/56 98
04/21/25 11:50 04/21/25 11:50 04/21/25 11:50 04/21/25 11:50 04/21/25 11:50
Intake & Output
04/19/25 04/20/25 04/21/25 04/22/25
06:59 06:59 06:59 06:59
Intake Total 240 / 240 1920 / 1920 1620 / 1620 240 / 240
Output Total 400 / 400 750 / 750 250 / 250
Balance -160 / -160 1170 / 1170 1370 / 1370 240 / 240
Physical Exam
Physical Exam
GEN: No distress, awake, alert, oriented
HEENT: supple, anicteric, mmm
LUNGS: CTA b/l, no wheezes/rales
CV: Reg, S1/S2, 2/6 murmur
EXT: No clubbing or cyanosis. +1 edema b/l LE
NEURO: Gross non-focal
SKIN: Warm, dry, no rash
[2025-04-21 15:16] VITALS: BP 116/51
[2025-04-21] MEDS: HEPARIN 25000 UNITS/250 ML IV (15:38)
[2025-04-21] MEDS: COUMADIN 6 MG PO (18:40)
[2025-04-21] MEDS: LIPITOR 20 MG PO (18:40)
[2025-04-21 19:40] VITALS: BP 108/54
[2025-04-21 23:22] VITALS: BP 105/55
[2025-04-21 23:47] LABS: APTT 74.1 Sec (23.4-35.0)
[2025-04-22 03:40] VITALS: BP 127/57
[2025-04-22 05:53] LABS: Hematocrit 38.8 % (39.0-52.0); Hemoglobin 12.4 g/dL (13.0-18.0); Mean Corp Hgb Conc. 32.0 g/dL (33.0-37.0); Mean Corpuscular Volume 89.6 fL (80.0-94.0); Platelet Count 237 10^3/uL (130-400); Red Cell Dist. Width 15.8 % (11.5-14.5)
[2025-04-22 05:57] LABS: INR 2.19; PT 24.5 Sec (11.4-14.6)
[2025-04-22 05:59] LABS: APTT 81.5 Sec (23.4-35.0)
[2025-04-22 06:00] VITALS: BMI 29.0
[2025-04-22 06:10] LABS: Blood Urea Nitrogen 40 mg/dl (9-20); Calcium 8.7 mg/dl (8.4-10.2); Chloride 94 mmol/L (98-107); Estimated Creatinine Clearance 39 ml/min; Glucose 91 mg/dl (70-99); Potassium 3.9 mmol/L (3.5-5.1); Sodium 138 mmol/L (135-145); eGFR 50.18
[2025-04-22 07:00] VITALS: BP 122/60
[2025-04-22 08:03] LABS: Carbon Dioxide 38 mmol/L (22-30)
[2025-04-22] MEDS: PULMICORT 0.5 MG INH ×2 (08:14→20:01)
[2025-04-22] MEDS: VENTOLIN NEBULES 2.5 MG INH ×4 (08:14→20:01)
[2025-04-22] MEDS: SPIRIVA RESPIMAT 2.5 MCG 2 PUFF INH (08:14)
[2025-04-22] MEDS: SYMBICORT 160/4.5 MCG INHALER 2 PUFF INH ×2 (08:15→20:01)
[2025-04-22] MEDS: ZITHROMAX 250 MG PO (08:44)
[2025-04-22] MEDS: ZESTRIL 5 MG PO (08:44)
[2025-04-22] MEDS: LOPRESSOR 25 MG PO ×2 (08:45→19:52)
[2025-04-22] MEDS: LASIX 40 MG PO (08:45)
[2025-04-22 11:00] VITALS: BP 115/53
--- NOTE | 2025-04-22 11:20 | W.PN.CARDCBS ---
Today's Communication / Plan
-
Dosing warfarin
IV heparin bridge
Creatinine 1.4 noted
Change to p.o. Lasix
Impression / Plan
-
PCP: Dr. Maguire
Manufacturers Agent: Dr. Copeland
Impression:
Admitted with acute HF and supratherapeutic INR 04/18/2025
Supratherapeutic INR
Acute on chronic HFpEF
Chronic warfarin OAC managed by cardiology
[facility] mechanical AVR
Mean gradient 32 mmHg by echo 07/2024
Acute on chronic hypoxic respiratory failure
COPD w/ acute exacerbation
Chronically uses 3 to 4 L NC at home
Paroxysmal atrial fibrillation
Hypertension
Hyperlipidemia
LBBB
Echo 08/18/2022:�Ejection fraction 50 to 55% with moderate concentric LVH, status post mechanical prosthetic [facility] aortic valve with mean gradient of 58 mmHg.� Dimensionless index was 0.4 it may have been due to high output state.
Echo 11/16/2023: EF 52%, mild concentric LVH, well-seated mechanical aortic valve replacement with peak/mean gradients 38/19 mmHg, trace AI, mild MR, mild TR, estimated PAP 35 mmHg
Echo 07/21/2024: EF 51%, mild mitral stenosis peak/mean 10/4 mmHg, mechanical AVR with peak/mean 57/32 mmHg and no aortic regurgitation, sinus of Valsalva and ascending aorta dilatation, compared to echo from 10/2023 the aortic valve gradients have
increased
04/20/2025 with preserved EF and: EF 55%, moderate LVH, stage II diastolic dysfunction, moderate to severe with peak/mean gradients 58/34 mmHg, status post mechanical AVR, trace MR, trace TR, estimated PAP 39 mmHg
Plan:
-Presented with acute heart failure and supratherapeutic INR with INR >8 on arrival.
-Breathing continues to improve and he is at his baseline O2 requirements. Creat stable overnight at 1.2.
-He has been diuresing with IV lasix 40mg BID, I would recommend changing to p.o. Lasix 40 mg daily in a.m. on 04/22
-Weight up 2lbs overnight if accurate to 191 lbs. Continue to follow daily weights, I&Os.
-INR continues to drift downward after receiving a PO vitamin K 2.5mg in ER 04/18. INR 04/21 down to 2.07. Goal INR 2.5 to 3.5 w/ mechanical aortic valve.
-Warfarin 6mg given 04/20 and another 6mg given 04/21. Heparin bridge has been started and I renewed heparin. Ordered 6 mg of warfarin tonight. INR noted to be 2.1.
-Echo stable, moderate to severe aortic stenosis.
-He remains on 3 to 4 L NC which is his baseline.
-PPM in place. Device checked 04/19/2025 with normal device function. 2 brief runs of atrial tachycardia which were less than 10 seconds in duration. No other arrhythmia. Battery longevity 10.2 months.
-Follow up arranged with his primary vending machine servicer.
Progress Note - Manufacturers Agent
Subjective
Date of Service: April 22, 2025
Feels about the same
Objective
Labs:
04/22/25 05:35
04/22/25 05:35
Labs
Hgb 12.4 g/dL (13.0-18.0) L 04/22/25 05:35
Hct 38.8 % (39.0-52.0) L 04/22/25 05:35
Plt Count 237 10^3/uL (130-400) 04/22/25 05:35
PT 24.5 Sec (11.4-14.6) H 04/22/25 05:35
INR 2.19 04/22/25 05:35
APTT 81.5 Sec (23.4-35.0) H 04/22/25 05:35
Sodium 138 mmol/L (135-145) 04/22/25 05:35
Potassium 3.9 mmol/L (3.5-5.1) 04/22/25 05:35
BUN 40 mg/dl (9-20) H 04/22/25 05:35
Creatinine 1.4 mg/dL (0.7-1.3) H 04/22/25 05:35
Glucose 91 mg/dl (70-99) 04/22/25 05:35
Troponins
04/20/25
06:58
Troponin I 0.042 H*
Vital Signs and I&O:
Vital Signs
Temp Pulse Resp BP Pulse Ox
97.5 F 70 14 122/60 95
04/22/25 07:00 04/22/25 08:44 04/22/25 08:19 04/22/25 08:44 04/22/25 08:30
Vital Signs
Temp Pulse Resp BP Pulse Ox
97.5 F 70 14 122/60 95
04/22/25 07:00 04/22/25 08:44 04/22/25 08:19 04/22/25 08:44 04/22/25 08:30
Intake & Output
04/20/25 04/21/25 04/22/25 04/23/25
06:59 06:59 06:59 06:59
Intake Total 1920 / 1920 1620 / 1620 1320 / 1320 300 / 300
Output Total 750 / 750 250 / 250 1025 / 1025
Balance 1170 / 1170 1370 / 1370 295 / 295 300 / 300
Physical Exam
Physical Exam
����Physical Exam
���������������������General:��no apparent distress, not acutely ill
���������������������������Neck:��supple. no meningeal signs. normal psoterior pharynx
������������������������
���������������������������Heart:��s1/s2 regular rate and rhythm, no murmur. equal radial pulses.
[facility] mechanical heart sound
��������������������������Lungs: ��no acute respiratory distress. clear bilaterally
����������������������Abdomen:�normal bowel sounds. not tender. no CVAT
��������������������������Neuro:��alert and oriented. no focal neurological deficits
������������������������������Skin: ��no rash
�����������������������Psychiatric:�well kept. interactive and cooperative
�����������������������Extremities:��no edema. no calf tenderness. negative homans. good distal pulses
��
�
--- NOTE | 2025-04-22 11:33 | W.PN.HOSP.TC ---
Addendum entered and electronically signed by Gutierrez Keller MD 04/22/25 14:59:
Yes, Supratherapeutic INR and recent epistaxis is related to/associated with/due to Coumadin.
Original Note:
Today's Communication/Plan
-
heparin to Coumadin bridging
PO Lasix, monitor BMP
Assessment / Plan
Assessment / Plan
Physical Exam
General: Well Developed, Well Nourished and No Apparent Distress
HEENT: NormoCephalic, Moist mucous membranes and Atraumatic
Respiratory: Clear
Cardiac: S1/S2, Regular Rhythm and Peripheral Edema; No Murmur or Rub
GI: Soft, Non Tender, Non Distended and Normal Bowel Sounds; No Organomegaly
Rectal: Deferred by Provider
Musculoskeletal: No Clubbing, No Cyanosis and No Edema
Skin: No Rash
Neuro: Nonfocal/grossly intact
PLAN:
# Dyspnea multifactorial secondary to acute HFpEF exacerbation +/- COPD exacerbation
-see below
# Acute CHF exacerbation
- Cardiac BNP 2700 from 2800
- Check I's and O's Daily weights
- Cont 40 IV Lasix twice daily�switched to PO lasix
-ECHO - Moderate to severe aortic valve stenosis; [facility] aortic valve replacement. Stage II diastolic dysfunction
-Cards consulted
-Dry weight appears to be 172lb
# Acute on chronic COPD exacerbation
#Chronic Hypoxic Respiratory Failure (baseline 3-4L 02)
-Likely related to CHF exacerbation, wheezing resolved
-Baseline 3 to 4 L oxygen
-Continue DuoNebs
- stop steroids and monitor
-Continue budesonide
- Continue chronic azithromycin
# Supratherapeutic INR
� INR goal 2.5-3.5
- Coumadin
- Hep ggt - bridge to coumadin
- Recheck INR daily
- Given 2.5 mg oral vitamin K on admission
#Elevated troponin
� Most likely nonischemic myocardial injury secondary to heart failure exacerbation
� No chest pain
� Cards on board
# Recent epistaxis secondary to supratherapeutic INR
- No bleeding currently
Severe aortic stenosis status post mechanical aortic valve
�Coumadin
Paroxysmal atrial fibrillation
- Coumadin
- Continue Nebivolol
Permanent pacemaker
Chronic left bundle branch block
Pulmonary hypertension
Essential hypertension
Hyperlipidemia
- Continue statin
DNR/DNI
DVT prophylaxis�Coumadin
Cardiac diet
Anticipated Discharge: 24 - 48 hours
Subjective/Interval History
-
Date of Service: April 22, 2025
No acute events overnight
Objective Data
-
Labs:
Laboratory Results
04/21/25 04/22/25
23:29 05:35
WBC 7.7
Hgb 12.4 L
Hct 38.8 L
Plt Count 237
PT 24.5 H
INR 2.19
APTT 74.1 H 81.5 H
Sodium 138
Potassium 3.9
Chloride 94 L
Carbon Dioxide 38 H
BUN 40 H
Creatinine 1.4 H
Glucose 91
Calcium 8.7
Vital Signs:
Vital Signs
Temp Pulse Resp BP Pulse Ox
97.5 F 70 14 122/60 95
04/22/25 07:00 04/22/25 08:44 04/22/25 08:19 04/22/25 08:44 04/22/25 08:30
I&O
04/21/25 04/22/25 04/23/25
06:59 06:59 06:59
Intake Total 1620 / 1620 1320 / 1320 300 / 300
Output Total 250 / 250 1025 / 1025
Balance 1370 / 1370 295 / 295 300 / 300
Review of Systems
-
History Source: Patient
All other systems: Not reviewed unless documented
Physical Exam
-
General: No Apparent Distress
HEENT: Moist Mucous Membranes
Respiratory: Clear to Auscultation
Cardiac: Regular Rhythm and S1/S2
GI: Soft
Neuro: AO x 3
Psych: Calm
Data Reviewed
-
Diagnostic Radiology: Report Reviewed by me
Labs: Labs Reviewed by me
[2025-04-22] MEDS: TYLENOL 650 MG PO ×2 (12:59→20:51)
[2025-04-22 14:55] VITALS: BP 110/60
[2025-04-22] MEDS: HEPARIN 25000 UNITS/250 ML IV (15:42)
[2025-04-22] MEDS: LIPITOR 20 MG PO (18:15)
[2025-04-22] MEDS: COUMADIN 6 MG PO (18:15)
[2025-04-22 19:42] VITALS: BP 104/52
[2025-04-22 23:28] VITALS: BP 110/60
[2025-04-23 03:19] VITALS: BP 132/61
[2025-04-23 06:00] VITALS: BMI 29.3
[2025-04-23 06:03] LABS: Hematocrit 36.3 % (39.0-52.0); Hemoglobin 11.8 g/dL (13.0-18.0); Mean Corp Hgb Conc. 32.5 g/dL (33.0-37.0); Mean Corpuscular Volume 88.5 fL (80.0-94.0); Platelet Count 222 10^3/uL (130-400); Red Cell Dist. Width 15.7 % (11.5-14.5)
[2025-04-23 06:12] LABS: APTT 119.9 Sec (23.4-35.0)
[2025-04-23 07:00] VITALS: BP 117/56
[2025-04-23] MEDS: SYMBICORT 160/4.5 MCG INHALER 2 PUFF INH (07:36)
[2025-04-23] MEDS: SPIRIVA RESPIMAT 2.5 MCG 2 PUFF INH (07:36)
[2025-04-23] MEDS: VENTOLIN NEBULES 2.5 MG INH ×2 (07:36→11:28)
--- NOTE | 2025-04-23 08:56 | W.PN.CARDCBS ---
Today's Communication / Plan
-
Heparin to warfarin bridge
P.o. Lasix
Goal INR 2.5-3.5
Impression / Plan
-
PCP: Dr. Maguire
Director Of Clinical Education: Dr. Copeland
Impression:
Admitted with acute HF and supratherapeutic INR 04/18/2025
Supratherapeutic INR
Acute on chronic HFpEF
Chronic warfarin OAC managed by cardiology
[facility] mechanical AVR
Mean gradient 32 mmHg by echo 07/2024
Acute on chronic hypoxic respiratory failure
COPD w/ acute exacerbation
Chronically uses 3 to 4 L NC at home
Paroxysmal atrial fibrillation
Hypertension
Hyperlipidemia
LBBB
Echo 08/18/2022:�Ejection fraction 50 to 55% with moderate concentric LVH, status post mechanical prosthetic [employer] aortic valve with mean gradient of 58 mmHg.� Dimensionless index was 0.4 it may have been due to high output state.
Echo 11/16/2023: EF 52%, mild concentric LVH, well-seated mechanical aortic valve replacement with peak/mean gradients 38/19 mmHg, trace AI, mild MR, mild TR, estimated PAP 35 mmHg
Echo 07/21/2024: EF 51%, mild mitral stenosis peak/mean 10/4 mmHg, mechanical AVR with peak/mean 57/32 mmHg and no aortic regurgitation, sinus of Valsalva and ascending aorta dilatation, compared to echo from 10/2023 the aortic valve gradients have
increased
04/20/2025 with preserved EF and: EF 55%, moderate LVH, stage II diastolic dysfunction, moderate to severe with peak/mean gradients 58/34 mmHg, status post mechanical AVR, trace MR, trace TR, estimated PAP 39 mmHg
Plan:
-Presented with acute heart failure and supratherapeutic INR with INR >8 on arrival.
-Breathing continues to improve and he is at his baseline O2 requirements. Creat stable overnight at 1.2.
-He has been diuresing with IV lasix 40mg BID, continue p.o. Lasix
-Weight up 2lbs overnight if accurate to 191 lbs. Continue to follow daily weights, I&Os.
-INR continues to drift downward after receiving a PO vitamin K 2.5mg in ER 04/18. INR 04/21 down to 2.07. Goal INR 2.5 to 3.5 w/ mechanical aortic valve.
-Warfarin 6mg given 04/20 and another 6mg given 04/21. Heparin bridge has been started and I renewed heparin. Ordered 7.5 mg of warfarin tonight. INR noted to be 2.1 on April 22. It appears that her pro time was not drawn today so I will add
a stat draw so we can reassess INR and I also ordered a pro time for April 24. Once INR is at goal 2.5�3.5 I would support discharge to home and he can resume his outpatient warfarin dosing
-Echo stable, moderate to severe aortic stenosis.
-He remains on 3 to 4 L NC which is his baseline.
-PPM in place. Device checked 04/19/2025 with normal device function. 2 brief runs of atrial tachycardia which were less than 10 seconds in duration. No other arrhythmia. Battery longevity 10.2 months.
-Follow up arranged with his primary epic director.
Progress Note - Director Of Clinical Education
Subjective
Date of Service: April 23, 2025
Awaiting morning labs
Objective
Labs:
04/23/25 05:37
04/22/25 05:35
Labs
Hgb 11.8 g/dL (13.0-18.0) L 04/23/25 05:37
Hct 36.3 % (39.0-52.0) L 04/23/25 05:37
Plt Count 222 10^3/uL (130-400) 04/23/25 05:37
PT 24.5 Sec (11.4-14.6) H 04/22/25 05:35
INR 2.19 04/22/25 05:35
APTT 119.9 Sec (23.4-35.0) H 04/23/25 05:37
Sodium 138 mmol/L (135-145) 04/22/25 05:35
Potassium 3.9 mmol/L (3.5-5.1) 04/22/25 05:35
BUN 40 mg/dl (9-20) H 04/22/25 05:35
Creatinine 1.4 mg/dL (0.7-1.3) H 04/22/25 05:35
Glucose 91 mg/dl (70-99) 04/22/25 05:35
Vital Signs and I&O:
Vital Signs
Temp Pulse Resp BP Pulse Ox
98.4 F 81 16 117/56 97
04/23/25 07:00 04/23/25 07:42 04/23/25 07:42 04/23/25 07:00 04/23/25 07:42
Vital Signs
Temp Pulse Resp BP Pulse Ox
98.4 F 81 16 117/56 97
04/23/25 07:00 04/23/25 07:42 04/23/25 07:42 04/23/25 07:00 04/23/25 07:42
Intake & Output
04/21/25 04/22/25 04/23/25 04/24/25
06:59 06:59 06:59 06:59
Intake Total 1620 / 1620 1320 / 1320 865 / 865
Output Total 250 / 250 1025 / 1025 525 / 525
Balance 1370 / 1370 295 / 295 340 / 340
Physical Exam
Physical Exam
����Physical Exam
���������������������General:��no apparent distress, not acutely ill
���������������������������Neck:��supple. no meningeal signs. normal psoterior pharynx
������������������������
���������������������������Heart:��s1/s2 regular rate and rhythm, no murmur. equal radial pulses.
��������������������������Lungs: ��no acute respiratory distress. clear bilaterally
����������������������Abdomen:�normal bowel sounds. not tender. no CVAT
��������������������������Neuro:��alert and oriented. no focal neurological deficits
������������������������������Skin: ��no rash
�����������������������Psychiatric:�well kept. interactive and cooperative
�����������������������Extremities:��no edema. no calf tenderness. negative homans. good distal pulses
��
�
[2025-04-23] MEDS: LOPRESSOR 25 MG PO (08:59)
[2025-04-23] MEDS: ZITHROMAX 250 MG PO (08:59)
[2025-04-23] MEDS: ZESTRIL 5 MG PO (08:59)
[2025-04-23] MEDS: LASIX 40 MG PO (08:59)
[2025-04-23 09:03] LABS: INR 2.72; PT 28.8 Sec (11.4-14.6)
[2025-04-23 11:00] VITALS: BP 131/66
--- NOTE | 2025-04-23 11:52 | CM ---
Addendum entered by Batsheva Velasquez 04/23/25 14:14:
[facility] Fax #: [phone]
Addendum entered by Batsheva Velasquez 04/23/25 12:55:
patient discharge today
IMM explained & signed. In chart
updated [facility] health
PLAN: home with [facility] fax #: [phone]
son to transport
Original Note:
Spoke with patient son Anupam [phone]
referral in [facility] for [facility]
son states he will transport home upon dc
PLAN: Home with [facility] when stable
[facility] fax #: [phone]
--- NOTE | 2025-04-23 12:27 | W.PN.HOSP.TC ---
Addendum entered and electronically signed by Gutierrez Keller MD 04/23/25 14:25:
[id number]
Addendum entered and electronically signed by Gutierrez Keller MD 04/23/25 12:34:
Coumadin at 6mg daily; INR f/u Tuesday 04/24 with Cardiology
Original Note:
Today's Communication/Plan
-
Coumadin back at home dose
F/u INR outpatient
PO Lasix
F/u CBC, BMP outpatient
Cards, PCP f/u
Assessment / Plan
Assessment / Plan
Physical Exam
General: Well Developed, Well Nourished and No Apparent Distress
HEENT: NormoCephalic, Moist mucous membranes and Atraumatic
Respiratory: Clear
Cardiac: S1/S2, Regular Rhythm and Peripheral Edema; No Murmur or Rub
GI: Soft, Non Tender, Non Distended and Normal Bowel Sounds; No Organomegaly
Rectal: Deferred by Provider
Musculoskeletal: No Clubbing, No Cyanosis and No Edema
Skin: No Rash
Neuro: Nonfocal/grossly intact
PLAN:
# Dyspnea multifactorial secondary to acute HFpEF exacerbation +/- COPD exacerbation
-see below
# Acute CHF exacerbation
- Cardiac BNP 2700 from 2800
- Check I's and O's Daily weights
- Cont 40 IV Lasix twice daily�switched to PO lasix
-ECHO - Moderate to severe aortic valve stenosis; [facility] aortic valve replacement. Stage II diastolic dysfunction
-Cards consulted
-Dry weight appears to be 172lb
-F/u BMP outpatient
# Acute on chronic COPD exacerbation
#Chronic Hypoxic Respiratory Failure (baseline 3-4L 02)
-Likely related to CHF exacerbation, wheezing resolved
-Baseline 3 to 4 L oxygen
-Continue DuoNebs
- stop steroids and monitor
-Continue budesonide
- Continue chronic azithromycin
# Supratherapeutic INR
� INR goal 2.5-3.5
- Coumadin
- Hep ggt - bridge to coumadin (INR 2.72 today) Resume home dose Coumadin
- F/u INR outpatient
- Given 2.5 mg oral vitamin K on admission
#Elevated troponin
� Most likely nonischemic myocardial injury secondary to heart failure exacerbation
� No chest pain
� Cards on board
# Recent epistaxis secondary to supratherapeutic INR
- No bleeding currently
Severe aortic stenosis status post mechanical aortic valve
�Coumadin
Paroxysmal atrial fibrillation
- Coumadin
- Continue Nebivolol
Permanent pacemaker
Chronic left bundle branch block
Pulmonary hypertension
Essential hypertension
Hyperlipidemia
- Continue statin
DNR/DNI
DVT prophylaxis�Coumadin
Cardiac diet
More than 30 minutes spent in discharge including
Final examination of the patient
Summarizing hospital stay
Instructions for continuing care to all relevant caregivers
Preparation of discharge records, prescriptions, and referral forms
Total time spent (in minutes): 36
Anticipated Discharge: Today
Subjective/Interval History
-
Date of Service: April 23, 2025
No acute events overnight
Objective Data
-
Labs:
Laboratory Results
04/23/25 04/23/25 04/23/25
05:37 08:54 12:45
WBC 7.6
Hgb 11.8 L
Hct 36.3 L
Plt Count 222
PT 28.8 H Cancelled
INR 2.72 Cancelled
APTT 119.9 H Pending
Vital Signs:
Vital Signs
Temp Pulse Resp BP Pulse Ox
97.4 F 71 18 131/66 96
04/23/25 11:00 04/23/25 11:31 04/23/25 11:31 04/23/25 11:00 04/23/25 11:31
I&O
04/22/25 04/23/25 04/24/25
06:59 06:59 06:59
Intake Total 1320 / 1320 865 / 865
Output Total 1025 / 1025 525 / 525
Balance 295 / 295 340 / 340
Review of Systems
-
History Source: Patient
All other systems: Not reviewed unless documented
Data Reviewed
-
Diagnostic Radiology: Report Reviewed by me
Labs: Labs Reviewed by me
--- NOTE | 2025-04-23 12:45 | W.DS.TRANS ---
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
-
Discharge Instructions:
Sleep Apnea Risk Intermediate
Discharge Diagnosis/Procedures Supratherapeutic INR
Acute on chronic HFpEF
Diet Restrict fluids to 48 oz,Low Cholesterol,Low Fat
Activity As tolerated
Blood Work CBC and CMP in 1 week. INR on Tuesday 04/24 as
per cardiology clinic. Cardiology clinic will
call
Instructions: *DCA Heart Failure Instructions
Stand-Alone Forms:
Changes to Home Medications: Yes
Discharge Medications:
DC Medications w/original date entered in [employer]
budesonide 160 mcg-glycopyr 9 mcg-formot 4.8 mcg/actuation HFA inhaler (Breztri Aerosphere) 2 inh inhalation R BID Lung/breathing issues 08/08/22
nebivolol 5 mg tablet (Bystolic) 5 mg PO DAILY Heart disease/condition 08/08/22
albuterol sulfate 2.5 mg/3 mL (0.083 %) solution for nebulization 2.5 mg inhalation R BID Lung/Breathing Issues 11/09/23
azithromycin 250 mg tablet 250 mg PO DAILY Infection 11/09/23
budesonide 0.5 mg/2 mL suspension for nebulization 0.5 mg (2 mL) inhalation R BID Lung/breathing issues #0 mL 11/21/23
furosemide 40 mg tablet 40 mg PO DAILY Fluid retention/Swelling #30 tabs 11/21/23
simvastatin 40 mg tablet 40 mg PO QPM High Cholesterol 12/21/23
prednisone 10 mg tablet 10 mg PO DAILY INFLAMMATION 04/18/25
lisinopril 5 mg tablet 5 mg PO DAILY 30 days #30 tabs 04/23/25
warfarin 6 mg tablet 6 mg PO QPM #30 tabs 04/23/25
Home Medication Changes
lisinopril 5 mg tablet 5 mg PO DAILY 30 days #30 tabs 04/23/25
warfarin 6 mg tablet 6 mg PO QPM #30 tabs 04/23/25
Pending Results: No
[2025-04-23 13:18] LABS: APTT 79.6 Sec (23.4-35.0)
[2025-04-23 14:13] LABS: Blood Urea Nitrogen 35 mg/dl (9-20); Calcium 8.4 mg/dl (8.4-10.2); Carbon Dioxide 31 mmol/L (22-30); Chloride 100 mmol/L (98-107); Estimated Creatinine Clearance 55 ml/min; Glucose 92 mg/dl (70-99); Potassium 3.3 mmol/L (3.5-5.1); Sodium 134 mmol/L (135-145); eGFR > 60.00
== END 2025-04-23 15:22 | disposition home health service (06) | DRG 291 ==
LOC: 4 EAST ACU 21:28
PROVIDERS: Internal Medicine Cardiovascular Disease; Physician Assistant; Physician Assistant Medical; Student in an Organized Health Care Education/Training Program; ADMITTING PHYSICIAN Hospitalist; ATTENDING PHYSICIAN Internal Medicine; EMERGENCY PHYSICIAN Emergency Medicine; FAMILY PHYSICIAN Internal Medicine; OTHER PHYSICIAN Internal Medicine Cardiovascular Disease
PROC: 4B02XSZ Measurement of Cardiac Pacemaker, External Approach (ICD-10-PCS; 2025-04-19)
DX: I11.0 Hypertensive heart disease with heart failure (principal); I50.33 Acute on chronic diastolic (congestive) heart failure; J96.21 Acute and chronic respiratory failure with hypoxia; I48.21 Permanent atrial fibrillation; J44.1 Chronic obstructive pulmonary disease with (acute) exacerbation; D68.32 Hemorrhagic disorder due to extrinsic circulating anticoagulants; I5A Non-ischemic myocardial injury (non-traumatic); E78.00 Pure hypercholesterolemia, unspecified; R04.0 Epistaxis; I44.7 Left bundle-branch block, unspecified; I27.20 Pulmonary hypertension, unspecified; Z60.2 Problems related to living alone; Z66 Do not resuscitate; Z99.81 Dependence on supplemental oxygen; Z79.01 Long term (current) use of anticoagulants; Z95.2 Presence of prosthetic heart valve; Z87.891 Personal history of nicotine dependence; Z95.0 Presence of cardiac pacemaker; Z88.5 Allergy status to narcotic agent; Z79.51 Long term (current) use of inhaled steroids; Z79.52 Long term (current) use of systemic steroids; Z79.899 Other long term (current) drug therapy
CPT/HCPCS: 71046; 80048; 80053; 83880; 84484; 85025; 85027; 85610; 85730; 93005; 93306; 94640; 96374; 96375; 99285

== ENCOUNTER 2025-04-28 23:07 | Inpatient (IN) | payer MEDICARE, OTHER, SELFPAY ==
[2025-04-28] VITALS (7 sets, daily range): BP systolic 112–141; BP diastolic 37–98
--- NOTE | 2025-04-28 20:42 | ED.GENMED ---
History of Present Illness
General
Chief Complaint: Breathing Problem
Source: patient, records and family
Exam Limitations: none
Time Seen by Provider: 04/28/25 20:26
Nursing documentation reviewed up to this point in time: agreed with
History of Present Illness
History of Present Illness:
Note:
CHIEF COMPLAINT(S)
Difficulty breathing.
HISTORY OF PRESENT ILLNESS
The patient is an 85-year-old male with a known history of Chronic Obstructive Pulmonary Disease (COPD) who presents with worsening dyspnea. He reports experiencing increased difficulty breathing since this morning. The patient has a longstanding
history of COPD. There was mention of recent swelling in his legs, noted upon discharge from the hospital last week where he was treated for a suspected heart failure exacerbation. The family member describes that his breathing worsens significantly
when lying down. At home, he uses oxygen therapy at a flow rate of four liters per minute, yet during transport by ambulance, it was increased to six liters per minute. His oxygen saturation prior to arrival was reported to be around 96%. The
patient utilizes both an inhaler and nebulizer at home, which has helped alleviate symptoms in the past. The family mentioned that his condition was stable while having dinner but worsened during transportation back, leading to increased difficulty
in breathing.
EXTERNAL RECORDS REVIEWED
Blood work performed this morning included a Comprehensive Metabolic Panel and Complete Blood Count. The physician plans to review these results and evaluate additional tests related to heart failure.
CHRONIC MEDICAL CONDITIONS SIGNIFICANTLY AFFECTING CARE
Chronic Obstructive Pulmonary Disease (COPD)
Heart failure (suspected recent exacerbation)
REVIEW OF SYSTEMS
- Respiratory: Worsening dyspnea, particularly when supine. Utilizes inhalers and nebulizers for symptom management.
- Cardiovascular: Recent history of leg swelling; suspected heart failure exacerbation noted.
- General: Anxiety noted in relation to difficulty breathing.
PHYSICAL EXAM
General: Alert, moderate respiratory distress.
Skin: Warm, dry.
Head: Normocephalic, atraumatic.
Neck: Supple, trachea midline.
Eye Ears, Nose, Mouth, and Throat: Oral mucosa moist.
Cardiovascular: Normal peripheral perfusion, No edema.
Respiratory: Respirations are labored, wheezing throughout
Gastrointestinal: Abdomen nondistended
Back: Normal range of motion, Normal alignment.
Musculoskeletal: Normal ROM, normal strength.
Neurological: Alert and oriented to person, place, time, and situation. No focal neurological deficit observed.
Psychiatric: Cooperative, appropriate mood and affect.
PLAN
1. Administer a breathing treatment to assess improvement in respiratory function.
2. Evaluate lab results including Comprehensive Metabolic Panel and Complete Blood Count for further insights.
3. Consider further evaluation regarding heart failure markers and necessary imaging (chest X-ray) to assess current condition.
DIFFERENTIAL DIAGNOSIS
The Differential Diagnosis includes, in no particular order and is not limited to:
1. COPD exacerbation
2. Congestive heart failure exacerbation
3. Pulmonary edema
4. Pneumonia
5. Pulmonary embolism
6. Atelectasis
7. Pleural effusion
8. Anemia
9. Acute coronary syndrome
10. Anxiety-induced dyspnea
CARE-UPDATE
04/28/25 - 23:11
Patient exhibits CSF and COPD exacerbation with associated hypoxia. Lasix and Duenos administered, leading to some improvement in breathing, yet patient experiences severe dyspnea with movement. Hospitalist consultation requested for further
evaluation and management.
Disposition:
SUMMARY OF ENCOUNTER
The patient, an 85-year-old male with a known history of Chronic Obstructive Pulmonary Disease (COPD) and heart failure, presented to the emergency department with worsening dyspnea. Upon examination, he was hypoxic, but his condition improved with
an increased oxygen flow via a nasal cannula at 6 liters per minute. Given his suspected COPD exacerbation, a chest X-ray was ordered which showed signs of hyperinflation and emphysema, but no signs of pneumonia. His recent history of heart failure
exacerbation was considered, which informed the decision to administer intravenous furosemide (Lasix) and nebulized albuterol with ipratropium (Duoneb) to manage his symptoms.
DISPOSITION
Admit
ASSESSMENT
COPD exacerbation and congestive heart failure (CHF) exacerbation
EMERGENCY TREATMENTS ADMINISTERED
Intravenous furosemide (Lasix) and nebulized albuterol with ipratropium (Duoneb)
MANAGEMENT OF THE PATIENTS CARE WAS DISCUSSED WITH
Hospitalist
REASSESSMENT
Patients dyspnea improved with 6 liters nasal cannula oxygen therapy.
PLAN
Admit to the hospital for further management and monitoring of COPD and CHF exacerbations.
INDEPENDENT REVIEW OF LABS AND INTERPRETATION OF TESTS
My independent interpretation of the chest X-ray is that it shows hyperinflation and emphysema, with no signs of pneumonia.
MEDICATION RECONCILIATION
1. Furosemide (Lasix) administered intravenously.
2. Albuterol and ipratropium (Duoneb) administered via nebulizer.
MEDICAL DECISION MAKING
- Number and Complexity of Problems Addressed: Chronic conditions affecting care include Chronic Obstructive Pulmonary Disease (COPD) and heart failure. Differential Diagnosis included COPD exacerbation, Congestive heart failure exacerbation,
Pulmonary edema, Pneumonia, Pulmonary embolism, Atelectasis, Pleural effusion, Anemia, Acute coronary syndrome, and Anxiety-induced dyspnea.
- Data:
Category 1:
Chest X-ray was ordered and independently interpreted to show hyperinflation and signs of emphysema without pneumonia.
Category 3:
Discussion of management with the hospitalist regarding the need for admission due to exacerbations.
-Risk: Prescription medication was prescribed, including the administration of furosemide (Lasix) and nebulized albuterol with ipratropium (Duoneb).
DIAGNOSIS
1. Chronic Obstructive Pulmonary Disease, unspecified (ICD-10: J44.9)
2. Congestive Heart Failure, unspecified (ICD-10: I50.9)
Past History
Past History
ED Past Medical History: Arrthythmia, CHF, COPD, HTN and Hypercholesterolemia
ED Past Surgical History: Cardiac (pacemaker, valve replacement)
Social History
Tobacco: Former smoker
Alcohol: None
Drug: None
Personal:
Living: with family
Employment: Retired
Family History
Family History: Other
Phy Exam
Physical Exam
Physical Exam:
.
Scores
Heart Failure Risk
Heart Failure Risk Score: Yes
History of Stroke or TIA: No
History of intubation for respiratory distress: No
Heart rate on ED arrival >/= 110: No
SaO2 <90% on arrival on room air: Yes
HR >/=110 during 3min walk test (or too ill to perform test): Yes
ECG has acute ischemic changes: No
Urea >/=12mmol/L (BUN 33.6mg/dL): Yes
Serum CO2>/=35mmol/L: No
Troponin I or T elevated to HI Level (0.4mg/dL): No
NT-proBNP >/=5,000ng/L (5,000pg/ml): No
HF Risk Score: 4
Admission Status: HIGH RISK 26.1% Consider SNF treatment or admission to hospital
Course
Orders/Labs/Results
Orders:
Orders
04/28/25 20:42
IV Insert/Care/Rem.- Treatment PRN
04/28/25 20:43
Ipratropium/Albuterol Sulfate [Duoneb] 3 ml INH R NOW STA
CR Chest - 2 Views Urgent
Comment:
Reason For Exam: short of breath
04/28/25 20:44
Comprehensive Metabolic Panel Urgent
04/28/25 20:45
Complete Blood Count/With Diff Urgent
NT-proBNP Urgent
Troponin I Urgent
04/28/25 22:16
Furosemide [Lasix] 40 mg IV NOW STA
04/28/25 22:56
Admit/Transfer Patient As Directed
Co-Sign Provider:
Level of Care: Inpatient admission
Assign to:: Telemetry
Physician / Group: umesh
Diagnosis: CHF exacerbation
Reason for Telemetry: Acute Heart Failure
Date to Stop Telemetry: 05/01/25
Time to Stop Telemetry: 11:00
Reason for Hospitalization: CHF exacerbation
Expected length of stay greater than two midnights?: Yes
ELOS- Estimated Length of Stay in days: 3
I certify the patient meets the requirements for IP care: Yes
PRN Pain Medication Management As Directed
May give lesser potent ordered pain med per pt: Yes
preference::
Protocol:: Medication orders for pain may be administered in a
manner that supports deferring to patient preference
when the pt is:
- Requesting an ordered lesser potent pain medication.
Least to most potent pain medications are defined
as: acetaminophen < NSAID < tramadol < opioids
(morphine, oxycodone, hydromorphone).
- Requesting a lesser dose of the same medication IF
ORDERED.
- Requesting a less intrusive route of administration
if both routes are prescribed by the provider (PO <
IV).
04/28/25 22:58
Code Status As Directed
Resuscitation Status: Do not resuscitate
Reached after discussion with pt or family/Healthcare POA: Yes
DNR Bracelet Application ONCE
04/28/25 22:59
PT/INR [Prothrombin Time] Stat
04/28/25 23:02
EKG [Electrocardiogram (*1)] Stat
Reason for Study: Chest Pain
05/01/25 11:00
DC Protocol for Telemetry ONCE
Abnormal Lab Results
04/28/25 04/28/25 04/28/25
20:44 20:45 22:59
RBC 4.15 L 10^6/uL
(4.70-6.10)
Hgb 11.8 L g/dL
(13.0-18.0)
Hct 37.1 L %
(39.0-52.0)
MCHC 31.8 L g/dL
(33.0-37.0)
RDW 15.8 H %
(11.5-14.5)
Abs Immat Gran (auto) 0.1 H 10^3/uL
(0-0.05)
Absolute Monos (auto) 1.6 H 10^3/uL
(0.1-0.6)
Immature Gran % 0.7 H %
(0-0.5)
Lymphocytes % 18.3 L %
(20.5-51.1)
Monocytes % 18.3 H %
(1.7-9.3)
PT 32.7 H Sec
(11.4-14.6)
Carbon Dioxide 34 H mmol/L
(22-30)
BUN 39 H mg/dl
(9-20)
Glucose 110 H mg/dl
(70-99)
Troponin I 0.047 H* ng/ml
04/28/25 20:45
04/28/25 20:44
Vital Signs
Initial and Last Documented VS:
Initial Vital Signs
Resp BP
17 141/75
04/28/25 20:23 04/28/25 20:23
Last Documented Vital Signs
Temp Pulse Resp BP Pulse Ox
97.5 F 78 27 127/60 98
04/28/25 20:24 04/28/25 22:31 04/28/25 22:31 04/28/25 22:31 04/28/25 22:31
*Pulse Oximetry
SaO2: 98
Oxygen Mode of Delivery: Room air
Patient hypoxic: yes
*Critical Care Note
Total Time (30-74mins, 75-104mins- exclusive of procedures): Not Applicable
ED Attending Note
-
Portions of this chart may have been created with voice recognition software.� Occasional wrong word or��sound alike� substitutions may have occurred due to the inherent limitations of voice recognition software.
Discharge Plan
Departure
Patient Disposition: Admit
Date of Disposition: 04/28/25
Time of Disposition: 22:21
Admit to: IMU
Presentation/result/management discussed w/ accepting MD/DO: Hospitalist
Patient with high blood pressure during this ER visit?: No
Condition: Fair
Discharge Problem:
Acute exacerbation of CHF (congestive heart failure), Acute exacerbation of chronic obstructive pulmonary disease
Interventions
Interventions:
*Risk Screen - Suicide Last Done: 04/28/25 20:24
*General Assessment Last Done: 04/28/25 20:24
*Neglect/Abuse Screening Last Done: 04/28/25 20:24
*ED- Fall Risk Assessment Last Done: 04/28/25 20:24
*ED COVID-19 Vaccine History Last Done: 04/28/25 20:24
*ED Influenza Vaccine History Last Done: 04/28/25 20:24
ED- Cardiac Assessment Last Done: 04/28/25 20:24
ED- Pulmonary Assessment Last Done: 04/28/25 20:24
[2025-04-28 20:54] LABS: Hematocrit 37.1 % (39.0-52.0); Hemoglobin 11.8 g/dL (13.0-18.0); Mean Corp Hgb Conc. 31.8 g/dL (33.0-37.0); Mean Corpuscular Volume 89.4 fL (80.0-94.0); Nucleated Red Blood Cells % 0 % (-); Platelet Count 249 10^3/uL (130-400); Red Cell Dist. Width 15.8 % (11.5-14.5)
[2025-04-28] MEDS: DUONEB 3 ML INH (20:55)
[2025-04-28 21:07] LABS: ALT (SGPT) 12 U/L (0-50); AST (SGOT) 21 U/L (17-59); Albumin 4.0 g/dl (3.5-5.0); Alkaline Phosphatase 88 U/L (38-126); Blood Urea Nitrogen 39 mg/dl (9-20); Calcium 8.9 mg/dl (8.4-10.2); Chloride 101 mmol/L (98-107); Estimated Creatinine Clearance 45 ml/min; Glucose 110 mg/dl (70-99); Potassium 4.1 mmol/L (3.5-5.1); Sodium 140 mmol/L (135-145); Total Protein 6.5 g/dl (6.3-8.2); eGFR > 60.00
[2025-04-28 21:15] LABS: Carbon Dioxide 34 mmol/L (22-30)
[2025-04-28 21:27] LABS: Troponin I 0.047 ng/ml
[2025-04-28] MEDS: LASIX 40 MG IV (22:30)
--- NOTE | 2025-04-28 22:30 | HPS.HSE ---
Addendum entered and electronically signed by Rodríguez Thomas DO 04/28/25 23:18:
Patient seen and examined independently. Agree with findings and plan as set forth by STEVE Mead.
Patient is an 85y M with PMH significant for COPD, CHF and chronic hypoxemic respiratory failure who presents to ED complaining of increased SOB. Patient was recently admitted to and treated for CHF and COPD. He was discharged to SNF on
04/23. Patient states that he was feeling well until today when he became more SOB with activity / exertion. He noted significant SOB when lying flat. He has had some non-productive cough. No chest pain. No fevers / chills. He has increased LE
swelling from his usual baseline.
Ass:
Acute on Chronic HFpEF
COPD
Chronic Hypoxemic Respiratory Failure
Non-Ischemic Myocardial Injury likely secondary to CHF
Severe Aortic Stenosis s/p Mechanical AVR
Paroxysmal Atrial Fibrillation
Benign Hypertension
Plan:
Admit for further evaluation and treatment.
With persistent edema, elevated BNP, orthopnea and GREER - suspect acute on chronic HFpEF primarily.
Breath sounds decreased but no significant wheezing.
IV Lasix BID for now. Follow I/Os, daily weights, etc. Echo done during recent admission with normal LVEF.
Nebs ATC and PRN.
Continue usual PO prednisone dose for now.
Follow for clinical improvement.
Continue other usual home medications.
Check INR and continue Coumadin / dose daily for target INR.
Original Note:
Family Physician
-
Family Physician: Armond Maguire
Chief Complaint
-
sob
History of Present Illness
85-year-old with past medical history for chronic hypoxic respiratory failure secondary to COPD at baseline uses 3 to 4 L of oxygen, chronic heart failure, severe aortic stenosis status post mechanical aortic valve, paroxysmal A-fib on Coumadin,
pacemaker, hypertension, hyperlipidemia, chronic left bundle branch block, pulmonary hypertension, hyperlipidemia presented to us with shortness of breath from today morning. Patient was not able to lay back, dyspneic on exertion. Patient
complained of chest pressure and tightness. Due to his worsening of chronic cough which was dry. Patient was heavy breathing. Patient denied any headache, dizzy or syncope. Patient denied any fever, chills. Patient denied any abdominal pain,
nausea, vomiting or diarrhea. Patient denied dysuria materia. Denied worsening of chronic lower extremity edema. Denied weight gain.
Patient received Lasix, nebs in ER. Admitted for further management
Medical History
Past Medical History
Past Medical History: Reports Other
Additional Past Medical History:
COPD, CHF, aortic stenosis, paroxysmal atrial fib, HTN, HLD, pulmonary HTN
Past Surgical History: Reports Other
Additional Past Surgical History:
aortic valve replacement
pacemaker
Social History
Tobacco: Former Smoker
Alcohol: None
Drug: None
Personal: Single
Living: Detention
Family History
Family History: Not pertinent
Allergies / Home Medications
Allergies reflects when Allergies were last updated in [employer].
Home Medications with original date entered in [employer]
Allergy/Medication List:
Allergies
Allergy/AdvReac Type Severity Reaction Status Date / Time
codeine Allergy Irritabilit Verified 12/21/23 18:34
y
Home Medications
budesonide 160 mcg-glycopyr 9 mcg-formot 4.8 mcg/actuation HFA inhaler (Breztri Aerosphere) 2 inh inhalation R BID Lung/breathing issues 08/08/22
nebivolol 5 mg tablet (Bystolic) 5 mg PO DAILY Heart disease/condition 08/08/22
albuterol sulfate 2.5 mg/3 mL (0.083 %) solution for nebulization 2.5 mg inhalation R BID Lung/Breathing Issues 11/09/23
azithromycin 250 mg tablet 250 mg PO DAILY Infection 11/09/23
budesonide 0.5 mg/2 mL suspension for nebulization 0.5 mg (2 mL) inhalation R BID Lung/breathing issues #0 mL 11/21/23
furosemide 40 mg tablet 40 mg PO DAILY Fluid retention/Swelling #30 tabs 11/21/23
simvastatin 40 mg tablet 40 mg PO QPM High Cholesterol 12/21/23
prednisone 10 mg tablet 10 mg PO DAILY INFLAMMATION 04/18/25
lisinopril 5 mg tablet 5 mg PO DAILY 30 days #30 tabs 04/23/25
warfarin 6 mg tablet 6 mg PO QPM #30 tabs 04/23/25
Review of Systems
-
Constitutional: Reports No Symptoms
EENT: Reports No Symptoms
Respiratory: Reports Trouble Breathing
Cardiac: Reports No Symptoms
Abdomen/GI: Reports No Symptoms
: Reports No Symptoms
Musculoskeletal: Reports No Symptoms
Skin: Reports No Symptoms
Neurological: Reports No Symptoms
Endocrine: Reports No Symptoms
Hematologic/Lymphatic: Reports No Symptoms
Psych: Reports No Symptoms
Physical Exam
Vital Signs
Vital Signs
Temp Pulse Resp BP Pulse Ox
97.5 F 78 26 116/98 91
04/28/25 20:24 04/28/25 22:00 04/28/25 22:00 04/28/25 22:00 04/28/25 22:00
Physical Exam
General: Well Developed, Well Nourished and No Apparent Distress
HEENT: NormoCephalic, Moist mucous membranes and Atraumatic
Respiratory: Rhonchi
Cardiac: S1/S2 and Regular Rhythm; No Murmur or Rub
GI: Soft, Non Tender, Non Distended and Normal Bowel Sounds; No Organomegaly
Rectal: Deferred by Provider
Musculoskeletal: No Clubbing, No Cyanosis and Other (Bilateral lower extremities edema)
Skin: No Rash
Neuro: AO x 3 and Nonfocal/grossly intact
Psych: Calm
Laboratory Results
-
04/28/25 20:45
04/28/25 20:44
Laboratory Results
Total Bilirubin 0.5 mg/dl (0.2-1.3) 04/28/25 20:44
AST 21 U/L (17-59) 04/28/25 20:44
ALT 12 U/L (0-50) 04/28/25 20:44
Alkaline Phosphatase 88 U/L (38-126) 04/28/25 20:44
Troponin I 0.047 ng/ml H* 04/28/25 20:45
Data Reviewed
-
Lab Data: Labs Reviewed by me
Impression/Plan
-
# Concern for CHF exacerbation
-chest x ray pending
- Check I's and O's Daily weights
- Lasix 40 bid
-ECHO - Moderate to severe aortic valve stenosis; [facility] aortic valve replacement. Stage II diastolic dysfunction
#COPD exacerbation
# Chronic hypoxic respiratory failure uses 2 to 3 L oxygen at baseline
-Nebs continued for short of breath and wheezing
-Chronically on prednisone
-
#Elevated troponin
� Most likely nonischemic myocardial injury secondary to heart failure exacerbation
� Obtain EKG
#Severe aortic stenosis status post mechanical aortic valve
�Coumadin
#Paroxysmal atrial fibrillation
- Coumadin
- Continue Nebivolol
#Permanent pacemaker
#Chronic left bundle branch block
#Pulmonary hypertension
#Essential hypertension
- Lisinopril continued
#Hyperlipidemia
- Continue statin
#DNR
#DVT prophylaxis�Coumadin
[2025-04-28 23:17] LABS: INR 3.16; PT 32.7 Sec (11.4-14.6)
[2025-04-29] VITALS (13 sets, daily range): BP systolic 93–147; BP diastolic 50–98; PULSE 96; O2SAT 91–92; BMI 29.0
[2025-04-29 02:21] LABS: Troponin I 0.057 ng/ml
--- NOTE | 2025-04-29 03:30 | PTCARENOTE ---
Addendum entered by Georgia Fierro RN 04/29/25 06:21:
STEVE Webster made aware of pt troponin level 0.057 before 0.047, pt asymptomatic.Repeat troponin ordered for am.Plan of care continued.
Original Note:
Pt received from ER [id number] able to make his needs known,forgetful at times.Denies pain ,on bedalarm for safety.Pt oriented to room & call bansal in reach.Pt was a pullover upon transfer to bed.Plan of care continued.
[2025-04-29] MEDS: DUONEB 3 ML INH ×5 (03:49→19:40)
[2025-04-29] MEDS: PULMICORT 0.5 MG INH ×2 (07:32→19:40)
[2025-04-29 07:39] LABS: Hematocrit 38.0 % (39.0-52.0); Hemoglobin 12.1 g/dL (13.0-18.0); Mean Corp Hgb Conc. 31.8 g/dL (33.0-37.0); Mean Corpuscular Volume 90.7 fL (80.0-94.0); Nucleated Red Blood Cells % 0 % (-); Platelet Count 243 10^3/uL (130-400); Red Cell Dist. Width 15.9 % (11.5-14.5)
[2025-04-29 07:55] LABS: INR 3.41; PT 34.7 Sec (11.4-14.6)
[2025-04-29 08:08] LABS: Troponin I 0.055 ng/ml
[2025-04-29 08:25] LABS: Blood Urea Nitrogen 37 mg/dl (9-20); Calcium 8.8 mg/dl (8.4-10.2); Chloride 101 mmol/L (98-107); Estimated Creatinine Clearance 49 ml/min; Glucose 100 mg/dl (70-99); HDL Cholesterol 50 mg/dl; LDL Cholesterol, Calculated 89 mg/dl; Magnesium 1.9 mg/dl (1.6-2.3); Sodium 141 mmol/L (135-145); Very Low Density Lipoprotein 15 mg/dl (0-30); eGFR > 60.00
[2025-04-29 08:33] LABS: Carbon Dioxide 35 mmol/L (22-30); Potassium 3.6 mmol/L (3.5-5.1)
--- NOTE | 2025-04-29 08:40 | W.PN.HOSP.TC ---
Today's Communication/Plan
-
Add KCl
Continue diuretics
Cardiology consult
PT/OT
Assessment / Plan
Assessment / Plan
Gen-awake, alert, tachypneic and mild respiratory distress.
HEENT-NC, AT, anicteric, clear oral mm
Neck-supple
CV-reg, no M, +S1/S2
Lungs-bilateral rhonchi
Abd-soft, NT, ND
Ext-bilateral lower extremity edema
Musculoskeletal-no cyanosis, clubbing
Skin-warm and dry
Neuro-grossly non-focal
Psych-calm, cooperative
Acute on chronic hypoxic respiratory failure -suspect due to acute on chronic heart failure exacerbation. Stable on 4 L nasal cannula.
Uses 3 to 4 L of oxygen at baseline.
Admission chest x-ray shows hyperinflation, emphysema. No evidence of pulmonary edema.
Acute on chronic heart failure with preserved EF -continue IV Lasix. Consult cardiology.
BNP 3130. Weight relatively stable compared to previous admission.
Last echocardiogram 04/20/2025, normal LV size, wall thickness, systolic function. No regional wall motion abnormalities. Moderate to severe .
Severe aortic stenosis -has [facility] mechanical AVR. Goal INR 2.5-3.5. Continue warfarin at current dose. Warfarin dose was reduced during last hospitalization from 7 to 6 mg daily due to supratherapeutic INR on admission. Noted to have
epistaxis with elevated INR.
QTc prolongation -potassium 3.6. Will add potassium chloride. Magnesium 1.9.
Acute nonischemic myocardial injury -troponin elevation noted.
Paroxysmal atrial fibrillation -rate controlled. Continue warfarin.
Essential hypertension -stable.
COPD without exacerbation -continue chronic azithromycin, prednisone. Continue inhalers.
Hyperlipidemia -simvastatin.
Permanent pacemaker
DNR
PT/OT
Anticipated Discharge: > 48 hours
Subjective/Interval History
-
Date of Service: April 29, 2025
Patient seen and examined, no complaints but appears short of breath.
Objective Data
-
Labs:
Laboratory Results
04/28/25 04/28/25 04/28/25
20:44 20:45 22:59
WBC 8.9
Hgb 11.8 L
Hct 37.1 L
Plt Count 249
PT 32.7 H
INR 3.16
Sodium 140
Potassium 4.1
Chloride 101
Carbon Dioxide 34 H
BUN 39 H
Creatinine 1.2
Glucose 110 H
Calcium 8.9
Total Bilirubin 0.5
AST 21
ALT 12
Alkaline Phosphatase 88
04/29/25
07:19
WBC 13.8 H
Hgb 12.1 L
Hct 38.0 L
Plt Count 243
PT 34.7 H
INR 3.41
Sodium 141
Potassium 3.6
Chloride 101
Carbon Dioxide 35 H
BUN 37 H
Creatinine 1.1
Glucose 100 H
Calcium 8.8
Total Bilirubin
AST
ALT
Alkaline Phosphatase
Vital Signs:
Vital Signs
Temp Pulse Resp BP Pulse Ox
97.8 F 93 18 147/68 96
04/29/25 03:43 04/29/25 07:35 04/29/25 07:35 04/29/25 03:43 04/29/25 07:35
I&O
04/28/25 04/29/25 04/30/25
06:59 06:59 06:59
Intake Total 480 / 480
Output Total 300 / 300
Balance 180 / 180
Review of Systems
-
History Source: Patient
All other systems: Reviewed and negative
[2025-04-29] MEDS: DELTASONE 10 MG PO (08:50)
[2025-04-29] MEDS: ZITHROMAX 250 MG PO (08:50)
[2025-04-29] MEDS: ZESTRIL 5 MG PO (08:50)
[2025-04-29] MEDS: LOPRESSOR 25 MG PO (08:51)
[2025-04-29] MEDS: LASIX 40 MG IV ×2 (08:51→15:23)
[2025-04-29] MEDS: KCL 20 MEQ PO (09:16)
--- NOTE | 2025-04-29 10:11 | CON.CAR ---
Addendum entered and electronically signed by Joseph Garnica DO 04/29/25 12:42:
I saw and examined the patient.
The Hospital Nurse's note was reviewed and I agree with the note.
Comment:
Patient is a pleasant 85-year-old male with a history of paroxysmal atrial fibrillation, heart failure preserved ejection fraction, hypertension, hyperlipidemia with bundle branch block, pacemaker, mechanical AVR on chronic anticoagulation with INR
2.5�3.5 who presented with acute on chronic heart failure. Patient recently admitted due to heart failure and discharge weight was 192 pounds, patient's presentation today was under 90 pounds. He reports increasing dyspnea on exertion, increased
oxygen requirements at home, and conversational dyspnea. No reported fevers or chills. Evaluation the emergency department demonstrated elevated BNP, evidence of volume overload on exam and by imaging.
GENERAL: no acute distress, conversationally dyspneic, on nasal cannula O2
EYE: sclera anicteric
NECK: Supple, no JVD, no carotid bruit appreciated
ENT: normal nose, moist mucosal membranes
CARDIAC: Regular rate and rhythm, +S1/S2 with mechanical click, 1/6 systolic murmur; no rubs, or gallops
CHEST/PULMONARY: Normal effort, clear breath sounds
ABDOMEN: Soft, without focal tenderness or distention
NEUROLOGICAL: Alert and oriented x3
SKIN: Warm and dry, no rash; 1+ bilateral lower extremity edema
PSYCH: Normal and appropriate interaction.
A/P as below
IV diuresis Lasix 40 mg IV twice daily monitor intake and output, daily weights
Continue Coumadin INR goal 2.5�3.5
Wean O2 as tolerated
Replete electrolytes goal potassium greater than 4, magnesium greater than 2
Monitor on telemetry
Discussed with patient, family, nursing
Original Note:
Consultation
Consultation Request
Date/Time Consultation Requested: 04/29/2025, 08 38
Date/Time Consultation Performed: 04/29/2025, 1010
Requesting Provider: Dr. Alcaraz
Performing Provider: STEVE Harding for Dr. Garnica
Reason for Consultation: Heart failure
Medical History
-
Chief Complaint: Shortness of breath
History of Present Illness:
Patient came to the ER last evening worsening dyspnea with exertion and orthopnea of one day duration, as well as continued lower extremity edema. He is status post recent admission to [facility] 04/18/2025 - 04/23/2025 for acute on chronic heart
failure with preserved EF, supratherapeutic INR greater than 8, and nosebleeds. He received vitamin K and warfarin was held. Has mechanical AVR with goal INR 2.5-3.5. INR then subtherapeutic and was on heparin bridge therapy. INR on discharge
04/23/2025 2.72. proBNP was 2700. He was treated with Lasix 40 mg IV twice daily then transition to oral Lasix and discharged on 40 mg daily which was usual home dose. Discharge weight 192 pounds 04/23/2025. Initial weight on presentation
today 04/29/2025 190 pounds. He has been on home oxygen for at least a year and tells me he typically wears oxygen between 3 L and 5 L at home.
Echo last admission 04/20/2025: Normal LV/RV size and function, no wall motion abnormalities, mild LVH, stage II diastolic dysfunction, moderate to severe peak/mean 58/34 mmHg mechanical AVR, similar to echo 07/2024
ED workup:
proBNP 3130
Chest x-ray: No pulmonary edema
BUN/creatinine 37/1.1, NA 141, K3.6, TSH 2.0, INR 3.41
Troponin 0.047�0 0.057�0.055
EKG a sensed V paced
PMH:
Chronic warfarin OAC managed by cardiology, goal INR 2.5�3.5
[facility] mechanical AVR
Mean gradient 32 mmHg by echo 07/2024
Chronic hypoxic respiratory failure
COPD
Paroxysmal atrial fibrillation
Chronic HFpEF
Hypertension
Hyperlipidemia
LBBB
pacemaker [facility]
Past Medical History
Past Medical History: Other (Paroxysmal atrial fibrillation, permanent pacemaker, mechanical aortic valve replacement, COPD on home oxygen, chronic heart failure with preserved ejection fraction, hypertension, hyperlipidemia,)
Past Surgical History: Cardiac (Mechanical AVR, permanent pacemaker) and Other (Hernia surgery x 2, cataract, left rotator cuff surgery)
Social History
Tobacco: Non-Smoker
Alcohol: None
Drug: None
Living: With Family
Employment: Retired
Family History
Family History: Hypertension
Allergies / Home Medications
Allergy/AdvReac Type Severity Reaction Status Date / Time
codeine Allergy Irritabilit Verified 12/21/23 18:34
y
�Medication �Instructions �Recorded �Confirmed �Type
budesonide 160 mcg-glycopyr 9 2 inh inhalation R BID 08/08/22 04/28/25 History
mcg-formot 4.8 mcg/actuation HFA Lung/breathing issues
inhaler (Breztri Aerosphere)
nebivolol 5 mg tablet (Bystolic) 5 mg PO DAILY Heart 08/08/22 04/18/25 History
disease/condition
albuterol sulfate 2.5 mg/3 mL 2.5 mg inhalation R BID 11/09/23 04/28/25 History
(0.083 %) solution for nebulization Lung/Breathing Issues
azithromycin 250 mg tablet 250 mg PO DAILY Infection 11/09/23 04/28/25 History
budesonide 0.5 mg/2 mL suspension 0.5 mg (2 mL) inhalation R BID 11/21/23 04/28/25 Rx
for nebulization Lung/breathing issues #0 mL
furosemide 40 mg tablet 40 mg PO DAILY Fluid 11/21/23 04/28/25 Rx
retention/Swelling #30 tabs
simvastatin 40 mg tablet 40 mg PO QPM High Cholesterol 12/21/23 04/28/25 History
prednisone 10 mg tablet 10 mg PO DAILY INFLAMMATION 04/18/25 04/28/25 History
lisinopril 5 mg tablet 5 mg PO DAILY 30 days #30 tabs 04/23/25 04/28/25 Rx
warfarin 6 mg tablet 6 mg PO QPM #30 tabs 04/23/25 04/28/25 Rx
Review of Systems
-
History Source: Patient
All other systems: Negative unless noted
Physical Exam
Vital Signs
Temp Pulse Resp BP Pulse Ox
98.1 F 95 20 116/57 95
04/29/25 07:37 04/29/25 08:50 04/29/25 07:37 04/29/25 08:50 04/29/25 07:37
Lab Results
04/29/25 07:19
04/29/25 07:19
Troponin I Cancelled 04/29/25 13:38
[id number] Pept 3130 pg/ml 04/28/25 20:45
GEN: Winded with speech, awake, Ox3
HEENT: supple, anicteric, mmm
LUNGS: Expiratory wheezing with rhonchorous breath sounds
CV: Reg, S1/S2, 1/6 syst LSB, no murmur
ABD: soft, BS+, mildly distended.
EXT: 1+ lower extremity edema
NEURO: Gross non-focal
SKIN: No rash
Impression / Plan
-
PCP: Dr. Maguire
Water Quality Assistant: Dr. Copeland
Impression:
Acute on chronic heart failure with preserved EF
Acute on chronic hypoxic respiratory failure
moderate to severe
[facility] mechanical AVR
Mean gradient 34 mmHg by echo 04/20/2025
Chronic warfarin OAC managed by cardiology
COPD w/ acute exacerbation
Chronically uses 3 to 5 L NC at home
admission 04/18/2025-04/23/2025 for acute HF and supratherapeutic INR 04/18/2025
Paroxysmal atrial fibrillation
Hypertension
Hyperlipidemia
LBBB
Echo 08/18/2022:�Ejection fraction 50 to 55% with moderate concentric LVH, status post mechanical prosthetic [facility] aortic valve with mean gradient of 58 mmHg.� Dimensionless index was 0.4 it may have been due to high output state.
Echo 11/16/2023: EF 52%, mild concentric LVH, well-seated mechanical aortic valve replacement with peak/mean gradients 38/19 mmHg, trace AI, mild MR, mild TR, estimated PAP 35 mmHg
Echo 07/21/2024: EF 51%, mild mitral stenosis peak/mean 10/4 mmHg, mechanical AVR with peak/mean 57/32 mmHg and no aortic regurgitation, sinus of Valsalva and ascending aorta dilatation, compared to echo from 10/2023 the aortic valve gradients have
increased
Echo 04/20/2025 with preserved EF and: EF 55%, moderate LVH, stage II diastolic dysfunction, moderate to severe with peak/mean gradients 58/34 mmHg, status post mechanical AVR, trace MR, trace TR, estimated PAP 39 mmHg
Plan:
-Presents with acute on chronic hypoxic resp failure likely due to acute heart failure and with proBNP 3130, higher than proBNP at recent [id number] for acute heart failure when it was 2700
-Echo 04/20/2025 with preserved EF and stable moderate to severe status post mechanical AVR
-on exam he is winded with conversation and has LE edema as well as rhonchorous BS. O2 sat mid-high 90s on 4L, which is within his usual range
-IV diuresis with Lasix 40 mg IV BID and discharge on higher outpatient dose of Lasix at time of discharge.
-close monitoring of renal fxn, electrolytes, BPs with IV diuresis
-Has scheduled follow-up appointment with his primary financial representative Dr. Copeland on 05/01/2025. Ideally would like to aggressively diurese him over next day so he can be present for follow-up appointment.
-cont usual lisinopril and Lopressor
-daily weights, I&Os.
-INR therapeutic at 3.4 on warfarin 6 mg daily. Goal INR 2.5�3.5 w/ mechanical aortic valve.
-Telemetry personally reviewed: V paced with heart rates 80s to 90s
-PPM in place. Device previous checked 04/19/2025 with normal device function. 2 brief runs of atrial tachycardia which were less than 10 seconds in duration. No other arrhythmia. Battery longevity 10.2 months.
-K 3.6-repletion ordered
-troponin mildly elevated, peaked at 0.057. Patient denies chest pain. Likely nonischemic myocardial injury
Discussed with patient, son, grandson at bedside and patient's nurse
Data Reviewed
-
EKG: Tracing Personally Visualized and interpreted
Labs: Labs Reviewed by me
[2025-04-29] MEDS: LIPITOR 20 MG PO (17:38)
[2025-04-29] MEDS: COUMADIN 6 MG PO (17:38)
[2025-04-29] MEDS: TYLENOL 650 MG PO (19:43)
[2025-04-30 03:11] VITALS: BP 124/60
[2025-04-30 06:00] VITALS: BMI 28.5
[2025-04-30 07:10] VITALS: BP 128/62
[2025-04-30] MEDS: DUONEB 3 ML INH ×4 (08:01→19:34)
[2025-04-30] MEDS: PULMICORT 0.5 MG INH ×2 (08:01→19:33)
[2025-04-30 08:11] LABS: Hematocrit 37.7 % (39.0-52.0); Hemoglobin 12.0 g/dL (13.0-18.0); Mean Corp Hgb Conc. 31.8 g/dL (33.0-37.0); Mean Corpuscular Volume 89.1 fL (80.0-94.0); Nucleated Red Blood Cells % 0 % (-); Platelet Count 250 10^3/uL (130-400); Red Cell Dist. Width 15.9 % (11.5-14.5)
[2025-04-30 08:13] LABS: INR 3.65; PT 36.6 Sec (11.4-14.6)
--- NOTE | 2025-04-30 08:33 | W.PN.HOSP.TC ---
Today's Communication/Plan
-
Continue diuretics
Adjust warfarin
Labs in the morning
Assessment / Plan
Assessment / Plan
Gen-awake, alert, improving respiratory distress.
HEENT-NC, AT, anicteric, clear oral mm
Neck-supple
CV-reg, no M, +S1/S2
Lungs-decreased sounds bilaterally
Abd-soft, NT, ND
Ext-bilateral lower extremity edema, improving
Musculoskeletal-no cyanosis, clubbing
Skin-warm and dry
Neuro-grossly non-focal
Psych-calm, cooperative
Acute on chronic hypoxic respiratory failure -suspect due to acute on chronic heart failure exacerbation in the setting of underlying chronic lung disease. Stable on 4 L nasal cannula.
Uses 3 to 4 L of oxygen at baseline.
Admission chest x-ray shows hyperinflation, emphysema. No evidence of pulmonary edema.
Acute on chronic heart failure with preserved EF -clinically improving, continue IV Lasix. Cardiology following.
BNP 3130. Weight down overnight. Edema improving.
Last echocardiogram 04/20/2025, normal LV size, wall thickness, systolic function. No regional wall motion abnormalities. Moderate to severe .
Severe aortic stenosis -has [facility] mechanical AVR. Goal INR 2.5-3.5. Warfarin dose was reduced during last hospitalization from 7 to 6 mg daily due to supratherapeutic INR on admission. Noted to have epistaxis with elevated INR.
INR today trending up, 3.65. Will lower dose of warfarin to 5 mg starting tonight. INR in the morning.
QTc prolongation -magnesium 1.9. Oral potassium added, labs pending for today.
Acute nonischemic myocardial injury -suspect due to heart failure exacerbation. Troponin elevation noted.
Paroxysmal atrial fibrillation -rate controlled. Continue warfarin.
Essential hypertension -stable.
COPD without exacerbation -continue chronic azithromycin, prednisone. Continue inhalers.
Hyperlipidemia -simvastatin.
Permanent pacemaker
DNR
PT/OT -Home health recommended.
Anticipated Discharge: 24 - 48 hours
Subjective/Interval History
-
Date of Service: April 30, 2025
Patient seen and examined. Feeling better, less short of breath today. No complaints.
Objective Data
-
Labs:
Laboratory Results
04/30/25
07:44
WBC 11.4 H
Hgb 12.0 L
Hct 37.7 L
Plt Count 250
PT 36.6 H
INR 3.65
Sodium Pending
Potassium Pending
Chloride Pending
Carbon Dioxide Pending
BUN Pending
Creatinine Pending
Glucose Pending
Calcium Pending
Vital Signs:
Vital Signs
Temp Pulse Resp BP Pulse Ox
97.8 F 96 24 128/62 95
04/30/25 07:10 04/30/25 08:06 04/30/25 08:06 04/30/25 07:10 04/30/25 08:06
I&O
04/29/25 04/30/25 05/01/25
06:59 06:59 06:59
Intake Total 1200 / 1200
Output Total 1050 / 1050
Balance 150 / 150
Review of Systems
-
History Source: Patient
All other systems: Reviewed and negative
[2025-04-30 08:40] LABS: Blood Urea Nitrogen 44 mg/dl (9-20); Calcium 8.9 mg/dl (8.4-10.2); Chloride 99 mmol/L (98-107); Estimated Creatinine Clearance 39 ml/min; Glucose 91 mg/dl (70-99); Potassium 3.5 mmol/L (3.5-5.1); Sodium 139 mmol/L (135-145); eGFR 49.87
[2025-04-30 08:48] LABS: Carbon Dioxide 36 mmol/L (22-30)
[2025-04-30] MEDS: ZITHROMAX 250 MG PO (09:09)
[2025-04-30] MEDS: KCL 20 MEQ PO (09:09)
[2025-04-30] MEDS: DELTASONE 10 MG PO (09:10)
[2025-04-30] MEDS: ZESTRIL 5 MG PO (09:10)
[2025-04-30] MEDS: LOPRESSOR 25 MG PO ×2 (09:10→20:31)
[2025-04-30 11:00] VITALS: BP 111/53
--- NOTE | 2025-04-30 11:08 | W.PN.CARDCBS ---
Today's Communication / Plan
-
BMP, if renal function stable, continue IV diuresis
INR goal 2.5�3.5 for mechanical valve
Intake and output, daily weights
Impression / Plan
-
PCP: Dr. Maguire
Bakery Demonstrator: Dr. Copeland
Impression:
Acute on chronic heart failure with preserved EF
Acute on chronic hypoxic respiratory failure
moderate to severe
[employer] mechanical AVR
Mean gradient 34 mmHg by echo 04/20/2025
Chronic warfarin OAC managed by cardiology
COPD w/ acute exacerbation
Chronically uses 3 to 5 L NC at home
admission 04/18/2025-04/23/2025 for acute HF and supratherapeutic INR 04/18/2025
Paroxysmal atrial fibrillation
Hypertension
Hyperlipidemia
LBBB
Echo 08/18/2022:�Ejection fraction 50 to 55% with moderate concentric LVH, status post mechanical prosthetic [employer] aortic valve with mean gradient of 58 mmHg.� Dimensionless index was 0.4 it may have been due to high output state.
Echo 11/16/2023: EF 52%, mild concentric LVH, well-seated mechanical aortic valve replacement with peak/mean gradients 38/19 mmHg, trace AI, mild MR, mild TR, estimated PAP 35 mmHg
Echo 07/21/2024: EF 51%, mild mitral stenosis peak/mean 10/4 mmHg, mechanical AVR with peak/mean 57/32 mmHg and no aortic regurgitation, sinus of Valsalva and ascending aorta dilatation, compared to echo from 10/2023 the aortic valve gradients have
increased
Echo 04/20/2025 with preserved EF and: EF 55%, moderate LVH, stage II diastolic dysfunction, moderate to severe with peak/mean gradients 58/34 mmHg, status post mechanical AVR, trace MR, trace TR, estimated PAP 39 mmHg
Plan:
-Presents with acute on chronic hypoxic resp failure likely due to acute heart failure and with proBNP 3130, higher than proBNP at recent [id number] for acute heart failure when it was 2700
-Echo 04/20/2025 with preserved EF and stable moderate to severe status post mechanical AVR
-on exam he is winded with conversation and has LE edema as well as rhonchorous BS. O2 sat mid-high 90s on 4L, which is within his usual range
-IV diuresis with Lasix 40 mg IV BID; creatinine mildly increased this morning to 1.4 from 1.1; will recheck BMP if stable, will continue with IV diuresis twice daily
-close monitoring of renal fxn, electrolytes, BPs with IV diuresis
-Has scheduled follow-up appointment with his primary sales planning coordinator Dr. Copeland on 05/01/2025. Ideally would like to aggressively diurese him over next day so he can be present for follow-up appointment.
-cont usual lisinopril and Lopressor
-daily weights, I&Os.
-INR therapeutic at 3.4 on warfarin 6 mg daily, adjusted to 5 mg per primary service. Goal INR 2.5�3.5 w/ mechanical aortic valve.
-Telemetry personally reviewed: V paced with heart rates 80s to 90s
-PPM in place. Device previous checked 04/19/2025 with normal device function. 2 brief runs of atrial tachycardia which were less than 10 seconds in duration. No other arrhythmia. Battery longevity 10.2 months.
-K 3.6-repletion ordered
-troponin mildly elevated, peaked at 0.057. Patient denies chest pain. Likely nonischemic myocardial injury
Discussed with patient, hospitalist and patient's nurse
Progress Note - Bakery Demonstrator
Subjective
Date of Service: April 30, 2025
Patient seen and examined this morning. No acute events overnight. Patient resting comfortably. Reports improvement in shortness of breath and dyspnea however still reports mild shortness of breath with activity. Denies chest pain, palpitations,
weakness. Notes mild lower extremity swelling as well.
Objective
Labs:
04/30/25 07:44
Labs
Hgb 12.0 g/dL (13.0-18.0) L 04/30/25 07:44
Hct 37.7 % (39.0-52.0) L 04/30/25 07:44
Plt Count 250 10^3/uL (130-400) 04/30/25 07:44
PT 36.6 Sec (11.4-14.6) H 04/30/25 07:44
INR 3.65 04/30/25 07:44
Sodium 139 mmol/L (135-145) 04/30/25 07:44
Potassium 3.5 mmol/L (3.5-5.1) 04/30/25 07:44
BUN 44 mg/dl (9-20) H 04/30/25 07:44
Creatinine 1.4 mg/dL (0.7-1.3) H 04/30/25 07:44
Glucose 91 mg/dl (70-99) 04/30/25 07:44
Troponins
04/28/25 04/29/25 04/29/25
20:45 01:47 07:19
Troponin I 0.047 H* 0.057 H* 0.055 H*
04/29/25
13:38
Troponin I Cancelled
Vital Signs and I&O:
Vital Signs
Temp Pulse Resp BP Pulse Ox
97.8 F 96 24 128/62 95
04/30/25 07:10 04/30/25 08:06 04/30/25 08:06 04/30/25 07:10 04/30/25 08:06
Vital Signs
Temp Pulse Resp BP Pulse Ox
97.8 F 96 24 128/62 95
04/30/25 07:10 04/30/25 08:06 04/30/25 08:06 04/30/25 07:10 04/30/25 08:06
Intake & Output
04/28/25 04/29/25 04/30/25 05/01/25
06:59 06:59 06:59 06:59
Intake Total 1200 / 1200
Output Total 1050 / 1050
Balance 150 / 150
Physical Exam
Physical Exam
GENERAL: no acute distress, on nasal cannula O2
EYE: sclera anicteric
NECK: Supple, no JVD, no carotid bruit appreciated
ENT: normal nose, moist mucosal membranes
CARDIAC: Regular rate and rhythm, +S1/S2 with mechanical click, 1/6 systolic murmur; no rubs, or gallops
CHEST/PULMONARY: Normal effort, faint basilar crackles
ABDOMEN: Soft, without focal tenderness or distention
NEUROLOGICAL: Alert and oriented x3
SKIN: Warm and dry, no rash; 1+ bilateral lower extremity edema
PSYCH: Normal and appropriate interaction.
Telemetry shows a sensed V paced
[2025-04-30] MEDS: LASIX IV (11:12)
[2025-04-30 13:15] LABS: Blood Urea Nitrogen 47 mg/dl (9-20); Calcium 8.8 mg/dl (8.4-10.2); Chloride 99 mmol/L (98-107); Estimated Creatinine Clearance 42 ml/min; Glucose 142 mg/dl (70-99); Potassium 4.3 mmol/L (3.5-5.1); Sodium 138 mmol/L (135-145); eGFR 54.51
[2025-04-30 13:24] LABS: Carbon Dioxide 32 mmol/L (22-30)
[2025-04-30 15:00] VITALS: BP 131/61
[2025-04-30] MEDS: LIPITOR 20 MG PO (17:08)
[2025-04-30] MEDS: LASIX 40 MG IV (17:09)
[2025-04-30] MEDS: COUMADIN 5 MG PO (17:12)
[2025-04-30 19:36] VITALS: BP 107/55
[2025-04-30] MEDS: TYLENOL 650 MG PO (20:31)
[2025-04-30 23:34] VITALS: BP 128/50
[2025-05-01] VITALS (7 sets, daily range): BP systolic 117–150; BP diastolic 56–87; PULSE 73; O2SAT 90; BMI 28.6
[2025-05-01] MEDS: DUONEB 3 ML INH ×5 (01:49→19:22)
[2025-05-01 07:34] LABS: Glucose - Point of Care 103 mg/dl (70-99)
[2025-05-01] MEDS: PULMICORT 0.5 MG INH ×2 (08:04→19:22)
[2025-05-01 08:27] LABS: INR 3.49; PT 35.3 Sec (11.4-14.6)
[2025-05-01 09:11] LABS: Blood Urea Nitrogen 47 mg/dl (9-20); Calcium 9.1 mg/dl (8.4-10.2); Carbon Dioxide 35 mmol/L (22-30); Chloride 100 mmol/L (98-107); Estimated Creatinine Clearance 36 ml/min; Glucose 99 mg/dl (70-99); Potassium 3.9 mmol/L (3.5-5.1); Sodium 139 mmol/L (135-145); eGFR 45.91
[2025-05-01] MEDS: ZITHROMAX 250 MG PO (09:20)
[2025-05-01] MEDS: DELTASONE 10 MG PO (09:20)
[2025-05-01] MEDS: KCL 20 MEQ PO (09:20)
[2025-05-01] MEDS: LOPRESSOR 25 MG PO ×2 (09:21→21:13)
[2025-05-01] MEDS: ZESTRIL PO (09:35)
--- NOTE | 2025-05-01 09:53 | W.PN.HOSP.TC ---
Today's Communication/Plan
-
diuretics per Cardiology
wean O2 as able
AM labs
setup VN
Assessment / Plan
Assessment / Plan
Assessment:
Acute on chronic hypoxic respiratory failure - suspect due to acute on chronic heart failure exacerbation in the setting of underlying chronic lung disease. Stable on 4 L nasal cannula.
Uses 3 to 4 L of oxygen at baseline.
Admission chest x-ray shows hyperinflation, emphysema. No evidence of pulmonary edema.
Acute on chronic heart failure with preserved EF - clinically improving, continue IV Lasix per Cardiology.
BNP 3130. Weight down overnight. Edema improving.
Last echocardiogram 04/20/2025, normal LV size, wall thickness, systolic function. No regional wall motion abnormalities. Moderate to severe .
Severe aortic stenosis - has [facility] [employer] mechanical AVR. Goal INR 2.5-3.5. Warfarin dose was reduced during last hospitalization from 7 to 6 mg daily due to supratherapeutic INR on admission. Noted to have epistaxis with elevated INR.
INR today trending up, 3.49. Dose of warfarin was lowered to 5 mg on 04/30. will continue and monitor INR..
QTc prolongation - magnesium 1.9. Oral potassium continues. Monitor labs
Acute nonischemic myocardial injury -suspect due to heart failure exacerbation. Troponin peaked at .057.
Paroxysmal atrial fibrillation - rate controlled. continue warfarin.
Essential hypertension - stable.
COPD without exacerbation - continue chronic azithromycin, prednisone. Continue inhalers.
Hyperlipidemia - simvastatin.
Permanent pacemaker
DVT ppx: Warfarin
Code: DNR/DNI
Anticipated Discharge: 24 - 48 hours
Subjective/Interval History
-
Date of Service: May 01, 2025
resting comfortably, no complaints at present
reports SOB improving since admission
Objective Data
-
Labs:
Laboratory Results
05/01/25
07:59
PT 35.3 H
INR 3.49
Sodium 139
Potassium 3.9
Chloride 100
Carbon Dioxide 35 H
BUN 47 H
Creatinine 1.5 H
Glucose 99
Calcium 9.1
Vital Signs:
Vital Signs
Temp Pulse Resp BP Pulse Ox
97.7 F 90 24 117/57 98
05/01/25 07:10 05/01/25 08:08 05/01/25 08:08 05/01/25 07:10 05/01/25 08:08
I&O
04/30/25 05/01/25 05/02/25
06:59 06:59 06:59
Intake Total 1200 / 1200 960 / 960
Output Total 1050 / 1050 625 / 625
Balance 150 / 150 335 / 335
Physical Exam
-
General: No Apparent Distress
HEENT: Normocephalic and Atraumatic
Respiratory: Crackles; Negative Wheezes
Cardiac: Regular Rhythm and S1/S2
GI: Soft
Genito-urinary: No Costovertebral Tender
Musculoskeletal: Edema, Right Lower Extrem and Edema, Left Lower Extrem
Neuro: AO x 3
Psych: Calm
Data Reviewed
-
Total Time Spent with Patient (in minutes): 51
Labs: Labs Reviewed by me
--- NOTE | 2025-05-01 10:01 | CM ---
Addendum entered by Batsheva Velasquez 05/01/25 10:18:
spoke with son Anupam - PATIENT IS CURRENT WITH [facility]
referral placed in [facility].
IMM explained & signed. In chart
PLAN: Home with [facility]
son to transport
Original Note:
Patient seen at bedside
CM consult completed VN
Options reviewed, prefers [facility], Notified Margaux liaision ,referral to be entered
IA completed
Dx: CHF
Patient lives in an apartment with an elevator
PLOF: Independent, walker, electric scooter
DME: walker, electric scooter, shower chair, home oxygen
states wears oxygen 3-4L n/c cont
PCP: Armond Maguire
Pharmacy: [facility]
PLAN: Home with [facility] when stable
Son to transport
[2025-05-01] MEDS: LASIX IV (10:22)
[2025-05-01 11:58] LABS: Glucose - Point of Care 112 mg/dl (70-99)
--- NOTE | 2025-05-01 14:04 | W.PN.CARDCBS ---
Addendum entered and electronically signed by Saurav Mtz MD 05/01/25 14:53:
I saw and examined the patient.
The PERINATAL DIRECTOR or PA's note was reviewed and I agree with the note.
Comment: General: Well developed, well nourished in NAD.
Neck: Supple, no JVD, HJR, carotids +2 B/L, no bruits bilaterally.
Heart: Non displaced PMI, RRR, no murmurs, No S3, S4, no rubs.
Lungs: Scattered rhonchi
Extremities: No clubbing, cyanosis or edema bilaterally.
Neuro: Grossly nonfocal, awake, alert and oriented x3.
Although creatinine has increased slightly to 1.5 will continue diuretics and follow renal function closely.
Original Note:
Today's Communication / Plan
-
Weight is up, Cre also up to 1.5, but suspect patient remains volume overloaded so will give a single dose of Lasix 40 mg IV x1 now
Impression / Plan
-
PCP: Dr. Maguire
General Merchandise Salesperson: Dr. Copeland
Impression:
Admitted with SOB and acute on chronic HFpEF 04/20/2025
Recent admission for acute HF and supratherapeutic INR 04/18/2025 until 04/23/2025
Acute on chronic HFpEF
Chronic hypoxic respiratory failure
moderate to severe
[facility] mechanical AVR
Mean gradient 34 mmHg by echo 04/20/2025
Chronic warfarin OAC managed by cardiology
COPD
Chronically uses 3 to 5 L NC at home
Paroxysmal atrial fibrillation
Hypertension
Hyperlipidemia
LBBB
Elevated troponin
Echo 08/18/2022:�Ejection fraction 50 to 55% with moderate concentric LVH, status post mechanical prosthetic [facility] aortic valve with mean gradient of 58 mmHg.� Dimensionless index was 0.4 it may have been due to high output state.
Echo 11/16/2023: EF 52%, mild concentric LVH, well-seated mechanical aortic valve replacement with peak/mean gradients 38/19 mmHg, trace AI, mild MR, mild TR, estimated PAP 35 mmHg
Echo 07/21/2024: EF 51%, mild mitral stenosis peak/mean 10/4 mmHg, mechanical AVR with peak/mean 57/32 mmHg and no aortic regurgitation, sinus of Valsalva and ascending aorta dilatation, compared to echo from 10/2023 the aortic valve gradients have
increased
Echo 04/20/2025 with preserved EF and: EF 55%, moderate LVH, stage II diastolic dysfunction, moderate to severe with peak/mean gradients 58/34 mmHg, status post mechanical AVR, trace MR, trace TR, estimated PAP 39 mmHg
Plan:
-Presents with acute on chronic hypoxic resp failure likely due to acute heart failure and with proBNP 3130, higher than proBNP at recent admission 04/18/25 for acute heart failure when it was 2700.
-Weight is up 1 lb overnight on my review of VS 05/01/2025.
-Patient was being diuresed with Lasix 40 mg IV BID, but last dose was 04/30/2025 PM and then placed on hold due to [place]
-Oxygen demands appear to have increased as well and patient is now requiring 4 L NC on 05/01/2025.
-Recommend a dose of Lasix 40 mg IV x 1 on 05/01/2025 PM and reassess labs and diuretic response in the morning
-We will need to establish a new dry weight at time of discharge
-EF was 55% by echo 04/20/2025
-Outpatient dose of Bystolic 5 mg daily was changed to Lopressor 25 mg BID last admission for unclear reasons
-Lisinopril 5 mg daily was also started last admission and labs are stable thus far, potassium is normal at 3.9
-Patient has a mechanical AVR in place and gradients were relatively stable by echo 04/20/2025 with peak/mean at 58/34 compared to gradients from echo 07/21/2024 when they were 57/32 mmHg. Patient has not had fluoroscopy of his AVR and not clear what
treatment options would be if fluoroscopy performed and indicated valve dysfunction.
-Patient is chronically on warfarin 6 mg daily following mechanical AVR in the . INR is managed by cardiology using home monitor with an INR goal of 2.5-3.5. INR has been in the therapeutic range throughout this admission. If INR increases
above 3.5 would not give vitamin K unless there are signs of bleeding-
-Patient was managed for AE COPD during his admission 10 days ago. Patient usually wears 3 to 4 L NC at home and is currently on 4 L NC.
-Patient has an Gabriel/[facility] [employer] PPM in place. Device checked on 04/19/2025 and patient is not pacemaker dependent and V paces 57% of the time, he had 2 brief runs of A. tach both were less than 10 seconds in duration, no other arrhythmia and
battery longevity 10.2 months.
-Troponin peaked at 0.057 this admission. Patient had a similar troponin elevation last admission. Troponin elevation is likely related to nonischemic myocardial injury in the setting of acute HF.
Progress Note - General Merchandise Salesperson
Subjective
Date of Service: May 01, 2025
Patient denies feeling any better or any worse
Objective
Labs:
04/30/25 07:44
05/01/25 07:59
Labs
Hgb 12.0 g/dL (13.0-18.0) L 04/30/25 07:44
Hct 37.7 % (39.0-52.0) L 04/30/25 07:44
Plt Count 250 10^3/uL (130-400) 04/30/25 07:44
PT 35.3 Sec (11.4-14.6) H 05/01/25 07:59
INR 3.49 05/01/25 07:59
Sodium 139 mmol/L (135-145) 05/01/25 07:59
Potassium 3.9 mmol/L (3.5-5.1) 05/01/25 07:59
BUN 47 mg/dl (9-20) H 05/01/25 07:59
Creatinine 1.5 mg/dL (0.7-1.3) H 05/01/25 07:59
Glucose 99 mg/dl (70-99) 05/01/25 07:59
Troponins
04/28/25 04/29/25 04/29/25
20:45 01:47 07:19
Troponin I 0.047 H* 0.057 H* 0.055 H*
04/29/25
13:38
Troponin I Cancelled
Vital Signs and I&O:
Vital Signs
Temp Pulse Resp BP Pulse Ox
98.1 F 88 22 150/87 97
05/01/25 11:20 05/01/25 11:24 05/01/25 11:24 05/01/25 11:20 05/01/25 11:24
Vital Signs
Temp Pulse Resp BP Pulse Ox
98.1 F 88 22 150/87 97
05/01/25 11:20 05/01/25 11:24 05/01/25 11:24 05/01/25 11:20 05/01/25 11:24
Intake & Output
04/29/25 04/30/25 05/01/25 05/02/25
06:59 06:59 06:59 06:59
Intake Total 1200 / 1200 960 / 960
Output Total 1050 / 1050 625 / 625
Balance 150 / 150 335 / 335
Physical Exam
Physical Exam
GEN: NAD. AAO x 3, hard of hearing
LUNGS: 4 L NC. No audible wheeze
CV: V paced on telemetry.
EXT: +1 pitting B/L LE edema
NEURO: Gross non-focal
SKIN: No rash
[2025-05-01] MEDS: LASIX 40 MG IV (15:23)
[2025-05-01 16:46] LABS: Glucose - Point of Care 118 mg/dl (70-99)
[2025-05-01] MEDS: LIPITOR 20 MG PO (17:54)
[2025-05-01] MEDS: COUMADIN 5 MG PO (17:54)
[2025-05-02 03:45] VITALS: BP 140/71
[2025-05-02 06:00] VITALS: BMI 28.5
[2025-05-02 07:38] LABS: Hematocrit 39.3 % (39.0-52.0); Hemoglobin 12.4 g/dL (13.0-18.0); Mean Corp Hgb Conc. 31.6 g/dL (33.0-37.0); Mean Corpuscular Volume 89.7 fL (80.0-94.0); Platelet Count 277 10^3/uL (130-400); Red Cell Dist. Width 15.6 % (11.5-14.5)
[2025-05-02 07:43] LABS: INR 3.31; PT 33.9 Sec (11.4-14.6)
[2025-05-02] MEDS: PULMICORT 0.5 MG INH ×2 (07:47→19:28)
[2025-05-02] MEDS: DUONEB 3 ML INH ×4 (07:47→19:28)
[2025-05-02 08:14] LABS: Blood Urea Nitrogen 44 mg/dl (9-20); Calcium 9.0 mg/dl (8.4-10.2); Chloride 99 mmol/L (98-107); Estimated Creatinine Clearance 36 ml/min; Glucose 83 mg/dl (70-99); Magnesium 2.4 mg/dl (1.6-2.3); Potassium 4.1 mmol/L (3.5-5.1); Sodium 140 mmol/L (135-145); eGFR 45.91
[2025-05-02 08:21] VITALS: BP 144/66
[2025-05-02] MEDS: LOPRESSOR 25 MG PO ×2 (08:21→20:09)
[2025-05-02] MEDS: DELTASONE 10 MG PO (08:21)
[2025-05-02] MEDS: KCL 20 MEQ PO (08:21)
[2025-05-02] MEDS: ZITHROMAX 250 MG PO (08:21)
[2025-05-02 08:25] LABS: Carbon Dioxide 37 mmol/L (22-30)
[2025-05-02] MEDS: ZESTRIL PO (10:26)
[2025-05-02] MEDS: LASIX 40 MG IV ×2 (10:31→16:12)
[2025-05-02 11:18] VITALS: BP 138/65
--- NOTE | 2025-05-02 12:29 | CM ---
F/U: Patient not ready according to Hospitalist who said that patient is still experiencing CHF symptoms. Patient is ambulatory otherwise. Patient is set up with [facility] when ready. PLAN: e w/ [facility].
--- NOTE | 2025-05-02 13:53 | W.PN.HOSP.TC ---
Today's Communication/Plan
-
IV Lasix this AM
follow Cardiology recs
Assessment / Plan
Assessment / Plan
Assessment:
Acute on chronic hypoxic respiratory failure - suspect due to acute on chronic heart failure exacerbation in the setting of underlying chronic lung disease. Stable on 4 L nasal cannula.
Uses 3 to 4 L of oxygen at baseline.
Admission chest x-ray shows hyperinflation, emphysema. No evidence of pulmonary edema.
Acute on chronic heart failure with preserved EF - clinically improving, continue IV Lasix per Cardiology. requires intensive monitoring of I/Os, weights, lytes
BNP 3130. Weight down overnight. Edema improving.
Last echocardiogram 04/20/2025, normal LV size, wall thickness, systolic function. No regional wall motion abnormalities. Moderate to severe .
Severe aortic stenosis - has [facility] mechanical AVR. Goal INR 2.5-3.5. Warfarin dose was reduced during last hospitalization from 7 to 6 mg daily due to supratherapeutic INR on admission. Noted to have epistaxis with elevated INR.
INR today trending up, 3.31. Dose of warfarin was lowered to 5 mg on 04/30. will continue and monitor INR..
QTc prolongation - magnesium 1.9. Oral potassium continues. Monitor labs
Acute nonischemic myocardial injury - suspect due to heart failure exacerbation. Troponin peaked at .057.
Paroxysmal atrial fibrillation - rate controlled. continue warfarin.
Essential hypertension - stable.
COPD without exacerbation - continue chronic azithromycin, prednisone. Continue inhalers.
Hyperlipidemia - simvastatin.
Permanent pacemaker
DVT ppx: Warfarin
Code: DNR/DNI
Anticipated Discharge: > 48 hours
Subjective/Interval History
-
Date of Service: May 02, 2025
mild SOB reported
no CP
Cr 1.5
Objective Data
-
Labs:
Laboratory Results
05/02/25 05/02/25
06:51 06:52
WBC 10.4
Hgb 12.4 L
Hct 39.3
Plt Count 277
PT 33.9 H
INR 3.31
Sodium 140
Potassium 4.1
Chloride 99
Carbon Dioxide 37 H
BUN 44 H
Creatinine 1.5 H
Glucose 83
Calcium 9.0
Vital Signs:
Vital Signs
Temp Pulse Resp BP Pulse Ox
97.5 F 62 18 138/65 99
05/02/25 11:18 05/02/25 11:18 05/02/25 11:18 05/02/25 11:18 05/02/25 11:18
I&O
05/01/25 05/02/25 05/03/25
06:59 06:59 06:59
Intake Total 960 / 960 720 / 720 840 / 840
Output Total 625 / 625 850 / 850 1145 / 1145
Balance 335 / 335 -130 / -130 -305 / -305
Physical Exam
-
General: No Apparent Distress
HEENT: Normocephalic and Atraumatic
Respiratory: Crackles; Negative Wheezes
Cardiac: Regular Rhythm and S1/S2
GI: Soft
Genito-urinary: Negative No Costovertebral Tender
Neuro: AO x 3
Psych: Calm
Data Reviewed
-
Total Time Spent with Patient (in minutes): 51
Labs: Labs Reviewed by me
--- NOTE | 2025-05-02 14:04 | W.PN.CARDCBS ---
Addendum entered and electronically signed by Saurav Mtz MD 05/02/25 15:42:
I saw and examined the patient.
The ALIGNMENT TECHNICIAN or PA's note was reviewed and I agree with the note.
Comment: General: Well developed, well nourished in NAD.
Neck: Supple, no JVD, HJR, carotids +2 B/L, no bruits bilaterally.
Heart: Non displaced PMI, RRR, no murmurs, No S3, S4, no rubs.
Lungs: scattered rhonchi
Extremities: No clubbing, cyanosis or edema bilaterally.
Neuro: Grossly nonfocal, awake, alert and oriented x3.
He is difficult examination but appears to remain CHF. Renal insufficiency is stable. Continue IV Lasix. We could consider right heart catheterization but is felt to be volume overloaded. Will hold warfarin dose tonight.
Original Note:
Today's Communication / Plan
-
Will give another dose of Lasix 40 mg IV x 1 this evening
Follow-up on labs and weight in the morning, if there is no improvement could consider RHC and so we will hold dose of warfarin tonight
INR is ordered by me
Impression / Plan
-
PCP: Dr. Maguire
Soft Work Wrapper Layer And Examiner: Dr. Copeland
Impression:
Admitted with SOB and acute on chronic HFpEF 04/20/2025
Recent admission for acute HF and supratherapeutic INR 04/18/2025 until 04/23/2025
Acute on chronic HFpEF
Chronic hypoxic respiratory failure
moderate to severe
[facility] mechanical AVR
Mean gradient 34 mmHg by echo 04/20/2025
Chronic warfarin OAC managed by cardiology
COPD
Chronically uses 3 to 5 L NC at home
Paroxysmal atrial fibrillation
Hypertension
Hyperlipidemia
LBBB
Elevated troponin
Echo 08/18/2022:�Ejection fraction 50 to 55% with moderate concentric LVH, status post mechanical prosthetic [facility] aortic valve with mean gradient of 58 mmHg.� Dimensionless index was 0.4 it may have been due to high output state.
Echo 11/16/2023: EF 52%, mild concentric LVH, well-seated mechanical aortic valve replacement with peak/mean gradients 38/19 mmHg, trace AI, mild MR, mild TR, estimated PAP 35 mmHg
Echo 07/21/2024: EF 51%, mild mitral stenosis peak/mean 10/4 mmHg, mechanical AVR with peak/mean 57/32 mmHg and no aortic regurgitation, sinus of Valsalva and ascending aorta dilatation, compared to echo from 10/2023 the aortic valve gradients have
increased
Echo 04/20/2025 with preserved EF and: EF 55%, moderate LVH, stage II diastolic dysfunction, moderate to severe with peak/mean gradients 58/34 mmHg, status post mechanical AVR, trace MR, trace TR, estimated PAP 39 mmHg
Plan:
-Presents with acute on chronic hypoxic resp failure likely due to acute heart failure and with proBNP 3130, higher than proBNP at recent admission 04/18/25 for acute heart failure when it was 2700.
-Weight is down 1 lb overnight on my review of VS 05/02/2025.
-Previous dry weight at last hospital discharge on 04/23/2025 was 192 lbs and patient currently weighs 187 lbs on 05/02/2025. We will continue to actively diurese given proBNP higher than previous and initially oxygen requirements were higher than
last admission.
-Patient was being diuresed with Lasix 40 mg IV BID and then doses were held due to [place], the Lasix 40 mg IV x 1 given on 05/01/2025 and again 05/02/2025. Will give an additional dose of Lasix 40 mg IV 05/02/2025 at 1600, orders placed by me.
Follow-up on labs and weight 05/03/2025, if there is no significant improvement then will consider possible RHC.
-EF was 55% by echo 04/20/2025
-Outpatient dose of Bystolic 5 mg daily was changed to Lopressor 25 mg BID last admission for unclear reasons
-Lisinopril 5 mg daily was also started last admission and has been on hold since 05/01/2025
-Patient has a mechanical AVR in place and gradients were relatively stable by echo 04/20/2025 with peak/mean at 58/34 compared to gradients from echo 07/21/2024 when they were 57/32 mmHg. Patient has not had fluoroscopy of his AVR and not clear what
treatment options would be if fluoroscopy performed and indicated valve dysfunction.
-Patient is chronically on warfarin 6 mg daily following mechanical AVR in the . INR is managed by cardiology using home monitor with an INR goal of 2.5-3.5. INR has been in the therapeutic range throughout this admission. If INR increases
above 3.5 would not give vitamin K unless there are signs of bleeding
-INR is 3.31 on my review of labs 05/02/2025. We will hold the dose of warfarin for 05/02/2025 for possible RHC as noted above, orders placed by me.
-Patient was managed for AE COPD during his admission 10 days ago. Patient usually wears 3 to 4 L NC at home.
-Patient has an Gabriel/[facility] [employer] PPM in place. Device checked on 04/19/2025 and patient is not pacemaker dependent and V paces 57% of the time, he had 2 brief runs of A. tach both were less than 10 seconds in duration, no other arrhythmia and
battery longevity 10.2 months.
-Troponin peaked at 0.057 this admission. Patient had a similar troponin elevation last admission. Troponin elevation is likely related to nonischemic myocardial injury in the setting of acute HF.
Progress Note - Soft Work Wrapper Layer And Examiner
Subjective
Date of Service: May 02, 2025
Patient reports minimal symptomatic improvement
Objective
Labs:
05/02/25 06:52
05/02/25 06:51
Labs
Hgb 12.4 g/dL (13.0-18.0) L 05/02/25 06:52
Hct 39.3 % (39.0-52.0) 05/02/25 06:52
Plt Count 277 10^3/uL (130-400) 05/02/25 06:52
PT 33.9 Sec (11.4-14.6) H 05/02/25 06:51
INR 3.31 05/02/25 06:51
Sodium 140 mmol/L (135-145) 05/02/25 06:51
Potassium 4.1 mmol/L (3.5-5.1) 05/02/25 06:51
BUN 44 mg/dl (9-20) H 05/02/25 06:51
Creatinine 1.5 mg/dL (0.7-1.3) H 05/02/25 06:51
Glucose 83 mg/dl (70-99) 05/02/25 06:51
Vital Signs and I&O:
Vital Signs
Temp Pulse Resp BP Pulse Ox
97.5 F 62 18 138/65 99
05/02/25 11:18 05/02/25 11:18 05/02/25 11:18 05/02/25 11:18 05/02/25 11:18
Vital Signs
Temp Pulse Resp BP Pulse Ox
97.5 F 62 18 138/65 99
05/02/25 11:18 05/02/25 11:18 05/02/25 11:18 05/02/25 11:18 05/02/25 11:18
Intake & Output
04/30/25 05/01/25 05/02/25 05/03/25
06:59 06:59 06:59 06:59
Intake Total 1200 / 1200 960 / 960 720 / 720 840 / 840
Output Total 1050 / 1050 625 / 625 850 / 850 1145 / 1145
Balance 150 / 150 335 / 335 -130 / -130 -305 / -305
Physical Exam
Physical Exam
GEN: NAD. AAO x 3, hard of hearing
LUNGS: 2 L NC. No audible wheeze
CV: V paced on telemetry.
EXT: +1 pitting B/L LE edema
NEURO: Gross non-focal
SKIN: No rash
[2025-05-02 15:31] VITALS: BP 126/62
[2025-05-02] MEDS: LIPITOR 20 MG PO (16:12)
[2025-05-02 19:31] VITALS: BP 122/63
[2025-05-02] MEDS: TYLENOL 650 MG PO (21:01)
[2025-05-02 23:48] VITALS: BP 122/43
[2025-05-03] VITALS (8 sets, daily range): BP systolic 116–153; BP diastolic 56–74; PULSE 73–76; O2SAT 92–96; BMI 27.7
[2025-05-03] MEDS: DUONEB 3 ML INH ×5 (02:59→19:41)
[2025-05-03 08:00] LABS: INR 3.17; PT 32.0 Sec (11.4-14.6)
[2025-05-03] MEDS: PULMICORT 0.5 MG INH ×2 (08:04→19:41)
[2025-05-03 08:46] LABS: Blood Urea Nitrogen 43 mg/dl (9-20); Calcium 8.9 mg/dl (8.4-10.2); Chloride 99 mmol/L (98-107); Estimated Creatinine Clearance 36 ml/min; Glucose 86 mg/dl (70-99); Magnesium 2.3 mg/dl (1.6-2.3); Potassium 3.7 mmol/L (3.5-5.1); Sodium 140 mmol/L (135-145); eGFR 45.91
[2025-05-03] MEDS: LOPRESSOR 25 MG PO ×2 (08:55→19:56)
[2025-05-03] MEDS: KCL 20 MEQ PO (08:55)
[2025-05-03] MEDS: ZITHROMAX 250 MG PO (08:55)
[2025-05-03] MEDS: DELTASONE 10 MG PO (08:56)
[2025-05-03] MEDS: ZESTRIL PO (08:59)
--- NOTE | 2025-05-03 09:21 | W.PN.HOSP.TC ---
Today's Communication/Plan
-
continue IV Lasix; AM dose ordered for now, defer to Cardiology for additional or BID dosing
unhold Coumadin with no plan for RHC, d/w Dr. Mtz
Assessment / Plan
Assessment / Plan
Assessment:
Acute on chronic hypoxic respiratory failure - suspect due to acute on chronic heart failure exacerbation in the setting of underlying chronic lung disease. Stable on 4 L nasal cannula.
Uses 3 to 4 L of oxygen at baseline.
Admission chest x-ray shows hyperinflation, emphysema. No evidence of pulmonary edema.
Acute on chronic heart failure with preserved EF - clinically improving, continue IV Lasix per Cardiology. requires intensive monitoring of I/Os, weights, lytes
BNP 3130. Weight down overnight. Edema improving.
Last echocardiogram 04/20/2025, normal LV size, wall thickness, systolic function. No regional wall motion abnormalities. Moderate to severe .
Severe aortic stenosis - has [employer] mechanical AVR. Goal INR 2.5-3.5. Warfarin dose was reduced during last hospitalization from 7 to 6 mg daily due to supratherapeutic INR on admission. Noted to have epistaxis with elevated INR.
INR today trending up, 3.17. Dose of warfarin was lowered to 5 mg on 04/30. will continue and monitor INR..
QTc prolongation - magnesium 1.9. Oral potassium continues. Monitor labs
Acute nonischemic myocardial injury - suspect due to heart failure exacerbation. Troponin peaked at .057.
Paroxysmal atrial fibrillation - rate controlled. continue warfarin.
Essential hypertension - stable.
COPD without exacerbation - continue chronic azithromycin, prednisone. Continue inhalers.
Hyperlipidemia - simvastatin.
Permanent pacemaker
DVT ppx: Warfarin
Code: DNR/DNI
Anticipated Discharge: > 48 hours
Subjective/Interval History
-
Date of Service: May 03, 2025
continues to endorse some SOB despite weight reduction 2kg per scale
Objective Data
-
Labs:
Laboratory Results
05/03/25
07:06
PT 32.0 H
INR 3.17
Sodium 140
Potassium 3.7
Chloride 99
Carbon Dioxide Pending
BUN 43 H
Creatinine 1.5 H
Glucose 86
Calcium 8.9
Vital Signs:
Vital Signs
Temp Pulse Resp BP Pulse Ox
97.4 F 66 18 149/69 97
05/03/25 07:18 05/03/25 08:55 05/03/25 08:04 05/03/25 08:55 05/03/25 08:04
I&O
05/02/25 05/03/25 05/04/25
06:59 06:59 06:59
Intake Total 720 / 720 1500 / 1500
Output Total 850 / 850 2445 / 2445
Balance -130 / -130 -945 / -945
Physical Exam
-
General: No Apparent Distress
HEENT: Normocephalic and Atraumatic
Respiratory: Crackles
Cardiac: Regular Rhythm and S1/S2
GI: Soft
Genito-urinary: No Costovertebral Tender
Neuro: AO x 3
Psych: Calm
Data Reviewed
-
Total Time Spent with Patient (in minutes): 51
Labs: Labs Reviewed by me
--- NOTE | 2025-05-03 09:27 | W.PN.CARDCBS ---
Addendum entered and electronically signed by Saurav Mtz MD 05/03/25 16:09:
I saw and examined the patient.
The LAP LAYER or PA's note was reviewed and I agree with the note.
Comment: General: Well developed, well nourished in NAD.
Neck: Supple, no JVD, HJR, carotids +2 B/L, no bruits bilaterally.
Heart: Non displaced PMI, RRR, no murmurs, No S3, S4, no rubs.
Lungs: Scattered rhonchi
Extremities: No clubbing, cyanosis or edema bilaterally.
Neuro: Grossly nonfocal, awake, alert and oriented x3.
He continues to diurese with IV Lasix with stable renal function. Hold off on right heart cath at this point. Coumadin has been restarted. Discussed with primary service.
Original Note:
Today's Communication / Plan
-
Lasix 40 mg IV daily has been ordered, if BMP is stable tomorrow we could give another dose in the evening. Patient had a favorable response to additional dose of Lasix 40 mg IV in the evening on 05/02/2025
Will hold off on plans for RHC at this point as weight is down 5 lbs following an extra dose of Lasix last evening
Cre is stable at 1.5
Impression / Plan
-
PCP: Dr. Maguire
Nutrition Therapist: Dr. Copeland
Impression:
Admitted with SOB and acute on chronic HFpEF 04/20/2025
Recent admission for acute HF and supratherapeutic INR 04/18/2025 until 04/23/2025
Acute on chronic HFpEF
Chronic hypoxic respiratory failure
moderate to severe
[employer] mechanical AVR
Mean gradient 34 mmHg by echo 04/20/2025
Chronic warfarin OAC managed by cardiology
COPD
Chronically uses 3 to 5 L NC at home
Paroxysmal atrial fibrillation
Hypertension
Hyperlipidemia
LBBB
Elevated troponin
Echo 08/18/2022:�Ejection fraction 50 to 55% with moderate concentric LVH, status post mechanical prosthetic [employer] aortic valve with mean gradient of 58 mmHg.� Dimensionless index was 0.4 it may have been due to high output state.
Echo 11/16/2023: EF 52%, mild concentric LVH, well-seated mechanical aortic valve replacement with peak/mean gradients 38/19 mmHg, trace AI, mild MR, mild TR, estimated PAP 35 mmHg
Echo 07/21/2024: EF 51%, mild mitral stenosis peak/mean 10/4 mmHg, mechanical AVR with peak/mean 57/32 mmHg and no aortic regurgitation, sinus of Valsalva and ascending aorta dilatation, compared to echo from 10/2023 the aortic valve gradients have
increased
Echo 04/20/2025 with preserved EF and: EF 55%, moderate LVH, stage II diastolic dysfunction, moderate to severe with peak/mean gradients 58/34 mmHg, status post mechanical AVR, trace MR, trace TR, estimated PAP 39 mmHg
Plan:
-Presents with acute on chronic hypoxic resp failure likely due to acute heart failure and with proBNP 3130, higher than proBNP at recent admission 04/18/25 for acute heart failure when it was 2700.
-Weight is down 5 lbs overnight on my review of VS 05/03/2025.
-Previous dry weight at last hospital discharge on 04/23/2025 was 192 lbs and patient currently weighs 182 lbs on 05/03/2025. We will continue to actively diurese given rales, proBNP higher than previous and initially oxygen requirements were higher
than last admission.
-Patient was being diuresed with Lasix 40 mg IV BID and then doses were held due to [place], the Lasix 40 mg IV x 1 given on 05/01/2025 and again 05/02/2025. Patient responded favorably to an additional dose of Lasix 40 mg IV on the night of 05/02/2025.
For now we will continue with Lasix 40 mg IV daily and if BMP is stable on the morning of 05/04/2025 then we could consider another dose of Lasix that evening
-EF was 55% by echo 04/20/2025
-Outpatient dose of Bystolic 5 mg daily was changed to Lopressor 25 mg BID last admission for unclear reasons
-Lisinopril 5 mg daily was also started last admission and has been on hold since 05/01/2025
-Patient has a mechanical AVR in place and gradients were relatively stable by echo 04/20/2025 with peak/mean at 58/34 compared to gradients from echo 07/21/2024 when they were 57/32 mmHg. Patient has not had fluoroscopy of his AVR and not clear what
treatment options would be if fluoroscopy performed and indicated valve dysfunction.
-Patient is chronically on warfarin 6 mg daily following mechanical AVR in the . INR is managed by cardiology using home monitor with an INR goal of 2.5-3.5. INR has been in the therapeutic range throughout this admission. If INR increases
above 3.5 would not give vitamin K unless there are signs of bleeding
-INR is 3.1 on my review of labs 05/03/2025. Usual dose of warfarin 6 mg daily resumed 05/03/2025
-Patient was managed for AE COPD during his admission 10 days ago. Patient usually wears 3 to 4 L NC at home.
-Patient has an Gabriel/[employer] PPM in place. Device checked on 04/19/2025 and patient is not pacemaker dependent and V paces 57% of the time, he had 2 brief runs of A. tach both were less than 10 seconds in duration, no other arrhythmia and
battery longevity 10.2 months.
-Troponin peaked at 0.057 this admission. Patient had a similar troponin elevation last admission. Troponin elevation is likely related to nonischemic myocardial injury in the setting of acute HF.
Progress Note - Nutrition Therapist
Subjective
Date of Service: May 03, 2025
Ongoing SOB
Objective
Labs:
05/02/25 06:52
05/03/25 07:06
Labs
Hgb 12.4 g/dL (13.0-18.0) L 05/02/25 06:52
Hct 39.3 % (39.0-52.0) 05/02/25 06:52
Plt Count 277 10^3/uL (130-400) 05/02/25 06:52
PT 32.0 Sec (11.4-14.6) H 05/03/25 07:06
INR 3.17 05/03/25 07:06
Sodium 140 mmol/L (135-145) 05/03/25 07:06
Potassium 3.7 mmol/L (3.5-5.1) 05/03/25 07:06
BUN 43 mg/dl (9-20) H 05/03/25 07:06
Creatinine 1.5 mg/dL (0.7-1.3) H 05/03/25 07:06
Glucose 86 mg/dl (70-99) 05/03/25 07:06
Vital Signs and I&O:
Vital Signs
Temp Pulse Resp BP Pulse Ox
97.4 F 66 18 149/69 97
05/03/25 07:18 05/03/25 08:55 05/03/25 08:04 05/03/25 08:55 05/03/25 08:04
Vital Signs
Temp Pulse Resp BP Pulse Ox
97.4 F 66 18 149/69 97
05/03/25 07:18 05/03/25 08:55 05/03/25 08:04 05/03/25 08:55 05/03/25 08:04
Intake & Output
05/01/25 05/02/25 05/03/25 05/04/25
06:59 06:59 06:59 06:59
Intake Total 960 / 960 720 / 720 1500 / 1500
Output Total 625 / 625 850 / 850 2445 / 2445
Balance 335 / 335 -130 / -130 -945 / -945
Physical Exam
Physical Exam
GEN: NAD. AAO x 3, hard of hearing
LUNGS: 2 L NC. No audible wheeze
CV: V paced on telemetry.
EXT: +1 pitting B/L LE edema
NEURO: Gross non-focal
SKIN: No rash
[2025-05-03 09:44] LABS: Carbon Dioxide 36 mmol/L (22-30)
[2025-05-03] MEDS: LASIX 40 MG IV (10:08)
--- NOTE | 2025-05-03 10:49 | CM ---
Reviewed chart and spoke with son Anupam and updated him on the following: Pt remains on IV lasix and close monitoring of I/O's. weight and lytes. Son requested to speak to Dr. Solis. Dr. Solis TT with son's contact information
Plan: DC home with Robby HERNÁNDEZ
[2025-05-03] MEDS: COUMADIN 5 MG PO (17:37)
[2025-05-03] MEDS: LIPITOR 20 MG PO (17:37)
[2025-05-03] MEDS: TYLENOL 650 MG PO ×2 (19:56→23:56)
[2025-05-04] VITALS (8 sets, daily range): BP systolic 121–145; BP diastolic 48–69; PULSE 74; O2SAT 94–98; BMI 28.0
[2025-05-04] MEDS: PULMICORT 0.5 MG INH ×2 (06:02→19:15)
[2025-05-04] MEDS: DUONEB 3 ML INH ×4 (06:02→19:15)
[2025-05-04 08:06] LABS: INR 2.63; PT 27.6 Sec (11.4-14.6)
[2025-05-04 08:27] LABS: Blood Urea Nitrogen 40 mg/dl (9-20); Calcium 9.0 mg/dl (8.4-10.2); Chloride 101 mmol/L (98-107); Estimated Creatinine Clearance 42 ml/min; Glucose 83 mg/dl (70-99); Magnesium 2.4 mg/dl (1.6-2.3); Potassium 3.7 mmol/L (3.5-5.1); Sodium 139 mmol/L (135-145); eGFR 54.51
[2025-05-04] MEDS: KCL 20 MEQ PO (08:43)
[2025-05-04] MEDS: LASIX 40 MG IV ×3 (08:43→17:18)
[2025-05-04] MEDS: DELTASONE 10 MG PO (08:43)
[2025-05-04] MEDS: ZITHROMAX 250 MG PO (08:43)
[2025-05-04] MEDS: LOPRESSOR 25 MG PO ×2 (08:43→20:25)
[2025-05-04 09:24] LABS: Carbon Dioxide 35 mmol/L (22-30)
--- NOTE | 2025-05-04 09:30 | W.PN.HOSP.TC ---
Today's Communication/Plan
-
continue IV Lasix per Cardiology
continue Coumadin; f/u INRs
Assessment / Plan
Assessment / Plan
Assessment:
Acute on chronic hypoxic respiratory failure - suspect due to acute on chronic heart failure exacerbation in the setting of underlying chronic lung disease. Stable on 4 L nasal cannula.
Uses 3 to 4 L of oxygen at baseline.
Admission chest x-ray shows hyperinflation, emphysema. No evidence of pulmonary edema.
Acute on chronic heart failure with preserved EF - clinically improving, continue IV Lasix per Cardiology. requires intensive monitoring of I/Os, weights, lytes
BNP 3130. Weight down overnight. Edema improving.
Last echocardiogram 04/20/2025, normal LV size, wall thickness, systolic function. No regional wall motion abnormalities. Moderate to severe .
Severe aortic stenosis - has [employer] mechanical AVR. Goal INR 2.5-3.5. Warfarin dose was reduced during last hospitalization from 7 to 6 mg daily due to supratherapeutic INR on admission. Noted to have epistaxis with elevated INR.
INR today is 2.63. Dose of warfarin was lowered to 5 mg on 04/30. will continue and monitor INR..
QTc prolongation - magnesium 1.9. Oral potassium continues. Monitor labs
Acute nonischemic myocardial injury - suspect due to heart failure exacerbation. Troponin peaked at .057.
Paroxysmal atrial fibrillation - rate controlled. continue warfarin.
Essential hypertension - stable.
COPD without exacerbation - continue chronic azithromycin, prednisone. Continue inhalers.
Hyperlipidemia - simvastatin.
Permanent pacemaker
DVT ppx: Warfarin
Code: DNR/DNI
Anticipated Discharge: 24 - 48 hours
Subjective/Interval History
-
Date of Service: May 04, 2025
Cr 1.3
SOB improving
Objective Data
-
Labs:
Laboratory Results
05/04/25
07:29
PT 27.6 H
INR 2.63
Sodium 139
Potassium 3.7
Chloride 101
Carbon Dioxide 35 H
BUN 40 H
Creatinine 1.3
Glucose 83
Calcium 9.0
Vital Signs:
Vital Signs
Temp Pulse Resp BP Pulse Ox
97.4 F 91 20 164/65 95
05/04/25 07:57 05/04/25 08:43 05/04/25 07:57 05/04/25 08:43 05/04/25 08:00
I&O
05/03/25 05/04/25 05/05/25
06:59 06:59 06:59
Intake Total 1500 / 1500 920 / 920
Output Total 2445 / 2445 1515 / 1515
Balance -945 / -945 -595 / -595
Physical Exam
-
General: No Apparent Distress
HEENT: Normocephalic and Atraumatic
Respiratory: Crackles (reduced); Negative Wheezes
Cardiac: Regular Rhythm and S1/S2
GI: Soft
Genito-urinary: No Costovertebral Tender
Neuro: AO x 3
Psych: Calm
Data Reviewed
-
Total Time Spent with Patient (in minutes): 51
Labs: Labs Reviewed by me
--- NOTE | 2025-05-04 15:44 | W.PN.CARDCBS ---
Addendum entered and electronically signed by Kal De La Cruz MD 05/04/25 17:02:
85-year-old man admitted April 28 with acute on chronic HFpEF.
PMH/PSH: [employer] mechanical aortic valve, mean gradient 32 mmHg, COPD, paroxysmal A-fib, hypertension, hyperlipidemia, left bundle branch block, Gabriel pacemaker
Medications: Zithromycin, Pulmicort, lisinopril 5 mg a day, prednisone 10 mg a day, atorvastatin 20 mg a day, DuoNebs, potassium 20 mill equivalents daily, metoprolol tartrate 25 BID, furosemide 40 mg IV daily (40 mg orally as outpatient) warfarin
Rest of history per Beverly Santiago. Reviewed in detail and agree, unless otherwise specified
145/66, pulse 84, respiratory rate 20, weight is 83.5 kg,, weight on admission was 81.6 kg, he is wheezing, says he feels significantly better, coarse breath sounds, JVD okay, murmur not that loud,, 1+ edema, JVD hard to assess,
INR is 2.63, BUN/creatinine are 40 and 1.3, potassium is 3.7, magnesium is 2.4, proBNP was 3130 on admission
Impression:
Multifactorial dyspnea with element of acute on chronic HFpEF
[employer] mechanical AVR, with mean gradient of 34 mmHg, consider valve dysfunction
COPD, on home O2, 3 to 5 L
Paroxysmal atrial fibrillation
Hypertension
Hyperlipidemia
Left bundle branch block
Nonischemic myocardial injury
Other diagnoses as below, reviewed in detail and agree unless otherwise specified
Gabriel pacemaker
Plan:
He says he feels considerably better, but his weight is unchanged compared to admission.
Will give IV furosemide 80 mg IV now (he said he will not be bothered by the polyuria)
He would probably not be a candidate for redo AVR in the event that he has severe mechanical valve dysfunction. However valve fluoroscopy might be useful from a prognostic standpoint.
Spironolactone is not listed as an allergy. Will add. He could be considered for Jardiance or Farxiga.
Recheck proBNP
Okay to begin discharge planning.
Original Note:
Today's Communication / Plan
-
He is probably approaching euvolemia, Cre is a bit better
Will give another dose of Lasix 40 mg IV x 1 now
Impression / Plan
-
PCP: Dr. Maguire
Gun Mechanic: Dr. Copeland
Impression:
Admitted with SOB and acute on chronic HFpEF 04/20/2025
Recent admission for acute HF and supratherapeutic INR 04/18/2025 until 04/23/2025
Acute on chronic HFpEF
Chronic hypoxic respiratory failure
moderate to severe
[employer] mechanical AVR
Mean gradient 34 mmHg by echo 04/20/2025
Chronic warfarin OAC managed by cardiology
COPD
Chronically uses 3 to 5 L NC at home
Paroxysmal atrial fibrillation
Hypertension
Hyperlipidemia
LBBB
Elevated troponin
Echo 08/18/2022:�Ejection fraction 50 to 55% with moderate concentric LVH, status post mechanical prosthetic [employer] aortic valve with mean gradient of 58 mmHg.� Dimensionless index was 0.4 it may have been due to high output state.
Echo 11/16/2023: EF 52%, mild concentric LVH, well-seated mechanical aortic valve replacement with peak/mean gradients 38/19 mmHg, trace AI, mild MR, mild TR, estimated PAP 35 mmHg
Echo 07/21/2024: EF 51%, mild mitral stenosis peak/mean 10/4 mmHg, mechanical AVR with peak/mean 57/32 mmHg and no aortic regurgitation, sinus of Valsalva and ascending aorta dilatation, compared to echo from 10/2023 the aortic valve gradients have
increased
Echo 04/20/2025 with preserved EF and: EF 55%, moderate LVH, stage II diastolic dysfunction, moderate to severe with peak/mean gradients 58/34 mmHg, status post mechanical AVR, trace MR, trace TR, estimated PAP 39 mmHg
Plan:
-Presents with acute on chronic hypoxic resp failure likely due to acute heart failure and with proBNP 3130, higher than proBNP at recent admission 04/18/25 for acute heart failure when it was 2700.
-Weight is up 2 lbs overnight on my review of VS 05/04/2025.
-Previous dry weight at last hospital discharge on 04/23/2025 was 192 lbs and patient currently weighs 184 lbs on 05/04/2025.
-Cre improved to 1.3 on my review of labs 05/04/2025
-Continue with Lasix 40 mg IV daily and will give an additional dose of Lasix 40 mg IV x 1 on 05/04/2025 PM, orders placed by me
-EF was 55% by echo 04/20/2025
-Outpatient dose of Bystolic 5 mg daily was changed to Lopressor 25 mg BID last admission for unclear reasons
-Lisinopril 5 mg daily was also started last admission and has been on hold since 05/01/2025
-Patient has a mechanical AVR in place and gradients were relatively stable by echo 04/20/2025 with peak/mean at 58/34 compared to gradients from echo 07/21/2024 when they were 57/32 mmHg. Patient has not had fluoroscopy of his AVR and not clear what
treatment options would be if fluoroscopy performed and indicated valve dysfunction.
-INR is managed by cardiology using home monitor with an INR goal of 2.5-3.5. INR has been in the therapeutic range throughout this admission. If INR increases above 3.5 would not give vitamin K unless there are signs of bleeding
-INR is 2.63 on my review of labs 05/04/2025. Standing dose of warfarin stopped, warfarin 7.5 mg x 1 on 05/04/2025 ordered by me. INR is ordered, will dose warfarin on a daily basis.
-Patient was managed for AE COPD during his admission 10 days ago. Patient usually wears 3 to 4 L NC at home.
-Patient has an Gabriel/[employer] PPM in place. Device checked on 04/19/2025 and patient is not pacemaker dependent and V paces 57% of the time, he had 2 brief runs of A. tach both were less than 10 seconds in duration, no other arrhythmia and
battery longevity 10.2 months.
-Troponin peaked at 0.057 this admission. Patient had a similar troponin elevation last admission. Troponin elevation is likely related to nonischemic myocardial injury in the setting of acute HF.
Progress Note - Gun Mechanic
Subjective
Date of Service: May 04, 2025
He feels a bit better, he is on his usual oxygen flow
Objective
Labs:
05/02/25 06:52
05/04/25 07:29
Labs
Hgb 12.4 g/dL (13.0-18.0) L 05/02/25 06:52
Hct 39.3 % (39.0-52.0) 05/02/25 06:52
Plt Count 277 10^3/uL (130-400) 05/02/25 06:52
PT 27.6 Sec (11.4-14.6) H 05/04/25 07:29
INR 2.63 05/04/25 07:29
Sodium 139 mmol/L (135-145) 05/04/25 07:29
Potassium 3.7 mmol/L (3.5-5.1) 05/04/25 07:29
BUN 40 mg/dl (9-20) H 05/04/25 07:29
Creatinine 1.3 mg/dL (0.7-1.3) 05/04/25 07:29
Glucose 83 mg/dl (70-99) 05/04/25 07:29
Vital Signs and I&O:
Vital Signs
Temp Pulse Resp BP Pulse Ox
98.2 F 84 20 144/69 95
05/04/25 11:14 05/04/25 15:39 05/04/25 15:39 05/04/25 11:14 05/04/25 15:39
Vital Signs
Temp Pulse Resp BP Pulse Ox
98.2 F 84 20 144/69 95
05/04/25 11:14 05/04/25 15:39 05/04/25 15:39 05/04/25 11:14 05/04/25 15:39
Intake & Output
05/02/25 05/03/25 05/04/25 05/05/25
06:59 06:59 06:59 06:59
Intake Total 720 / 720 1500 / 1500 920 / 920
Output Total 850 / 850 2445 / 2445 1515 / 1515
Balance -130 / -130 -945 / -945 -595 / -595
Physical Exam
Physical Exam
GEN: NAD. AAO x 3, hard of hearing
LUNGS: 2 L NC. No audible wheeze
CV: V paced on telemetry.
EXT: Trace pitting B/L LE edema
NEURO: Gross non-focal
SKIN: No rash
[2025-05-04] MEDS: COUMADIN 7.5 MG PO (16:51)
[2025-05-04] MEDS: LIPITOR 20 MG PO (16:51)
[2025-05-04] MEDS: KCL 40 MEQ PO (17:18)
[2025-05-04] MEDS: TYLENOL 650 MG PO (20:25)
[2025-05-05 03:50] VITALS: BP 132/70
[2025-05-05 06:00] VITALS: BMI 27.7
[2025-05-05 07:00] VITALS: BP 130/79
[2025-05-05] MEDS: KCL 20 MEQ PO (07:56)
[2025-05-05] MEDS: PULMICORT 0.5 MG INH (07:57)
[2025-05-05] MEDS: ZITHROMAX 250 MG PO (07:57)
[2025-05-05] MEDS: LASIX 40 MG IV (07:57)
[2025-05-05] MEDS: DELTASONE 10 MG PO (07:57)
[2025-05-05] MEDS: DUONEB 3 ML INH ×2 (07:57→11:48)
[2025-05-05] MEDS: LOPRESSOR 25 MG PO (07:59)
[2025-05-05 09:38] LABS: INR 2.63; PT 28.3 Sec (11.4-14.6)
--- NOTE | 2025-05-05 09:58 | W.PN.CARDCBS ---
Addendum entered and electronically signed by Kal De La Cruz MD 05/05/25 13:47:
85-year-old man admitted April 28 with acute on chronic HFpEF.
PMH/PSH: [employer] mechanical aortic valve, mean gradient 32 mmHg, COPD, paroxysmal A-fib, hypertension, hyperlipidemia, left bundle branch block, Gabriel pacemaker
Medications reviewed.
127/59, pulse 91 sats 98% afebrile, weight is 82.7 kg, down about 0.8 kg, appears more comfortable, lungs relatively clear, systolic murmur with mechanical second heart sound, JVD okay, trace to plus edema, abdomen benign
BUN and creatinine are 40 and 1.4, potassium is 4.3, proBNP is 2220, was over 3000 before
Impression:
Multifactorial dyspnea with element of acute on chronic HFpEF
[employer] mechanical AVR, with mean gradient of 34 mmHg, consider valve dysfunction
COPD, on home O2, 3 to 5 L
Paroxysmal atrial fibrillation
Hypertension
Hyperlipidemia
Left bundle branch block
Nonischemic myocardial injury
Other diagnoses as below, reviewed in detail and agree unless otherwise specified
Gabriel pacemaker
Plan:
Okay for discharge
Recommended cardiac medications at discharge:
Furosemide 60 mg a day
Warfarin 6 mg today
Spironolactone 12.5 mg a day
Jardiance or Farxiga 10 mg a day
Lisinopril 2.5 mg daily
Atorvastatin 20 mg a day
Metoprolol to tartrate 25 mg a day
Check BMP, INR in 5 to 7 days
We will arrange for cardiac follow-up
Original Note:
Today's Communication / Plan
-
Resume lisinopril at lower dose 2.5 mg
Increase outpt Lasix to 60 mg daily at discharge
Continue outpatient dose of Coumadin at 6 mg
BMP 5 to 7 days postdischarge. Order has been placed on chart
Outpatient cardiology follow-up has been arranged.
Impression / Plan
-
PCP: Dr. Maguire
[employer] Chief Creative Officer: Dr. Copeland
Impression:
Admitted with SOB and acute on chronic HFpEF 04/20/2025
Recent admission for acute HF and supratherapeutic INR 04/18/2025 until 04/23/2025
Acute on chronic HFpEF
Chronic hypoxic respiratory failure
moderate to severe
[employer] mechanical AVR
Mean gradient 34 mmHg by echo 04/20/2025
Chronic warfarin OAC managed by cardiology
COPD
Chronically uses 3 to 5 L NC at home
Paroxysmal atrial fibrillation
Hypertension
Hyperlipidemia
LBBB
Elevated troponin
Echo 08/18/2022:�Ejection fraction 50 to 55% with moderate concentric LVH, status post mechanical prosthetic [employer] Arnold aortic valve with mean gradient of 58 mmHg.� Dimensionless index was 0.4 it may have been due to high output state.
Echo 11/16/2023: EF 52%, mild concentric LVH, well-seated mechanical aortic valve replacement with peak/mean gradients 38/19 mmHg, trace AI, mild MR, mild TR, estimated PAP 35 mmHg
Echo 07/21/2024: EF 51%, mild mitral stenosis peak/mean 10/4 mmHg, mechanical AVR with peak/mean 57/32 mmHg and no aortic regurgitation, sinus of Valsalva and ascending aorta dilatation, compared to echo from 10/2023 the aortic valve gradients have
increased
Echo 04/20/2025 with preserved EF and: EF 55%, moderate LVH, stage II diastolic dysfunction, moderate to severe with peak/mean gradients 58/34 mmHg, status post mechanical AVR, trace MR, trace TR, estimated PAP 39 mmHg
Plan:
-Presents with acute on chronic hypoxic resp failure likely due to acute heart failure and with proBNP 3130, higher than proBNP at recent admission 04/18/25 for acute heart failure when it was 2700.
- Patient symptomatically improved. Weight is down at least 5 pounds since admission and down 2 pounds overnight after getting 120 mg IV Lasix on 05/04/2025. Current weight 182. Previous dry weight at last hospital discharge on 04/23/2025 was 192
lbs
- Peak creatinine this admission 1.5, Cre improved to 1.3 on my review of labs 05/04/2025. Now back up to 1.4 after getting 120 mg of IV Lasix on 05/05/2025.
-Patient was previously on 40 mg p.o. daily as outpatient. Consider discharging home on higher dose of Lasix 60 mg daily. If creat stable as outpatient could also consider eventual addition of Aldactone.
-EF was 55% by echo 04/20/2025
-Lisinopril 5 mg daily was also started last admission and has been on hold since 05/01/2025. Would add back 2.5 mg.
-Repeat BMP 5 to 7 days as outpatient
-Outpatient dose of Bystolic 5 mg daily was changed to Lopressor 25 mg BID last admission for unclear reasons. Continue Lopressor
-Patient has a mechanical AVR in place and gradients were relatively stable by echo 04/20/2025 with peak/mean at 58/34 compared to gradients from echo 07/21/2024 when they were 57/32 mmHg. Patient has not had fluoroscopy of his AVR and not clear what
treatment options would be if fluoroscopy performed and indicated valve dysfunction. Can be discussed further as outpatient.
-INR is managed by cardiology using home monitor with an INR goal of 2.5-3.5. INR has been in the therapeutic range throughout this admission current INR at goal at 2.63 on labs 05/05/2025. Continue outpatient dosing of warfarin at 6 mg daily at
discharge
-If INR increases above 3.5 would not give vitamin K unless there are signs of bleeding
-Patient was managed for AE COPD during his admission 10 days ago. Patient usually wears 3 to 4 L NC at home.
-Patient has an Gabriel/[employer] Arnold PPM in place. Device checked on 04/19/2025 and patient is not pacemaker dependent and V paces 57% of the time, he had 2 brief runs of A. tach both were less than 10 seconds in duration, no other arrhythmia and
battery longevity 10.2 months.
-Troponin peaked at 0.057 this admission. Patient had a similar troponin elevation last admission. Troponin elevation is likely related to nonischemic myocardial injury in the setting of acute HF.
Plan discussed with patient, hospitalist, nursing. Outpatient cardiology follow-up has been arranged. Will need BMP 5-7 days post discharge.
Progress Note - [employer]
Subjective
Date of Service: May 05, 2025
Patient seen and examined. Patient overall reports he is feeling improved from breathing standpoint. He is eager to go home
Objective
Labs:
05/02/25 06:52
Labs
Hgb 12.4 g/dL (13.0-18.0) L 05/02/25 06:52
Hct 39.3 % (39.0-52.0) 05/02/25 06:52
Plt Count 277 10^3/uL (130-400) 05/02/25 06:52
PT 28.3 Sec (11.4-14.6) H 05/05/25 09:01
INR 2.63 05/05/25 09:01
Sodium 139 mmol/L (135-145) 05/04/25 07:29
Potassium 3.7 mmol/L (3.5-5.1) 05/04/25 07:29
BUN 40 mg/dl (9-20) H 05/04/25 07:29
Creatinine 1.3 mg/dL (0.7-1.3) 05/04/25 07:29
Glucose 83 mg/dl (70-99) 05/04/25 07:29
Vital Signs and I&O:
Vital Signs
Temp Pulse Resp BP Pulse Ox
97.7 F 99 22 138/76 99
05/05/25 07:00 05/05/25 07:57 05/05/25 07:55 05/05/25 07:57 05/05/25 07:55
Vital Signs
Temp Pulse Resp BP Pulse Ox
97.7 F 99 22 138/76 99
05/05/25 07:00 05/05/25 07:57 05/05/25 07:55 05/05/25 07:57 05/05/25 07:55
Intake & Output
05/03/25 05/04/25 05/05/25 05/06/25
06:59 06:59 06:59 06:59
Intake Total 1500 / 1500 920 / 920 600 / 600 180 / 180
Output Total 2445 / 2445 1515 / 1515 940 / 940 150 / 150
Balance -945 / -945 -595 / -595 -340 / -340
Physical Exam
Physical Exam
GEN: No distress, awake, Ox3, sitting in chair on oxygen
HEENT: supple, anicteric, mmm
LUNGS: Mildly decreased at bases with fine crackles at left base otherwise CTA, no wheezes/rales, on oxygen
CV: Reg, S1/S2, 1/6 syst murmur, no rubs or gallops
ABD: soft, BS+, NT/ND
EXT: Trace to +1 edema bilaterally, skin changes consistent with chronic venous stasis
NEURO: Gross non-focal
SKIN: No rash, no rub or gallop
[2025-05-05 10:01] LABS: Blood Urea Nitrogen 40 mg/dl (9-20); Calcium 9.2 mg/dl (8.4-10.2); Carbon Dioxide 38 mmol/L (22-30); Chloride 97 mmol/L (98-107); Estimated Creatinine Clearance 39 ml/min; Glucose 113 mg/dl (70-99); Magnesium 2.3 mg/dl (1.6-2.3); Potassium 4.3 mmol/L (3.5-5.1); Sodium 139 mmol/L (135-145); eGFR 49.87
[2025-05-05 11:00] VITALS: BP 127/59
[2025-05-05 11:40] VITALS: BP 130/70; PULSE 71; O2SAT 99
--- NOTE | 2025-05-05 13:52 | W.PN.HOSP.TC ---
Today's Communication/Plan
-
dc home/VN today
Assessment / Plan
Assessment / Plan
Assessment:
Acute on chronic hypoxic respiratory failure - suspect due to acute on chronic heart failure exacerbation in the setting of underlying chronic lung disease. Stable on 4 L nasal cannula.
Uses 3 to 4 L of oxygen at baseline.
Admission chest x-ray shows hyperinflation, emphysema. No evidence of pulmonary edema.
Acute on chronic heart failure with preserved EF - clinically improving, continue IV Lasix per Cardiology. requires intensive monitoring of I/Os, weights, lytes
BNP 3130. Weight down overnight. Edema improving.
Last echocardiogram 04/20/2025, normal LV size, wall thickness, systolic function. No regional wall motion abnormalities. Moderate to severe .
Severe aortic stenosis - has [employer] Arnold mechanical AVR. Goal INR 2.5-3.5. Warfarin dose was reduced during last hospitalization from 7 to 6 mg daily due to supratherapeutic INR on admission. Noted to have epistaxis with elevated INR.
INR today is 2.63. Dose of warfarin was lowered to 5 mg on 04/30. will continue and monitor INR..
QTc prolongation - magnesium 1.9. Oral potassium continues. Monitor labs
Acute nonischemic myocardial injury - suspect due to heart failure exacerbation. Troponin peaked at .057.
Paroxysmal atrial fibrillation - rate controlled. continue warfarin.
Essential hypertension - stable.
COPD without exacerbation - continue chronic azithromycin, prednisone. Continue inhalers.
Hyperlipidemia - simvastatin.
Permanent pacemaker
DVT ppx: Warfarin
Code: DNR/DNI
More than 30 minutes spent in discharge including
Final examination of the patient
Summarizing hospital stay
Instructions for continuing care to all relevant caregivers
Preparation of discharge records, prescriptions, and referral forms
Total time spent (in minutes): 42
Anticipated Discharge: Today
Subjective/Interval History
-
Date of Service: May 05, 2025
Patient seen and examined. Patient overall reports he is feeling improved from breathing standpoint. He is eager to go home
Objective Data
-
Labs:
Laboratory Results
05/05/25
09:01
PT 28.3 H
INR 2.63
Sodium 139
Potassium 4.3
Chloride 97 L
Carbon Dioxide 38 H
BUN 40 H
Creatinine 1.4 H
Glucose 113 H
Calcium 9.2
Vital Signs:
Vital Signs
Temp Pulse Resp BP Pulse Ox
98.1 F 91 20 127/59 98
05/05/25 11:00 05/05/25 11:49 05/05/25 11:49 05/05/25 11:00 05/05/25 11:49
I&O
05/04/25 05/05/25 05/06/25
06:59 06:59 06:59
Intake Total 920 / 920 600 / 600 180 / 180
Output Total 1515 / 1515 940 / 940 275 / 275
Balance -595 / -595 -340 / -340 -95 / -95
Physical Exam
-
General: No Apparent Distress
HEENT: Normocephalic and Atraumatic
Respiratory: Negative Wheezes
Cardiac: Regular Rhythm and S1/S2
GI: Soft and Nontender
Genito-urinary: No Costovertebral Tender
Neuro: AO x 3
Psych: Calm
Data Reviewed
-
Total Time Spent with Patient (in minutes): 42
Labs: Labs Reviewed by me
--- NOTE | 2025-05-05 13:54 | W.DCSUMMARY ---
Discharge Summary
Discharge Data
Date of Admission: 04/28/25
Date of Discharge: 05/05/25
-
Pending Results: No
Hospital Course
85 y/o M, hx of COPD, CHF and chronic hypoxemic respiratory failure, HLD, pacemaker placement, HTN presented to ER on 04/28 with SOB with activity and exertion along with Orthopnea. BNP was elevated at 3130, consistent with acute CHF. Patient
underwent a course of IV Lasix per Cardiology with improvement and reduction in weight and BNP. Patient had nonischemic myocardial injury in setting of acute CHF. He was discharged home with VN on 05/05/25. He remains on Coumadin for history of [employer]
Arnold mechanical AVR.
Discharge Plan
-
Patient Disposition: Home with Home Care
Discharge Diagnosis/Procedures: Acute CHF, chronic hypoxic respiratory failure, mechanical AVR on Coumadin
Condition: Fair
Diet: Low Cholesterol, 2 Gram Sodium and Restrict fluids to 48 oz
Activity: As tolerated
Bathing Restrictions: None
Blood Work: BMP 5-7 days after discharge (order placed on chart)
Other Services: VN, PT and OT
Instructions: *[facility] Heart Failure Instructions
Referrals:
Mira Gleason PA-C [Specified Professional Personl, Cardiology] - 05/18/25 10:20 am
Referral Note: You have cardiology follow-up with Mira Gleason PA-C on May 18 at 10:20 AM. If you are unable to make this appointment please call [phone] to reschedule
Rashid Maguire MD [Family Provider, Internal Medicine] - in one week
Prescriptions:
New
lisinopril 2.5 mg tablet
2.5 mg PO DAILY Qty: 30 0RF
metoprolol tartrate 25 mg Tablet
25 mg PO BID Qty: 60 0RF
furosemide [Lasix] 20 mg tablet
60 mg PO DAILY Qty: 90 0RF
dapagliflozin propanediol [Farxiga] 10 mg tablet
10 mg PO DAILY Qty: 30 0RF
Continued
Breztri Aerosphere 160-9-4.8 mcg/actuation Hfa Aerosol Inhaler
2 inh INHALATION R BID
azithromycin 250 mg Tablet
250 mg PO DAILY
albuterol sulfate 2.5 mg /3 mL (0.083 %) Solution For Nebulization
2.5 mg INHALATION R BID
budesonide 0.5 mg/2 mL Suspension For Nebulization
0.5 mg inhalation R BID Qty: 0 0RF
simvastatin 40 mg Tablet
40 mg PO QPM
prednisone 10 mg tablet
10 mg PO DAILY
warfarin 6 mg tablet
6 mg PO QPM Qty: 30 0RF
Discontinued
nebivolol [Bystolic] 5 mg Tablet
5 mg PO DAILY
furosemide 40 mg Tablet
40 mg PO DAILY Qty: 30 0RF
lisinopril 5 mg Tablet
5 mg PO DAILY 30 Days Qty: 30 0RF
Discharge Orders:
Discharge Patient (As Directed); Ordered 05/05/25
Ordered By: Silverio Solis
Discharge Date and Time
Print Language: MOZAMBICAN
--- NOTE | 2025-05-05 13:56 | CM ---
Addendum entered by Olena Pierce 05/05/25 14:35:
CM consult for drug prices
Jardiance 10mg daily for 30 days $43
Farxiga 10 mg lugo for 30 day requires a prior auth; no wyman given
Pt's son will drive pt home
Original Note:
Pt is discharged today on 2L nasal cannula, 98% saturation.
[facility]
consult for Farxiga 10 my daily
[2025-05-05 15:00] VITALS: BP 122/55
--- NOTE | 2025-05-08 10:54 | W.HF.CON ---
Heart Failure
- LV Function
Left ventricular function study result: LV Ejection fraction >/= 50%
Ejection Fraction Percentage: 55
- ARNI
Patient already on ARNI: No
Heart Failure ARNI Not Indicated: LV Ejection Fraction >/= 40%
- ACEI/ARB
Patient already on ACEI/ARB: Yes
- Beta Omar
Patient already on Evidence Based Beta Omar: No
Heart Failure Evidence Based Beta Omar Not Indicated: LV Ejection Fraction > 40%
- Mineralocorticord Receptor Antagonist
Patient already on MRA: Yes
- SGLT-2 Inhibitor
Patient already on SGLT-2 Inhibitor: Yes
- Afib Anticoagulation
Patient already on Anticoagulation for Afib: Yes
- NYHA CHF Classification
NYHA CHF Classification Level: Class III - Symptoms w/ min exertion, interferes w/ nml daily activity
- ACC/AHA Stage
ACC/AHA Stage: Stage C: Symptomatic Heart Failure
== END 2025-05-05 15:41 | disposition home health service (06) | DRG 291 ==
LOC: 4 EAST ACU 23:07
PROVIDERS: Hospitalist; Internal Medicine Cardiovascular Disease; Physician Assistant Medical; Registered Nurse; ADMITTING PHYSICIAN Hospitalist; ATTENDING PHYSICIAN Internal Medicine; CONSULT PHYSICIAN Internal Medicine Cardiovascular Disease; EMERGENCY PHYSICIAN Emergency Medicine; FAMILY PHYSICIAN Internal Medicine
DX: I11.0 Hypertensive heart disease with heart failure (principal); I50.33 Acute on chronic diastolic (congestive) heart failure; J96.21 Acute and chronic respiratory failure with hypoxia; J44.1 Chronic obstructive pulmonary disease with (acute) exacerbation; I48.21 Permanent atrial fibrillation; I47.19 Other supraventricular tachycardia; I5A Non-ischemic myocardial injury (non-traumatic); E78.00 Pure hypercholesterolemia, unspecified; J43.9 Emphysema, unspecified; I44.7 Left bundle-branch block, unspecified; I27.20 Pulmonary hypertension, unspecified; I35.0 Nonrheumatic aortic (valve) stenosis; Z60.2 Problems related to living alone; Z66 Do not resuscitate; Z95.0 Presence of cardiac pacemaker; Z95.2 Presence of prosthetic heart valve; Z87.891 Personal history of nicotine dependence; Z79.01 Long term (current) use of anticoagulants; Z99.81 Dependence on supplemental oxygen; Z88.5 Allergy status to narcotic agent; Z79.51 Long term (current) use of inhaled steroids; Z79.52 Long term (current) use of systemic steroids; Z79.899 Other long term (current) drug therapy
CPT/HCPCS: 36415; 71046; 80048; 80053; 80061; 82962; 83735; 83880; 84443; 84484; 85025; 85027; 85610; 93005; 94640; 96374; 97116; 97163; 97167; 97530; 97535; 99285

== ENCOUNTER → 2025-05-12 10:21 | Outpatient (REF) | payer MEDICARE, OTHER, SELFPAY ==
[2025-05-12 11:30] LABS: INR 3.36; PT 34.2 Sec (11.4-14.6)
[2025-05-12 11:50] LABS: Blood Urea Nitrogen 56 mg/dl (9-20); Calcium 8.9 mg/dl (8.4-10.2); Carbon Dioxide 33 mmol/L (22-30); Chloride 98 mmol/L (98-107); Glucose 103 mg/dl (70-99); Potassium 4.3 mmol/L (3.5-5.1); Sodium 138 mmol/L (135-145); eGFR 42.49
== END ==
LOC: REG 10:21
PROVIDERS: ATTENDING PHYSICIAN Nuclear Medicine Nuclear Cardiology; FAMILY PHYSICIAN Internal Medicine; OTHER PHYSICIAN Internal Medicine; OTHER PHYSICIAN Physician Assistant Medical
DX: I50.30 Unspecified diastolic (congestive) heart failure (principal); Z79.01 Long term (current) use of anticoagulants; Z95.2 Presence of prosthetic heart valve
CPT/HCPCS: 36415; 80048; 85610

== ENCOUNTER → 2025-05-31 12:40 | Outpatient (REF) | payer MEDICARE, OTHER, SELFPAY ==
[2025-05-31 15:42] LABS: Blood Urea Nitrogen 56 mg/dl (9-20); Calcium 9.1 mg/dl (8.4-10.2); Carbon Dioxide 32 mmol/L (22-30); Chloride 97 mmol/L (98-107); Glucose 88 mg/dl (70-99); Potassium 3.9 mmol/L (3.5-5.1); Sodium 136 mmol/L (135-145); eGFR 36.89
== END ==
LOC: REG 12:40
PROVIDERS: ATTENDING PHYSICIAN Physician Assistant Medical; FAMILY PHYSICIAN Internal Medicine
DX: I50.30 Unspecified diastolic (congestive) heart failure (principal)
CPT/HCPCS: 36415; 80048; 83880